=== PATIENT | female | born 1935 | race Caucasian/White ===

== ENCOUNTER → 2018-03-30 10:26 | Outpatient (CLI) | payer MEDICARE, SELFPAY ==
[2018-03-30 11:17] LABS: Add Manual Diff / Slide Review NO; Basophils Percent Auto 0.3 % (0-2); Eosinophils Percent Auto 3.9 % (2-4); Lymphocytes Percent Auto 24.6 % (25-40); Mean Corpuscular HGB Conc 34.2 % (30-36); Mean Corpuscular Hemoglobin 31.3 PG (26-34); Mean Corpuscular Volume 91.5 fL (80-100); Monocytes Percent Auto 7.9 % (3-14); Neutrophils Absolute Auto 5100 /uL (3000-5900); Neutrophils Percent Auto 63.3 % (50-75); Platelet Count 243 X10^3/uL (150-400); Red Cell Distribution Width 15.4 % (11.6-14.8)
[2018-03-30 11:45] LABS: Alanine Aminotransferase 24 IU/L (9-52); Aspartate Aminotransferase 39 IU/L (14-36); Blood Urea Nitrogen 20 mg/dL (7-17); Carbon Dioxide 29 mmol/L (22-32); Chloride 96 mmol/L (98-107); Cholesterol 147 mg/dL (140-199); Estimated Glomerular Filt Rate 53.2 mL/min (>60); Glucose 107 mg/dL (80-110); HDL Cholesterol 53 mg/dL (40-60); HEMOLYSIS < 15 (0-50); LDL Cholesterol Calculated 85 mg/dL (<100); Sodium 133 mmol/L (137-145); Triglycerides 44 mg/dL (35-150)
== END ==
PROVIDERS: Visit Provider Internal Medicine
DX: N18.3 Chronic kidney disease, stage 3 (moderate) (principal); E78.5 Hyperlipidemia, unspecified; K27.9 Peptic ulcer, site unspecified, unspecified as acute or chronic, without hemorrhage or perforation
CPT/HCPCS: 36415; 80048; 80061; 84450; 84460; 85025

== ENCOUNTER → 2018-06-15 17:14 | Outpatient (REF) | payer MEDICARE, SELFPAY ==
[2018-06-15 17:28] LABS: BUN Creatinine Ratio 35.8 (6-22); Blood Urea Nitrogen 43 mg/dL (7-17); Calcium 9.9 mg/dL (8.4-10.2); Carbon Dioxide 28 mmol/L (22-32); Chloride 94 mmol/L (98-107); Estimated Glomerular Filt Rate 43.1 mL/min (>60); Glucose 99 mg/dL (80-110); HEMOLYSIS < 15 (0-50); Potassium 4.7 mmol/L (3.4-5.1); Sodium 134 mmol/L (137-145)
== END ==
LOC: LAB 17:14
PROVIDERS: Visit Provider Internal Medicine
DX: I50.9 Heart failure, unspecified (principal)
CPT/HCPCS: 80048; 83880

== ENCOUNTER → 2018-06-24 14:58 | Outpatient (CLI) | payer MEDICARE, SELFPAY ==
--- NOTE | 2018-06-24 08:00 | DI.ECHO.S_ITS ---
Echocardiogram Report + + :Name: SHANNAN APPLE Study Date: 06/24/2018 Height: 59 in : :[facility] Weight: 222 lb : : Gender: Female BSA: 1.9 m2 : :: 1935 Age: 82 yrs BP: 168/66 mmHg: :Reason For Study: Congestive Heart Failure : : Performed By: Eileen Brown : :Referring: MARTINEZ REHMAN : + + Interpretation Summary Normal left ventricle size with ejection fraction 60-65%. Severely dilated left atrium. TAVR is well seated. Moderate mitral annular calcification. Mild mitral regurgitation. Mild to moderate tricuspid regurgitation. The right ventricular systolic pressure is estimated to be at least 64 mmHg based on an estimated right atrial pressure of 3 mm Hg. Moderate-severe pulmonary hypertension. Procedure: A two-dimensional transthoracic echocardiogram with color flow and Doppler was performed. The study quality was technically good. There is no prior echocardiogram noted for this patient. The patient was in normal sinus rhythm during the exam. Left Ventricle: The left ventricle is normal in size. There is normal left ventricular wall thickness. The ejection fraction is estimated to be 60-65%. There are no focal wall motion abnormalities. Diastolic parameters suggest probable normal left ventricular diastolic function and normal filling pressures. Right Ventricle: The right ventricle grossly appears normal in size with probable normal systolic function. Atria: The left atrium is severely dilated. Right atrial size is normal. The interatrial septum is intact with no evidence for an atrial septal defect. Mitral Valve: The mitral valve leaflets appear mildly thickened, but open well. There is moderate mitral annular calcification. There is mild mitral regurgitation. Aortic Valve: TAVR is well seated. The peak aortic velocity is 1.99 m/sec. There is trace aortic regurgitation. Tricuspid Valve: The tricuspid valve leaflets are thin and pliable. There is mild to moderate tricuspid regurgitation. The right ventricular systolic pressure is estimated to be at least 64 mmHg based on an estimated right atrial pressure of 3 mm Hg. There is moderate-severe pulmonary hypertension. Pulmonic Valve: The pulmonic valve is not well seen, but is grossly normal. There is trace pulmonic regurgitation. Great Vessels: The dimensions of the ascending aorta are normal. The aortic arch is normal in size. The IVC is of normal diameter and collapses greater than 50% with a sniff. This suggests a low right atrial pressure of 3 mm Hg. Pericardium/ Pleura There is no pericardial effusion. There is no pleural effusion. MMode/2D Measurements & Calculations LVIDd: 4.8 cm LVOT diam: 1.7 cm LVIDs: 3.2 cm asc Aorta Diam: 3.4 cm FS: 32.6 % Ao Arch Diam (Prox Trans): 2.5 cm EPSS: 0.88 cm IVSd: 1.0 cm LVPWd: 0.99 cm LV green. diameter/BSA (cm/m^2): 2.5 LV sys. diameter/BSA (cm/m^2): 1.7 LA dimension: 4.9 cm RA long axis: 5.5 cm LA A2 area: 30.9 cm2 RA area: 17.7 cm2 LA A4 area: 34.6 cm2 RA vol: 48.5 ml LA length (vol): 6.5 cm RA : 25.2 ml/m2 LA vol: 139.5 ml IVC diam: 1.7 cm LA vol index: 72.4 ml/m2 RVDd major: 5.7 cm RVD1 (basal): 3.9 cm RVD2 (mid): 3.7 cm Doppler Measurements & Calculations Ao V2 max: 199.3 cm/sec LVOT Max Isai: 91.6 cm/sec Ao V2 mean: 119.2 cm/sec LV V1 max P.4 mmHg Ao max P.9 mmHg LV V1 VTI: 29.1 cm Ao mean P.9 mmHg TERE(I,D): 1.3 cm2 Ao V2 VTI: 50.2 cm TERE(V,D): 0.99 cm2 sev ratio: 0.58 TERE indexed to BSA (cm^2/m^2): 0.65 MV E max isai: 132.2 cm/sec TR max isai: 391.0 cm/sec MV A max isai: 102.5 cm/sec TR max P.1 mmHg MV E/A: 1.3 PA Accel Time: 0.11 sec MV dec time: 0.25 sec MV P1/2t: 75.1 msec MV P1/2t max isai: 132.3 cm/sec SV(LVOT): 62.8 ml MVA(P1/2t): 2.9 cm2 _ Electronically signed by: Eloy Prieto on Reading Physician:06/24/2018 05:34 PM
== END ==
PROVIDERS: PCP Internal Medicine; Visit Provider Internal Medicine
DX: I08.1 Rheumatic disorders of both mitral and tricuspid valves (principal); I50.9 Heart failure, unspecified; I27.20 Pulmonary hypertension, unspecified
CPT/HCPCS: 93306

== ENCOUNTER → 2018-07-19 11:59 | Outpatient (CLI) | payer MEDICARE, SELFPAY ==
[2018-07-19 12:19] LABS: Add Manual Diff / Slide Review NO; Basophils Absolute Auto 0 /uL (0-100); Basophils Percent Auto 0.4 % (0-2); Eosinophils Absolute Auto 400 /uL (0-450); Eosinophils Percent Auto 5.3 % (2-4); Hematocrit 24.5 % (36-46); Hemoglobin 8.4 g/dL (12.0-16.0); Lymphocytes Absolute Auto 1200 /uL (1100-4500); Lymphocytes Percent Auto 18.4 % (25-40); Mean Corpuscular HGB Conc 34.2 % (30-36); Mean Corpuscular Hemoglobin 33.8 PG (26-34); Monocytes Absolute Auto 800 /uL (0-900); Monocytes Percent Auto 11.3 % (3-14); Neutrophils Absolute Auto 4300 /uL (1500-7000); Neutrophils Percent Auto 64.6 % (50-75); Platelet Count 211 X10^3/uL (150-400); Red Blood Cell Count 2.48 X10^6/uL (4.0-5.2); Red Cell Distribution Width 19.2 % (11.6-14.8); White Blood Cell Count 6.7 X10^3/uL (4.5-11.0)
== END ==
PROVIDERS: PCP Internal Medicine; Visit Provider Internal Medicine
DX: R79.9 Abnormal finding of blood chemistry, unspecified (principal)
CPT/HCPCS: 36415; 85025

== ENCOUNTER 2018-09-10 16:35 | Inpatient (IN) | payer MEDICARE, SELFPAY ==
[2018-09-10 16:46] VITALS: BP 131/65; PULSE 50; RESP 18; TEMP 35.9; O2SAT 99
[2018-09-10] MEDS: ALBUTEROL 2.5 MG/3 ML NEB (ADULT) INH ×2 (16:51→16:52)
--- NOTE | 2018-09-10 16:52 | ED.CHESTPAIN ---
HPI - Chest Pain General Chief Complaint: Chest Pain Stated Complaint: Chest Pain Time Seen by Provider: 09/10/18 16:38 Source: patient, family (daughter) and EMS Mode of arrival: EMS Limitations: no limitations History of Present Illness HPI narrative: This is an 83-year-old female who comes in with complaint of shortness of breath. According to the patient and her family it has been worsening over the last several days. Patient has been seeing her programs director who has been adjusting her medications. They increased her furosemide from 60 mg for 3 days and then the plan was reduced to 40 mg daily. He also had her stop her losartan and change her hydralazine to twice daily. Patient states she has not had any fevers, no cold cough or congestion. She has felt short of breath she has received neb treatments which she found very helpful. She does have a history sounds like maybe some COPD and she has a remote history of tobacco abuse and does use inhalers at home. Her heart rate is slow intermittently here and she appears to be in AFib which she states she does not have a history of. She has had chest discomfort with deep breathing. She has not had any abdominal pain she denies any nausea or vomiting. she has not had any syncope. Related Data Home Medications Medication Instructions Recorded Confirmed acyclovir 400 mg PO BID 09/10/18 09/10/18 ascorbic acid (vitamin C) [Vitamin 250 mg PO DAILY 09/10/18 09/10/18 C] atorvastatin 20 mg PO BEDTIME 09/10/18 09/10/18 calcium citrate-vitamin D3 1 tab PO DAILY 09/10/18 09/10/18 [Calcitrate-Vitamin D] carvedilol 12.5 mg PO BID 09/10/18 09/10/18 cetirizine 10 mg PO DAILY 09/10/18 09/10/18 ferrous gluconate 324 mg PO BID 09/10/18 09/10/18 fish,bora,flax oils-om3,6,9no1 1 tab PO DAILY 09/10/18 09/10/18 [[place] 3-6-9] furosemide See Rx Instructions .ROUTE .COMPLEX 09/10/18 09/10/18 hydralazine 50 mg PO BID 09/10/18 09/10/18 levothyroxine 25 mcg PO DAILY 09/10/18 09/10/18 melatonin 3 mg PO BEDTIME PRN 09/10/18 09/10/18 multivitamin 1 tab PO DAILY 09/10/18 09/10/18 omega-3 fatty acids-fish oil [Fish 1 cap PO DAILY 09/10/18 09/10/18 Oil Pearls] omeprazole magnesium [Acid Director Utilization Management 20 mg PO BID 09/10/18 09/10/18 (omeprazole)] ticagrelor [Brilinta] 90 mg PO BID 09/10/18 09/10/18 Allergies Allergy/AdvReac Type Severity Reaction Status Date / Time morphine AdvReac Hallucinati Verified 09/10/18 16:56 ng Review of Systems Review of Systems ROS Unobtainable: All systems reviewed & are unremarkable except as noted in HPI and below Constitutional Denies chills, Denies fever(s), Denies headache(s), Denies lethargy and Denies weakness ENT Ears, Nose, Mouth, and Throat: Denies headache(s) Cardiovascular Denies chest pain, Denies diaphoresis, Denies syncope, Reports edema, Denies irregular heart rhythm, Denies lightheadedness, Denies radiating jaw, neck or arm pain, Denies palpitations, Reports dyspnea, Reports dyspnea on exertion and Denies orthopnea Respiratory Denies chest congestion, Denies cough, Reports dyspnea, Reports dyspnea on exertion and Reports wheezing Gastrointestinal Gastrointestinal: Denies abdominal pain, Denies change in bowel habits, Denies diarrhea, Denies nausea and Denies vomiting Musculoskeletal Denies back pain, Denies muscle weakness, Denies numbness and Denies tingling Integumentary/Breasts Denies rash Neurologic Denies syncope, Denies headache(s), Denies numbness, Denies tingling and Denies weakness Endocrine Denies palpitations Allergic/Immunologic Reports wheezing PFSH Medical History Chronic kidney disease (Chronic) Hypertension (Chronic) Hypothyroid (Chronic) Surgical History Hx of heart artery stent (Acute) S/P TAVR (transcatheter aortic valve replacement) (Chronic) Social History Smoking Status: Former smoker substance use type: does not use Social History Smoking Status: Former smoker substance use type: does not use Exam Narrative Exam Narrative: GENERAL: Alert and oriented x three, Obese female in moderate distress. HEENT: Head normocephalic, atraumatic, EOMI, pupils reactive, face symmetric, moist mucous membranes NECK: Supple, full range of motion CARDIOVASCULAR: Bradycardic and irregularly irregularand rhythm without murmurs, rubs or gallops. patient has bilateral trace edema. Her lower extremities RESPIRATORY: Breath sounds decreased bilateral, no wheezes, no rales or rhonchi. tachypnea. No accessory muscle use. ABDOMEN: Soft, nontender. Normoactive bowel sounds all 4 quadrants. No guarding or rebound, rigidity, no mass : No CVA tenderness EXTREMITIES: Normal range of motion, no clubbing or edema. Neurovascularly intact NEUROLOGICAL: Cranial nerves II through XII grossly intact. Moving all extremities SKIN: Warm, dry, no petechiae, no rashes or lesions. Initial Vital Signs Initial Vital Signs: Vital Signs Temperature 96.6 F L 09/10/18 16:46 Pulse Rate 50 L 09/10/18 16:46 Respiratory Rate 18 09/10/18 16:46 Blood Pressure 131/65 09/10/18 16:46 Pulse Oximetry 99 09/10/18 16:46 Course Orders Ordered: ED Orders 09/10/18 16:50 Consult to Respiratory Therapy Evaluate & Treat 09/10/18 16:51 XR chest 1V Stat 09/10/18 17:00 B Type Natriuretic Peptide Stat Complete Blood Count AUTO DIFF Stat Comprehensive Metabolic Panel Stat Magnesium Stat Partial Thromboplastin Time Stat Procalcitonin Stat Prothrombin Time INR Stat Troponin & CK Cardiac Panel Stat 09/10/18 17:40 Lactate (Lactic Acid) Stat 09/10/18 20:36 Partial Thromboplastin Time Stat 09/10/18 20:45 PTT [Partial Thromboplastin Time] Q6H 09/11/18 02:45 PTT [Partial Thromboplastin Time] Q6H 09/11/18 05:00 Hemoglobin and Hematocrit DAILY 09/11/18 08:45 PTT [Partial Thromboplastin Time] Q6H 09/11/18 14:45 PTT [Partial Thromboplastin Time] Q6H Albuterol (Ventolin) 2.5 mg INH NOW PRN PRN Reason: Shortness Of Breath Or Wheezing Last Admin: 09/10/18 16:52 Dose: 2.5 mg Admin: 09/10/18 16:51 Dose: 2.5 mg Discontinued Medications Aspirin (Aspirin Chew) 324 mg PO NOW ONE Stop: 09/10/18 16:51 Last Admin: 09/10/18 17:00 Dose: 324 mg Furosemide (Lasix) 80 mg IV NOW ONE Stop: 09/10/18 16:51 Last Admin: 09/10/18 17:01 Dose: 80 mg Methylprednisolone (Solu-Medrol 125 Mg Vial) 125 mg IV NOW ONE Stop: 09/10/18 16:51 Last Admin: 09/10/18 16:59 Dose: 125 mg Vital Signs - 8 hr 09/10/18 16:46 09/10/18 16:53 Temperature 96.6 F L Pulse Rate 50 L 42 L Respiratory Rate 18 14 Blood Pressure 131/65 Pulse Oximetry 99 100 MDM - Chest Pain Lab Data Attestation: I reviewed the patient's lab results. Result diagrams: 09/10/18 17:00 09/10/18 17:00 Lab Results 09/10/18 09/10/18 09/10/18 Range/Units 17:00 17:00 17:00 WBC 8.1 (4.5-11.0) X10^3/uL RBC 2.76 L (4.0-5.2) X10^6/uL Hgb 9.5 L (12.0-16.0) g/dL Hct 28.4 L (36-46) % MCV 103.2 H (80-100) fL MCH 34.3 H (26-34) PG MCHC 33.3 (30-36) % RDW 17.5 H (11.6-14.8) % Plt Count 155 (150-400) X10^3/uL Neut % (Auto) 76.3 H (50-75) % Lymph % (Auto) 10.5 L (25-40) % [place] % (Auto) 10.5 (3-14) % Eos % (Auto) 2.4 (2-4) % Baso % (Auto) 0.3 (0-2) % Neut # (Auto) 6200 (9349-0741) /uL Lymph # (Auto) 900 L (6927-0319) /uL [place] # (Auto) 900 (0-900) /uL Eos # (Auto) 200 (0-450) /uL Baso # (Auto) 0 (0-100) /uL PT 12.8 H (10.1-12.7) SECONDS INR 1.1 (0.9-1.3) APTT 37 H (26.4-36.2) SECONDS Sodium (137-145) mmol/L Potassium (3.4-5.1) mmol/L Chloride (98-107) mmol/L Carbon Dioxide (22-32) mmol/L BUN (7-17) mg/dL Creatinine (0.52-1.04) mg/dL Estimated GFR (>60) mL/min BUN/Creatinine Ratio (6-22) Glucose (80-110) mg/dL Lactate (0.7-2.1) mmol/L Calcium (8.4-10.2) mg/dL Magnesium 2.1 (1.6-2.3) mg/dL Total Bilirubin (0.2-1.3) mg/dL AST (14-36) IU/L ALT (9-52) IU/L Alkaline Phosphatase (38-126) U/L Total Creatine Kinase 38 (30-135) U/L CK-MB (CK-2) TNP CK-MB (CK-2) Rel Index TNP Troponin I < 0.012 (0.01-0.034) ng/mL B-Natriuretic Peptide 917 H (<100) Total Protein (6.3-8.2) g/dL Albumin (3.5-5.0) g/dL Globulin (1.7-4.1) g/dL Albumin/Globulin Ratio (1.0-2.8) Procalcitonin (<0.5) ng/mL 09/10/18 09/10/18 09/10/18 Range/Units 17:00 17:00 17:40 WBC (4.5-11.0) X10^3/uL RBC (4.0-5.2) X10^6/uL Hgb (12.0-16.0) g/dL Hct (36-46) % MCV (80-100) fL MCH (26-34) PG MCHC (30-36) % RDW (11.6-14.8) % Plt Count (150-400) X10^3/uL Neut % (Auto) (50-75) % Lymph % (Auto) (25-40) % [place] % (Auto) (3-14) % Eos % (Auto) (2-4) % Baso % (Auto) (0-2) % Neut # (Auto) (3661-6032) /uL Lymph # (Auto) (9985-7866) /uL [place] # (Auto) (0-900) /uL Eos # (Auto) (0-450) /uL Baso # (Auto) (0-100) /uL PT (10.1-12.7) SECONDS INR (0.9-1.3) APTT (26.4-36.2) SECONDS Sodium 133 L (137-145) mmol/L Potassium 5.3 H (3.4-5.1) mmol/L Chloride 98 (98-107) mmol/L Carbon Dioxide 25 (22-32) mmol/L BUN 72 H (7-17) mg/dL Creatinine 1.90 H (0.52-1.04) mg/dL Estimated GFR 25.3 L (>60) mL/min BUN/Creatinine Ratio 37.9 H (6-22) Glucose 108 (80-110) mg/dL Lactate 0.9 (0.7-2.1) mmol/L Calcium 9.4 (8.4-10.2) mg/dL Magnesium (1.6-2.3) mg/dL Total Bilirubin 0.6 (0.2-1.3) mg/dL AST 41 H (14-36) IU/L ALT 33 (9-52) IU/L Alkaline Phosphatase 180 H (38-126) U/L Total Creatine Kinase (30-135) U/L CK-MB (CK-2) CK-MB (CK-2) Rel Index Troponin I (0.01-0.034) ng/mL B-Natriuretic Peptide (<100) Total Protein 7.8 (6.3-8.2) g/dL Albumin 3.8 (3.5-5.0) g/dL Globulin 4.0 (1.7-4.1) g/dL Albumin/Globulin Ratio 1.0 (1.0-2.8) Procalcitonin < 0.05 (<0.5) ng/mL Urine Dip Bedside Urine Glucose Negative Bedside Urine Bilirubin - Negative Bedside Urine Ketone - Negative Urine Specific [place] 1.015 Bedside Urine Occult Blood - Negative Bedside Urine pH 5.5 Bedside Urine Protein - Negative Bedside Urine Urobilinogen - Negative Bedside Urine Nitrite - Negative Bedside Urine Leukocytes - Negative Esterase Imaging Data Chest x-ray: Radiologist's impression: Kristen Dsouza 83 F [address] [address] XRay Report Signed Patient: Kristen Dsouza [facility]#: [id number] : 7Acct:[id number] Age/Sex: 83 / FDate of Service: 09/10/18 Loc: ED Accession Number: [id number] Procedure: XR chest 1V Ordering Provider: Spring Sagastume D.O. PROCEDURE: XR CHEST 1V INDICATIONS: sob, extra fluid TECHNIQUE: One view of the chest was acquired. COMPARISON: None. FINDINGS: Surgical changes and devices: Prosthetic cardiac valve. Lungs and pleura: There is cephalization of the pulmonary vasculature, interstitial prominence and slight perihilar opacification compatible with CHF. No pleural effusions or pneumothorax. Mediastinum: Mediastinal contours appear normal. Atherosclerotic ossifications noted in the aortic arch. Heart size is normal. Bones and chest wall: No suspicious bony lesions. Overlying soft tissues appear unremarkable. IMPRESSION: Acute CHF. Dictated by: Hannah Olea MD, PhD on 09/10/2018 at 17:36 Approved by: Hannah Olea MD, PhD on 09/10/2018 at 17:37 ECG Data Attestation: I personally reviewed and interpreted this ECG as follows: Prior ECG tracings: available for review Interpretation: AFib with a rate of 60 QRS of 144 and QTC of 468. Right bundle branch block. No ST changes appreciated. Patient's prior EKG from 06/22/2018 as well as several others for all show a sinus rhythm. With an incomplete right bundle branch block. EKG 2. Shows AFib with slow ventricular response with a rate of 52, QRS of 125 and a QTC of 424. right bundle branch block. [facility] Narrative Medical decision making narrative: Patient comes in with some difficulty breathing patient states that she is feeling much better after breathing treatment but she also has been treated recently for worsening CHF. Patient has had recent changes to her medications. I do not have recent labs for comparison and the last are from May of 2018. Patient's creatinine appears to worsen from 1.2-1.9, BUN is 43-72, patient's potassium is slightly elevated 5.3 with a sodium of 133. Patient's lactate is 0.9. Her BNP is 917 which is up from 456 in May. Patient's troponin is normal at 0.12. Patient's hemoglobin is 9.5 which is improved from June which was 8.4, platelets are normal at 155. Patient's chest x-ray is consistent with CHF. Discussed with patient her EKGs and telemetry she consistently show atrial fibrillation she is a fairly poor historian but her and her daughter do not recall her having any diagnosis of AFib. She also has a TAVR in place. She states that she takes Brilinta she does not take aspirin that she is aware of. Or any other blood thinners. Spoke with Dr. Longoria from Cardiology he recommends heparin drip secondary to the new atrial fibrillation and to continue Brilinta but does not recommend aspirin in combination with these. If beds available would send to [facility]. Spoke with Arnoldo REGALADO he accepts for admission, discussed Dr. Longoria's recommendations. Discharge Plan Departure Patient Disposition: Admitted As Inpatient Clinical Impression: CHF (congestive heart failure), Acute kidney injury superimposed on CKD, Atrial fibrillation with slow ventricular response Referrals: Amanda Mann MD [Primary Care Provider] - Admit Date/Time: 09/10/18 20:21 Admit Provider: Cesar Garza
[2018-09-10 16:53] VITALS: PULSE 42; RESP 14; O2SAT 100
[2018-09-10] MEDS: methylPREDNISolone 125 MG/2 ML VIAL IV (16:59)
[2018-09-10] MEDS: ASPIRIN 81 MG TAB 324 MG PO (17:00)
[2018-09-10] MEDS: FUROSEMIDE 40 MG/4 ML VIAL 80 MG IV (17:01)
[2018-09-10 17:20] LABS: Add Manual Diff / Slide Review NO; Basophils Absolute Auto 0 /uL (0-100); Basophils Percent Auto 0.3 % (0-2); Eosinophils Absolute Auto 200 /uL (0-450); Eosinophils Percent Auto 2.4 % (2-4); Hematocrit 28.4 % (36-46); Hemoglobin 9.5 g/dL (12.0-16.0); Lymphocytes Absolute Auto 900 /uL (1100-4500); Lymphocytes Percent Auto 10.5 % (25-40); Mean Corpuscular HGB Conc 33.3 % (30-36); Mean Corpuscular Hemoglobin 34.3 PG (26-34); Mean Corpuscular Volume 103.2 fL (80-100); Monocytes Absolute Auto 900 /uL (0-900); Monocytes Percent Auto 10.5 % (3-14); Neutrophils Absolute Auto 6200 /uL (1500-7000); Neutrophils Percent Auto 76.3 % (50-75); Platelet Count 155 X10^3/uL (150-400); Red Blood Cell Count 2.76 X10^6/uL (4.0-5.2); Red Cell Distribution Width 17.5 % (11.6-14.8); White Blood Cell Count 8.1 X10^3/uL (4.5-11.0)
[2018-09-10 17:24] LABS: INR 1.1 (0.9-1.3); Prothrombin Time 12.8 SECONDS (10.1-12.7)
[2018-09-10 17:27] LABS: PTT Partial Thromboplastin Tim 37 SECONDS (26.4-36.2)
[2018-09-10 17:34] LABS: Alanine Aminotransferase 33 IU/L (9-52); Albumin 3.8 g/dL (3.5-5.0); Alkaline Phosphatase 180 U/L (38-126); Aspartate Aminotransferase 41 IU/L (14-36); BUN Creatinine Ratio 37.9 (6-22); Bilirubin Total 0.6 mg/dL (0.2-1.3); Blood Urea Nitrogen 72 mg/dL (7-17); Calcium 9.4 mg/dL (8.4-10.2); Carbon Dioxide 25 mmol/L (22-32); Chloride 98 mmol/L (98-107); Creatine Kinase 38 U/L (30-135); Estimated Glomerular Filt Rate 25.3 mL/min (>60); Glucose 108 mg/dL (80-110); HEMOLYSIS < 15 (0-50); Magnesium 2.1 mg/dL (1.6-2.3); Potassium 5.3 mmol/L (3.4-5.1); Sodium 133 mmol/L (137-145); Total Protein 7.8 g/dL (6.3-8.2)
[2018-09-10 17:43] LABS: Troponin I < 0.012 ng/mL (0.01-0.034)
[2018-09-10 17:50] LABS: Procalcitonin < 0.05 ng/mL (<0.5)
[2018-09-10 17:51] LABS: B Type Natriuretic Peptide 917 (<100)
[2018-09-10 18:00] LABS: Lactate (Lactic Acid) 0.9 mmol/L (0.7-2.1)
--- NOTE | 2018-09-10 19:08 | ED_ITS ---
HPI - Chest Pain General Chief Complaint: Chest Pain Stated Complaint: Chest Pain Time Seen by Provider: 09/10/18 16:38 Source: patient, family (daughter) and EMS Mode of arrival: EMS Limitations: no limitations History of Present Illness HPI narrative: This is an 83-year-old female who comes in with complaint of shortness of breath. According to the patient and her family it has been worsening over the last several days. Patient has been seeing her precision jig grinder who has been adjusting her medications. They increased her furosemide from 60 mg for 3 days and then the plan was reduced to 40 mg daily. He also had her stop her losartan and change her hydralazine to twice daily. Patient states she has not had any fevers, no cold cough or congestion. She has felt short of breath she has received neb treatments which she found very helpful. She does have a history sounds like maybe some COPD and she has a remote history of tobacco abuse and does use inhalers at home. Her heart rate is slow intermit tently here and she appears to be in AFib which she states she does not have a history of. She has had chest discomfort with deep breathing. She has not had any abdominal pain she denies any nausea or vomiting. she has not had any syncope. Related Data Home Medications Medication Instructions Recorded Confirmed acyclovir 400 mg PO BID 09/10/18 09/10/18 ascorbic acid (vitamin C) [Vitamin 250 mg PO DAILY 09/10/18 09/10/18 C] atorvastatin 20 mg PO BEDTIME 09/10/18 09/10/18 calcium citrate-vitamin D3 1 tab PO DAILY 09/10/18 09/10/18 [Calcitrate-Vitamin D] carvedilol 12.5 mg PO BID 09/10/18 09/10/18 cetirizine 10 mg PO DAILY 09/10/18 09/10/18 ferrous gluconate 324 mg PO BID 09/10/18 09/10/18 fish,bora,flax oils-om3,6,9no1 1 tab PO DAILY 09/10/18 09/10/18 [[place] 3-6-9] furosemide See Rx Instructions .ROUTE .COMPLEX 09/10/18 09/10/18 hydralazine 50 mg PO BID 09/10/18 09/10/18 levothyroxine 25 mcg PO DAILY 09/10/18 09/10/18 melatonin 3 mg PO BEDTIME PRN 09/10/18 09/10/18 multivitamin 1 tab PO DAILY 09/10/18 09/10/18 omega-3 fatty acids-fish oil [Fish 1 cap PO DAILY 09/10/18 09/10/18 Oil Pearls] omeprazole magnesium [Acid Sausage Wrapper 20 mg PO BID 09/10/18 09/10/18 (omeprazole)] ticagrelor [Brilinta] 90 mg PO BID 09/10/18 09/10/18 Allergies Allergy/AdvReac Type Severity Reaction Status Date / Time morphine AdvReac Hallucinati Verified 09/10/18 16:56 ng Review of Systems Review of Systems ROS Unobtainable: All systems reviewed & are unremarkable except as noted in HPI and below Constitutional Denies chills, Denies fever(s), Denies headache(s), Denies lethargy and Denies weakness ENT Ears, Nose, Mouth, and Throat: Denies headache(s) Cardiovascular Denies chest pain, Denies diaphoresis, Denies syncope, Reports edema, Denies irregular heart rhythm, Denies lightheadedness, Denies radiating jaw, neck or arm pain, Denies palpitations, Reports dyspnea, Reports dyspnea on exertion and Denies orthopnea Respiratory Denies chest congestion, Denies cough, Reports dyspnea, Reports dyspnea on exertion and Reports wheezing Gastrointestinal Gastrointestinal: Denies abdominal pain, Denies change in bowel habits, Denies diarrhea, Denies nausea and Denies vomiting Musculoskeletal Denies back pain, Denies muscle weakness, Denies numbness and Denies tingling Integumentary/Breasts Denies rash Neurologic Denies syncope, Denies headache(s), Denies numbness, Denies tingling and Denies weakness Endocrine Denies palpitations Allergic/Immunologic Reports wheezing PFSH Medical History Chronic kidney disease (Chronic) Hypertension (Chronic) Hypothyroid (Chronic) Surgical History Hx of heart artery stent (Acute) S/P TAVR (transcatheter aortic valve replacement) (Chronic) Social History Smoking Status: Former smoker substance use type: does not use Social History Smoking Status: Former smoker substance use type: does not use Exam Narrative Exam Narrative: GENERAL: Alert and oriented x three, Obese female in moderate distress. HEENT: Head normocephalic, atraumatic, EOMI, pupils reactive, face symmetric, moist mucous membranes NECK: Supple, full range of motion CARDIOVASCULAR: Bradycardic and irregularly irregularand rhythm without murmurs, rubs or gallops. patient has bilateral trace edema. Her lower extremities RESPIRATORY: Breath sounds decreased bilateral, no wheezes, no rales or rhonchi. tachypnea. No accessory muscle use. ABDOMEN: Soft, nontender. Normoactive bowel sounds all 4 quadrants. No guarding or rebound, rigidity, no mass : No CVA tenderness EXTREMITIES: Normal range of motion, no clubbing or edema. Neurovascularly intact NEUROLOGICAL: Cranial nerves II through XII grossly intact. Moving all extremities SKIN: Warm, dry, no petechiae, no rashes or lesions. Initial Vital Signs Initial Vital Signs: Vital Signs Temperature 96.6 F L 09/10/18 16:46 Pulse Rate 50 L 09/10/18 16:46 Respiratory Rate 18 09/10/18 16:46 Blood Pressure 131/65 09/10/18 16:46 Pulse Oximetry 99 09/10/18 16:46 Course Orders Ordered: ED Orders 09/10/18 16:50 Consult to Respiratory Therapy Evaluate & Treat 09/10/18 16:51 XR chest 1V Stat 09/10/18 17:00 B Type Natriuretic Peptide Stat Complete Blood Count AUTO DIFF Stat Comprehensive Metabolic Panel Stat Magnesium Stat Partial Thromboplastin Time Stat Procalcitonin Stat Prothrombin Time INR Stat Troponin & CK Cardiac Panel Stat 09/10/18 17:40 Lactate (Lactic Acid) Stat 09/10/18 20:36 Partial Thromboplastin Time Stat 09/10/18 20:45 PTT [Partial Thromboplastin Time] Q6H 09/11/18 02:45 PTT [Partial Thromboplastin Time] Q6H 09/11/18 05:00 Hemoglobin and Hematocrit DAILY 09/11/18 08:45 PTT [Partial Thromboplastin Time] Q6H 09/11/18 14:45 PTT [Partial Thromboplastin Time] Q6H Albuterol (Ventolin) 2.5 mg INH NOW PRN PRN Reason: Shortness Of Breath Or Wheezing Last Admin: 09/10/18 16:52 Dose: 2.5 mg Admin: 09/10/18 16:51 Dose: 2.5 mg Discontinued Medications Aspirin (Aspirin Chew) 324 mg PO NOW ONE Stop: 09/10/18 16:51 Last Admin: 09/10/18 17:00 Dose: 324 mg Furosemide (Lasix) 80 mg IV NOW ONE Stop: 09/10/18 16:51 Last Admin: 09/10/18 17:01 Dose: 80 mg Methylprednisolone (Solu-Medrol 125 Mg Vial) 125 mg IV NOW ONE Stop: 09/10/18 16:51 Last Admin: 09/10/18 16:59 Dose: 125 mg Vital Signs - 8 hr 09/10/18 16:46 09/10/18 16:53 Temperature 96.6 F L Pulse Rate 50 L 42 L Respiratory Rate 18 14 Blood Pressure 131/65 Pulse Oximetry 99 100 MDM - Chest Pain Lab Data Attestation: I reviewed the patient's lab results. Result diagrams: 09/10/18 17:00 09/10/18 17:00 Lab Results 09/10/18 09/10/18 09/10/18 Range/Units 17:00 17:00 17:00 WBC 8.1 (4.5-11.0) X10^3/uL RBC 2.76 L (4.0-5.2) X10^6/uL Hgb 9.5 L (12.0-16.0) g/dL Hct 28.4 L (36-46) % MCV 103.2 H (80-100) fL MCH 34.3 H (26-34) PG MCHC 33.3 (30-36) % RDW 17.5 H (11.6-14.8) % Plt Count 155 (150-400) X10^3/uL Neut % (Auto) 76.3 H (50-75) % Lymph % (Auto) 10.5 L (25-40) % [place] % (Auto) 10.5 (3-14) % Eos % (Auto) 2.4 (2-4) % Baso % (Auto) 0.3 (0-2) % Neut # (Auto) 6200 (2038-3925) /uL Lymph # (Auto) 900 L (3406-9860) /uL [place] # (Auto) 900 (0-900) /uL Eos # (Auto) 200 (0-450) /uL Baso # (Auto) 0 (0-100) /uL PT 12.8 H (10.1-12.7) SECONDS INR 1.1 (0.9-1.3) APTT 37 H (26.4-36.2) SECONDS Sodium (137-145) mmol/L Potassium (3.4-5.1) mmol/L Chloride (98-107) mmol/L Carbon Dioxide (22-32) mmol/L BUN (7-17) mg/dL Creatinine (0.52-1.04) mg/dL Estimated GFR (>60) mL/min BUN/Creatinine Ratio (6-22) Glucose (80-110) mg/dL Lactate (0.7-2.1) mmol/L Calcium (8.4-10.2) mg/dL Magnesium 2.1 (1.6-2.3) mg/dL Total Bilirubin (0.2-1.3) mg/dL AST (14-36) IU/L ALT (9-52) IU/L Alkaline Phosphatase (38-126) U/L Total Creatine Kinase 38 (30-135) U/L CK-MB (CK-2) TNP CK-MB (CK-2) Rel Index TNP Troponin I < 0.012 (0.01-0.034) ng/mL B-Natriuretic Peptide 917 H (<100) Total Protein (6.3-8.2) g/dL Albumin (3.5-5.0) g/dL Globulin (1.7-4.1) g/dL Albumin/Globulin Ratio (1.0-2.8) Procalcitonin (<0.5) ng/mL 09/10/18 09/10/18 09/10/18 Range/Units 17:00 17:00 17:40 WBC (4.5-11.0) X10^3/uL RBC (4.0-5.2) X10^6/uL Hgb (12.0-16.0) g/dL Hct (36-46) % MCV (80-100) fL MCH (26-34) PG MCHC (30-36) % RDW (11.6-14.8) % Plt Count (150-400) X10^3/uL Neut % (Auto) (50-75) % Lymph % (Auto) (25-40) % [place] % (Auto) (3-14) % Eos % (Auto) (2-4) % Baso % (Auto) (0-2) % Neut # (Auto) (2964-7994) /uL Lymph # (Auto) (0129-9341) /uL [place] # (Auto) (0-900) /uL Eos # (Auto) (0-450) /uL Baso # (Auto) (0-100) /uL PT (10.1-12.7) SECONDS INR (0.9-1.3) APTT (26.4-36.2) SECONDS Sodium 133 L (137-145) mmol/L Potassium 5.3 H (3.4-5.1) mmol/L Chloride 98 (98-107) mmol/L Carbon Dioxide 25 (22-32) mmol/L BUN 72 H (7-17) mg/dL Creatinine 1.90 H (0.52-1.04) mg/dL Estimated GFR 25.3 L (>60) mL/min BUN/Creatinine Ratio 37.9 H (6-22) Glucose 108 (80-110) mg/dL Lactate 0.9 (0.7-2.1) mmol/L Calcium 9.4 (8.4-10.2) mg/dL Magnesium (1.6-2.3) mg/dL Total Bilirubin 0.6 (0.2-1.3) mg/dL AST 41 H (14-36) IU/L ALT 33 (9-52) IU/L Alkaline Phosphatase 180 H (38-126) U/L Total Creatine Kinase (30-135) U/L CK-MB (CK-2) CK-MB (CK-2) Rel Index Troponin I (0.01-0.034) ng/mL B-Natriuretic Peptide (<100) Total Protein 7.8 (6.3-8.2) g/dL Albumin 3.8 (3.5-5.0) g/dL Globulin 4.0 (1.7-4.1) g/dL Albumin/Globulin Ratio 1.0 (1.0-2.8) Procalcitonin < 0.05 (<0.5) ng/mL Urine Dip Bedside Urine Glucose Negative Bedside Urine Bilirubin - Negative Bedside Urine Ketone - Negative Urine Specific [place] 1.015 Bedside Urine Occult Blood - Negative Bedside Urine pH 5.5 Bedside Urine Protein - Negative Bedside Urine Urobilinogen - Negative Bedside Urine Nitrite - Negative Bedside Urine Leukocytes - Negative Esterase Imaging Data Chest x-ray: Radiologist's impression: Kristen Dsouza 83 F [address] [address] XRay Report Signed Patient: Kristen Dsouza AMR#: [id number] : 7Acct:[id number] Age/Sex: 83 / FDate of Service: 09/10/18 Loc: ED Accession Number: [id number] Procedure: XR chest 1V Ordering Provider: Spring Sagastume D.O. PROCEDURE: XR CHEST 1V INDICATIONS: sob, extra fluid TECHNIQUE: One view of the chest was acquired. COMPARISON: None. FINDINGS: Surgical changes and devices: Prosthetic cardiac valve. Lungs and pleura: There is cephalization of the pulmonary vasculature, interstitial prominence and slight perihilar opacification compatible with CHF. No pleural effusions or pneumothorax. Mediastinum: Mediastinal contours appear normal. Atherosclerotic ossifications noted in the aortic arch. Heart size is normal. Bones and chest wall: No suspicious bony lesions. Overlying soft tissues appear unremarkable. IMPRESSION: Acute CHF. Dictated by: Hannah Olea MD, PhD on 09/10/2018 at 17:36 Approved by: Hannah Olea MD, PhD on 09/10/2018 at 17:37 ECG Data Attestation: I personally reviewed and interpreted this ECG as follows: Prior ECG tracings: available for review Interpretation: AFib with a rate of 60 QRS of 144 and QTC of 468. Right bundle branch block. No ST changes appreciated. Patient's prior EKG from 06/22/2018 as well as several others for all show a sinus rhythm. With an incomplete right bundle branch block. EKG 2. Shows AFib with slow ventricular response with a rate of 52, QRS of 125 and a QTC of 424. right bundle branch block. MDM Narrative Medical decision making narrative: Patient comes in with some difficulty breathing patient states that she is feeling much better after breathing treatment but she also has been treated recently for worsening CHF. Patient has had recent changes to her medications. I do not have recent labs for comparison and the last are from May of 2018. Patient's creatinine appears to worsen from 1.2-1.9, BUN is 43-72, patient's potassium is slightly elevated 5.3 with a sodium of 133. Patient's lactate is 0.9. Her BNP is 917 which is up from 456 in May. Patient's troponin is normal at 0.12. Patient's hemoglobin is 9.5 which is improved from June which was 8.4, platelets are normal at 155. Patient's chest x-ray is consistent with CHF. Discussed with patient her EKGs and telemetry she consistently show atrial fibrillation she is a fairly poor his mando but her and her daughter do not recall her having any diagnosis of AFib. She also has a TAVR in place. She states that she takes Brilinta she does not take aspirin that she is aware of. Or any other blood thinners. Spoke with Dr. Longoria from Cardiology he recommends heparin drip secondary to the new atrial fibrillation and to continue Brilinta but does not recommend aspirin in combinat ion with these. If beds available would send to [facility]. Spoke with Arnoldo REGALADO he accepts for admission, discussed Dr. Longoria's recommendations. Discharge Plan Departure Patient Disposition: Admitted As Inpatient Clinical Impression: CHF (congestive heart failure), Acute kidney injury superimposed on CKD, Atrial fibrillation with slow ventricular response Referrals: Amanda Mann MD [Primary Care Provider] - Admit Date/Time: 09/10/18 20:21 Admit Provider: Cesar Garza
[2018-09-10 20:30] VITALS: BP 159/52; PULSE 60; RESP 16
[2018-09-10] MEDS: HEPARIN 5,000 UNIT/ML VIAL 5000 UNIT IV (20:57)
[2018-09-10] MEDS: HEPARIN DRIP 25,000 UNIT/500 ML IV.SOLN 20 UNIT IV (21:01)
[2018-09-10 21:35] LABS: PTT Partial Thromboplastin Tim 38 SECONDS (26.4-36.2)
[2018-09-10 21:38] VITALS: BMI 53.8
[2018-09-10 21:47] VITALS: BP 140/75; PULSE 76; RESP 20; TEMP 36.3; O2SAT 96
--- NOTE | 2018-09-10 22:43 | PC.NURSE ---
Safe handoff from ED, pt. came to floor at 2124. Pt has SOB, Pt on tele w/ afib at 2124. Pt has severe bilateral 3+ edema lower extremities. Doppler used to find pedal pulses, and marked. Pt has 20 resp per minute, and BP 140/75, Pulse rate 60. Pt has diminished lung sounds bilaterally. Pt had 200 ml of urine output. Exertion when breathing. She has multiple abraded areas on trunk and limbs documented on body image. Pt. has large pannus. Chest xray shows acute CHF. Daughter states that pt. was 222lbs in May but now is 262lbs.
--- NOTE | 2018-09-10 23:23 | P.HP_ITS ---
History of Present Illness Date Patient Seen: 09/10/18 Time Patient Seen: 22:42 Chief complaint: Chest Pain Narrative: Kristen Dsouza is an 83-year-old female with a history of coronary artery disease status post stenting on Brilinta, TAVR, CHF, atrial fibrillation hypertension, chronic kidney disease, and hypothyroidism who presents to the ER today with increased shortness of breath and chest pain bilaterally across the upper precordium. She had associated symptoms of shortness of breath and but no diaphoresis or nausea. She does report having a dry nonproductive cough with fatigue and worsening activity tolerance. The patient was seen by her chief steward/stewardess, Dr. Rubi, yesterday and had an increase in her Lasix from 20-40 mg and stopped her losartan. Patient denies headaches or dizziness has had no recent cold symptoms including nasal congestion or sore throat. She denies pa lpitations. She denies abdominal pain, nausea vomiting, diarrhea constipation. She reports no urinary difficulties. She typically has lower extremity swelling which is worse today than typical. Patient arrived in the ER at 4:46 p.m. at which time she was found to be afebrile at 96.6 with heart rate of 50 and a blood pressure of 131/65 and respiratory rate of 18 saturating 99% on room air. The patient had a chest x- ray taken which shows acute CHF and EKG which shows atrial fibrillation with right bundle branch block, Velma tear septal infarct age indeterminate. On laboratory analysis her CBC reveals a normal white count 8.1 anemia with a hemoglobin 9.5 and hematocrit 28.4 and platelets of 155. Her PTT is 12.8 with INR 1.1. Her baseline PTT is 38. She has lactate is 0.9 a negative procalcitonin less than 0.05, negative troponin at less than 0.012 and a BNP 972. On chemistry she has a sodium 133 with a potassium slightly elevated at 5.3 and a BUN of 72 with creatinine of 1.9 for an EGFR of 25.3 and a BUN creatinine ratio 37.9-1. She also has a mildly elevated AST at 41 and ALT of 33 and alkaline phosphatase elevated at 180. Her total bili was 0.6. She did have an echo completed on 06/24/2018 which noted the presence of a well-seated TAVR with severe left atrial dilation and mitral regurgitation and increased right ventricular systolic pressure estimated to be 64. In the ER the patient received Lasix 80 mg IV with the patient having a net output of over 990 mL. S he had nebulizer treatment and aspirin 325 mg a 5000 heparin bolus with a heparin drip started in the ER. Patient History Medical History Congestive heart failure (Acute) Coronary artery disease (Acute) GI bleed (Acute) Chronic kidney disease (Chronic) Hypertension (Chronic) Hypothyroid (Chronic) Surgical History Hx of heart artery stent (Acute) S/P TAVR (transcatheter aortic valve replacement) (Chronic) Social History household members: family and children Smoking Status: Former smoker alcohol intake: never substance use type: does not use Family & Social History Family History Father Medical history unknown Mother Congestive heart failure Diabetes mellitus Sister Diabetes mellitus Myocardial infarction Daughter Hypertension Social History: household members family,children Prior Living Arrangements House Safety & Behavioral: Feels Safe in Current Yes Environment Been Physically Hurt or No Threatened By a Person Suicidal Ideation Description None Suicide Plan Description No Plan Tobacco & Substance use: Smoking Status Former smoker alcohol intake never alcohol intake frequency holiday/special occasion Comment: The patient lives in a single family home with her daughter since January. She was for 45 years for 18 years. Patient states she never knew her father and mother had history diabetes and CHF. Her brothers in good health and she has 1 sister who has had an NV and diabetes. Her daughter has hypertension and she has a son with degenerative bone disease. 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 Meds Home Medications Medication Instructions Recorded Confirmed Type acyclovir 400 mg PO BID 09/10/18 09/10/18 History ascorbic acid (vitamin C) [Vitamin 250 mg PO DAILY 09/10/18 09/10/18 History C] atorvastatin 20 mg PO BEDTIME 09/10/18 09/10/18 History calcium citrate-vitamin D3 1 tab PO DAILY 09/10/18 09/10/18 History [Calcitrate-Vitamin D] carvedilol 12.5 mg PO BID 09/10/18 09/10/18 History cetirizine 10 mg PO DAILY 09/10/18 09/10/18 History ferrous gluconate 324 mg PO BID 09/10/18 09/10/18 History fish,bora,flax oils-om3,6,9no1 1 tab PO DAILY 09/10/18 09/10/18 History [[place] 3-6-9] furosemide See Rx Instructions .ROUTE .COMPLEX 09/10/18 09/10/18 History hydralazine 50 mg PO BID 09/10/18 09/10/18 History levothyroxine 25 mcg PO DAILY 09/10/18 09/10/18 History melatonin 3 mg PO BEDTIME PRN 09/10/18 09/10/18 History multivitamin 1 tab PO DAILY 09/10/18 09/10/18 History omega-3 fatty acids-fish oil [Fish 1 cap PO DAILY 09/10/18 09/10/18 History Oil Pearls] omeprazole magnesium [Acid [place] Support Worker 20 mg PO BID 09/10/18 09/10/18 History (omeprazole)] ticagrelor [Brilinta] 90 mg PO BID 09/10/18 09/10/18 History Allergies Allergy/AdvReac Type Severity Reaction Status Date / Time morphine AdvReac Hallucinati Verified 09/10/18 16:56 ng Review of Systems Review of Systems All systems reviewed & are unremarkable except as noted in HPI and below Exam Vital Signs (past 8 hours): - 09/10/18 16:46 09/10/18 16:53 09/10/18 20:30 Temperature 96.6 F L Pulse Rate 50 L 42 L 60 Respiratory Rate 18 14 16 Blood Pressure 131/65 Blood Pressure [Right Arm] 159/52 H Pulse Oximetry 99 100 09/10/18 21:47 Temperature 97.3 F L Pulse Rate 76 Respiratory Rate 20 Blood Pressure 140/75 Blood Pressure [Right Arm] Pulse Oximetry 96 Fraction of Inspired Oxygen 100 Oxygen Delivery Method Aerosol Mask Narrative Exam Narrative: GENERAL APPEARANCE: well developed, morbidly obese with a BMI of 53.9, ill-appearing and slightly lethargic HEAD: Normocephalic, atraumatic, no scalp lesions. EYES: Irregular right pupil with lid lag, left pupil is round and reactive to light, sclera non-icteric, extraocular movement intact . EARS: normal external structures, no ear pain NOSE: sinuses non tender to percussion, no rhinorrhea ORAL CAVITY: mucosa moist without lesions or exudate, palate normal, tongue in midline. THROAT: normal, no erythema, no exudate, pharynx normal, uvula midline. NECK/THYROID: neck supple, no jugular venous distention, no carotid bruit, no thyromegaly, trachea midline. LYMPH NODES: no cervical or supraclavicular lymphadenopathy. SKIN: warm and dry, no suspicious lesions, no rashes, good turgor. HEART: Irregularly irregular rhythm with bradycardic rate S1-S2 2/6 systolic murmur, no rubs or gallops, brisk capillary refill, 2+ edema to the level of the tibial tubercle LUNGS: Breath sounds diminished in all granados with crackles bibasilar, no cough CHEST: Symmetrical movement, no accessory muscle use, no pain to AP and lateral compression. ABDOMEN: Soft, round, no epigastric or abdominal tenderness on palpation, no guarding or peritoneal signs, no organomegaly, no flank or suprapubic tenderness BACK: Normal curvature, nontender to palpation EXTREMITIES: moves all extremities, strength is 5/5 and symmetrical, 1+ dorsalis pedis pulses NEUROLOGIC: AAO x4, no focal neurologic deficits, motor strength normal upper and lower extremities, sensory exam intact to light touch, cranial nerves II-XII grossly intact, hearing grossly normal to speech. PSYCH: alert, cognitive function intact, good eye contact, flat affect Objective Labs Result Diagrams: 09/11/18 02:47 09/11/18 02:47 Labs: Laboratory Results - last 24 hr 09/10/18 09/10/18 09/10/18 17:00 17:00 17:00 WBC 8.1 RBC 2.76 L Hgb 9.5 L Hct 28.4 L MCV 103.2 H MCH 34.3 H MCHC 33.3 RDW 17.5 H Plt Count 155 Neut % (Auto) 76.3 H Lymph % (Auto) 10.5 L Marion % (Auto) 10.5 Eos % (Auto) 2.4 Baso % (Auto) 0.3 Neut # (Auto) 6200 Lymph # (Auto) 900 L Marion # (Auto) 900 Eos # (Auto) 200 Baso # (Auto) 0 PT 12.8 H INR 1.1 APTT 37 H Sodium Potassium Chloride Carbon Dioxide BUN Creatinine Estimated GFR BUN/Creatinine Ratio Glucose Lactate Calcium Magnesium 2.1 Total Bilirubin AST ALT Alkaline Phosphatase Total Creatine Kinase 38 CK-MB (CK-2) TNP CK-MB (CK-2) Rel Index TNP Troponin I < 0.012 B-Natriuretic Peptide 917 H Total Protein Albumin Globulin Albumin/Globulin Ratio Procalcitonin 09/10/18 09/10/18 09/10/18 17:00 17:00 17:40 WBC RBC Hgb Hct MCV MCH MCHC RDW Plt Count Neut % (Auto) Lymph % (Auto) Marion % (Auto) Eos % (Auto) Baso % (Auto) Neut # (Auto) Lymph # (Auto) Marion # (Auto) Eos # (Auto) Baso # (Auto) PT INR APTT Sodium 133 L Potassium 5.3 H Chloride 98 Carbon Dioxide 25 BUN 72 H Creatinine 1.90 H Estimated GFR 25.3 L BUN/Creatinine Ratio 37.9 H Glucose 108 Lactate 0.9 Calcium 9.4 Magnesium Total Bilirubin 0.6 AST 41 H ALT 33 Alkaline Phosphatase 180 H Total Creatine Kinase CK-MB (CK-2) CK-MB (CK-2) Rel Index Troponin I B-Natriuretic Peptide Total Protein 7.8 Albumin 3.8 Globulin 4.0 Albumin/Globulin Ratio 1.0 Procalcitonin < 0.05 09/10/18 20:55 WBC RBC Hgb Hct MCV MCH MCHC RDW Plt Count Neut % (Auto) Lymph % (Auto) Marion % (Auto) Eos % (Auto) Baso % (Auto) Neut # (Auto) Lymph # (Auto) Marion # (Auto) Eos # (Auto) Baso # (Auto) PT INR APTT 38 H Sodium Potassium Chloride Carbon Dioxide BUN Creatinine Estimated GFR BUN/Creatinine Ratio Glucose Lactate Calcium Magnesium Total Bilirubin AST ALT Alkaline Phosphatase Total Creatine Kinase CK-MB (CK-2) CK-MB (CK-2) Rel Index Troponin I B-Natriuretic Peptide Total Protein Albumin Globulin Albumin/Globulin Ratio Procalcitonin Assessment & Plan Assessment & Plan narrative: 1. Chest pain, acute -patient describes chest pain bilaterally across the precordium, nonradiating, nonpleuritic -EKG with new finding of atrial fibrillation with slow ventricular response, right bundle branch block and old anterior septal infarct -patient still reports pain at 1/10 at time of encounter, nitroglycerin patch applied 2. Congestive heart failure, present on admission, acute on chronic -diagnosed with CHF in April 2017, chest x-ray today reveals acute congestive failure. -echocardiogram of 06/24/2018: Normal left ventricle size with ejection fraction 60-65%. Severely dilated left atrium. TAVR is well seated. Moderate mitral annular calcification. Mild mitral regurgitation. Mild to moderate tricuspid regurgitation. The right ventricular systolic pressure is estimated to be at least 64 mmHg based on an estimated right atrial pressure of 3 mm Hg. Moderate-severe pulmonary hypertension -patient with increased shortness of breath worsening exertional dyspnea and increased pedal edema over the last several days -patient diuresed approximately 1 L following 80 mg of Lasix given in the emergency department -nephrology increase Lasix from 20-40 mg daily on Wednesday. Will continue Lasix 40 mg and monitor renal function 3. Atrial fibrillation, present on admission, acute -12 lead EKG reveals atrial fibrillation with right bundle branch block, slow ventricular response at a rate of 50, no evidence of ST or T-wave changes, prior anterior septal infarct -patient was started on heparin drip in the ER which will be followed by pharmacy with serial PTTs. -chads Vasc score is 7 placing the patient at high risk for stoke however her HS BLED score is 6 with a history significant for prior GI bleed requiring 4 units transfusion placed in the patient high risk for bleeding episodes -will obtain an echocardiogram -will obtain a TSH and monitor electrolytes 4. Chronic kidney disease stage 4, chronic -patient is followed by Nephrology and has had recent medication adjustments with increase in Lasix and discontinuation of losartan -creatinine on admission is 1.9, last measured creatinine was 1.2 in May of 2018, today the GFR is 25.3 -will continue Lasix 40 mg daily and will follow renal function and consult Nephrology for worsening parameters 5. Hypertension, chronic -patient has been on carvedilol 12.5 mg twice daily and hydralazine 50 mg twice daily for blood pressure maintenance which are continued 6. Morbid obesity, BMI greater than 50, chronic -the patient with decreasing activity tolerance and impaired mobility -PT and OT to consult, evaluate and treat The patient is admitted to the hospital related to the severity of symptoms and the high risk for complications. The patient is admitted as an inpatient with expected length of stay greater than 2 midnights. Time Spent With Patient Time with patient: 25 - 35 minutes Scores CHADS-VASc Congestive heart failure: yes Hypertension: yes Age 75 years or older: yes Diabetes mellitus: no Stroke, TIA, or TE: no Vascular disease: yes Age 65 to 74 years: yes Sex category (female): Female CHADS-VASc Score: 7 Quality VTE Deep Vein Thrombosis/Pulmonary Embolism Present on Admission: No
[2018-09-10 23:30] VITALS: BP 178/60; PULSE 58; RESP 18; TEMP 36.4; O2SAT 58
[2018-09-10 23:56] LABS: Bacteria Urine None Seen; RBC Urine None Seen (0-5/HPF); WBC Urine None Seen (0-5/HPF)
[2018-09-10 23:57] LABS: Appearance Urine UA CLEAR; Bilirubin Urine UA NEGATIVE (NEGATIVE); Color Urine UA YELLOW; Glucose Urine UA NEGATIVE (Negative); Ketones Urine UA NEGATIVE (NEGATIVE); Leukocyte Esterase Urine UA NEGATIVE (NEGATIVE); Nitrite Urine UA NEGATIVE (Negative); Occult Blood Urine UA NEGATIVE (Negative); Protein Urine UA NEGATIVE (Negative); Urobilinogen Urine UA 0.2 E.U./dL (0.2)
[2018-09-10 23:59] VITALS: BP 178/60
[2018-09-10] MEDS: NITROGLYCERIN 0.4 MG PATCH TOP (23:59)
[2018-09-11] VITALS (8 sets, daily range): BP systolic 119–160; BP diastolic 47–84; PULSE 50–64; RESP 15–20; TEMP 36.3–36.6; O2SAT 94–96
--- NOTE | 2018-09-11 | DI.ECHO.S_ITS ---
[facility]---------+ [facility] +---------+ : : [address] [address] : : : : [id number] : : : : Phone: [phone]+ Echocardiogram Report + + :Name: SHANNAN APPLE Study Date: 09/11/2018 Height: 58 in : :[facility] Weight: 255 lb : : Gender: Female BSA: 2.0 m2 : :: 1935 Age: 83 yrs BP: 131/55 mmHg: :Reason For Study: AFIB : : Performed By: Maura Benedict : :Referring: LENIN CLARKE : + + Interpretation Summary The patient was in atrial fibrillation with heart rates between 43-64 bpm during the exam. Atrial fibrillation is a new finding. The patient had a bundle branch block rhythm during the exam. The left ventricle is grossly normal size. The ejection fraction is estimated to be 65-70%. No significant change in LV ejection fraction. The right ventricle is mildly dilated. Right ventricular systolic function is mildly reduced. Right ventricular systolic function has decreased since previous exam. TAVR is well seated.In May 2018 peak aortic valve velocity was 1.99 m/s. It was not evaluated this time. The tricuspid annulus is dilated. There is a moderate tricuspid regurgitation. The right ventricular systolic pressure is estimated to be at least 55 mmHg based on an estimated right atrial pressure of 15 mm Hg.In May 2018 pulmonary artery systolic pressure was about 64 mmHg with right atrial pressure about 3 mmHg. Procedure: A two-dimensional transthoracic echocardiogram with color flow and Doppler was performed in limited views only. The study quality was technically adequate. Comparison is made with the echocardiogram of 06/24/2018. The heart rate ranged between 43-64 bpm during the study. The patient was in atrial fibrillation with heart rates between 43-64 bpm during the exam. The patient had a bundle branch block rhythm during the exam. Left Ventricle: The left ventricle is grossly normal size. There is normal left ventricular wall thickness. There is no thrombus. The ejection fraction is estimated to be 65-70%. There is a mild dyssynchronous contraction pattern, consistent with a conduction abnormality. Right Ventricle: A calcified moderator band is seen in the right ventricle. The right ventricle is mildly dilated. Right ventricular systolic function is mildly reduced. Right ventricular systolic function has decreased since previous exam. Atria: The left atrium is severely dilated. The left atrium has remained unchanged in size since the prior echo exam. The right atrium is severely dilated. The right atrium has significantly increased in size since the prior echo exam. Mitral Valve: There is mild to moderate mitral annular calcification. No significant mitral valve stenosis. There is mild mitral regurgitation. Compared to the prior echo study, there has been no change in the severity of mitral regurgitation. Aortic Valve: TAVR is well seated.In May 2018 peak aortic valve velocity was 1.99 m/s. It was not evaluated this time. Tricuspid Valve: The tricuspid annulus is dilated. The right ventricular systolic pressure is estimated to be at least 55 mmHg based on an estimated right atrial pressure of 15 mm Hg. There is moderate tricuspid regurgitation. Great Vessels: The IVC is dilated (diameter is greater than 2.1 cm) and it collapses less than 50% with a sniff. This suggests a high right atrial pressure of 15 mm Hg. MMode/2D Measurements & Calculations LA A2 area: 25.5 cm2 RA long axis: 5.7 cm LA A4 area: 25.8 cm2 RA area: 27.3 cm2 LA length (vol): 6.7 cm RA vol: 110.8 ml LA vol: 83.9 ml RA : 54.9 ml/m2 LA vol index: 41.5 ml/m2 IVC diam: 3.3 cm Doppler Measurements & Calculations TR max alek: 317.8 cm/sec TR max P.5 mmHg Reading Physician:JOSR
[2018-09-11 00:32] LABS: Culture Indicated Urine Cult Not Indicated; Squamous Epithelial Cell Urine 0-1 /HPF
[2018-09-11 03:06] LABS: BUN Creatinine Ratio 38.9 (6-22); Blood Urea Nitrogen 74 mg/dL (7-17); Calcium 9.4 mg/dL (8.4-10.2); Carbon Dioxide 24 mmol/L (22-32); Chloride 99 mmol/L (98-107); Estimated Glomerular Filt Rate 25.3 mL/min (>60); Glucose 145 mg/dL (80-110); HEMOLYSIS < 15 (0-50); Sodium 132 mmol/L (137-145)
[2018-09-11 03:07] LABS: Add Manual Diff / Slide Review NO; Basophils Absolute Auto 0 /uL (0-100); Eosinophils Absolute Auto 0 /uL (0-450); Hematocrit 26.8 % (36-46); Hemoglobin 8.9 g/dL (12.0-16.0); Lymphocytes Absolute Auto 400 /uL (1100-4500); Lymphocytes Percent Auto 5.8 % (25-40); Mean Corpuscular HGB Conc 33.3 % (30-36); Mean Corpuscular Hemoglobin 34.2 PG (26-34); Mean Corpuscular Volume 102.6 fL (80-100); Monocytes Absolute Auto 100 /uL (0-900); Monocytes Percent Auto 2.1 % (3-14); Neutrophils Absolute Auto 5900 /uL (1500-7000); Neutrophils Percent Auto 92.1 % (50-75); Platelet Count 153 X10^3/uL (150-400); Red Blood Cell Count 2.61 X10^6/uL (4.0-5.2); Red Cell Distribution Width 17.2 % (11.6-14.8); White Blood Cell Count 6.4 X10^3/uL (4.5-11.0)
[2018-09-11 03:17] LABS: Troponin I < 0.012 ng/mL (0.01-0.034)
[2018-09-11 03:46] LABS: PTT Partial Thromboplastin Tim 243 SECONDS (26.4-36.2)
--- NOTE | 2018-09-11 03:47 | PC.NURSE ---
Addendum entered by Audra Dumont R.N. 09/11/18 05:07: Heparin gtt stopped for 60 minutes per protocol, heparin gtt restarted at 0445 at rate of 14mls/hr or 700 units/hr as stated on protocol orders. Original Note: CRITICAL HIGH PTT 243. Heparin drip stopped per protocol at 0345 for 60 minutes. SABINE Onofre notified.
[2018-09-11 03:48] LABS: Cholesterol 88 mg/dL (140-199); HDL Cholesterol 40 mg/dL (40-60); LDL Cholesterol Calculated 43 mg/dL (<100); Triglycerides 27 mg/dL (35-150)
[2018-09-11 04:20] LABS: TSH w/ Reflex to FT4 2.35 uIU/mL (0.47-4.68)
--- NOTE | 2018-09-11 05:06 | PC.NURSE ---
Hematoma noted to patient's L forearm s/p lab draw. Compression dressing applied. SABINE Onofre aware and at bedside to visualize. Will continue to monitor.
[2018-09-11] MEDS: PANTOPRAZOLE 20 MG TABLET PO (06:13)
--- NOTE | 2018-09-11 07:29 | PM.PN.1 ---
Subjective Date Patient Seen: 09/11/18 Interval history: Kristen Dsouza is an 83-year-old female with a past medical history for coronary artery disease status post stenting x 2 on Brilinta, TAVR, CHF, atrial fibrillation, hypertension, chronic kidney disease stage IV, and hypothyroidism who presented for worsening shortness of breath and chest pain across the center of her chest. The patient is resting in bed comfortably. She reports his shortness of breath is markedly improved. She is chest pain-free. Heparin drip has been discontinued as patient does not have EKG changes or elevated troponin. Will proceed with nuclear medicine stress test tomorrow morning. She denies headache, shortness of breath, chest pain, abdominal pain, nausea, vomiting, fever, chills, dysuria, diarrhea or constipation. She is voiding and eliminating without difficulty. She is up ambulating without or with assistance. Exam Vital Signs (past 8 hours): - 09/10/18 23:30 09/10/18 23:59 09/11/18 00:48 Temperature 97.5 F L Pulse Rate 58 L Respiratory Rate 18 Blood Pressure 178/60 H 178/60 H 160/84 H Pulse Oximetry 58 L 09/11/18 00:57 09/11/18 04:05 Temperature 97.4 F L Pulse Rate 64 Respiratory Rate 20 Blood Pressure 160/84 H 123/59 L Pulse Oximetry 94 Fraction of Inspired Oxygen 100 Oxygen Delivery Method Room Air Oxygen Flow Rate 0 Narrative Exam Narrative: General: Elderly obese female lying in bed and in no acute distress, well-developed, well-nourished, appropriately interactive. HEENT: Normocephalic, atraumatic. External ears without defect. Pupils equal, round, and reactive to light. Anicteric sclerae, moist conjunctivae, and no lid lag. Neck: Supple with full range of motion. Jugular venous distension. No lymphadenopathy or thyromegaly. Cardiovascular: Irregularly irregular without murmurs, rubs, or gallops appreciated. Pulmonary: Diminished but clear to auscultation bilaterally with bibasilar crackles. No wheezes, or rhonchi. Normal respiratory effort with no use of accessory muscles. Abdomen: Bowel tones present. Soft, nontender, nondistended. No hepatosplenomegaly or masses appreciated. Extremities: No clubbing or cyanosis. Mild bilateral edema to pretibial area. Skin: Normal temperature, turgor, and texture; no rash, ulcers, or subcutaneous nodules appreciated. Neurological: Cranial nerves grossly intact. Psychiatric: Normal mood and affect. Alert and oriented to person, place, and time. Objective Labs Result Diagrams: 09/11/18 02:47 09/11/18 02:47 Labs: Laboratory Results - last 24 hr 09/10/18 09/10/18 09/10/18 17:00 17:00 17:00 WBC 8.1 RBC 2.76 L Hgb 9.5 L Hct 28.4 L MCV 103.2 H MCH 34.3 H MCHC 33.3 RDW 17.5 H Plt Count 155 Neut % (Auto) 76.3 H Lymph % (Auto) 10.5 L [place] % (Auto) 10.5 Eos % (Auto) 2.4 Baso % (Auto) 0.3 Neut # (Auto) 6200 Lymph # (Auto) 900 L [place] # (Auto) 900 Eos # (Auto) 200 Baso # (Auto) 0 PT 12.8 H INR 1.1 APTT 37 H Sodium Potassium Chloride Carbon Dioxide BUN Creatinine Estimated GFR BUN/Creatinine Ratio Glucose Lactate Calcium Magnesium 2.1 Total Bilirubin AST ALT Alkaline Phosphatase Total Creatine Kinase 38 CK-MB (CK-2) TNP CK-MB (CK-2) Rel Index TNP Troponin I < 0.012 B-Natriuretic Peptide 917 H Total Protein Albumin Globulin Albumin/Globulin Ratio Triglycerides Cholesterol LDL Cholesterol, Calc HDL Cholesterol Procalcitonin TSH Urine Color Urine Appearance Urine pH Ur Specific [place] Urine Protein Urine Glucose (UA) Urine Ketones Urine Occult Blood Urine Nitrate Urine Bilirubin Urine Urobilinogen Ur Leukocyte Esterase Urine RBC Urine WBC Ur Squamous Epith Cells Urine Bacteria Ur Culture Indicated? 09/10/18 09/10/18 09/10/18 17:00 17:00 17:40 WBC RBC Hgb Hct MCV MCH MCHC RDW Plt Count Neut % (Auto) Lymph % (Auto) [place] % (Auto) Eos % (Auto) Baso % (Auto) Neut # (Auto) Lymph # (Auto) [place] # (Auto) Eos # (Auto) Baso # (Auto) PT INR APTT Sodium 133 L Potassium 5.3 H Chloride 98 Carbon Dioxide 25 BUN 72 H Creatinine 1.90 H Estimated GFR 25.3 L BUN/Creatinine Ratio 37.9 H Glucose 108 Lactate 0.9 Calcium 9.4 Magnesium Total Bilirubin 0.6 AST 41 H ALT 33 Alkaline Phosphatase 180 H Total Creatine Kinase CK-MB (CK-2) CK-MB (CK-2) Rel Index Troponin I B-Natriuretic Peptide Total Protein 7.8 Albumin 3.8 Globulin 4.0 Albumin/Globulin Ratio 1.0 Triglycerides Cholesterol LDL Cholesterol, Calc HDL Cholesterol Procalcitonin < 0.05 TSH Urine Color Urine Appearance Urine pH Ur Specific [place] Urine Protein Urine Glucose (UA) Urine Ketones Urine Occult Blood Urine Nitrate Urine Bilirubin Urine Urobilinogen Ur Leukocyte Esterase Urine RBC Urine WBC Ur Squamous Epith Cells Urine Bacteria Ur Culture Indicated? 09/10/18 09/10/18 09/11/18 20:55 23:55 02:47 WBC RBC Hgb Hct MCV MCH MCHC RDW Plt Count Neut % (Auto) Lymph % (Auto) [place] % (Auto) Eos % (Auto) Baso % (Auto) Neut # (Auto) Lymph # (Auto) [place] # (Auto) Eos # (Auto) Baso # (Auto) PT INR APTT 38 H Sodium Potassium Chloride Carbon Dioxide BUN Creatinine Estimated GFR BUN/Creatinine Ratio Glucose Lactate Calcium Magnesium 2.0 Total Bilirubin AST ALT Alkaline Phosphatase Total Creatine Kinase CK-MB (CK-2) CK-MB (CK-2) Rel Index Troponin I B-Natriuretic Peptide Total Protein Albumin Globulin Albumin/Globulin Ratio Triglycerides Cholesterol LDL Cholesterol, Calc HDL Cholesterol Procalcitonin TSH Urine Color Yellow Urine Appearance Clear Urine pH 5.0 Ur Specific [place] 1.010 Urine Protein Negative Urine Glucose (UA) Negative Urine Ketones Negative Urine Occult Blood Negative Urine Nitrate Negative Urine Bilirubin Negative Urine Urobilinogen 0.2 Ur Leukocyte Esterase Negative Urine RBC None seen Urine WBC None seen Ur Squamous Epith Cells 0-1 /hpf Urine Bacteria None seen Ur Culture Indicated? Cult not indicated 09/11/18 09/11/18 09/11/18 02:47 02:47 02:47 WBC 6.4 RBC 2.61 L Hgb 8.9 L Hct 26.8 L MCV 102.6 H MCH 34.2 H MCHC 33.3 RDW 17.2 H Plt Count 153 Neut % (Auto) 92.1 H Lymph % (Auto) 5.8 L [place] % (Auto) 2.1 L Eos % (Auto) 0.0 L Baso % (Auto) 0.0 Neut # (Auto) 5900 Lymph # (Auto) 400 L [place] # (Auto) 100 Eos # (Auto) 0 Baso # (Auto) 0 PT INR APTT 243 H* D Sodium 132 L Potassium 5.0 Chloride 99 Carbon Dioxide 24 BUN 74 H Creatinine 1.90 H Estimated GFR 25.3 L BUN/Creatinine Ratio 38.9 H Glucose 145 H Lactate Calcium 9.4 Magnesium Total Bilirubin AST ALT Alkaline Phosphatase Total Creatine Kinase CK-MB (CK-2) CK-MB (CK-2) Rel Index Troponin I B-Natriuretic Peptide Total Protein Albumin Globulin Albumin/Globulin Ratio Triglycerides Cholesterol LDL Cholesterol, Calc HDL Cholesterol Procalcitonin TSH Urine Color Urine Appearance Urine pH Ur Specific [place] Urine Protein Urine Glucose (UA) Urine Ketones Urine Occult Blood Urine Nitrate Urine Bilirubin Urine Urobilinogen Ur Leukocyte Esterase Urine RBC Urine WBC Ur Squamous Epith Cells Urine Bacteria Ur Culture Indicated? 09/11/18 09/11/18 09/11/18 02:47 02:47 02:47 WBC RBC Hgb Hct MCV MCH MCHC RDW Plt Count Neut % (Auto) Lymph % (Auto) [place] % (Auto) Eos % (Auto) Baso % (Auto) Neut # (Auto) Lymph # (Auto) [place] # (Auto) Eos # (Auto) Baso # (Auto) PT INR APTT Sodium Potassium Chloride Carbon Dioxide BUN Creatinine Estimated GFR BUN/Creatinine Ratio Glucose Lactate Calcium Magnesium Total Bilirubin AST ALT Alkaline Phosphatase Total Creatine Kinase CK-MB (CK-2) CK-MB (CK-2) Rel Index Troponin I < 0.012 B-Natriuretic Peptide Total Protein Albumin Globulin Albumin/Globulin Ratio Triglycerides 27 L Cholesterol 88 L LDL Cholesterol, Calc 43 HDL Cholesterol 40 Procalcitonin TSH 2.35 Urine Color Urine Appearance Urine pH Ur Specific [place] Urine Protein Urine Glucose (UA) Urine Ketones Urine Occult Blood Urine Nitrate Urine Bilirubin Urine Urobilinogen Ur Leukocyte Esterase Urine RBC Urine WBC Ur Squamous Epith Cells Urine Bacteria Ur Culture Indicated? Assessment & Plan Assessment & Plan narrative: Kristen Dsouza is an 83-year-old female with a past medical history significant for coronary artery disease status post stenting x 2 on Brilinta, TAVR, CHF, atrial fibrillation, hypertension, chronic kidney disease stage IV, and hypothyroidism who presented for worsening shortness of breath and chest pain across the center of her chest. 1. Acute chest pain, present on admission. Resolved. -Patient describes chest pain bilaterally across the precordium, nonradiating, nonpleuritic. -EKG with new finding of atrial fibrillation with slow ventricular response, right bundle branch block and old anterior septal infarct. Troponin negative x 3 < 0.012. -Nitroglycerin patch applied and chest pain resolved. -Patient was initially started on heparin gtt which was discontinued as likely demand ischemia. -Ordered pharmacological NM stress test which will be done tomorrow morning. NPO at midnight. 2. Acute RV systolic congestive heart failure, present on admission. Active. -Diagnosed with RV systolic CHF in April 2017, chest x-ray today reveals acute congestive failure. -Echocardiogram of 06/24/2018: Normal left ventricle size with ejection fraction 60-65%. Severely dilated left atrium. TAVR is well seated. Moderate mitral annular calcification. Mild mitral regurgitation. Mild to moderate tricuspid regurgitation. The right ventricular systolic pressure is estimated to be at least 64 mmHg based on an estimated right atrial pressure of 3 mm Hg. Moderate-severe pulmonary hypertension -Patient with increased shortness of breath, worsening exertional dyspnea and increased pedal edema over the last several days. 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 Rubi increased Lasix from 20-40 mg daily on 09/09. -Patient diuresed approximately 1 L following 80 mg IV Lasix given in the ED. Continue Lasix 40 mg and monitor renal function. Reassess diuresis daily. -Discontinued carvedilol for now as patient has been bradycardic to low 30's. -Continue strict I&Os and daily weight. 3. New onset atrial fibrillation, RBBB, and significant bradycardia, present on admission, acute -12 lead EKG reveals atrial fibrillation with right bundle branch block, slow ventricular response at a rate of 50, no evidence of ST or T-wave changes, prior anterior septal infarct -Patient was initially started on heparin gtt which was discontinued as likely demand ischemia. -Chads2 Vasc score is 7 placing the patient at high risk for stoke however her HAS BLED score is 6 with a history significant for prior GI bleed due to PUD requiring 4 units transfusion placing the patient high risk for bleeding episodes. -Echocardiogram unchanged other than pulmonary hypertension improved. -TSH within normal limits at 2.35 and monitor electrolytes. -Continue Brillenta and aspirin. Continue PPI with ASA due to previous history of PUD. -Discontinued carvedilol for now as patient has been bradycardic to low 30's. 4. Chronic kidney disease stage 4, chronic, present on admission. Stable. -Patient is followed by Nephrology and has had recent medication adjustments with increase in Lasix and discontinuation of losartan -Creatinine on admission is 1.9, last measured creatinine was 1.2 in May of 2018, here the GFR is 25.3. -Continue Lasix 40 mg daily and will follow renal function and consult Nephrology for worsening parameters. 5. Hypertension, chronic, present on admission. Stable. -Discontinue carvedilol 12.5 mg twice daily due to significant bradycardia. Continue hydralazine 50 mg twice daily. 6. Morbid obesity, chronic , present on admission. Stable. -BMI 52. -Decreasing activity tolerance and impaired mobility. -Ordered PT and OT evaluation and treatment. 7. Hypothroidism, chronic, present on admission. Stable. TSH was within normal limits ar 2.35. -Continue levothyroxine 25 mcg daily. Disposition: Likely to discharge home when CHF treated and NM stress complete. Quality VTE Deep Vein Thrombosis/Pulmonary Embolism Present on Admission: No
[2018-09-11] MEDS: CARVEDILOL 12.5 MG TABLET PO (08:57)
[2018-09-11] MEDS: LEVOTHYROXINE 25 MCG TABLET PO (08:57)
[2018-09-11] MEDS: ASPIRIN EC 81 MG TABLET PO (08:58)
[2018-09-11] MEDS: FUROSEMIDE 40 MG TABLET PO (09:57)
[2018-09-11] MEDS: HYDRALAZINE 25 MG TABLET 50 MG PO (09:57)
[2018-09-11 12:28] LABS: Troponin I < 0.012 ng/mL (0.01-0.034)
--- NOTE | 2018-09-11 13:36 | PC.NURSE ---
Heparin drip dc'd per MD order. Pt mostly sleeping but rouses easily and oriented x3. Family present much of shift. Noted large hematoma at site of venepuncture done earlier this am. at around 0200. Ice pack applied. Also noted some bleeding under pannus on right side of abdomen where pt had scratched. NOted fragile skin in this area. Allevyn dressing placed on site of abrasion and pillow case placed between folds. Pt denies chest pain but reports that the site of her IV on right arm is painful at times. Site does not look compromised and is saline locked at this time. Pt up to bedside commode to void. Call from ICU in am to report pt's heart rate dipped into the high 30s but mostly in the 40s or 50s. Dr Carmen advised and no action taken at this time. Pt's ntirobid paste was removed earlier but coreg was given PO as ordered. Pt eating and drinking sufficient with fluid restriction maintained. On room air with O2 sats at 95%. Noted that pt is in Afib with SVR with BBBs. Has history of chronic A-fib.
[2018-09-11] MEDS: HEPARIN 5,000 UNIT/ML VIAL 5000 UNIT SUBCUT ×2 (14:18→21:06)
--- NOTE | 2018-09-11 15:20 | CM.DANOTE ---
Patient is an 83 year old female who was admitted on 09/10/18 for Chest pain. Pt has MCR and [employer] for insurance and her PCP is Dr. Amanda Mann. EMR was reviewed. Per MD, pt's Hep Drip for discontinued and now changed to Lovenox and waiting for a test on Wednesday. Not medically stable for d/c yet. SW met bedside with pt and spouse and pt was sleeping so soundly that she did not wake up. SW updated white board. Pt's Dtr Maryanne confirmed that pt recently moved from [place] in Jan 2018 into her home in [place] after having stents placed in a hospital in [place] and had HH at that time but no hx of SNF. Pt is mostly Independent with ADL's but since pt got pneumonia in May 2018 she has slowed declined. Pt has not had any PT since her move to [place] and typically uses a walker for ambulation but relies on her Dtr for transport. Pt does not have DPOA or completed POLST and Dtr requests pwk to review and complete with pt when she wakes as pt has started showing some minimal signs of memory loss and minor confusion at times. [facility] provided the requested POLST and DPOA pwk and Dtr very thankful. Dtr states that if SNF recommended then pt will likely adamantly refuse but they would be agreeable to HH if needed. Preference is home. [facility] did not provide the Medicare Message as pt did not wake up and Dtr not currently her DPOA. Plan: [facility] to follow closely to determine if PT eval needed and if pt will be safe for return home with supportive Dtr at discharge. ANYA Snyder Discharge Planning/Care Management Advanced directive, confirm from FAMILY Start: 09/10/18 21:57 Freq: Q24H Status: Active Protocol: Document 09/11/18 10:30 AMM (Rec: 09/11/18 10:37 AMM [id number]) Advance Directive, confirm on record Time 10:31 Person contacted daughter Copy received No CM Discharge Assessment Start: 09/11/18 15:18 Freq: Status: Active Protocol: Document 09/11/18 15:18 BF (Rec: 09/11/18 15:20 BF [id number]) Discharge Planning Assessment Assigned Plastic Surgery Specialist ANYA Dexter DPOA/Assigned Designee Name none Advance Directives? No Advance Directives on File No History Provided By Patient Family Member Medical Record Has Patient been admitted in last 30 No days? Prior Living Arrangements House Household Members family children Type of transporation used prior to Relies on Others admit Comment Lives at home with adult Dtr and is mostly independent with ADL's but does not drive Independent with ADL's Yes Is patient alert and oriented? Yes Needs Assistance With Managing Medications Home Chores / Shopping Caregiver for Another No DME Already Rented / Owned FWW / Walker Comment Waiting for possible PT eval and recommendations Discharge Plan Home Transportation Arrangement Dtr bedside and can provide transport if safe for d/c home Additional Comment Waiting for PT eval Whiteboard Updated in Patient Room with Yes name and ext. # of Plastic Surgery Specialist Review Status In Process Please Provide Date Initial DC 09/11/18 Assessment Was Performed Next Review Type Continued Stay Review
[2018-09-11] MEDS: TICAGRELOR 90 MG 90 EACH PO (21:06)
[2018-09-11] MEDS: ATORVASTATIN 20 MG TABLET PO (21:07)
[2018-09-12] VITALS (9 sets, daily range): BP systolic 120–166; BP diastolic 51–73; PULSE 50–80; RESP 14–20; TEMP 36.2–36.4; O2SAT 95–96
[2018-09-12] MEDS: PANTOPRAZOLE 20 MG TABLET PO (05:48)
[2018-09-12] MEDS: LEVOTHYROXINE 25 MCG TABLET PO (05:48)
[2018-09-12] MEDS: HEPARIN 5,000 UNIT/ML VIAL 5000 UNIT SUBCUT ×3 (05:48→21:02)
[2018-09-12 06:21] LABS: Alanine Aminotransferase 29 IU/L (9-52); Albumin 3.5 g/dL (3.5-5.0); Albumin Globulin Ratio 0.9 (1.0-2.8); Alkaline Phosphatase 123 U/L (38-126); Aspartate Aminotransferase 33 IU/L (14-36); BUN Creatinine Ratio 44.1 (6-22); Bilirubin Total 0.5 mg/dL (0.2-1.3); Blood Urea Nitrogen 75 mg/dL (7-17); Calcium 9.4 mg/dL (8.4-10.2); Carbon Dioxide 26 mmol/L (22-32); Chloride 98 mmol/L (98-107); Estimated Glomerular Filt Rate 28.8 mL/min (>60); Globulin 3.8 g/dL (1.7-4.1); Glucose 88 mg/dL (80-110); HEMOLYSIS < 15 (0-50); Potassium 4.8 mmol/L (3.4-5.1); Sodium 134 mmol/L (137-145); Total Protein 7.3 g/dL (6.3-8.2)
[2018-09-12] MEDS: TICAGRELOR 90 MG 90 EACH PO ×2 (08:48→21:02)
[2018-09-12] MEDS: SODIUM CHLORIDE 0.9% FLUSH 10 ML IV ×2 (08:48→21:02)
[2018-09-12] MEDS: ASPIRIN EC 81 MG TABLET PO (08:48)
[2018-09-12] MEDS: HYDRALAZINE 25 MG TABLET 50 MG PO ×2 (08:48→20:59)
[2018-09-12] MEDS: FUROSEMIDE 40 MG TABLET PO (08:48)
--- NOTE | 2018-09-12 12:13 | PM.TREADMILL ---
Cardiac Stress Test Report Referral & Results Date Patient Seen: 09/12/18 Time Patient Seen: 12:14 Requesting provider: Larissa Carmen Indication: New AFib and right bundle-branch block, congestive heart failure Rest ECG: Atrial fibrillation with right bundle branch block with bradycardia, heart rate in the 50s Procedure Note: After both written and verbal informed consent the patient had an IV started by the diagnostic imaging RN, and then was hooked up to the treadmill monitoring system. The Lexiscan material, and then the Cardiolite tracer, were administered sequentially. An additional 3 min was spent monitoring the patient while supine on the gurney. The patient had a normal response to all infused materials. Patient prominent GI symptoms of burping and discomfort. Patient also became quite dyspneic with the administration of Lexiscan which began to resolve within the 1st 10 min of monitoring. Oxygen saturation remained normal throughout Impression: Normal response to above and cereals Prominent GI symptoms as above Chronic atrial fibrillation with bradycardic ventricular response as above Perfusion imaging will be reported separately Please note: Actual ECG tracings can be found in the PACS system.
--- NOTE | 2018-09-12 13:28 | PC.NURSE ---
Pt returned from chemical stress test and reported feeling very tired, noted SOB. Waited until she felt strong enough to transfer to the bedside commode - declined bed mcnulty. Continued to be SOB on transfer. Two person assist back to bed. Stated she found the procedure very uncomfortable and felt claustrophobic at times. Dtr present in room assisting in cares.
--- NOTE | 2018-09-12 17:18 | PM.PN.1 ---
Subjective Date Patient Seen: 09/12/18 Interval history: Chart reviewed patient seen and examined. Patient is an 83-year-old female status post TAVR, chronic atrial fibrillation, acute systolic heart failure here with chest pain. Patient underwent 1st stage of her stress test today. preliminary results are equivocal in she will need a resting scan tomorrow. Patient does report intermittent chest pain. Breathing otherwise has improved. Exam Vital Signs (past 8 hours): - 09/12/18 13:27 09/12/18 16:51 Temperature 97.1 F L Pulse Rate 60 Respiratory Rate 15 Blood Pressure 146/58 H Pulse Oximetry 95 96 Fraction of Inspired Oxygen 100 Oxygen Delivery Method Room Air Oxygen Flow Rate 0 Narrative Exam Narrative: Obese female in no obvious distress lungs: Decreased breath S bilaterally cardiac exam: Irregularly irregular normal S1-S2 abdomen: Soft nontender nondistended extremities: No edema Objective Labs Result Diagrams: 09/11/18 02:47 09/12/18 05:46 Labs: Laboratory Results - last 24 hr 09/12/18 05:46 Sodium 134 L Potassium 4.8 Chloride 98 Carbon Dioxide 26 BUN 75 H Creatinine 1.70 H Estimated GFR 28.8 L BUN/Creatinine Ratio 44.1 H Glucose 88 Calcium 9.4 Magnesium 2.0 Total Bilirubin 0.5 AST 33 ALT 29 Alkaline Phosphatase 123 D Total Protein 7.3 Albumin 3.5 Globulin 3.8 Albumin/Globulin Ratio 0.9 L Assessment & Plan Assessment & Plan narrative: Acute chest pain, present on admission. Resolved. -Patient describes chest pain bilaterally across the precordium, nonradiating, nonpleuritic. -EKG with new finding of atrial fibrillation with slow ventricular response, right bundle branch block and old anterior septal infarct. Troponin negative x 3 < 0.012. -Nitroglycerin patch applied and chest pain resolved. -Patient was initially started on heparin gtt which was discontinued as likely demand ischemia. -Ordered pharmacological NM stress test which will be done tomorrow morning. NPO at midnight. 2. Acute RV systolic congestive heart failure, present on admission. Active. -Diagnosed with RV systolic CHF in April 2017, chest x-ray today reveals acute congestive failure. -Echocardiogram of 06/24/2018: Normal left ventricle size with ejection fraction 60-65%. Severely dilated left atrium. TAVR is well seated. Moderate mitral annular calcification. Mild mitral regurgitation. Mild to moderate tricuspid regurgitation. The right ventricular systolic pressure is estimated to be at least 64 mmHg based on an estimated right atrial pressure of 3 mm Hg. Moderate-severe pulmonary hypertension -Patient with increased shortness of breath, worsening exertional dyspnea and increased pedal edema over the last several days. Hourly Team Members, Dr. Rubi increased Lasix from 20-40 mg daily on 09/09. -Patient diuresed approximately 1 L following 80 mg IV Lasix given in the ED. Continue Lasix 40 mg and monitor renal function. Reassess diuresis daily. -Discontinued carvedilol for now as patient has been bradycardic to low 30's. -Continue strict I&Os and daily weight. 3. New onset atrial fibrillation, RBBB, and significant bradycardia, present on admission, acute -12 lead EKG reveals atrial fibrillation with right bundle branch block, slow ventricular response at a rate of 50, no evidence of ST or T-wave changes, prior anterior septal infarct -Patient was initially started on heparin gtt which was discontinued as likely demand ischemia. -Chads2 Vasc score is 7 placing the patient at high risk for stoke however her HAS BLED score is 6 with a history significant for prior GI bleed due to PUD requiring 4 units transfusion placing the patient high risk for bleeding episodes. -Echocardiogram unchanged other than pulmonary hypertension improved. -TSH within normal limits at 2.35 and monitor electrolytes. -Continue Brillenta and aspirin. Continue PPI with ASA due to previous history of PUD. -Discontinued carvedilol for now as patient has been bradycardic to low 30's. 4. Chronic kidney disease stage 4, chronic, present on admission. Stable. -Patient is followed by Nephrology and has had recent medication adjustments with increase in Lasix and discontinuation of losartan -Creatinine on admission is 1.9, last measured creatinine was 1.2 in May of 2018, here the GFR is 25.3. -Continue Lasix 40 mg daily and will follow renal function and consult Nephrology for worsening parameters. 5. Hypertension, chronic, present on admission. Stable. -Discontinue carvedilol 12.5 mg twice daily due to significant bradycardia. Continue hydralazine 50 mg twice daily. 6. Morbid obesity, chronic , present on admission. Stable. -BMI 52. -Decreasing activity tolerance and impaired mobility. -Ordered PT and OT evaluation and treatment. 7. Hypothroidism, chronic, present on admission. Stable. TSH was within normal limits ar 2.35. -Continue levothyroxine 25 mcg daily. Disposition: awaiting 2nd phase of stress test. Some and then his results are negative patient will anticipate discharge home tomorrow. Quality VTE Deep Vein Thrombosis/Pulmonary Embolism Present on Admission: No
--- NOTE | 2018-09-12 17:21 | P.PN_ITS ---
Subjective Date Patient Seen: 09/12/18 Interval history: Chart reviewed patient seen and examined. Patient is an 83-year-old female status post TAVR, chronic atrial fibrillation, acute systolic heart failure here with chest pain. Patient underwent 1st stage of her stress test today. preliminary results are equivocal in she will need a resting scan tomorrow. Patient does report intermittent chest pain. Breathing otherwise has improved. Exam Vital Signs (past 8 hours): - 09/12/18 13:27 09/12/18 16:51 Temperature 97.1 F L Pulse Rate 60 Respiratory Rate 15 Blood Pressure 146/58 H Pulse Oximetry 95 96 Fraction of Inspired Oxygen 100 Oxygen Delivery Method Room Air Oxygen Flow Rate 0 Narrative Exam Narrative: Obese female in no obvious distress lungs: Decreased breath S bilaterally cardiac exam: Irregularly irregular normal S1-S2 abdomen: Soft nontender nondistended extremities: No edema Objective Labs Result Diagrams: 09/11/18 02:47 09/12/18 05:46 Labs: Laboratory Results - last 24 hr 09/12/18 05:46 Sodium 134 L Potassium 4.8 Chloride 98 Carbon Dioxide 26 BUN 75 H Creatinine 1.70 H Estimated GFR 28.8 L BUN/Creatinine Ratio 44.1 H Glucose 88 Calcium 9.4 Magnesium 2.0 Total Bilirubin 0.5 AST 33 ALT 29 Alkaline Phosphatase 123 D Total Protein 7.3 Albumin 3.5 Globulin 3.8 Albumin/Globulin Ratio 0.9 L Assessment & Plan Assessment & Plan narrative: Acute chest pain, present on admission. Resolved. -Patient describes chest pain bilaterally across the precordium, nonradiating, nonpleuritic. -EKG with new finding of atrial fibrillation with slow ventricular response, right bundle branch block and old anterior septal infarct. Troponin negative x 3 < 0.012. -Nitroglycerin patch applied and chest pain resolved. -Patient was initially started on heparin gtt which was discontinued as likely d emand ischemia. -Ordered pharmacological NM stress test which will be done tomorrow morning. NPO at midnight. 2. Acute RV systolic congestive heart failure, present on admission. Active. -Diagnosed with RV systolic CHF in April 2017, chest x-ray today reveals acute congestive failure. -Echocardiogram of 06/24/2018: Normal left ventricle size with ejection fraction 60-65%. Severely dilated left atrium. TAVR is well seated. Moderate mitral annular calcification. Mild mitral regurgitation. Mild to moderate tricuspid regurgitation. The right ventricular systolic pressure is estimated to be at least 64 mmHg based on an estimated right atrial pressure of 3 mm Hg. Moderate-severe pulmonary hypertension -Patient with increased shortness of breath, worsening exertional dyspnea and in creased pedal edema over the last several days. Aeronautical Design Engineer, Dr. Rubi increased Lasix from 20-40 mg daily on 09/09. -Patient diuresed approximately 1 L following 80 mg IV Lasix given in the ED. Continue Lasix 40 mg and monitor renal function. Reassess diuresis daily. -Discontinued carvedilol for now as patient has been bradycardic to low 30's. -Continue strict I&Os and daily weight. 3. New onset atrial fibrillation, RBBB, and significant bradycardia, present on admission, acute -12 lead EKG reveals atrial fibrillation with right bundle branch block, slow ventricular response at a rate of 50, no evidence of ST or T-wave changes, prior anterior septal infarct -Patient was initially started on heparin gtt which was discontinued as likely demand ischemia. -Chads2 Vasc score is 7 placing the patient at high risk for stoke however her HAS BLED score is 6 with a history significant for prior GI bleed due to PUD requiring 4 units transfusion placing the patient high risk for bleeding ep isodes. -Echocardiogram unchanged other than pulmonary hypertension improved. -TSH within normal limits at 2.35 and monitor electrolytes. -Continue Brillenta and aspirin. Continue PPI with ASA due to previous history of PUD. -Discontinued carvedilol for now as patient has been bradycardic to low 30's. 4. Chronic kidney disease stage 4, chronic, present on admission. Stable. -Patient is followed by Nephrology and has had recent medication adjustments with increase in Lasix and discontinuation of losartan -Creatinine on admission is 1.9, last measured creatinine was 1.2 in May of 2018, here the GFR is 25.3. -Continue Lasix 40 mg daily and will follow renal function and consult Nephrol fanny for worsening parameters. 5. Hypertension, chronic, present on admission. Stable. -Discontinue carvedilol 12.5 mg twice daily due to significant bradycardia. Continue hydralazine 50 mg twice daily. 6. Morbid obesity, chronic , present on admission. Stable. -BMI 52. -Decreasing activity tolerance and impaired mobility. -Ordered PT and OT evaluation and treatment. 7. Hypothroidism, chronic, present on admission. Stable. TSH was within normal limits ar 2.35. -Continue levothyroxine 25 mcg daily. Disposition: awaiting 2nd phase of stress test. Some and then his results are negative patient will anticipate discharge home tomorrow. Quality VTE Deep Vein Thrombosis/Pulmonary Embolism Present on Admission: No
[2018-09-12] MEDS: ATORVASTATIN 20 MG TABLET PO (20:59)
[2018-09-12] MEDS: NITROGLYCERIN 0.4 MG PATCH TOP (21:00)
[2018-09-12] MEDS: ACETAMINOPHEN 325 MG TABLET 650 MG PO (22:45)
[2018-09-13] VITALS (14 sets, daily range): BP systolic 123–142; BP diastolic 51–77; PULSE 56–78; RESP 16–24; TEMP 36.3–36.6; O2SAT 94–97
[2018-09-13] MEDS: ALBUTEROL 2.5 MG/3 ML NEB (ADULT) INH (00:51)
[2018-09-13 05:50] LABS: Add Manual Diff / Slide Review NO; Basophils Absolute Auto 0 /uL (0-100); Basophils Percent Auto 0.2 % (0-2); Eosinophils Absolute Auto 100 /uL (0-450); Eosinophils Percent Auto 1.7 % (2-4); Hematocrit 26.7 % (36-46); Hemoglobin 8.9 g/dL (12.0-16.0); Lymphocytes Absolute Auto 1600 /uL (1100-4500); Mean Corpuscular HGB Conc 33.4 % (30-36); Mean Corpuscular Hemoglobin 34.4 PG (26-34); Mean Corpuscular Volume 103.1 fL (80-100); Monocytes Absolute Auto 1200 /uL (0-900); Monocytes Percent Auto 16.4 % (3-14); Neutrophils Absolute Auto 4300 /uL (1500-7000); Neutrophils Percent Auto 59.7 % (50-75); Platelet Count 171 X10^3/uL (150-400); Red Blood Cell Count 2.59 X10^6/uL (4.0-5.2); Red Cell Distribution Width 17.4 % (11.6-14.8); White Blood Cell Count 7.2 X10^3/uL (4.5-11.0)
[2018-09-13 05:57] LABS: Alanine Aminotransferase 30 IU/L (9-52); Albumin 3.4 g/dL (3.5-5.0); Albumin Globulin Ratio 0.9 (1.0-2.8); Alkaline Phosphatase 118 U/L (38-126); Aspartate Aminotransferase 32 IU/L (14-36); BUN Creatinine Ratio 45.6 (6-22); Bilirubin Total 0.6 mg/dL (0.2-1.3); Blood Urea Nitrogen 73 mg/dL (7-17); Calcium 9.5 mg/dL (8.4-10.2); Carbon Dioxide 27 mmol/L (22-32); Chloride 99 mmol/L (98-107); Estimated Glomerular Filt Rate 30.9 mL/min (>60); Globulin 3.7 g/dL (1.7-4.1); Glucose 89 mg/dL (80-110); HEMOLYSIS < 15 (0-50); Potassium 4.4 mmol/L (3.4-5.1); Sodium 136 mmol/L (137-145); Total Protein 7.1 g/dL (6.3-8.2)
[2018-09-13] MEDS: ALBUTEROL/IPRATROPIUM 3 ML AMPUL INH ×2 (06:02→14:52)
[2018-09-13] MEDS: HEPARIN 5,000 UNIT/ML VIAL 5000 UNIT SUBCUT ×3 (06:15→20:01)
[2018-09-13] MEDS: PANTOPRAZOLE 20 MG TABLET PO (06:16)
[2018-09-13] MEDS: LEVOTHYROXINE 25 MCG TABLET PO (06:16)
[2018-09-13] MEDS: ASPIRIN EC 81 MG TABLET PO (09:03)
[2018-09-13] MEDS: TICAGRELOR 90 MG 90 EACH PO ×2 (09:03→19:58)
[2018-09-13] MEDS: SODIUM CHLORIDE 0.9% FLUSH 10 ML IV ×2 (09:04→19:57)
[2018-09-13] MEDS: HYDRALAZINE 25 MG TABLET 50 MG PO ×2 (09:04→19:58)
[2018-09-13] MEDS: FUROSEMIDE 40 MG TABLET PO (09:04)
--- NOTE | 2018-09-13 13:30 | PC.NURSE ---
Day shift: Pt off unit for procedure. Went in AC bed. Left at approx 1315
--- NOTE | 2018-09-13 16:37 | PC.NURSE ---
Addendum entered by Mikaela Watters R.N. 09/13/18 21:00: Pt had relatively uneventful evening. Denies any discomfort at this time. Will be NPO after MN for endoscopy in am. HL remains intact/patent. Tele shows a-fib/BBB per ICU staff. Call light w/in reach, bed alarm on for pt safety. Continue w/plan of care. Original Note: Pt resting quietly at this time. Denies discomfort. Lungs clear/diminished, SpO2 95% RA HL RFA intact/patent Tele showing a-fib/BBB per ICU staff. Call light w/in reach/ bed alrm on for pt safety.
--- NOTE | 2018-09-13 17:41 | DI.NM.S_ITS ---
DATE OF SERVICE: 09/13/2018 PROCEDURE: Pharmacological perfusion study. INDICATIONS: Atrial fibrillation, chest pain, history of TAVR, left main stenting. RADIOPHARMACEUTICAL: 23.2 mCi technetium-99m Myoview IV was injected at stress and 25.4 mCi technetium-99m Myoview IV was injected at rest. CARDIAC STRESS: Patient underwent IV Lexiscan perfusion study under the supervision of an attending staff using standard protocol. Baseline rhythm was atrial fibrillation with right wxogoh-mopcam-ppffn and right axis possible left posterior fascicular block. During Lexiscan, no new obvious inducible ischemic changes. Patient remained in atrial fibrillation. There was no profound bradycardia. Patient didn't have any symptoms. RAW DATA: There is significant breast shadow seen. Increased subdiaphragmatic activity seen as well. Patient's weight is 260 pounds GATED STUDY: Resting stress LV ejection fraction 78%. Stress LV ejection fraction 79%. I don't see any obvious wall motion abnormalities. No transient ischemic dilatation. TID ratio is 1.0, which is within normal limits. Resting LV end-diastolic volume is 104 mL. Lung/heart ratio is 0.46, which is mildly abnormal. MYOCARDIAL PERFUSION SCAN: Please note this patient doesn't have any prone images. Stress supine images were compared with rest supine images. Patient was unable to raise right arm during imaging as well. Stress supine and resting supine images revealed vkcgwxov-pj-xrrcg-sized vgnoanqi-zy-wzdhkvvc decreased perfusion of inferior wall, inferoapex extending into the basal inferolateral wall, and mildly decreased perfusion of anteroapex as well. No significant reversible perfusion defect. As I mentioned, I don't have prone images. CONCLUSION: Predominantly fixed bubgkpdg-tj-vfbwh-sized igtgsxhh-dg-rncuhidy decreased perfusion of inferior wall, inferoapex extending into the basal inferolateral wall, as well as mildly decreased perfusion of anteroapex. Patient's weight is 260 pounds. During raw data, there was breast shadow seen as well as increase of diaphragmatic activity. Stress left ventricular (LV) ejection fraction reported to be 79%. I don't see any obvious wall motion abnormality in the decreased perfused segments. Hence, it raises the possibility of likely tissue attenuation artifact causing those fixed perfusion defects. There's no significant reversible ischemia. However, one cannot rule out possibility of nontransmural myocardial infarction in the absence of prone images. Discussed the findings with Dr. Mitchell. Patient has history of left main stenting, and I don't see any significant perfusion defect in that distribution. Kristen Dsouza - ISAI/taisha/ doc#: [id number]/job#: [id number] dd: 09/13/2018 17:00:00 dt: 09/13/2018 17:26:00 DICTATING MD/COPIES TO: Michelle Longoria MD COPIES MNE: NATHALIA
--- NOTE | 2018-09-13 17:53 | P.PN_ITS ---
Subjective Date Patient Seen: 09/13/18 Interval history: Patient reports chest pressure under the left breast last evening. This was different from the pain that brought her into the hospital. It felt like a rock and has since resolved the patient completed the 2nd phase of her stress test today. There was no evidence of reversible ischemia on this study. There was some diaphragmatic attenuation. But no wall motion abnormality corresponding to an acute ischemic event. Exam Vital Signs (past 8 hours): - 09/13/18 10:50 09/13/18 14:52 09/13/18 16:03 Temperature 97.6 F 97.6 F Pulse Rate 59 L 78 56 L Respiratory Rate 20 20 19 Blood Pressure 128/55 L 137/53 L Pulse Oximetry 95 97 94 Fraction of Inspired Oxygen 100 Oxygen Delivery Method Room Air Oxygen Flow Rate 0 Narrative Exam Narrative: Pleasant obese female resting comfortably in no distress lungs: Decreased breath sounds bilateral with occasional scattered crackle cardiac exam: Irregularly irregular normal S1-S2 with a 2/6 systolic ejection murmur abdomen: Soft nontender nondistended no appreciable hepatosplenomegaly extremities: 1+ edema bilaterally Objective Labs Result Diagrams: 09/13/18 05:18 09/13/18 05:18 Labs: Laboratory Results - last 24 hr 09/13/18 09/13/18 05:18 05:18 WBC 7.2 RBC 2.59 L Hgb 8.9 L Hct 26.7 L MCV 103.1 H MCH 34.4 H MCHC 33.4 RDW 17.4 H Plt Count 171 Neut % (Auto) 59.7 Lymph % (Auto) 22.0 L [place] % (Auto) 16.4 H Eos % (Auto) 1.7 L Baso % (Auto) 0.2 Neut # (Auto) 4300 Lymph # (Auto) 1600 [place] # (Auto) 1200 H Eos # (Auto) 100 Baso # (Auto) 0 Sodium 136 L Potassium 4.4 Chloride 99 Carbon Dioxide 27 BUN 73 H Creatinine 1.60 H Estimated GFR 30.9 L BUN/Creatinine Ratio 45.6 H Glucose 89 Calcium 9.5 Magnesium 2.0 Total Bilirubin 0.6 AST 32 ALT 30 Alkaline Phosphatase 118 Total Protein 7.1 Albumin 3.4 L Globulin 3.7 Albumin/Globulin Ratio 0.9 L Assessment & Plan (1) CHF (congestive heart failure): Problem details: will continue Lasix. Consider Isordil and nitrate given renal Insufficiency. Qualifiers: Heart failure chronicity: Heart failure type: Current visit: Yes Status: Acute (2) Acute kidney injury superimposed on CKD: Problem details: ficiency. Current visit: Yes Status: Acute (3) Atrial fibrillation with slow ventricular response: Current visit: Yes Status: Acute (4) Chronic kidney disease, stage 3: Current visit: Yes Status: Acute (5) Type 2 myocardial infarction: Current visit: Yes Status: Acute (6) Morbid obesity: Current visit: Yes Status: Acute (7) Chronic atrial fibrillation: Current visit: Yes Status: Acute Assessment & Plan narrative: Assessment & Plan narrative: Acute chest pain, present on admission. Resolved. -Patient describes chest pain bilaterally across the precordium, nonradiating, nonpleuritic. -EKG with new finding of atrial fibrillation with slow ventricular response, right bundle branch block and old anterior septal infarct. Troponin negative x 3 < 0.012. -Nitroglycerin patch applied and chest pain resolved. -Patient was initially started on heparin gtt which was discontinued as likely demand ischemia. -Ordered pharmacological NM stress test which will be done tomorrow morning. NPO at midnight. Stresst test completed. No evidence of Active ischemia. continue brillinta, and aspirin for now. 2. Acute RV systolic congestive heart failure, present on admission. Active. -Diagnosed with RV systolic CHF in April 2017, chest x-ray today reveals acute congestive failure. -Echocardiogram of 06/24/2018: Normal left ventricle size with ejection fraction 60-65%. Severely dilated left atrium. TAVR is well seated. Moderate mitral annular calcification. Mild mitral regurgitation. Mild to moderate tricuspid regurgitation. The right ventricular systolic pressure is estimated to be at least 64 mmHg based on an estimated right atrial pressure of 3 mm Hg. Moderate-severe pulmonary hypertension -Patient with increased shortness of breath, worsening exertional dyspnea and increased pedal edema over the last several days. Management Accounts Manager, Dr. Rubi increased Lasix from 20-40 mg daily on 09/09. -Patient diuresed approximately 1 L following 80 mg IV Lasix given in the ED. Continue Lasix 40 mg and monitor renal function. Reassess diuresis daily. -Discontinued carvedilol for now as patient has been bradycardic to low 30's. -Continue strict I&Os and daily weight. 3. New onset atrial fibrillation, RBBB, and significant bradycardia, present on admission, acute -12 lead EKG reveals atrial fibrillation with right bundle branch block, slow ventricular response at a rate of 50, no evidence of ST or T-wave changes, prior anterior septal infarct -Patient was initially started on heparin gtt which was discontinued as likely demand ischemia. -Chads2 Vasc score is 7 placing the patient at high risk for stoke however her HAS BLED score is 6 with a history significant for prior GI bleed due to PUD requiring 4 units transfusion placing the patient high risk for bleeding episodes. -Echocardiogram unchanged other than pulmonary hypertension improved. -TSH within normal limits at 2.35 and monitor electrolytes. -Continue Brillenta and aspirin. Continue PPI with ASA due to previous history of PUD. -Discontinued carvedilol for now as patient has been bradycardic to low 30's. Patient needs anticoagulation, given anemia, will get EGD to r/o UGI bleed, Cscope if needed. IF both are negative will anticoagulate with coumadin and discontinue asa. 4. Chronic kidney disease stage 4, chronic, present on admission. Stable. -Patient is followed by Nephrology and has had recent medication adjustments with increase in Lasix and discontinuation of losartan -Creatinine on admission is 1.9, last measured creatinine was 1.2 in May 2018, here the GFR is 25.3. -Continue Lasix 40 mg daily and will follow renal function and consult Ne phrology for worsening parameters. 5. Hypertension, chronic, present on admission. Stable. -Discontinue carvedilol 12.5 mg twice daily due to significant bradycardia. Continue hydralazine 50 mg twice daily. 6. Morbid obesity, chronic , present on admission. Stable. -BMI 52. -Decreasing activity tolerance and impaired mobility. -Ordered PT and OT evaluation and treatment. Quality VTE Deep Vein Thrombosis/Pulmonary Embolism Present on Admission: No
[2018-09-13 18:34] LABS: HEMOLYSIS < 15 (0-50); Iron 38 ug/dL (37-170)
[2018-09-13 18:45] LABS: Percent Iron Saturation 11 % (15-50); Total Iron Binding Capacity 333 ug/dL (265-497); Transferrin 248 mg/dL (206-381)
[2018-09-13] MEDS: ATORVASTATIN 20 MG TABLET PO (19:58)
[2018-09-13] MEDS: NITROGLYCERIN 0.4 MG PATCH TOP (20:00)
[2018-09-14] VITALS (16 sets, daily range): BP systolic 122–182; BP diastolic 44–77; PULSE 57–72; RESP 10–63; TEMP 36.4–37.1; O2SAT 93–99; BMI 51.1
--- NOTE | 2018-09-14 | PATH_ITS ---
[facility] Accession Number: [id number] . 01 Material submitted: . SECOND PART OF DUODENUM . 02 Diagnosis: Duodenum, Second Part, Biopsy: Mild active duodenitis with foveolar metaplasia, consistent with peptic duodenitis. Patchy increased intraepithelial lymphocytes; please see comment. Negative for dysplasia or malignancy. MRV/09/16/2018 . 02 Comment: Sections are of duodenal mucosa with areas of foveolar metaplasia and focal active inflammation, consistent with peptic duodenitis. The background duodenal mucosa without foveolar metaplasia demonstrates a preserved delicate villous architecture; however, increased intraepithelial lymphocytes are also seen. This finding could be related to the peptic duodenitis; however, the differential diagnosis also includes infection, drug-induced injury, stasis, other protein allergies or other autoimmune disorders. No parasites are identified. . 02 Electronically signed: . Juan Ramon Harvey MD, PhD, Pathologist NPI- [id number] . 01 Gross description: . SECOND PART OF DUODENUM: Received in formalin are 2 fragment(s) of palomino, soft tissue measuring 0.3 x 0.2 x 0.2 cm to 0.3 x 0.2 x 0.1 cm submitted entirely in 1 cassette(s) /CKI /CKI . 02 Pathologist provided ICD-10: K29.80 . 02 CPT . 154170 Performed at: 01 [facility] [address] [place] [address], [place], [place] [id number] MD Heriberto Duque MD Phone: [phone] Performed at: [address] [facility] [address] [place], [place] [id number] MD Kizzy Gallegos MD Phone: [phone]
--- NOTE | 2018-09-14 02:46 | PC.NURSE ---
0245- Verified with SABINE Maciel if she wanted me to admin. Heparin SQ due to be given @ 0600, she ordered to hold Heparin @ 0600. Pt. will have an endoscopy procedure this morning per 3-11 RN. report. Will cont. POC & monitor.
[2018-09-14 05:47] LABS: Add Manual Diff / Slide Review NO; Basophils Absolute Auto 0 /uL (0-100); Basophils Percent Auto 0.6 % (0-2); Eosinophils Absolute Auto 200 /uL (0-450); Eosinophils Percent Auto 3.9 % (2-4); Hematocrit 27.1 % (36-46); Hemoglobin 8.9 g/dL (12.0-16.0); Lymphocytes Absolute Auto 1300 /uL (1100-4500); Lymphocytes Percent Auto 21.9 % (25-40); Mean Corpuscular HGB Conc 32.9 % (30-36); Mean Corpuscular Volume 103.3 fL (80-100); Monocytes Absolute Auto 1000 /uL (0-900); Monocytes Percent Auto 16.3 % (3-14); Neutrophils Absolute Auto 3500 /uL (1500-7000); Neutrophils Percent Auto 57.3 % (50-75); Platelet Count 178 X10^3/uL (150-400); Red Blood Cell Count 2.63 X10^6/uL (4.0-5.2); White Blood Cell Count 6.1 X10^3/uL (4.5-11.0)
[2018-09-14 05:55] LABS: Blood Urea Nitrogen 63 mg/dL (7-17); Calcium 9.5 mg/dL (8.4-10.2); Carbon Dioxide 30 mmol/L (22-32); Chloride 99 mmol/L (98-107); Glucose 90 mg/dL (80-110); HEMOLYSIS < 15 (0-50); Potassium 3.9 mmol/L (3.4-5.1); Sodium 136 mmol/L (137-145)
--- NOTE | 2018-09-14 06:44 | PC.NURSE ---
Talked to hospitalist SABINE Maciel ordered to hold morning meds. due @ 0600 & administer it after the procedure. Will report to day RN.
[2018-09-14] MEDS: ALBUTEROL/IPRATROPIUM 3 ML AMPUL INH (07:31)
[2018-09-14] MEDS: SODIUM CHLORIDE 0.9% FLUSH 10 ML IV ×2 (09:11→21:04)
[2018-09-14] MEDS: LEVOTHYROXINE 25 MCG TABLET PO (11:07)
[2018-09-14] MEDS: PANTOPRAZOLE 20 MG TABLET PO (11:08)
[2018-09-14] MEDS: FUROSEMIDE 40 MG TABLET PO (11:08)
[2018-09-14] MEDS: ASPIRIN EC 81 MG TABLET PO (11:08)
[2018-09-14] MEDS: HEPARIN 5,000 UNIT/ML VIAL 5000 UNIT SUBCUT ×2 (11:09→21:04)
[2018-09-14] MEDS: TICAGRELOR 90 MG 90 EACH PO ×2 (11:09→21:03)
[2018-09-14] MEDS: HYDRALAZINE 25 MG TABLET 50 MG PO ×2 (11:10→21:04)
--- NOTE | 2018-09-14 13:01 | P.CONS_ITS ---
History of Present Illness Date Patient Seen: 09/14/18 Time Patient Seen: 10:39 Chief complaint: Chest Pain Reason for consult: Anemia Requesting provider: Leticia Mitchell Narrative: The patient is a woman admitted and found to be anemic. I was asked to see her regarding GI causes of anemia. The patient is a recent transplant from [place]. She was actually in the hospital last summer had which she describes is an exploded hernia. She had a colonoscopy at that time and was told it was normal. She has seen no blood in her stool has had no black bowel movements. Denies abdominal pain. She has had a percutaneous valve replacement and cardiac stents placed. Apparently was having some chest pain but has been ruled out from an [place]. [facility] Medical History Congestive heart failure (Acute) Coronary artery disease (Acute) GI bleed (Acute) Chronic kidney disease (Chronic) Hypertension (Chronic) Hypothyroid (Chronic) Surgical History Hx of heart artery stent (Acute) S/P TAVR (transcatheter aortic valve replacement) (Chronic) Family History Father Medical history unknown Mother Congestive heart failure Diabetes mellitus Sister Diabetes mellitus Myocardial infarction Daughter Hypertension Social History household members: family and children Smoking Status: Former smoker alcohol intake: never substance use type: does not use Family History Father Medical history unknown Mother Congestive heart failure Diabetes mellitus Sister Diabetes mellitus Myocardial infarction Daughter Hypertension Social History household members: family and children Smoking Status: Former smoker alcohol intake: never substance use type: does not use Meds Home Medications Medication Instructions Recorded Confirmed Type acyclovir 400 mg PO BID 09/10/18 09/10/18 History ascorbic acid (vitamin C) [Vitamin 250 mg PO DAILY 09/10/18 09/10/18 History C] atorvastatin 20 mg PO BEDTIME 09/10/18 09/10/18 History calcium citrate-vitamin D3 1 tab PO DAILY 09/10/18 09/10/18 History [Calcitrate-Vitamin D] carvedilol 12.5 mg PO BID 09/10/18 09/10/18 History cetirizine 10 mg PO DAILY 09/10/18 09/10/18 History ferrous gluconate 324 mg PO BID 09/10/18 09/10/18 History fish,bora,flax oils-om3,6,9no1 1 tab PO DAILY 09/10/18 09/10/18 History [[place] 3-6-9] furosemide See Rx Instructions .ROUTE .COMPLEX 09/10/18 09/10/18 History hydralazine 50 mg PO BID 09/10/18 09/10/18 History levothyroxine 25 mcg PO DAILY 09/10/18 09/10/18 History melatonin 3 mg PO BEDTIME PRN 09/10/18 09/10/18 History multivitamin 1 tab PO DAILY 09/10/18 09/10/18 History omega-3 fatty acids-fish oil [Fish 1 cap PO DAILY 09/10/18 09/10/18 History Oil Pearls] omeprazole magnesium [Acid [employer] Aides [employer] Assistants Teacher 20 mg PO BID 09/10/18 09/10/18 History (omeprazole)] ticagrelor [Brilinta] 90 mg PO BID 09/10/18 09/10/18 History Allergies Allergy/AdvReac Type Severity Reaction Status Date / Time morphine AdvReac Hallucinati Verified 09/10/18 16:56 ng Review of Systems Review of Systems Denies any chest pain at this time. No cough. No black or bloody bowel movements. No seizures or blackouts. Exam Vital Signs (past 8 hours): - 09/14/18 07:28 09/14/18 07:33 09/14/18 10:44 Temperature 98.3 F Pulse Rate 64 72 Respiratory Rate 16 20 Blood Pressure 143/63 H Pulse Oximetry 95 95 93 Fraction of Inspired Oxygen 100 Oxygen Delivery Method Room Air Oxygen Flow Rate 0 Narrative Exam Narrative: Very pleasant woman. Remarkably overweight. BMI is greater than 50. Her eyes are nonicteric. Lungs are clear to auscultation no rales or rhonchi. Heart irregularly irregular with a murmur heard best at the base without radiation. Abdomen is protuberant. Her abdominal zaragoza completely lax. No palpable masses. Alert and oriented x3. Very pleasant woman. Objective Labs Result Diagrams: 09/14/18 05:28 09/14/18 05:28 Labs: Laboratory Results - last 24 hr 09/13/18 09/14/1809/14/19 05:18 05:28 05:28 WBC 6.1 RBC 2.63 L Hgb 8.9 L Hct 27.1 L MCV 103.3 H MCH 34.0 MCHC 32.9 RDW 17.0 H Plt Count 178 Neut % (Auto) 57.3 Lymph % (Auto) 21.9 L [place] % (Auto) 16.3 H Eos % (Auto) 3.9 Baso % (Auto) 0.6 Neut # (Auto) 3500 Lymph # (Auto) 1300 [place] # (Auto) 1000 H Eos # (Auto) 200 Baso # (Auto) 0 Sodium 136 L Potassium 3.9 Chloride 99 Carbon Dioxide 30 BUN 63 H Creatinine 1.40 H Estimated GFR 36.0 L BUN/Creatinine Ratio 45.0 H Glucose 90 Calcium 9.5 Iron 38 TIBC 333 % Saturation 11 L Transferrin 248 Assessment & Plan Assessment & Plan narrative: Patient with anemia of uncertain cause. We will perform an EGD today. She has been NPO. I discussed the procedure and rationale for it. Risks of bleeding perforation were discussed. I am not certain she is going to need a colonoscopy. I have asked the personnel of the hospital to obtain her colonoscopy records from last summer. She said it was either done in [place] or [place].
--- NOTE | 2018-09-14 13:11 | PM.PREOP ---
Pre-operative Note Interval Note History & Physical reviewed/Exam performed by Physician: Yes Changes to H&P: No ASA Class (for procedural sedation): III
--- NOTE | 2018-09-14 14:03 | PC.NURSE ---
1400 Pt gone for EGD via bed.
[2018-09-14] MEDS: LACTATED RINGERS 1,000 ML 42 ML IV (14:45)
[2018-09-14] MEDS: TETRACAINE/BENZOCAINE/BUTAMBEN (CETACAINE) BOTTLE 1 SPRAY TOP (15:12)
--- NOTE | 2018-09-14 15:22 | PM.OP.ENDO ---
Operative Date/Time/Diagnoses Date of procedure: 09/14/18 Time of procedure: 15:22 Pre-op diagnosis: Anemia Post-op diagnosis: same (Polyp at the junction of the 1st and 2nd parts the duodenum. Also a small papilloma like lesion) Procedure & Clinicians Study performed: EGD with cold biopsy Same procedure as scheduled: Yes Indications: Determine cause of anemia Surgeon: Trent Valdovinos Procedure Notes SCOAP/Timeout: Performed Procedure in detail: The patient was placed supine on her bed in the endoscopy suite. She had topical anesthetic applied to oropharynx. Because of her very complicated medical history and medical problems anesthesia was involved to safely monitor and sedate her. Topical anesthetic was applied to the oropharynx. A bite block was inserted and the scope was advanced through it into the esophagus. The esophagus was normal. GE junction at 41 cm from the incisors. There was sharp demarcation between the esophageal mucosa and gastric mucosa. The stomach insufflated well. I could see no lesions in the incisura body and antrum. The pyloric channel was widely patent. The duodenal bulb was unremarkable. As I turned into the 2nd part of the duodenum there was a polypoid lesion and immediately adjacent to it a verrucous like lesion. I removed the polyp in biopsied the other lesion. They both appeared to be removed. The remainder of the duodenum the 4th part was unremarkable. The scope was brought back into the stomach and retroflexed. There was a very small hiatal hernia. There was no ulcerations proximally. There is no inflammation of the stomach. The scope was slowly removed and the patient had the area of accurate from the stomach. She tolerated the procedure well. There are no apparent complications. Scope withdrawal time: Not applicable Sedation minutes: 0 (General anesthesia due to her very complex medical issues) Findings: hiatal hernia (Very small) and polyp (Duodenal) Recommendations: Other recommendation (Colonoscopy after bowel prep) Disposition: PACU
--- NOTE | 2018-09-14 15:39 | SUR.PHASEI ---
Stable pacu stay, report attempted, rn not available, will call back.
--- NOTE | 2018-09-14 17:59 | P.PN_ITS ---
Subjective Date Patient Seen: 09/14/18 Interval history: Events reviewed patient seen and examined. Patient underwent upper endoscopy today which showed hiatal hernia and a small duodenal polyp. There was no obvious source of bleeding. Patient will commence anticoagulation for atrial fibrillation. She has had no further chest pain. Exam Vital Signs (past 8 hours): - 09/14/18 10:44 09/14/18 11:40 09/14/18 14:18 Temperature 98.7 F 98.2 F Pulse Rate 70 72 Respiratory Rate 18 16 Blood Pressure 143/63 H 158/69 H Pulse Oximetry 93 95 96 09/14/18 15:27 09/14/18 15:33 09/14/18 15:37 Temperature 97.9 F 97.6 F Pulse Rate 65 57 L 63 Respiratory Rate 16 13 14 Blood Pressure 122/44 L 133/53 L 144/57 H Pulse Oximetry 99 98 98 09/14/18 15:46 09/14/18 16:00 09/14/18 16:30 Temperature 98.1 F 97.7 F Pulse Rate 62 65 67 Respiratory Rate 10 L 18 18 Blood Pressure 156/59 H 182/77 H 149/52 H Pulse Oximetry 96 95 96 09/14/18 17:00 Temperature Pulse Rate Respiratory Rate 18 Blood Pressure 144/56 H Pulse Oximetry 93 Fraction of Inspired Oxygen 100 Oxygen Delivery Method Room Air,Humidification Oxygen Flow Rate 0 Narrative Exam Narrative: Pleasant female resting comfortably Lungs: Decreased but clear to auscultation Cardiac exam: Irregularly irregular normal S1-S2 with a 2/6 systolic ejection murmur Abdomen: Soft nontender nondistended Extremities: Trace edema Objective Labs Result Diagrams: 09/14/18 05:28 09/14/18 05:28 Labs: Laboratory Results - last 24 hr 09/13/18 09/14/18 09/14/18 05:18 05:28 05:28 WBC 6.1 RBC 2.63 L Hgb 8.9 L Hct 27.1 L MCV 103.3 H MCH 34.0 MCHC 32.9 RDW 17.0 H Plt Count 178 Neut % (Auto) 57.3 Lymph % (Auto) 21.9 L [place] % (Auto) 16.3 H Eos % (Auto) 3.9 Baso % (Auto) 0.6 Neut # (Auto) 3500 Lymph # (Auto) 1300 [place] # (Auto) 1000 H Eos # (Auto) 200 Baso # (Auto) 0 Sodium 136 L Potassium 3.9 Chloride 99 Carbon Dioxide 30 BUN 63 H Creatinine 1.40 H Estimated GFR 36.0 L BUN/Creatinine Ratio 45.0 H Glucose 90 Calcium 9.5 Iron 38 TIBC 333 % Saturation 11 L Transferrin 248 Assessment & Plan (1) Chronic atrial fibrillation: Problem details: Patient is rate controlled. Note that there is no evidence of upper GI bleed will start her on anticoagulation. Current visit: Yes Status: Acute (2) Morbid obesity: Current visit: Yes Status: Acute (3) Type 2 myocardial infarction: Problem details: Stress test was negative. No further therapy indicated at this time. Current visit: Yes Status: Acute (4) Chronic kidney disease, stage 3: Problem details: Patient's chronic kidney disease is present on admission. Will continue current treatment plan. Current visit: Yes Status: Acute (5) Chronic anemia: Problem details: Chronic anemia. Suspect iron deficiency. Will continue iron. Current visit: Yes Status: Acute Assessment & Plan narrative: Anticipate discharge home tomorrow. Quality VTE Deep Vein Thrombosis/Pulmonary Embolism Present on Admission: No
[2018-09-14] MEDS: WARFARIN 5 MG TABLET PO (18:18)
[2018-09-14] MEDS: BISACODYL 5 MG TABLET 10 MG PO (18:19)
[2018-09-14] MEDS: NITROGLYCERIN 0.4 MG PATCH TOP (21:04)
[2018-09-14] MEDS: ATORVASTATIN 20 MG TABLET PO (21:04)
[2018-09-14] MEDS: ACETAMINOPHEN 325 MG TABLET 650 MG PO (23:31)
[2018-09-15 02:35] VITALS: BP 127/67
--- NOTE | 2018-09-15 02:44 | PC.NURSE ---
0240 SCIENTIFIC PROCESS OPERATOR called to report patient's had a pause of almost 3 seconds in her telemetry. Rechecked pt. she was sound asleep, but roused easily. Denies any CP, LO, dizziness & other discomfort rechecked her B/P 127/67 & HR 68. Hospitalist SABINE Maciel notified, no new order received. Will cont. POC & monitor.
[2018-09-15 05:55] LABS: INR 1.2 (0.9-1.3); Prothrombin Time 13.6 SECONDS (10.1-12.7)
[2018-09-15 06:03] LABS: PTT Partial Thromboplastin Tim 40 SECONDS (26.4-36.2)
[2018-09-15] MEDS: PANTOPRAZOLE 20 MG TABLET PO (06:13)
[2018-09-15] MEDS: LEVOTHYROXINE 25 MCG TABLET PO (06:13)
[2018-09-15] MEDS: HEPARIN 5,000 UNIT/ML VIAL 5000 UNIT SUBCUT ×3 (06:13→20:38)
[2018-09-15] MEDS: PEG3350/SOD SULF,BICARB,CL/KCL 4,000 ML SOLUTION 2000 ML PO ×2 (06:34→20:36)
[2018-09-15 08:20] VITALS: BP 143/71; PULSE 63; RESP 20; TEMP 36.3; O2SAT 95
[2018-09-15] MEDS: HYDRALAZINE 25 MG TABLET 50 MG PO ×2 (08:56→20:30)
[2018-09-15] MEDS: FUROSEMIDE 40 MG TABLET PO (08:57)
[2018-09-15] MEDS: NYSTATIN CREAM 30 GM 1 APPLIC TOP ×2 (09:03→20:31)
[2018-09-15] MEDS: SODIUM CHLORIDE 0.9% FLUSH 10 ML IV ×2 (09:03→20:31)
[2018-09-15] MEDS: TICAGRELOR 90 MG 90 EACH PO ×2 (09:04→20:37)
[2018-09-15 09:58] VITALS: O2SAT 96
[2018-09-15 11:56] VITALS: BP 125/48; PULSE 58; RESP 18; TEMP 36.6; O2SAT 93
--- NOTE | 2018-09-15 13:36 | PC.NURSE ---
Pt completed 2L of Bowel prep (Yessy), Next 2L due at 1999 this evening. Had large BM formed which turned into liquid stool mixed with urine, brown colored. Plan for colonoscopy tomorrow.
--- NOTE | 2018-09-15 14:54 | P.PN_ITS ---
Subjective Date Patient Seen: 09/15/18 Interval history: The patient is an 83-year-old female admitted to the hospital for chest pain. She underwent a stress test which was negative for reversible ischemia. The patient is anemic. She has chronic atrial fibrillation. She underwent upper endoscopy yesterday which was negative for any source of GI bleeding. She is currently being prepped for colonoscopy. Patient reports no shortness of breath and no chest pain. Exam Vital Signs (past 8 hours): - 09/15/18 08:20 09/15/18 09:58 09/15/18 11:56 Temperature 97.3 F L 97.8 F Pulse Rate 63 58 L Respiratory Rate 20 18 Blood Pressure 143/71 H 125/48 L Pulse Oximetry 95 96 93 Fraction of Inspired Oxygen 100 Oxygen Delivery Method Room Air Oxygen Flow Rate 0 Narrative Exam Narrative: Pleasant female resting comfortably in no distress Lungs: Decreased breath sounds with occasional basilar crackles Cardiac exam: Regular rate and rhythm normal S1-S2 Abdomen obese soft and nontender Extremity no edema Objective Labs Result Diagrams: 09/14/18 05:28 09/14/18 05:28 Labs: Laboratory Results - last 24 hr 09/15/18 09/15/18 05:18 05:18 PT 13.6 H INR 1.2 APTT 40 H D Assessment & Plan (1) Chronic atrial fibrillation: Problem details: Patient is rate controlled. Note that there is no evidence of upper GI bleed will start her on anticoagulation. Patient undergoing colonoscopy tomorrow. Current visit: Yes Status: Acute (2) Morbid obesity: Current visit: Yes Status: Acute (3) Chronic kidney disease, stage 3: Problem details: Patient's chronic kidney disease is present on admission. Will continue current treatment plan. Current visit: Yes Status: Acute (4) CHF (congestive heart failure): Problem details: will continue Lasix. Consider Isordil and nitrate given renal Insuffic iency. Qualifiers: Heart failure chronicity: Heart failure type: Current visit: Yes Status: Acute (5) Chest pain, non-cardiac: Problem details: The patient underwent a stress test which was negative for coronary ischemia. Her cardiac enzymes are negative. There is no evidence of myocardial infarction. Current visit: Yes Status: Acute Quality VTE Deep Vein Thrombosis/Pulmonary Embolism Present on Admission: No
[2018-09-15 15:15] VITALS: BP 143/59; PULSE 65; RESP 18; TEMP 35.8; O2SAT 96
[2018-09-15] MEDS: WARFARIN 5 MG TABLET PO (17:07)
[2018-09-15 20:00] VITALS: BP 155/68; PULSE 62; RESP 20; TEMP 36.1; O2SAT 96
[2018-09-15] MEDS: NITROGLYCERIN 0.4 MG PATCH TOP (20:30)
[2018-09-15] MEDS: ATORVASTATIN 20 MG TABLET PO (20:30)
[2018-09-16] VITALS (21 sets, daily range): BP systolic 126–184; BP diastolic 46–85; PULSE 56–77; RESP 15–24; TEMP 35.9–37; O2SAT 92–98; BMI 47.5
--- NOTE | 2018-09-16 | PATH_ITS ---
[facility] Accession Number: [id number] . 01 Material submitted: . PART A: COLON POLYP BIOPSY AT 80CM PART B: COLON POLYP BIOPSY AT 100CM X2 PART C: LARGE POLYP BIOPSY AT 100CM PART D: RECTAL POLYP BIOPSY . 02 Diagnosis: A. Biopsy, Colon Polyp at 80 cm: Tubular adenoma. . B. Biopsy, Colon Polyps at 100 cm: Tubular adenoma involving two biopsy fragments. . C. Biopsy, Colon Polyp at 100 cm: Tubular adenoma. . D. Biopsy, Rectal Polyp: Tubular adenoma. MRV/09/19/2018 . 02 Electronically signed: . Eriberto Baker MD, Pathologist NPI- [id number] . 01 Gross description: . Part A: COLON POLYP BIOPSY AT 80CM: Received in formalin is 1 fragment(s) of palomino, soft tissue measuring 0.4 x 0.3 x 0.2 cm which is entirely submitted and submitted entirely in 1 cassette(s) Part B: COLON POLYP BIOPSY AT 100CM X2: Received in formalin are 4 fragment(s) of palomino, soft tissue measuring 0.2 x 0.2 x 0.2 cm to 0.5 x 0.3 x 0.3 cm which is entirely submitted and submitted entirely in 1 cassette(s) Part C: LARGE POLYP BIOPSY AT 100CM: Received in formalin are 4 fragment(s) of palomino, soft tissue measuring 0.1 x 0.1 x 0.1 cm to 0.7 x 0.7 x 0.6 cm which is entirely submitted and submitted entirely in 1 cassette(s) Part D: RECTAL POLYP BIOPSY: Received in formalin is 1 fragment(s) of palomino, soft tissue measuring 0.5 x 0.5 x 0.5 cm which is entirely submitted and submitted entirely in 1 cassette(s) /D[facility] /[facility] . 02 Pathologist provided ICD-10: D12.8 . 02 CPT . 707276, [id number], [id number], [id number] Performed at: 01 [facility] [address] [address], [place], [place] [id number] MD Heriberto Duque MD Phone: [phone] Performed at: [facility] [address] [place], [place] [id number] MD Kizzy Gallegos MD Phone: [phone]
[2018-09-16] MEDS: HEPARIN 5,000 UNIT/ML VIAL 5000 UNIT SUBCUT ×3 (05:57→21:13)
[2018-09-16] MEDS: PANTOPRAZOLE 20 MG TABLET PO (05:58)
[2018-09-16] MEDS: LEVOTHYROXINE 25 MCG TABLET PO (05:58)
[2018-09-16] MEDS: HYDRALAZINE 25 MG TABLET 50 MG PO ×2 (09:29→21:14)
[2018-09-16] MEDS: FUROSEMIDE 40 MG TABLET PO (09:29)
[2018-09-16] MEDS: TICAGRELOR 90 MG 90 EACH PO ×2 (09:29→21:13)
[2018-09-16] MEDS: REMOVE NITRO PATCH TOP (09:30)
[2018-09-16] MEDS: SODIUM CHLORIDE 0.9% FLUSH 10 ML IV ×2 (09:31→21:13)
[2018-09-16] MEDS: FLEETS ENEMA 1 EACH PR (12:36)
--- NOTE | 2018-09-16 12:41 | CM.DPNOTE ---
Reviewed chart. Pt on hospital day 6; medical management continues for afib, CHF/chest pain, anemia. No evidence of GI Bleed per EGD, pt has been started on anti-coagulants. Stress test was negative for coronary ischemia, no NM. Pt undergoing a colonoscopy today. PT/OT eval might be helpful when medically appropriate to help determine DC goals/needs. Dtr Maryanne actively involved. FRONT OFFICE SPECIALIST team following closely as medical POC unfolds. ANYA Cosme
--- NOTE | 2018-09-16 13:35 | PM.PREOP ---
Pre-operative Note Interval Note History & Physical reviewed/Exam performed by Physician: Yes Changes to H&P: Yes H&P completed within 30 days and has changed as indicated here:: EGD showed a polyp in the duodenum. Bowel prep went well. Risks and benefits discussed. Anesthesia will be involved due to her serious medical issues.
--- NOTE | 2018-09-16 13:42 | SUR.OPER ---
numeous bruises on thighs and skin changes on ankles
--- NOTE | 2018-09-16 14:16 | PM.OP.ENDO ---
Operative Date/Time/Diagnoses Date of procedure: 09/16/18 Time of procedure: 14:16 Pre-op diagnosis: Anemia Post-op diagnosis: same (Same. Multiple polyps. One large. Extensive left-sided diverticulosis.) Procedure & Clinicians Study performed: Colonoscopy incomplete. Could only get to the transverse colon when I ran out of scope. Same procedure as scheduled: Yes Indications: Determine cause of anemia Surgeon: Trent Valdovinos Procedure Notes SCOAP/Timeout: Performed Procedure in detail: The patient was placed in the left lateral decubitus position and underwent IV sedation directed by the surgeon consisting of fentanyl and Versed. Digital exam was unremarkable. The scope was inserted and advanced through the rectum into the sigmoid, descending, and transverse colon. The sigmoid and descending colon were heavily involved with diverticulosis. At about 80 cm from the anal verge going in I removed a polyp with biopsy forceps.. I inserted the scope to its hub on multiple attempts to complete the colonoscopy. Pressure was applied, stiffener was inserted, and I still could not get beyond a certain point in the colon. After spending about 10 min trying to do so I abandoned the procedure. Scope was slowly brought out. At 100 cm from the anal verge I biopsied 2 polyps. One was with cold biopsy forceps and the other was a snare. There was a large polyp at this area encompassing about a quarter of the lumen. It was a flat polyp. I snared this in pieces. It was very difficult to tell if I would remove the entire polyp because for whatever reason I could not distend this area of the colon well. When it appeared that I had removed the whole thing I tattooed the colon distal to the lesion in 2 places. This was with submucosal injections of black ink. The scope was gradually brought out. Another Polyp was found at the rectum and it was snared and completely removed.. The scope ultimately was retroflexed in the rectum. The appearance was normal. The scope was removed and the patient tolerated the procedure well. I did note that the patient appeared to have a clot on a hemorrhoid right at the anal verge. There was no active bleeding however. The prep was good. Scope withdrawal time: Not applicable Sedation minutes: 0 (General anesthesia was used due to the patient has multiple medical problems and the concern for her safety given those and also her size 47.5 kilogram/meters squared BMI.) Findings: diverticulosis and polyp (Multiple) Specimen(s): other (Polyps) Complications: none Recommendations: Colonscopy in 1 year (Ensure that the polyp at 100 cm was removed completely the scope should be done within the next year) Follow up: as needed Disposition: PACU
--- NOTE | 2018-09-16 14:17 | PC.NURSE ---
Pt down to colonoscopy around 1245. She has been doing well this shift. One person transfer to bsc. Remained NPO and fleets enema given right before patients procedure. Heparin is do at 1400 but not given as pt is in surgery.
--- NOTE | 2018-09-16 14:24 | P.OP.ENDO_ITS ---
Operative Date/Time/Diagnoses Date of procedure: 09/16/18 Time of procedure: 14:16 Pre-op diagnosis: Anemia Post-op diagnosis: same (Same. Multiple polyps. One large. Extensive left- sided diverticulosis.) Procedure & Clinicians Study performed: Colonoscopy incomplete. Could only get to the transverse colon when I ran out of scope. Same procedure as scheduled: Yes Indications: Determine cause of anemia Surgeon: Trent Valdovinos Procedure Notes SCOAP/Timeout: Performed Procedure in detail: The patient was placed in the left lateral decubitus position and underwent IV sedation directed by the surgeon consisting of idalia entpetra and Versed. Digital exam was unremarkable. The scope was inserted and advanced through the rectum into the sigmoid, descending, and transverse colon. The sigmoid and descending colon were heavily involved with diverticulosis. At about 80 cm from the anal verge going in I removed a polyp with biopsy forceps.. I inserted the scope to its hub on multiple attempts to complete the colonosc opy. Pressure was applied, stiffener was inserted, and I still could not get beyond a certain point in the colon. After spending about 10 min trying to do so I abandoned the procedure. Scope was slowly brought out. At 100 cm from the anal verge I biopsied 2 polyps. One was with cold biopsy forceps and the other was a snare. There was a large polyp at this area encompassing about a quarter of the lumen. It was a flat polyp. I snared this in pieces. It was very difficult to tell if I would remove the entire polyp because for whatever reason I could not distend this area of the colon well. When it appeared that I had removed the whole thing I tattooed the colon distal to the lesion in 2 places. This was with submucosal injections of black ink. The scope was gradually brought out. Another Polyp was found at the rectum and it was snared and completely removed.. The scope ultimately was retroflexed in the rectum. The appearance was normal. The scope was removed and the patient tolerated the procedure well. I did note that the patient appeared to have a clot on a hemorrhoid right at the anal verge. There was no active bleeding however. The prep was good. Scope withdrawal time: Not applicable Sedation minutes: 0 (General anesthesia was used due to the patient has multiple medical problems and the concern for her safety given those and also her size 47.5 kilogram/meters squared BMI.) Findings: diverticulosis and polyp (Multiple) Specimen(s): other (Polyps) Complications: none Recommendations: Colonscopy in 1 year (Ensure that the polyp at 100 cm was removed completely the scope should be done within the next year) Follow up: as needed Disposition: PACU
--- NOTE | 2018-09-16 14:45 | SUR.PHASEI ---
States that she is doing well, 'the gas is moving out.' Taking ice chips and tolerating them well. Drowsy, appropriate.
--- NOTE | 2018-09-16 15:09 | RT ---
Patient just back from an endoscopy procedure. Will check back with her to do her assessment for the day.
--- NOTE | 2018-09-16 15:14 | SUR.PHASEI ---
1503 to room 212, bed down and locked, call light within reach. lying on left side; comfortable and pleasant. Stable, tolerated PO well. Report given at bedside. Skin warm and dry, Resp even and regular.
[2018-09-16] MEDS: ALBUTEROL 2.5 MG/3 ML NEB (ADULT) INH (16:45)
--- NOTE | 2018-09-16 17:04 | P.PN_ITS ---
Subjective Date Patient Seen: 09/16/18 Interval history: Kristen Dsouza is an 83-year-old female with a history of c hronic atrial fibrillation, coronary artery disease who underwent stress test which was negative. The patient was significantly anemic and given her need for anticoagulation underwent upper endoscopy as well as colonoscopy. The upper endoscopy showed no evidence of bleeding. Colonoscopy revealed a polyp which was removed today. Patient also was found to have a hemorrhoid that looked like it had recently bled. There was no active bleeding at this time. Patient is recovering well. Has no complaints of shortness of breath or chest pain. Exam Vital Signs (past 8 hours): - 09/16/18 11:25 09/16/18 13:02 09/16/18 14:19 Temperature 98.6 F 97.2 F L 98.3 F Pulse Rate 73 77 70 Respiratory Rate 20 15 18 Blood Pressure 145/66 H 162/66 H 126/46 L Pulse Oximetry 95 94 97 09/16/18 14:24 09/16/18 14:29 09/16/18 14:34 Temperature Pulse Rate 60 62 73 Respiratory Rate 15 18 17 Blood Pressure 135/47 L 136/52 L 136/62 Pulse Oximetry 97 97 97 09/16/18 14:44 09/16/18 15:05 09/16/18 15:35 Temperature 97.0 F L 96.8 F L Pulse Rate 66 74 74 Respiratory Rate 17 20 19 Blood Pressure 145/69 H 150/72 H 146/67 H Pulse Oximetry 98 94 92 09/16/18 16:05 09/16/18 16:46 09/16/18 16:47 Temperature 96.7 F L Pulse Rate 71 70 72 Respiratory Rate 18 24 Blood Pressure 184/67 H 160/85 H Pulse Oximetry 93 95 Fraction of Inspired Oxygen 100 Oxygen Delivery Method Room Air Oxygen Flow Rate 0 Narrative Exam Narrative: Pleasant female resting comfortably in no obvious distress Lungs: Decreased breath sounds with occasional basilar crackles Cardiac exam: Irregularly irregular normal S1-S2 with a 2/6 systolic ejection murmur Abdomen: Soft nontender nondistended without hepatosplenomegaly Extremities: 1+ edema bilateral Objective Labs Result Diagrams: 09/14/18 05:28 09/14/18 05:28 Assessment & Plan (1) Chest pain, non-cardiac: Problem details: The patient underwent a stress test which was negative for coronary ischemia. Her cardiac enzymes are negative. There is no evidence of myocardial infarction. Current visit: Yes Status: Acute (2) Chronic anemia: Problem details: Chronic anemia. Suspect iron deficiency. Will continue iron.ding Patient underwent upper endoscopy which was negative. Colonoscopy today revealed a polyp which was removed. There was evidence to suggest recent bleeding of a hemorrhoid. Patient will need to be anticoagulated for her atrial fibrillation. Will discuss with timing of her anticoagulation with Dr. Valdovinos. Current visit: Yes Status: Acute (3) Chronic atrial fibrillation: Problem details: Patient is rate controlled. Note that there is no evidence of upper GI bleed will start her on anticoagulation. Patient undergoing colonoscopy tomorrow. Colonoscopy completed. Polyp identified and removed. Current visit: Yes Status: Acute (4) Morbid obesity: Current visit: Yes Status: Acute (5) Chronic kidney disease, stage 3: Problem details: Patient's chronic kidney disease is present on admission. Will continue current treatment plan. Current visit: Yes Status: Acute (6) CHF (congestive heart failure): Problem details: will continue Lasix. Consider Isordil and nitrate given renal Insufficiency. Patient has chronic, systolic heart failure. Qualifiers: Heart failure chronicity: Heart failure type: Current visit: Yes Status: Acute Quality VTE Deep Vein Thrombosis/Pulmonary Embolism Present on Admission: No
[2018-09-16] MEDS: WARFARIN 5 MG TABLET PO (17:54)
[2018-09-16] MEDS: NITROGLYCERIN 0.4 MG PATCH TOP (21:13)
[2018-09-16] MEDS: ATORVASTATIN 20 MG TABLET PO (21:14)
[2018-09-16] MEDS: MELATONIN 3 MG TABLET PO (21:14)
--- NOTE | 2018-09-16 21:59 | PC.NURSE ---
mari shift- assumed care of pt. pt brought up from pacu. still very sleepy, saturation about 92% on room air. placed on 1l for a bit to let the medications wear off. Pt uses call acosta. pt incontinent of bowel and bladder. cleaned up. given ice chips and water. tolerating. passed meds and pt tolerating. Pt uses call acosta. cleaned up abd folds and interdry placed with assistance of dtr. discussed medication warfarin and importance of diet. pt states she had been on it before but that it has been a while. pt has dtr at bedside for majority of shift. pt cooperative and compliant 1pa with walker to bsc. will continue to monitor.
[2018-09-17] VITALS (10 sets, daily range): BP systolic 132–177; BP diastolic 50–77; PULSE 60–78; RESP 16–18; TEMP 36.6–37.1; O2SAT 92–97
[2018-09-17] MEDS: HEPARIN 5,000 UNIT/ML VIAL 5000 UNIT SUBCUT ×2 (05:47→15:13)
[2018-09-17] MEDS: LEVOTHYROXINE 25 MCG TABLET PO (05:47)
[2018-09-17] MEDS: PANTOPRAZOLE 20 MG TABLET PO (05:47)
[2018-09-17 06:32] LABS: INR 1.9 (0.9-1.3); Prothrombin Time 21.7 SECONDS (10.1-12.7)
[2018-09-17 06:40] LABS: BUN Creatinine Ratio 28.3 (6-22); Blood Urea Nitrogen 34 mg/dL (7-17); Calcium 9.5 mg/dL (8.4-10.2); Carbon Dioxide 34 mmol/L (22-32); Chloride 99 mmol/L (98-107); Glucose 91 mg/dL (80-110); HEMOLYSIS < 15 (0-50); Potassium 3.3 mmol/L (3.4-5.1); Sodium 140 mmol/L (137-145)
[2018-09-17] MEDS: POTASSIUM CHLORIDE 40 MEQ in SODIUM CHLORIDE 0.9% 500 ML 130 ML IV (07:59)
[2018-09-17] MEDS: FUROSEMIDE 40 MG TABLET PO (08:13)
[2018-09-17] MEDS: HYDRALAZINE 25 MG TABLET 50 MG PO ×2 (08:13→20:16)
[2018-09-17] MEDS: TICAGRELOR 90 MG 90 EACH PO ×2 (08:14→20:16)
[2018-09-17] MEDS: FERROUS SULFATE 325 MG TABLET PO (08:41)
[2018-09-17] MEDS: REMOVE NITRO PATCH TOP (09:00)
--- NOTE | 2018-09-17 11:10 | PT.IIE ---
Current Diagnoses Anemia, unspecified (09/10/18) Morbid (severe) obesity due to excess calories (09/10/18) Myocardial infarction type 2 (09/10/18) Chronic atrial fibrillation (09/10/18) Unspecified atrial fibrillation (09/10/18) Heart failure, unspecified (09/10/18) Acute kidney failure, unspecified (09/10/18) Chronic kidney disease, stage 3 (moderate) (09/10/18) Chronic kidney disease, unspecified (09/10/18) Other chest pain (09/10/18) Surgery Performed Operation Date: 09/14/18 16:30 Actual Procedures p Esophagogastroduodenoscopy WITH BIOPSY(Not Applicable) - Trent Valdovinos MD Operation Date: 09/16/18 13:45 Actual Procedures p Colonoscopy with Injection; with biopsy - Trent Valdovinos MD Surgical History (Last Reviewed 09/14/18 @ 12:59 by Trent Valdovinos MD) Hx of heart artery stent (Acute) S/P TAVR (transcatheter aortic valve replacement) (Chronic) Medical History (Last Reviewed 09/14/18 @ 12:59 by Trent Valdovinos MD) Congestive heart failure (Acute) Coronary artery disease (Acute) GI bleed (Acute) Chronic kidney disease (Chronic) Hypertension (Chronic) Hypothyroid (Chronic) Physical Therapy Inpatient Evaluation/Re-Eval M1 PT/OT-IP Prior Functional Status Start: 09/17/18 12:00 Freq: NEEDED Status: Active Protocol: Document 09/17/18 11:10 [facility] (Rec: 09/17/18 12:11 [facility] [id number]) Medical Review Prior Functional Status Medical History Reviewed Yes Mobility and Gait mod. indep. household gait with FWW, and able to walk in/ out of car for MD appts Activities of Daily Living and IADL's assist with pericare and showering; indep. eating Social History Household Members family children Living Arrangements House Number of Floors (Floors) One Floor Number of Stairs To Enter/Railing? ramped entry Home Environment Walk in Shower Ramp Home Equipment Front Wheel Walker Shower Seat without Backrest Additional Social History Comment Pt lives with daughter, who is her sample color maker. Daughter has her own child which she provides care for as well. Pt with c/o SOB, found to be in A-fib, CHF and anemic. No evidence of GI bleed per EGD, colonoscopy found a polyp which was removed. Hgb 8.9, Hct 27.1 M2 PT-IP Current Condition Start: 09/17/18 12:00 Freq: NEEDED Status: Active Protocol: Document 09/17/18 11:10 [facility] (Rec: 09/17/18 12:11 [facility] [id number]) Physical Therapy Current Condition Current Condition Evaluation Date 09/17/18 Treatment Diagnosis chest pain/CHF, impaired activity tolerance M3 PT-IP Subjective Start: 09/17/18 12:00 Freq: NEEDED Status: Active Protocol: Document 09/17/18 11:10 [facility] (Rec: 09/17/18 12:11 [facility] [id number]) Subjective Physical Therapy Visit Type Type Initial Evaluation Visit Start Time 11:10 Visit Stop Time 11:33 Total Visit Minutes 23 Number of TECHNICAL SME Visits 0 Physical Therapy Visit Comments Patient Comments pt states that she fatigued rapidly when getting up earlier in the day. Patient Goals to be able to go home M4 PT-IP Mobility and Gait Start: 09/17/18 12:00 Freq: NEEDED Status: Active Protocol: Document 09/17/18 11:10 [facility] (Rec: 09/17/18 12:11 [facility] [id number]) PT-Bed Mobility Assessment Sit to Supine Sit to Supine Moderate Assistance 1 Person Assistance PT-Transfer Assessment Sit to and From Stand Sit to and from Stand Contact Guard Assistance Equipment Transfer Assistive Device Gait Belt Front Wheeled Walker Transfers Transfer Destination Bed Transfer Technique Stand Step Pivot Transfer Ability Level of Assist Contact Guard Assistance Gait Assessment Gait Gait Assistance Required: Contact Guard Assist Distance (Feet) 20 Assistive Devices Assistive Device Gait Belt Front Wheeled Walker Gait Deviations General Gait Pattern Decreased Stride Length Decreased Feet Clearance Flexed Trunk Step-to Gait Factors Limiting Gait Function Factors Limiting Gait Function Decreased Activity Tolerance Decreased Strength Poor Balance PT-Balance Assessment Sitting Balance and Reactions Static Sitting Balance Ability Good Dynamic Sitting Balance Ability Good Standing Balance and Reactions Static Standing Balance Ability Fair Dynamic Standing Balance Ability Fair Device Used FWW M5 PT-IP Objective Assessments Start: 09/17/18 12:00 Freq: NEEDED Status: Active Protocol: Document 09/17/18 11:10 [facility] (Rec: 09/17/18 12:11 [facility] [id number]) Orientation Orientation/Cognition Level of Alertness Alert Gross Range of Motion Lower Extremity ROM Assessment Within Functional Limits Strength Lower Extremity Strength Hip flexion 3+/5 B Knee flexion and extension 4/5 B Ankle DF 4/5 B M7 PT-IP Assessment and Plan Start: 09/17/18 12:00 Freq: NEEDED Status: Active Protocol: Document 09/17/18 11:10 [facility] (Rec: 09/17/18 12:11 [facility] [id number]) PT Summary Assessment and Plan Potential Rehabilitation Potential Good Status of Condition at Evaluation Evolving Summary Impairments Strength Balance Bed Mobility Transfers Gait Activity Tolerance Assessment Summary Pt limited with activity tolerance, but O2 saturation 93% or greater and MN 66-82 bpm. Pt normally able to ambulate indoors indep. and use BR without assistance, using a FWW. She is below her functional baseline, but does have good support at home. She would greatly benefit from home health physical therapy to progress her activity tolerance, strength, and overall independence with mobility. Expect pt to be able to d/c home when medically stable. Goals Bed Mobility Goal Standby Assistance Transfer Goal Standby Assistance Gait Goal Standby Assistance Front Wheel Walker Gait Distance 50 Days to Meet Goals 3 Frequency of Treatment Frequency Of Treatment Once a Day Treatment Plan Physical Therapy Treatment Plan Bed Mobility Training Transfer Training Gait Training Therapeutic Exercise Balance Retraining Discharge Planning Neuromuscular Re-ed Manual Therapy Other Recommendations and Next Treatment prog. gait, bed mobility as Focus tolerated. Recommendations To Nursing Amount of Assist Needed 1 Person Assist Discharge Recommendations PT Discharge Recommendations Home with Assistance Home Health
--- NOTE | 2018-09-17 15:39 | PC.NURSE ---
Pts potassium rider just finished and she tolerated this well. When pt up to the commode, embroidery specialist reported that patient had some bleeding in the commode bucket. Check on pt and she had some crimson colored blood in bsc, explained this to and she states that patient had a hemorrhoid and that is what the bleeding was from. She is comfortable and resting comfortably. Denies any pain.
--- NOTE | 2018-09-17 15:50 | OT.IP.EVAL ---
Current Diagnoses Anemia, unspecified (09/10/18) Morbid (severe) obesity due to excess calories (09/10/18) Myocardial infarction type 2 (09/10/18) Chronic atrial fibrillation (09/10/18) Unspecified atrial fibrillation (09/10/18) Heart failure, unspecified (09/10/18) Acute kidney failure, unspecified (09/10/18) Chronic kidney disease, stage 3 (moderate) (09/10/18) Chronic kidney disease, unspecified (09/10/18) Other chest pain (09/10/18) Surgery Performed Operation Date: 09/14/18 16:30 Actual Procedures p Esophagogastroduodenoscopy WITH BIOPSY(Not Applicable) - Trent Valdovinos MD Operation Date: 09/16/18 13:45 Actual Procedures p Colonoscopy with Injection; with biopsy - Trent Valdovinos MD Past Medical History (Last Reviewed 09/14/18 @ 12:59 by Trent Valdovinos MD) Congestive heart failure (Acute) Coronary artery disease (Acute) GI bleed (Acute) Chronic kidney disease (Chronic) Hypertension (Chronic) Hypothyroid (Chronic) Surgical History (Last Reviewed 09/14/18 @ 12:59 by Trent Valdovinos MD) Hx of heart artery stent (Acute) S/P TAVR (transcatheter aortic valve replacement) (Chronic) Occupational Therapy Inpatient Evaluation/Re-Eval M1 PT/OT-IP Prior Functional Status Start: 09/17/18 12:00 Freq: NEEDED Status: Active Protocol: Document 09/17/18 15:55 [facility] (Rec: 09/17/18 17:47 [facility] [id number]) Medical Review Prior Functional Status Medical History Reviewed Yes Diet/Fluid Consistency Regular Communication WNL Mobility and Gait mod. indep. household gait with FWW, and able to walk in/ out of car for MD appts Activities of Daily Living and IADL's assist with pericare and showering and socks and shoes from daughter; pt states she does some cooking, daughter does all manufacturing operations manager and driving Prior Functional Level (Other details) pt's daughter cares for an adult adopted daughter who is blind and has CP (tube fed) Social History Household Members family children Living Arrangements House Number of Floors (Floors) Two Floors Number of Stairs To Enter/Railing? ramped entry; pt stays on main level; upper level of home rented out Home Environment High Toilet Walk in Shower Ramp Home Equipment Front Wheel Walker Shower Seat without Backrest Hand Held Shower Employment Status Retired Additional Social History Comment Pt lives with daughter, who is her manager material. Pt sleeps in power recliner with sit to stand feature which pt states seh does not use. Pt with c/o SOB, found to be in A-fib, CHF and anemic. No evidence of GI bleed per EGD, colonoscopy found a polyp which was removed. Hgb 8.9, Hct 27.1 M2 OT-IP Current Condition Start: 09/17/18 17:32 Freq: Status: Active Protocol: Document 09/17/18 15:55 [facility] (Rec: 09/17/18 17:47 [facility] [id number]) Occupational Therapy Current Condition Current Condition Evaluation Date 09/17/18 Treatment Diagnosis decreased activity tolerance, self care, mobility due to CHF exacerb, Afib Diagnosis Onset Date 09/10/18 Post Operative Precautions Other Precautions fall risk M3 OT- IP Subjective and Pain Start: 09/17/18 17:32 Freq: Status: Active Protocol: Document 09/17/18 15:55 [facility] (Rec: 09/17/18 17:47 [facility] [id number]) OT- Subjective Occupational Therapy Visit Type Type Initial Evaluation Visit Start Time 15:15 Visit Stop Time 15:55 Total Visit Minutes 40 Notes Pt requesting to use BSC Occupational Therapy Visit Comments Patient/Caregiver Goals to go home tomorrow OT Pain Assessment Pain When Pain Assessed After Treatment Pain Present Pain Present Denied Pain M4 OT- IP ADL's Start: 09/17/18 17:32 Freq: Status: Active Protocol: Document 09/17/18 15:55 [facility] (Rec: 09/17/18 17:47 [facility] [id number]) OT EPO-Eiac-Okjxuer General Evaluation Self-Feeding Ability Independent OT ADL-Grooming General Evaluation Grooming Ability Standby Assistance Areas Needing Assistance Face Washing Comments OT Grooming Comments after set up in chair OT ADL-Oral Care General Eval Oral Care Ability Standby Assistance Comments Oral Care Comments after set up in chair OT ADL-Dressing General Eval Upper Body Dressing Ability Standby Assistance Lower Body Dressing Ability Maximum Assistance Areas Needing Assistance Socks Shoes Comments OT Dressing Comments Provided education re: use of technical support analyst and sock aid for lower body dressing. Pt will need wide sock aid and further practice with equipment OT ADL-Toileting General Evaluation Areas Needing Assistance Perform Perineal Hygiene Comments OT Toileting Comments pt declined this session OT ADL-Bathing Comments OT Bathing Comments did not occur this session M5 OT- IP IADL's Start: 09/17/18 17:32 Freq: Status: Active Protocol: Document 09/17/18 15:55 [facility] (Rec: 09/17/18 17:47 [facility]J [id number]) OT-Instrumental Activities of Daily Living Deficits IADL Deficits Identified Deficits Home Safety Awareness Awareness of Need for Assistance at Home Good Awareness Medication Management Medication Management Caregiver Provides Supervision Money Management Money Management Caregiver Provides Supervision Meal Preparation Meal Preparation Caregiver Provides Assist Communications Billing Analyst Communications Billing Analyst Caregiver Provides Assist Driving Driving Caregiver Provides Assist M6 OT- IP Functional Cognition Start: 09/17/18 17:32 Freq: Status: Active Protocol: Document 09/17/18 15:55 [facility] (Rec: 09/17/18 17:47 PJ [id number]) Cognitive Factors Limiting Selfcare Function Cognitive Ability Level of Alertness Alert Patient Orientation Name Month Date Year Place Situation Attention Span Ability Capable of Focused Attention Capable of Sustained Attention Ability to Follow Commands Able to Follow One Step Commands Safety Awareness Underestimates Need for Assistance Problem Solving Ability Needs Assist to Identify Solutions OT- Vision and Hearing OT- Hearing Assessment OT- Hearing Assessment WFL OT- Vision Assessment Visual Acuity WFL Glasses All The Time Vision Assessment Comments Pt denies any recent changes M7 OT- IP Mobility and Balance Start: 09/17/18 17:32 Freq: Status: Active Protocol: Document 09/17/18 15:55 [facility] (Rec: 09/17/18 17:47 [facility] [id number]) OT- Bed Mobility Assessment Rolling Type of Rolling Roll to Left Level of Assistance Minimal Assistance Supine to Sit Supine to Sit Assist Minimal Assistance 1 Person Assistance Head of Bed Elevated Bedrails Scooting Scooting to Edge of Bed Minimal Assistance 1 Person Assistance OT-Transfer Assessment Sit to and From Stand Sit to and from Stand Contact Guard Assistance 1 Person Assistance Transfers Transfer Ability Contact Guard Assistance 1 Person Assistance Devices Transfer Assistive Devices Gait Belt Front Wheeled Walker Comments Mobility Comments pt sleeps in power recliner at home OT- Gait Assessment Gait Gait Assistance Required: Contact Guard Assist Distance (Feet) 3 Assistive Devices Assistive Device Gait Belt Front Wheeled Walker Comments Gait Ability Comments no LOB noted OT- Balance Assessment Sitting Balance and Reactions Static Sitting Balance Ability Good Dynamic Sitting Balance Ability Fair Standing Balance and Reactions Static Standing Balance Ability Good Comments Other Balance Tests/Deviations/Treatment with FWW : M8 OT- IP Objective Assessments Start: 09/17/18 17:32 Freq: Status: Active Protocol: Document 09/17/18 15:55 [facility] (Rec: 09/17/18 17:47 [facility] [id number]) OT Gross Range of Motion Upper Extremity Range of Motion Assessment Within Functional Limits ROM Impairments B shoulder scaption to ~90 by stiffness and body size OT Strength Upper Extremity Strength Assessment Within Functional Limits Hand Blow Down Operator Strength Hand Dominance Right OT- Coordination Assessment Comments Coordination Comments BUE WFL OT-Muscle Tone Assessment Muscle Tone WNL Yes OT Sensation Assessment Comments Summary Comments Pt denies deficits in BUEs M9 OT- IP Assessment and Plan Start: 09/17/18 17:32 Freq: Status: Active Protocol: Document 09/17/18 15:55 [facility] (Rec: 09/17/18 17:47 [facility] [id number]) OT Summary Assessment and Plan Potential Rehabilitation Potential Good Summary OT Impairments Functional Mobility Grooming Dressing Toileting Bathing Toilet Transfers Shower Transfers Assessment Summary Low complexity OT assessment completed on this 83 yrold pt with resolving CHF exacerbation. Pt's primary deficits are decreased activity tolerance and decreased independence in lower body dressing due to body size. No family here to confirm prior level of function. Pt states she will have 24 hr assist from supportive daughter at d/c. Recommend pt return home with daughter and HH OT services to increase indep/safety in basic self care and continue practice with lower body dressing equipt and toilet paper aid. Goals Grooming Goal Standby Assistance Dressing Goal Standby Assistance Long Handled [place]oe [place] Social Science Teacher Sock Aid Toileting Goal Standby Assistance Toilet Paper Aid Bathing Goal Standby Assistance Long Handled Sponge or [place] Toilet Transfer Goal Standby Assistance Shower Transfer Goal Standby Assistance Patient/Caregiver Education Goal Demonstrate Energy Conservation and Pacing Days to Meet Goals 3 Frequency of Treatment Frequency Of Treatment Once a Day Treatment Plan OT Treatment Plan ADL Training Functional Mobility Patient/Family Education Discharge Planning Discharge Recommendations OT Discharge Recommendations Home with 24/7 Assist Home Health Home Equipment Needs technical support analyst, long shoe horn, wide sock aid, toilet almaz aid
[2018-09-17] MEDS: WARFARIN 5 MG TABLET PO (16:23)
--- NOTE | 2018-09-17 16:30 | CM.DPC ---
DCP/continued: Received verbal referral from Dr. Carmen that patient most likely will be ready to d/c from [facility] tomorrow 09-18-18 with home health. Order obtained for home PT/OT/RN/[employer]. TALENT ACQUISITION RELATIONSHIP MANAGER met with patient to discuss home health options. Patient alert and oriented at time of visit. Patient aware and agreeable to and does not have agency preference. Therefore, placed call to [facility] ph# [phone] spoke with Afsaneh. She reports that they will need to review clinical before acceptance. Faxed order, clinical and demographic sheet to [facility] for review. TALENT ACQUISITION RELATIONSHIP MANAGER asked [facility] to call after clinical reviewed. Afsaneh reports that she does not anticipate issue with acceptance and will call once accepted. P: Hopeful that patient can go home tomorrow 09-18-18 with [facility]. TALENT ACQUISITION RELATIONSHIP MANAGER to call [facility] in AM if have not heard from them to confirm acceptance. Also patient will need to be provided with brochure of agency providing services. ANYA Rodriguez
--- NOTE | 2018-09-17 17:46 | P.PN_ITS ---
Subjective Date Patient Seen: 09/17/18 Interval history: Kristen Dsouza is an 83-year-old female with a past medical history for coronary artery disease status post stenting x 2 on Brilinta, TAVR, CHF, atrial fibri llation, hypertension, chronic kidney disease stage IV, and hypothyroidism who presented for worsening shortness of breath and chest pain across the center of her chest. The patient is resting in bed comfortably. She endorses fatigue but just finished working with physical therapy. She denies headache, shortness of breath, chest pain, abdominal pain, nausea, vomiting, fever, chills, dysuria, diarrhea or constipation. She is voiding and eliminating without difficulty. She is up ambulating with assistance. Exam Vital Signs (past 8 hours): - 09/17/18 11:07 09/17/18 11:17 09/17/18 15:10 Temperature 97.8 F 98.8 F Pulse Rate 70 66 78 Respiratory Rate 16 18 17 Blood Pressure 148/58 H 144/75 H Pulse Oximetry 94 96 96 Fraction of Inspired Oxygen 21 Oxygen Delivery Method Room Air Oxygen Flow Rate 0 Narrative Exam Narrative: General: Elderly obese female lying in bed and in no acute distress, well- developed, well-nourished, appropriately interactive. HEENT: Normocephalic, atraumatic. External ears without defect. Pupils equal, round, and reactive to light. Anicteric sclerae, moist conjunctivae, and lid lag of right eye which she almost completly blind in. Neck: Supple with full range of motion. No jugular venous distension. No lymphadenopathy or thyromegaly. Cardiovascular: Irregularly irregular without murmurs, rubs, or gallops appreciated. Pulmonary: Diminished but clear to auscultation bilaterally with very mild end expiratory wheeze. No crackles. Normal respiratory effort with no use of accessory muscles. Abdomen: Soft, bowel sounds present, nontender, nondistended. No hepatosplenomegaly or masses appreciated. Extremities: No clubbing or cyanosis. Mild bipedal edema and stasis dermatitis bilaterally. Skin: Normal temperature, turgor, and texture; no ulcers, or subcutaneous nodules appreciated. Neurological: Cranial nerves grossly intact. Psychiatric: Mildly depressed mood and affect. Alert and oriented to person, place, and time. Objective Labs Result Diagrams: 09/14/18 05:28 09/17/18 05:57 Labs: Laboratory Results - last 24 hr 09/17/18 09/17/18 05:57 05:57 PT 21.7 H D INR 1.9 H Sodium 140 Potassium 3.3 L Chloride 99 Carbon Dioxide 34 H BUN 34 H Creatinine 1.20 H Estimated GFR 43.0 L BUN/Creatinine Ratio 28.3 H Glucose 91 Calcium 9.5 Assessment & Plan Assessment & Plan narrative: Kristen Dsouza is an 83-year-old female with a past medical history for coronary artery disease status post stenting x 2 on Brilinta, TAVR, CHF, atrial fibrillation, hypertension, chronic kidney disease stage IV, and hypothyroidism who presented for worsening shortness of breath and chest pain across the center of her chest. 1. Chronic anemia of disease, present on admission. Stable. -Suspect iron deficiency and acute blood loss from hemorrhoid with stigmata of bleeding as below. -Iron panel demonstrated iron deficiency. Started ferrous sulfate 325 mg daily and patient previously on ferrous gluconate 3 times daily. -Patient underwent upper endoscopy which was negative and colonoscopy with polypectomy and hemorrhoids with stigmata of recent bleed. -Continue warfarin for her atrial fibrillation as below. Monitor for bleeding. 2. Acute chest pain, secondary to demand ischemia, present on admission. Resolved. -Patient presented with chest pain bilaterally across the precordium, nonradiating, nonpleuritic. -Likely secondary to demand ischemia from hypervolemia and significant bradycardia. -EKG with new finding of atrial fibrillation with slow ventricular response, right bundle branch block and old anterior septal infarct. Troponin negative x 3 < 0.012. -Nitroglycerin patch applied and chest pain resolved. Patient was initially started on heparin gtt which was discontinued as chest pain likely demand ischemia. -Pharmacological NM stress test negative. 3. Acute RV systolic congestive heart failure, present on admission. Active. -Diagnosed with RV systolic CHF in April 2017, chest x-ray today reveals acute congestive failure. -Echo demonstrated preserved LV function with EF 60-65%, severely dilated left atrium, TAVR is well seated, moderate mitral annular calcification with mild mitral regurgitation, mild to moderate tricuspid regurgitation and moderate- severe pulmonary hypertension with RVSP 64 mmHg. -Patient with increased shortness of breath, worsening exertional dyspnea and increased pedal edema over the last several days. Brush Or Broom Cutter, Dr. Rubi increased Lasix from 20-40 mg daily on 09/09. -Patient diuresed approximately 1 L following 80 mg IV Lasix given in the ED. Continue Lasix 40 mg and monitor renal function. Reassess diuresis daily. -Discontinued carvedilol due to significant bradycardia to low 30's. -Continue strict I&Os and daily weight. Replete electrolytes as needed and received potassium chloride 40 mEq IV x1 today. 4. New onset atrial fibrillation, RBBB, and significant bradycardia, acute, present on admission. Stable. -12 lead EKG reveals atrial fibrillation with right bundle branch block, slow ventricular response at a rate of 50, no evidence of ST or T-wave changes, prior anterior septal infarct. -Patient was initially started on heparin gtt which was discontinued as likely demand ischemia. -Chads2 Vasc score is 7 placing the patient at high risk for stoke however her HAS BLED score is 6 with a history significant for prior GI bleed due to PUD requiring 4 units transfusion placing the patient high risk for bleeding episodes. -Echocardiogram unchanged other than pulmonary hypertension which improved. -TSH within normal limits at 2.35 and monitor electrolytes. -Continue Brillenta and warfarin. Check INR daily. -Discontinued carvedilol due to significant bradycardia to low 30's. 5. Chronic kidney disease stage 4, chronic, present on admission. Stable. -Patient is followed by Nephrology and has had recent medication adjustments with increase in Lasix and discontinuation of losartan. -Creatinine on admission is 1.9, last measured creatinine was 1.2 in May of 2018, here the GFR is 25.3. -Continue Lasix 40 mg daily and will follow renal function. 6. Hypertension, chronic, present on admission. Stable. -Discontinued carvedilol 12.5 mg twice daily due to significant bradycardia. Continue hydralazine 50 mg twice daily. 7. Hypothroidism, chronic, present on admission. Stable. -TSH was within normal limits ar 2.35. -Continue levothyroxine 25 mcg daily. 8. Morbid obesity, chronic , present on admission. Stable. -BMI 52. -Decreasing activity tolerance and impaired mobility. -Continue PT and OT evaluation and treatment. Disposition: Patient likely to discharge tomorrow home with home health. Quality VTE Deep Vein Thrombosis/Pulmonary Embolism Present on Admission: No
[2018-09-17 18:51] LABS: Add Manual Diff / Slide Review NO; Basophils Absolute Auto 100 /uL (0-100); Basophils Percent Auto 0.7 % (0-2); Eosinophils Absolute Auto 300 /uL (0-450); Eosinophils Percent Auto 4.1 % (2-4); Hemoglobin 9.7 g/dL (12.0-16.0); Lymphocytes Absolute Auto 1200 /uL (1100-4500); Lymphocytes Percent Auto 14.8 % (25-40); Mean Corpuscular HGB Conc 32.4 % (30-36); Mean Corpuscular Hemoglobin 33.5 PG (26-34); Mean Corpuscular Volume 103.4 fL (80-100); Monocytes Absolute Auto 1000 /uL (0-900); Monocytes Percent Auto 11.3 % (3-14); Neutrophils Absolute Auto 5800 /uL (1500-7000); Neutrophils Percent Auto 69.1 % (50-75); Platelet Count 225 X10^3/uL (150-400); Red Cell Distribution Width 16.6 % (11.6-14.8); White Blood Cell Count 8.4 X10^3/uL (4.5-11.0)
[2018-09-17 19:07] LABS: Hematocrit 31.4 % (36-46); Hemoglobin 10.2 g/dL (12.0-16.0)
[2018-09-17] MEDS: NYSTATIN CREAM 30 GM 1 APPLIC TOP (20:16)
[2018-09-17] MEDS: SODIUM CHLORIDE 0.9% FLUSH 10 ML IV (20:16)
[2018-09-17] MEDS: ATORVASTATIN 20 MG TABLET PO (20:16)
[2018-09-17] MEDS: MELATONIN 3 MG TABLET PO (23:35)
[2018-09-18 04:28] VITALS: BP 152/59; PULSE 84; RESP 20; TEMP 36.8; O2SAT 93
[2018-09-18] MEDS: LEVOTHYROXINE 25 MCG TABLET PO (06:17)
[2018-09-18] MEDS: PANTOPRAZOLE 20 MG TABLET PO (06:17)
--- NOTE | 2018-09-18 06:53 | P.DS_ITS ---
History of Present Illness Date Patient Seen: 09/11/18 Chief complaint: Chest Pain Narrative: Written by Cesar REGALADO: Kristen Dsouza is an 83-year-old female with a history of coronary artery disease status post stenting on Brilinta, TAVR, CHF, atrial fibrillation hypertension, chronic kidney disease, and hypothyroidism who presents to the ER today with increased shortness of breath and chest pain bilaterally across the upper precordium. She had associated symptoms of shortness of breath and but no diaphoresis or nausea. She does report having a dry nonproductive cough with fatigue and worsening activity tolerance. The patient was seen by her rubber goods inspector tester, Dr. Rubi, yesterday and had an increase in her Lasix from 20-40 mg and stopped her losartan. Patient denies headaches or dizziness has had no recent cold symptoms including nasal congestion or sore throat. She denies p alpitations. She denies abdominal pain, nausea vomiting, diarrhea constipation. She reports no urinary difficulties. She typically has lower extremity swelling which is worse today than typical. Patient arrived in the ER at 4:46 p.m. at which time she was found to be afebrile at 96.6 with heart rate of 50 and a blood pressure of 131/65 and respiratory rate of 18 saturating 99% on room air. The patient had a chest x- ray taken which shows acute CHF and EKG which shows atrial fibrillation with right bundle branch block, Velma tear septal infarct age indeterminate. On laboratory analysis her CBC reveals a normal white count 8.1 anemia with a hemoglobin 9.5 and hematocrit 28.4 and platelets of 155. Her PTT is 12.8 with INR 1.1. Her baseline PTT is 38. She has lactate is 0.9 a negative procalcitonin less than 0.05, negative troponin at less than 0.012 and a BNP 972. On chemistry she has a sodium 133 with a potassium slightly elevated at 5.3 and a BUN of 72 with creatinine of 1.9 for an EGFR of 25.3 and a BUN creatinine ratio 37.9-1. She also has a mildly elevated AST at 41 and ALT of 33 and alkaline phosphatase elevated at 180. Her total bili was 0.6. She did have an echo completed on 06/24/2018 which noted the presence of a well-seated TAVR with severe left atrial dilation and mitral regurgitation and increased right ventricular systolic pressure estimated to be 64. In the ER the patient received Lasix 80 mg IV with the patient having a net output of over 990 mL. She had nebulizer treatment and aspirin 325 mg a 5000 heparin bolus with a heparin drip started in the ER. Discharge Providers Date of admission: 09/10/18 20:21 Discharge Date: 09/18/18 Primary care physician: Amanda Mann MD Consults: 09/10/18 16:50 Consult to Respiratory Therapy Evaluate & Treat Comment: Physician Instructions: Evaluate and treat 09/10/18 21:48 Consult to Discharge Planning Routine Comment: 09/17/18 09:44 Consult to Occupational Therapy Evaluate & Treat Comment: Physician Instructions: Evaluate and treat Consult to Physical Therapy Evaluate & Treat Comment: Physician Instructions: Evaluate and Treat 09/17/18 16:23 Consult to Home Health Routine Comment: Discharge anticipated for 09-18-18 Reason For Exam: Home health for PT/OT/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 Chronic anemia of disease, present on admission. Stable. 2. Acute chest pain, secondary to demand ischemia, present on admission. Resolved. 3. Acute RV systolic congestive heart failure, present on admission. Active. 4. New onset atrial fibrillation, RBBB, and significant bradycardia, acute, present on admission. Stable. 5. Chronic kidney disease stage 4, chronic, present on admission. Stable. 6. Hypertension, chronic, present on admission. Stable. 7. Hypothroidism, chronic, present on admission. Stable. 8. Morbid obesity, chronic , present on admission. Stable. Hospital Course: Kristen Dsouza is an 83-year-old female with a past medical history for coronary artery disease status post stenting x 2 on Brilinta, TAVR, CHF, atrial fibrillation, hypertension, chronic kidney disease stage IV, and hypothyroidism who presented for worsening shortness of breath and chest pain across the center of her chest. 1. Chronic anemia of disease, present on admission. Stable. -Suspect iron deficiency and acute blood loss from hemorrhoid with stigmata of bleeding as below. -Iron panel demonstrated iron deficiency. Started ferrous sulfate 325 mg daily and patient on ferrous gluconate 3 times daily at home and instructed to continue at time of discharge. -Patient underwent upper endoscopy which was negative and colonoscopy with polypectomy and hemorrhoids with stigmata of recent bleed. Repeat colonoscopy in 1 year. -Continued warfarin for her atrial fibrillation as below. Monitored for bleeding. 2. Acute chest pain, secondary to demand ischemia, present on admission. Resolved. -Patient presented with chest pain bilaterally across the precordium, nonradiating, nonpleuritic. -Likely secondary to demand ischemia from hypervolemia and significant bradycardia. -EKG with new finding of atrial fibrillation with slow ventricular response, right bundle branch block and old anterior septal infarct. Troponin negative x 3 < 0.012. -Nitroglycerin patch applied and chest pain resolved. Patient was initially started on heparin gtt which was discontinued as chest pain likely demand ischemia. -Pharmacological NM stress test negative. 3. Acute RV systolic congestive heart failure, present on admission. Active. -Diagnosed with RV systolic CHF in April 2017, chest x-ray today reveals acute congestive failure. -Echo demonstrated preserved LV function with EF 60-65%, severely dilated left atrium, TAVR is well seated, moderate mitral annular calcification with mild mitral regurgitation, mild to moderate tricuspid regurgitation and moderate- severe pulmonary hypertension with RVSP 64 mmHg. -Patient with increased shortness of breath, worsening exertional dyspnea and increased pedal edema over the last several days. Tumbler Plater, Dr. Rubi increased Lasix from 20-40 mg daily on 09/09. -Patient diuresed approximately 1 L following 80 mg IV Lasix given in the ED. Continued Lasix 40 mg PO daily and monitored renal function. Reassessed diuresis daily. -Discontinued carvedilol due to significant bradycardia to low 30's and bradycardia resolved. -Continued strict I&Os and daily weight. Repleted electrolytes as needed and received potassium chloride 40 mEq IV x1 . 4. New onset atrial fibrillation, acute present on admission. Stable. -12 lead EKG reveals atrial fibrillation with right bundle branch block, slow ventricular response at a rate of 50, no evidence of ST or T-wave changes, prior anterior septal infarct. -Patient was initially started on heparin gtt which was discontinued as likely demand ischemia. -Chads2 Vasc score is 7 placing the patient at high risk for stoke however her HAS BLED score is 6 with a history significant for prior GI bleed due to PUD requiring 4 units transfusion placing the patient high risk for bleeding episodes. -Echocardiogram unchanged other than pulmonary hypertension which improved. -TSH within normal limits at 2.35 and monitor electrolytes. -Continued Brillenta and warfarin. Checked INR daily. INR at time of admission was 2.9. Decreased warfarin from 5 mg daily to 3 mg daily. Instructed patient to have INR checked with Home Health and to continue monitoring with her PCP. -Discontinued carvedilol due to significant bradycardia to low 30's and bradycardia resolved. 5. Chronic kidney disease stage 4, chronic, present on admission. Stable. -Patient is followed by Nephrology and has had recent medication adjustments with increase in Lasix and discontinuation of losartan. -Creatinine on admission is 1.9. Now 1.1. -Continued Lasix 40 mg daily and will follow renal function. 6. Hypertension, chronic, present on admission. Stable. -Discontinued carvedilol 12.5 mg twice daily due to significant bradycardia which resolved. Continued hydralazine 50 mg twice daily. 7. Hypothroidism, chronic, present on admission. Stable. -TSH was within normal limits at 2.35. -Continued levothyroxine 25 mcg daily. 8. Morbid obesity, chronic , present on admission. Stable. -BMI 52. -Decreasing activity tolerance and impaired mobility. -Continued PT and OT evaluation and treatment. Status at Discharge Functional status at discharge: uses cane/walker Overall status at discharge: patient is back to baseline Exam Vital Signs (past 8 hours): - 09/17/18 23:40 09/18/18 04:28 Temperature 98.4 F 98.3 F Pulse Rate 68 84 Respiratory Rate 16 20 Blood Pressure 166/50 H 152/59 H Pulse Oximetry 94 93 Fraction of Inspired Oxygen 21 Oxygen Delivery Method Room Air Oxygen Flow Rate 0 Narrative Exam Narrative: General: Elderly obese female lying in bed and in no acute distress, well- developed, well-nourished, appropriately interactive. HEENT: Normocephalic, atraumatic. External ears without defect. Pupils equal, round, and reactive to light. Anicteric sclerae, moist conjunctivae, and lid lag of right eye which she almost completly blind in. Neck: Supple with full range of motion. No jugular venous distension. No lymphadenopathy or thyromegaly. Cardiovascular: Irregularly irregular without murmurs, rubs, or gallops appreciated. Pulmonary: Diminished but clear to auscultation bilaterally with very mild end expiratory wheeze. No crackles. Normal respiratory effort with no use of accessory muscles. Abdomen: Soft, bowel sounds present, nontender, nondistended. No hepatosplenomegaly or masses appreciated. Extremities: No clubbing or cyanosis. Mild bipedal edema and stasis dermatitis bilaterally. Skin: Normal temperature, turgor, and texture; no ulcers, or subcutaneous nodules appreciated. Neurological: Cranial nerves grossly intact. Psychiatric: Mildly depressed mood and affect. Alert and oriented to person, place, and time. Objective Labs Result Diagrams: 09/17/18 18:55 09/18/18 06:26 Labs: Laboratory Results - last 24 hr 09/17/18 09/17/18 05:57 18:55 WBC 8.4 RBC 2.90 L Hgb 9.7 L 10.2 L Hct 30.0 L 31.4 L MCV 103.4 H MCH 33.5 MCHC 32.4 RDW 16.6 H Plt Count 225 Neut % (Auto) 69.1 Lymph % (Auto) 14.8 L [place] % (Auto) 11.3 Eos % (Auto) 4.1 H Baso % (Auto) 0.7 Neut # (Auto) 5800 Lymph # (Auto) 1200 [place] # (Auto) 1000 H Eos # (Auto) 300 Baso # (Auto) 100 Discharge Plan Discharge Plan Patient Disposition: Home Health Service Transfer to: Home Health, Other Discharge comment: You are being discharged home with home health for PT/OT/nursing/INR checks. Please follow-up with your PCP, Dr. Mann, in the next 1 week regarding your hospitalization and further management of atrial fibrillation and anticoagulation with warfarin. Lab work has been ordered including a BMP (check potassium and kidney function) and INR prior to your appointment with Dr. Mann. Your INR goal is between 2.0-3.0 and your current INR is 2.9. Please follow-up with your rubber goods inspector tester at next available appo intment. Please reschedule your establish care appointment with Cardiology. Discharge Med Rec/Prescriptions Prescriptions: New warfarin [Coumadin] 5 mg Tablet 3 mg PO 1700 30 Days Qty: 18 RF: 0 potassium chloride [Klor-Con M20] 20 mEq Tablet,Er Particles/Crystals 10 meq PO DAILYCC Qty: 30 RF: 0 Continued atorvastatin 20 mg tablet 20 mg PO BEDTIME RF: 0 hydralazine 25 mg tablet 50 mg PO BID RF: 0 acyclovir 400 mg tablet 400 mg PO BID RF: 0 levothyroxine 25 mcg tablet 25 mcg PO DAILY RF: 0 omeprazole magnesium [Acid Curriculum Consultant (omeprazole)] 20 mg Capsule,Delayed Release(Dr/Ec) 20 mg PO BID RF: 0 ticagrelor 90 mg tablet 90 mg PO BID RF: 0 ferrous gluconate 324 mg (37.5 mg iron) Tablet 324 mg PO BID RF: 0 calcium citrate-vitamin D3 [Calcitrate-Vitamin D] 315-250 mg-unit Tablet 1 tab PO DAILY RF: 0 multivitamin Tablet 1 tab PO DAILY RF: 0 melatonin 3 mg Tablet 3 mg PO BEDTIME PRN (Reason: Insomnia) RF: 0 ascorbic acid (vitamin C) [Vitamin C] 250 mg Tablet 250 mg PO DAILY RF: 0 cetirizine 10 mg Capsule 10 mg PO DAILY RF: 0 Fish Oil Pearls 150-400 mg Capsule 1 cap PO DAILY RF: 0 [place] 3-6-9 1,200 mg Capsule 1 tab PO DAILY RF: 0 Changed furosemide 40 mg tablet 40 mg PO DAILY Qty: 0 RF: 0 Discontinued carvedilol 12.5 mg tablet 12.5 mg PO BID RF: 0 Other Ambulatory Orders: Basic Metabolic Panel (Routine) Timeframe: 2 Days Location: Laboratory Ordered By: Larissa Carmen Prothrombin Time INR (Routine) Timeframe: 2 Days Location: Laboratory Ordered By: Larissa Carmen Follow up/Referrals: Amanda Mann MD [Primary Care Provider] - 3-5 Days Provider Discharge Instructions Diet: Low-fat, Low-sodium, Low-cholesterol and Low-protein/Renal Visit Report/Discharge Packet Instructions: The DASH Diet, DI for Heart Failure, DI for Atrial Fibrillation, How to Keep Track of Your Weight When You Have Heart Failure, DI for Warfarin Therapy Discharge Data Primary Care Provider: Amanda Mann Attending Provider: Cesar Garza Admit Date/Time: 09/10/18 20:21 Discharges patient from system. Discharge Date/Time: 09/18/18 14:00 Quality VTE Deep Vein Thrombosis/Pulmonary Embolism Present on Admission: No
[2018-09-18 07:08] LABS: INR 2.9 (0.9-1.3); Prothrombin Time 34.8 SECONDS (10.1-12.7)
[2018-09-18 07:13] LABS: BUN Creatinine Ratio 22.7 (6-22); Blood Urea Nitrogen 25 mg/dL (7-17); Calcium 9.2 mg/dL (8.4-10.2); Carbon Dioxide 34 mmol/L (22-32); Chloride 98 mmol/L (98-107); Estimated Glomerular Filt Rate 47.6 mL/min (>60); Glucose 98 mg/dL (80-110); HEMOLYSIS < 15 (0-50); Potassium 3.3 mmol/L (3.4-5.1); Sodium 140 mmol/L (137-145)
[2018-09-18 08:30] VITALS: BP 157/83; PULSE 79; RESP 20; TEMP 36.6; O2SAT 94
[2018-09-18] MEDS: HYDRALAZINE 25 MG TABLET 50 MG PO (09:14)
[2018-09-18] MEDS: FERROUS SULFATE 325 MG TABLET PO (09:14)
[2018-09-18] MEDS: FUROSEMIDE 40 MG TABLET PO (09:14)
[2018-09-18] MEDS: NYSTATIN CREAM 30 GM 1 APPLIC TOP (09:14)
[2018-09-18] MEDS: SODIUM CHLORIDE 0.9% FLUSH 10 ML IV (09:15)
[2018-09-18] MEDS: TICAGRELOR 90 MG 90 EACH PO (09:16)
--- NOTE | 2018-09-18 09:20 | CM.DPC ---
DCP Discharge Home with HH Per MD, pt is medically stable to d/c home with [facility] today and HH. SW called [facility] and confirmed that they had received previously faxed referral, F2F and MD orders. [facility] confirmed that they can accept the pt and likely open her tomorrow to service and SW faxed d/c summary to review. SW met bedside with pt and explained role again and provided her with her Medicare Rights and pt acknowledged understanding and is comfortable with d/c home today and signed her Medicare Message. Pt confirmed that [facility] will provide transport home today and SW gave pt the [facility] brochure and reminded her how they will contact them to set up first home visit. Plan: Patient to d/c home via [facility] POV today and [facility] to open pt to service. ANYA Snyder
[2018-09-18 13:51] VITALS: PULSE 76; RESP 16; O2SAT 94
== END 2018-09-18 14:00 | disposition home health service (06) | DRG 291 ==
LOC: ED 20:16 → AC 09-11 10:59
PROVIDERS: Internal Medicine; Nurse Practitioner Gerontology; Specialist; Admitting Provider Nurse Practitioner Adult Health; Emergency Provider Emergency Medicine; PCP Internal Medicine; Visit Provider Nurse Practitioner Adult Health
PROC: 0DJ08ZZ Inspection of Upper Intestinal Tract, Via Natural or Artificial Opening Endoscopic (ICD-10-PCS; CPT 43235; principal; 2018-09-14 16:30)
PROC: 0DJD8ZZ Inspection of Lower Intestinal Tract, Via Natural or Artificial Opening Endoscopic (ICD-10-PCS; CPT 45378; principal; 2018-09-16 13:45)
DX: I13.0 Hypertensive heart and chronic kidney disease with heart failure and stage 1 through stage 4 chronic kidney disease, or unspecified chronic kidney disease (principal); I50.21 Acute systolic (congestive) heart failure; N18.4 Chronic kidney disease, stage 4 (severe); Z68.43 Body mass index [BMI] 50.0-59.9, adult; I24.8 Other forms of acute ischemic heart disease; I48.91 Unspecified atrial fibrillation; E66.01 Morbid (severe) obesity due to excess calories; I45.10 Unspecified right bundle-branch block; D63.8 Anemia in other chronic diseases classified elsewhere; R07.89 Other chest pain; K31.7 Polyp of stomach and duodenum; I25.10 Atherosclerotic heart disease of native coronary artery without angina pectoris; E03.9 Hypothyroidism, unspecified; Z87.891 Personal history of nicotine dependence; K63.5 Polyp of colon
CPT/HCPCS: 36415; 43239; 45380; 71045; 78452; 80048; 80053; 80061; 81001; 81003; 82550; 83540; 83550; 83605; 83735; 83880; 84145; 84443; 84484; 85014; 85018; 85025; 85610; 85730; 88305; 93005; 93016; 93017; 93018; 93307; 94640; 94760; 94762; 96374; 96375; 97162; 97165; 97535; 99232; 99283; 99285; A9502; J1644; J1940; J2250; J2704; J2785; J2930; J3010; J3480; J7613

== ENCOUNTER → 2018-09-21 13:57 | Outpatient (CLI) | payer MEDICARE, SELFPAY ==
[2018-09-10 21:38] VITALS: BMI 53.8
[2018-09-21 16:11] LABS: Blood Urea Nitrogen 26 mg/dL (7-17); Calcium 9.5 mg/dL (8.4-10.2); Carbon Dioxide 35 mmol/L (22-32); Chloride 92 mmol/L (98-107); Estimated Glomerular Filt Rate 39.2 mL/min (>60); Glucose 66 mg/dL (80-110); HEMOLYSIS < 15 (0-50); Potassium 3.6 mmol/L (3.4-5.1); Sodium 138 mmol/L (137-145)
== END ==
PROVIDERS: PCP Internal Medicine; Visit Provider Internal Medicine
DX: I50.9 Heart failure, unspecified (principal); I48.91 Unspecified atrial fibrillation; N18.3 Chronic kidney disease, stage 3 (moderate)
CPT/HCPCS: 80048

== ENCOUNTER → 2018-09-30 13:17 | Outpatient (CLI) | payer MEDICARE, SELFPAY ==
[2018-09-10 21:38] VITALS: BMI 53.8
--- NOTE | 2018-09-30 | DI.US.S_ITS ---
PROCEDURE: US RENAL COMPLETE INDICATIONS: ACCUTE RENAL FAILURE TECHNIQUE: Real-time scanning was performed of the kidneys and bladder, with image documentation. COMPARISON: None. FINDINGS: Kidneys: Kidneys are normal in size. Right kidney measures 9.3 cm long; left kidney measures 7.9 cm long. Right renal cortical thickness is 1.5 cm; left renal cortical thickness is 1 cm. Renal cortical echotexture is normal. No hydronephrosis or nephrolithiasis. No suspicious solid mass lesions. Bladder: Urinary bladder is decompressed. No obvious bladder wall abnormality seen. Pre-void images demonstrate no intraluminal masses or stones. On pre-void images, bilateral ureteral jets are not noted with color Doppler interrogation. (Of note, ureteral jets may not be detectable in up to 25% of cases due to insufficient differences in specific gravity between ureteral and bladder urine). Miscellaneous: No free pelvic fluid. IMPRESSION: Slightly smaller left kidney compared to the right side. No renal stone hydronephrosis. No gross solid appearing renal lesion. Decompressed urinary bladder. Dictated by: Josh Boyle M.D. on 09/30/2018 at 15:05 Approved by: Josh Boyle M.D. on 09/30/2018 at 15:16
[2018-09-30 14:31] LABS: Hematocrit 34.8 % (36-46); Hemoglobin 11.3 g/dL (12.0-16.0); Mean Corpuscular HGB Conc 32.4 % (30-36); Mean Corpuscular Volume 102.1 fL (80-100); Platelet Count 283 X10^3/uL (150-400); Red Blood Cell Count 3.41 X10^6/uL (4.0-5.2); Red Cell Distribution Width 15.6 % (11.6-14.8); White Blood Cell Count 6.9 X10^3/uL (4.5-11.0)
[2018-09-30 14:52] LABS: B Type Natriuretic Peptide 394 (<100)
[2018-09-30 14:54] LABS: Blood Urea Nitrogen 39 mg/dL (7-17); Calcium 9.5 mg/dL (8.4-10.2); Carbon Dioxide 31 mmol/L (22-32); Chloride 97 mmol/L (98-107); Estimated Glomerular Filt Rate 33.2 mL/min (>60); Glucose 120 mg/dL (80-110); HEMOLYSIS < 15 (0-50); Phosphorous 2.8 mg/dL (2.8-4.1); Potassium 3.5 mmol/L (3.4-5.1); Sodium 138 mmol/L (137-145)
[2018-09-30 15:18] LABS: Appearance Urine UA CLEAR; Bilirubin Urine UA NEGATIVE (NEGATIVE); Color Urine UA YELLOW; Glucose Urine UA NEGATIVE (Negative); Ketones Urine UA NEGATIVE (NEGATIVE); Leukocyte Esterase Urine UA TRACE (NEGATIVE); Nitrite Urine UA NEGATIVE (Negative); Occult Blood Urine UA NEGATIVE (Negative); Protein Urine UA NEGATIVE (Negative)
[2018-09-30 15:35] LABS: HEMOLYSIS < 15 (0-50); Iron 61 ug/dL (37-170)
[2018-09-30 15:36] LABS: Bacteria Urine Few (2-10); Culture Indicated Urine Specimen Cultured; RBC Urine 0-1/HPF (0-5/HPF); Squamous Epithelial Cell Urine 1-5 /HPF; WBC Urine 1-5/HPF (0-5/HPF)
[2018-09-30 15:46] LABS: Percent Iron Saturation 18 % (15-50); Total Iron Binding Capacity 346 ug/dL (265-497); Transferrin 259 mg/dL (206-381)
[2018-09-30 16:08] LABS: Creatinine Urine Random 86.6 mg/dL; Protein (Total) Urine Random 6 mg/dL (0-12); Protein Creatinine Ratio Urine 0.06 GRAM/24H
[2018-10-04 15:00] LABS: Parathyroid Hormone Int 74 pg/mL (14-64)
== END ==
PROVIDERS: PCP Internal Medicine; Visit Provider Student in an Organized Health Care Education/Training Program
DX: N17.9 Acute kidney failure, unspecified (principal); N05.9 Unspecified nephritic syndrome with unspecified morphologic changes; I50.32 Chronic diastolic (congestive) heart failure; D63.1 Anemia in chronic kidney disease; D70.9 Neutropenia, unspecified; N30.00 Acute cystitis without hematuria; R80.9 Proteinuria, unspecified; E83.30 Disorder of phosphorus metabolism, unspecified; N25.81 Secondary hyperparathyroidism of renal origin; D50.0 Iron deficiency anemia secondary to blood loss (chronic)
CPT/HCPCS: 36415; 76770; 80048; 81001; 82570; 82728; 83540; 83550; 83880; 83970; 84100; 84156; 85027; 87086

== ENCOUNTER → 2018-12-16 10:18 | Outpatient (CLI) | payer MEDICARE, SELFPAY ==
[2018-12-16 11:11] LABS: Bacteria Urine None Seen; RBC Urine None Seen (0-5/HPF)
[2018-12-16 11:47] LABS: Appearance Urine UA CLEAR; Bilirubin Urine UA NEGATIVE (NEGATIVE); Color Urine UA YELLOW; Glucose Urine UA NEGATIVE (Negative); Ketones Urine UA NEGATIVE (NEGATIVE); Leukocyte Esterase Urine UA 1+ (NEGATIVE); Nitrite Urine UA NEGATIVE (Negative); Occult Blood Urine UA NEGATIVE (Negative); Protein Urine UA NEGATIVE (Negative); Specific Gravity Urine UA 1.015 (1.000-1.035)
[2018-12-16 11:54] LABS: Add Manual Diff / Slide Review NO; Basophils Absolute Auto 0 /uL (0-100); Basophils Percent Auto 0.4 % (0-2); Eosinophils Absolute Auto 600 /uL (0-450); Hematocrit 39.2 % (36-46); Hemoglobin 12.8 g/dL (12.0-16.0); Lymphocytes Absolute Auto 2400 /uL (1100-4500); Lymphocytes Percent Auto 33.7 % (25-40); Mean Corpuscular HGB Conc 32.7 % (30-36); Monocytes Absolute Auto 700 /uL (0-900); Monocytes Percent Auto 9.5 % (3-14); Neutrophils Absolute Auto 3400 /uL (1500-7000); Neutrophils Percent Auto 48.4 % (50-75); Platelet Count 229 X10^3/uL (150-400); Red Cell Distribution Width 16.3 % (11.6-14.8); White Blood Cell Count 7.1 X10^3/uL (4.5-11.0)
[2018-12-16 11:56] LABS: Culture Indicated Urine Cult Not Indicated; Squamous Epithelial Cell Urine 5-10 /HPF (0-5/HPF); WBC Urine 5-10/HPF (0-5/HPF)
[2018-12-16 12:20] LABS: B Type Natriuretic Peptide 497 (<100); Creatinine Urine Random 85.5 mg/dL; Protein (Total) Urine Random 11 mg/dL (0-12); Protein Creatinine Ratio Urine 0.12 GRAM/24H
[2018-12-16 12:24] LABS: BUN Creatinine Ratio 32.3 (6-22); Blood Urea Nitrogen 42 mg/dL (7-17); Calcium 10.1 mg/dL (8.4-10.2); Carbon Dioxide 33 mmol/L (22-32); Chloride 101 mmol/L (98-107); Cholesterol 143 mg/dL (140-199); Estimated Glomerular Filt Rate 39.2 mL/min (>60); Glucose 134 mg/dL (80-110); HDL Cholesterol 48 mg/dL (40-60); HEMOLYSIS < 15 (0-50); Iron 108 ug/dL (37-170); LDL Cholesterol Calculated 79 mg/dL (<100); Phosphorous 3.5 mg/dL (2.8-4.1); Sodium 142 mmol/L (137-145); Triglycerides 79 mg/dL (35-150)
[2018-12-16 12:27] LABS: Potassium 5.5 mmol/L (3.4-5.1)
[2018-12-16 12:35] LABS: Percent Iron Saturation 35 % (15-50); Total Iron Binding Capacity 311 ug/dL (265-497); Transferrin 231 mg/dL (206-381)
[2018-12-16 12:58] LABS: Ferritin 56.8 ng/mL (11.1-264)
[2018-12-20 15:40] LABS: Parathyroid Hormone Int 76 pg/mL (14-64)
== END ==
PROVIDERS: PCP Internal Medicine; Visit Provider Student in an Organized Health Care Education/Training Program
DX: N18.3 Chronic kidney disease, stage 3 (moderate) (principal); I50.32 Chronic diastolic (congestive) heart failure; D70.9 Neutropenia, unspecified; D63.1 Anemia in chronic kidney disease; N30.00 Acute cystitis without hematuria; D50.0 Iron deficiency anemia secondary to blood loss (chronic); E83.30 Disorder of phosphorus metabolism, unspecified; N25.81 Secondary hyperparathyroidism of renal origin; I25.10 Atherosclerotic heart disease of native coronary artery without angina pectoris; E78.5 Hyperlipidemia, unspecified
CPT/HCPCS: 36415; 80048; 80061; 81001; 82570; 82728; 83540; 83550; 83880; 83970; 84100; 84156; 85025

== ENCOUNTER → 2018-12-26 13:02 | Outpatient (CLI) | payer MEDICARE, SELFPAY ==
[2018-12-26 15:08] LABS: HEMOLYSIS < 15 (0-50); Potassium 4.3 mmol/L (3.4-5.1)
== END ==
PROVIDERS: Family Provider Internal Medicine; PCP Internal Medicine; Visit Provider Student in an Organized Health Care Education/Training Program
DX: E87.5 Hyperkalemia (principal)
CPT/HCPCS: 36415; 84132

== ENCOUNTER → 2019-02-03 10:13 | Outpatient (CLI) | payer MEDICARE, SELFPAY ==
[2019-02-03 10:56] LABS: Alanine Aminotransferase 16 IU/L (9-52); Aspartate Aminotransferase 63 IU/L (14-36); Cholesterol 131 mg/dL (140-199); HDL Cholesterol 44 mg/dL (40-60); LDL Cholesterol Calculated 67 mg/dL (<100); Triglycerides 98 mg/dL (35-150)
[2019-02-03 10:57] LABS: Hemoglobin A1C% w Est Avg Glu 5.4 % (4.0-6.0)
[2019-02-03 11:49] LABS: TSH w/ Reflex to FT4 3.66 uIU/mL (0.47-4.68)
== END ==
PROVIDERS: PCP Internal Medicine; Visit Provider Internal Medicine
DX: E11.9 Type 2 diabetes mellitus without complications (principal); E78.5 Hyperlipidemia, unspecified; E03.9 Hypothyroidism, unspecified
CPT/HCPCS: 36415; 80061; 83036; 84443; 84450; 84460

== ENCOUNTER 2019-03-05 16:35 | Observation (INO) | payer MEDICARE, SELFPAY ==
[2019-03-05] VITALS (8 sets, daily range): BP systolic 130–149; BP diastolic 58–71; PULSE 54–88; RESP 14–21; TEMP 36.9; O2SAT 93–99; BMI 34.4
--- NOTE | 2019-03-05 16:44 | DI.RAD.S_ITS ---
PROCEDURE: XR CHEST 1V INDICATIONS: chest pain TECHNIQUE: One view of the chest was acquired. COMPARISON: [facility], CR, XR CHEST 1V, 09/10/2018, 17:28. FINDINGS: Surgical changes and devices: An apparent septal closure device is faintly seen. Lungs and pleura: Low lung volumes are noted. This causes a crowded appearance to the lung markings and limits evaluation. Mild interstitial prominence is seen. No pleural effusions or pneumothorax. Mediastinum: Mediastinal contours appear normal. Heart size is mildly enlarged. Atherosclerotic calcification of the aortic arch is noted. Bones and chest wall: No suspicious bony lesions. Overlying soft tissues appear unremarkable. IMPRESSION: Mild cardiomegaly and mild pulmonary interstitial prominence. Please correlate with patient presentation, physical examination findings, and laboratory values for congestive heart failure. Dictated by: Johan Cheng M.D. on 03/05/2019 at 16:39 Approved by: Johan Cheng M.D. on 03/05/2019 at 16:41
--- NOTE | 2019-03-05 16:50 | ED.CHESTPAIN ---
HPI - Chest Pain <Nava Trent, DO - Last Filed: 03/06/19 07:57> General Chief Complaint: Chest Pain Stated Complaint: Chest Pain Time Seen by Provider: 03/05/19 16:42 Source: patient and EMS Mode of arrival: EMS History of Present Illness HPI narrative: Patient is an 83-year-old female who presents with left scapular pain which woke her from her sleep at 4:30 a.m. this morning. It has been constant in nature it hurts every time she takes a breath. It does radiate to her chest. It does not hurt when she moves her arm she is taking shallower breaths because it hurts to breathe but denies any shortness of breath. She has not noticed anything that makes it better or worse MD complaint: chest pain Duration: constant Related Data Home Medications Medication Instructions Recorded Confirmed Fish Oil [place] 1 cap PO DAILY 09/10/18 09/10/18 [place] 3-6-9 1 tab PO DAILY 09/10/18 09/10/18 acyclovir 400 mg PO BID 09/10/18 09/10/18 ascorbic acid (vitamin C) [Vitamin 250 mg PO DAILY 09/10/18 09/10/18 C] atorvastatin 20 mg PO BEDTIME 09/10/18 09/10/18 calcium citrate-vitamin D3 1 tab PO DAILY 09/10/18 09/10/18 [Calcitrate-Vitamin D] cetirizine 10 mg PO DAILY 09/10/18 09/10/18 ferrous gluconate 324 mg PO BID 09/10/18 09/10/18 hydralazine 50 mg PO BID 09/10/18 09/10/18 levothyroxine 25 mcg PO DAILY 09/10/18 09/10/18 melatonin 3 mg PO BEDTIME PRN 09/10/18 09/10/18 multivitamin 1 tab PO DAILY 09/10/18 09/10/18 omeprazole magnesium [Acid Floor Director 20 mg PO BID 09/10/18 09/10/18 (omeprazole)] ticagrelor 90 mg PO BID 09/10/18 09/10/18 Previous Rx's Medication Instructions Recorded furosemide 40 mg PO DAILY #0 tab 09/18/18 potassium chloride [Klor-Con M20] 10 meq PO DAILYCC #30 tab 09/18/18 Allergies Allergy/AdvReac Type Severity Reaction Status Date / Time morphine AdvReac Hallucinati Verified 09/16/18 13:23 ng Review of Systems <Nava Newman DO - Last Filed: 03/06/19 07:57> Review of Systems ROS Unobtainable: All systems reviewed & are unremarkable except as noted in HPI and below Constitutional Constitutional: Denies chills, Denies fever(s), Denies lethargy and Denies weakness Eyes Eyes: Denies change in vision, Denies eye discharge, Denies irritation and Denies loss of vision ENT Ears, Nose, Mouth, and Throat: Denies change in voice, Denies neck pain and Denies sore throat Cardiovascular Cardiovascular: Reports chest pain, Denies rapid heart rate, Reports irregular heart rhythm (History of atrial fibrillation), Denies lightheadedness, Denies palpitations, Denies dyspnea, Denies dyspnea on exertion and Denies orthopnea Respiratory Respiratory: Denies cough, Denies dyspnea, Denies dyspnea on exertion and Denies wheezing Gastrointestinal Gastrointestinal: Denies abdominal pain, Denies change in bowel habits, Denies diarrhea, Denies nausea and Denies vomiting Musculoskeletal Musculoskeletal: Denies neck pain Integumentary/Breasts Skin/Breast: Denies pruritus, Denies erythema, Denies rash and Denies wounds Neurologic Neurologic: Denies loss of vision and Denies weakness Endocrine Endocrine: Denies palpitations Allergic/Immunologic Allergic/Immunologic: Denies wheezing PFSH <Nava Newman DO - Last Filed: 03/06/19 07:57> Medical History (Updated 03/06/19 @ 03:38 by SABINE Ramires) Chronic kidney disease (Chronic) Congestive heart failure (Acute) Coronary artery disease (Acute) Fatty liver (Acute) GI bleed (Acute) Hypertension (Chronic) Hypothyroid (Chronic) Surgical History Hx of heart artery stent (Acute) S/P TAVR (transcatheter aortic valve replacement) (Chronic) Family History Father Medical history unknown Mother Congestive heart failure Diabetes mellitus Sister Diabetes mellitus Myocardial infarction Daughter Hypertension Social History household members: family and children Smoking Status: Former smoker alcohol intake: never substance use type: does not use Family History Father Medical history unknown Mother Congestive heart failure Diabetes mellitus Sister Diabetes mellitus Myocardial infarction Daughter Hypertension Social History household members: family and children Smoking Status: Former smoker alcohol intake: never substance use type: does not use Exam <Nava Newman DO - Last Filed: 03/06/19 07:57> Initial Vital Signs Initial Vital Signs: Vital Signs Temperature 98.4 F 03/05/19 16:34 Pulse Rate 54 L 03/05/19 16:34 Respiratory Rate 16 03/05/19 16:34 Blood Pressure 136/70 03/05/19 16:34 Pulse Oximetry 98 03/05/19 16:34 GENERAL: Alert overweight female in mild distress. HEENT: Head atraumatic,EOMI, pupils reactive, face symmetric, moist mucous membranes CARDIOVASCULAR: Regular rate and rhythm without murmurs, rubs or gallops. RESPIRATORY: Breath sounds equal bilaterally, no wheezes rales or rhonchi. ABDOMEN: Soft, nontender. Normoactive bowel sounds all 4 quadrants. No guarding or rebound. BACK: Tender to palpation full left scapula area not worse with arm movement no vertebral tenderness EXTREMITIES: Normal range of motion, no clubbing or edema. Neurovascularly intact NEUROLOGICAL: Alert and oriented x4.Normal gait and speech. Cranial nerves II through XII grossly intact. SKIN: Warm, dry, no laceration, no petechiae, no rashes or lesions. <Christa Serrato MD - Last Filed: 03/06/19 07:38> Initial Vital Signs Initial Vital Signs: Vital Signs Temperature 98.4 F 03/05/19 16:34 Pulse Rate 54 L 03/05/19 16:34 Respiratory Rate 16 03/05/19 16:34 Blood Pressure 136/70 03/05/19 16:34 Pulse Oximetry 98 03/05/19 16:34 Course <Nava Newman DO - Last Filed: 03/06/19 07:57> Orders Ordered: ED Orders 03/06/19 00:02 CT kidney ureter bladder (KUB) Stat Acetaminophen (Tylenol) 650 mg PO Q6HR PRN PRN Reason: As Needed for Fever/Mild Pain Al Hydrox/Mg Hydrox/Simethicone (Maalox Plus) 30 ml PO Q6HR PRN PRN Reason: Dyspepsia Atorvastatin Calcium (Lipitor) 20 mg PO BEDTIME CYNTHIA Bisacodyl (Dulcolax) 10 mg CO DAILY PRN PRN Reason: Constipation Calcium Carbonate (Tums) 1,000 mg PO Q4HR PRN PRN Reason: Dyspepsia Docusate Sodium (Colace) 100 mg PO BID CYNTHIA Furosemide (Lasix) 40 mg PO DAILY CYNTHIA Hydralazine HCl (Apresoline) 50 mg PO BID CYNTHIA Hydromorphone HCl (Dilaudid) 0.5 mg IV Q6H PRN PRN Reason: Pain, Moderate (4-6) Hydromorphone HCl (Dilaudid) 1 mg IV Q6HR PRN PRN Reason: Pain, Severe (7-10) Sodium Chloride (Normal Saline 0.9%) 1,000 mls @ 150 mls/hr IV CONT CYNTHIA Last Admin: 03/06/19 04:10 Dose: 150 mls/hr Documented by: Infusion: 03/06/19 03:09 Dose: 0 mls/hr Documented by: Admin: 03/05/19 17:22 Dose: 150 mls/hr Documented by: MAYRA Sodium Chloride (Normal Saline 0.9%) 1,000 mls @ 50 mls/hr IV CONT CYNTHIA Last Admin: 03/06/19 07:49 Dose: 50 mls/hr Documented by: ALEXANDRE Potassium Chloride 60 meq/ (Sodium Chloride) 530 mls @ 88.333 mls/hr IV NOW ONE Stop: 03/06/19 09:21 Last Admin: 03/06/19 04:10 Dose: 88.333 mls/hr Documented by: ALEXANDRE Cosigned by: CAL Piperacillin/Tazobactam/Dextrose (Zosyn) 3.375 gm in 50 mls @ 100 mls/hr IV Q8H [facility] Levothyroxine Sodium (Synthroid) 25 mcg PO 0600 CYNTHIA Ticagrelor 90 Mg 90 mg PO BID CYNTHIA Ondansetron HCl (Zofran) 4 mg IV Q8HR PRN PRN Reason: Nausea And Vomiting Pantoprazole Sodium (Protonix) 20 mg PO BIDAC [facility] Discontinued Medications Hydromorphone HCl (Dilaudid) 0.5 mg IV NOW ONE Stop: 03/05/19 17:01 Last Admin: 03/05/19 17:22 Dose: 0.5 mg Documented by: MAYRA Hydromorphone HCl (Dilaudid) 0.5 mg IV NOW ONE Stop: 03/05/19 19:30 Last Admin: 03/05/19 19:41 Dose: 0.5 mg Documented by: KYLEE Hydromorphone HCl (Dilaudid) 1 mg IV NOW ONE Stop: 03/06/19 01:23 Last Admin: 03/06/19 01:44 Dose: 1 mg Documented by: CASEY Sodium Chloride (Normal Saline 0.9%) 1,000 mls @ 500 mls/hr IV BOLUS ONE Stop: 03/06/19 02:18 Last Admin: 03/06/19 03:19 Dose: Not Given Documented by: CASEY Ceftriaxone Sodium 1,000 mg/ (Dextrose) 50 mls @ 100 mls/hr IV NOW ONE Stop: 03/06/19 00:21 Last Admin: 03/06/19 03:20 Dose: Not Given Documented by: CASEY Morphine Sulfate (Morphine) 2 mg IV NOW ONE Stop: 03/05/19 16:45 Last Admin: 03/05/19 18:57 Dose: Not Given Documented by: MAYRA Nitroglycerin (Nitrostat) 0.4 mg SL NOW ONE Stop: 03/05/19 19:30 Last Admin: 03/05/19 19:50 Dose: 0.4 mg Documented by: KYLEE Ondansetron HCl (Zofran) 4 mg IV NOW ONE Stop: 03/05/19 19:38 Last Admin: 03/05/19 19:44 Dose: 4 mg Documented by: KYLEE Pantoprazole Sodium (Protonix) 40 mg IV NOW ONE Stop: 03/05/19 19:30 Last Admin: 03/05/19 19:44 Dose: 40 mg Documented by: KYLEE Vital Signs Vital signs: Vital Signs - 8 hr 03/06/19 01:25 Pulse Rate 83 Respiratory Rate 18 Blood Pressure [Right Arm] 146/64 H Pulse Oximetry 95 <Christa Serrato MD - Last Filed: 03/06/19 07:38> Course Course Narrative: Rojelio note: The patient was signed out to me by Dr. Newman, pending repeat troponin. She had presented to the emergency department with chief complaint of intrascapular pain since 10/25 that morning, and her initial labs showed a decrease in her GFR to 23.9 from her baseline in the 30s, with elevation of BUN and creatinine from normal to a creatinine of 1.2. Her alkaline phosphatase was also moderately elevated, and she had a slightly elevated indeterminate troponin. Her repeat troponin was slightly less than the 1st one. I went back to talk to the patient, who was in quite a bit of discomfort. We discussed her symptoms for some time, and she stated that the symptoms were very similar to the gallbladder attack she had had many years ago. The patient at that time was found to have gallstones, but states that her gallbladder was never surgically removed. However, when she had her abdominal hernia repair in 2003, she was told by her surgeon that her gallbladder had ?disappeared? from her scans, and she did not appear to have a gallbladder any longer. However, the only surgery that the patient had on her abdomen otherwise was removal of an ovary as a child. The patient's alkaline phosphatase had been somewhat elevated, but LFTs otherwise were unremarkable. However, given the degree of discomfort the patient was in, as well as continued, very large belching, I did go ahead and order an ultrasound of the patient's right upper quadrant. This showed an enlarged common bile duct at 14 mm, but no gallbladder. The patient was also found to have fatty liver. I ordered a CT of the abdomen pelvis without contrast, as the patient's GFR was down to 23.9 from her usual GFR in the 30s. This showed what was describes as a ?mildly distended? common bile duct, but radiologist noted a ?cholecystectomy?. Patient was found to have a fair amount of gas and stool in colon, but otherwise, CT was unremarkable. I did go back and confirmed once again with the patient that she was absolutely sure that she had not had a cholecystectomy, and both the patient and her daughter stated the patient had not. He I did discuss with the patient that her pain may be musculoskeletal in origin or could also be from the gas in her colon. However, I was concerned about the amount of time the patient had been in significant discomfort, which was now approaching 24 hours. This seemed unusual for gas pains. The patient was still in significant discomfort, score Cristo and grunting and appearing genuinely uncomfortable to a significant degree in the exam room. The discomfort would christophe a bit with Dilaudid but as soon as the Dilaudid wore off, generally within an hour, the patient would be back to significant discomfort. Patient's abdominal exam was benign upon my re-evaluation. She stated she had had a bowel movement the day before, and there were no signs of obstruction on her CT. I spoke with Dr. Valdovinos, who is on-call for surgery, and had seen the patient in August for unremarkable colonoscopy and EGD. We discussed the case thoroughly, and ultimately, he felt that the patient likely need to have an MRCP and/or HIDA scan in the morning. I added a lactate, which was normal. The patient's aorta was visualized to be quite calcified on the noncontrast CT, and there is no aneurysm or obvious dissection noted. The patient was not in AFib currently, though she had been early in her visit. Her rhythm had been in normal sinus on the monitor throughout the multiple hours I had her under my care. And though she has a history of CHF with a fairly low EF of 10-15%, her blood pressure remained normal throughout her stay in the emergency department. Additionally, no stranding was noted on the CT, nor was pneumatosis coli noted to indicate ischemia or developing necrosis of the bowel. These absent findings were in addition to the normal lactate and procalcitonin. I spoke with Arnoldo Garza, who was the hospitalist on-call, and he did agree to admit the patient to his service. Orders Ordered: ED Orders 03/06/19 00:02 CT kidney ureter bladder (KUB) Stat Acetaminophen (Tylenol) 650 mg PO Q6HR PRN PRN Reason: As Needed for Fever/Mild Pain Al Hydrox/Mg Hydrox/Simethicone (Maalox Plus) 30 ml PO Q6HR PRN PRN Reason: Dyspepsia Atorvastatin Calcium (Lipitor) 20 mg PO BEDTIME CYNTHIA Bisacodyl (Dulcolax) 10 mg CO DAILY PRN PRN Reason: Constipation Calcium Carbonate (Tums) 1,000 mg PO Q4HR PRN PRN Reason: Dyspepsia Docusate Sodium (Colace) 100 mg PO BID CYNTHIA Furosemide (Lasix) 40 mg PO DAILY CYNTHIA Hydralazine HCl (Apresoline) 50 mg PO BID CYNTHIA Hydromorphone HCl (Dilaudid) 0.5 mg IV Q6H PRN PRN Reason: Pain, Moderate (4-6) Hydromorphone HCl (Dilaudid) 1 mg IV Q6HR PRN PRN Reason: Pain, Severe (7-10) Sodium Chloride (Normal Saline 0.9%) 1,000 mls @ 150 mls/hr IV CONT CYNTHIA Last Admin: 03/06/19 04:10 Dose: 150 mls/hr Documented by: Infusion: 03/06/19 03:09 Dose: 0 mls/hr Documented by: Admin: 03/05/19 17:22 Dose: 150 mls/hr Documented by: MAYRA Sodium Chloride (Normal Saline 0.9%) 1,000 mls @ 50 mls/hr IV CONT [facility] Last Admin: 03/06/19 07:49 Dose: 50 mls/hr Documented by: ALEXANDRE Potassium Chloride 60 meq/ (Sodium Chloride) 530 mls @ 88.333 mls/hr IV NOW ONE Stop: 03/06/19 09:21 Last Admin: 03/06/19 04:10 Dose: 88.333 mls/hr Documented by: ALEXANDRE Cosigned by: CAL Piperacillin/Tazobactam/Dextrose (Zosyn) 3.375 gm in 50 mls @ 100 mls/hr IV Q8H [facility] Levothyroxine Sodium (Synthroid) 25 mcg PO 0600 CYNTHIA Ticagrelor 90 Mg 90 mg PO BID CYNTHIA Ondansetron HCl (Zofran) 4 mg IV Q8HR PRN PRN Reason: Nausea And Vomiting Pantoprazole Sodium (Protonix) 20 mg PO BIDAC CYNTHIA Discontinued Medications Hydromorphone HCl (Dilaudid) 0.5 mg IV NOW ONE Stop: 03/05/19 17:01 Last Admin: 03/05/19 17:22 Dose: 0.5 mg Documented by: MAYRA Hydromorphone HCl (Dilaudid) 0.5 mg IV NOW ONE Stop: 03/05/19 19:30 Last Admin: 03/05/19 19:41 Dose: 0.5 mg Documented by: KYLEE Hydromorphone HCl (Dilaudid) 1 mg IV NOW ONE Stop: 03/06/19 01:23 Last Admin: 03/06/19 01:44 Dose: 1 mg Documented by: CASEY Sodium Chloride (Normal Saline 0.9%) 1,000 mls @ 500 mls/hr IV BOLUS ONE Stop: 03/06/19 02:18 Last Admin: 03/06/19 03:19 Dose: Not Given Documented by: CASEY Ceftriaxone Sodium 1,000 mg/ (Dextrose) 50 mls @ 100 mls/hr IV NOW ONE Stop: 03/06/19 00:21 Last Admin: 03/06/19 03:20 Dose: Not Given Documented by: CASEY Morphine Sulfate (Morphine) 2 mg IV NOW ONE Stop: 03/05/19 16:45 Last Admin: 03/05/19 18:57 Dose: Not Given Documented by: MAYRA Nitroglycerin (Nitrostat) 0.4 mg SL NOW ONE Stop: 03/05/19 19:30 Last Admin: 03/05/19 19:50 Dose: 0.4 mg Documented by: KYLEE Ondansetron HCl (Zofran) 4 mg IV NOW ONE Stop: 03/05/19 19:38 Last Admin: 03/05/19 19:44 Dose: 4 mg Documented by: KYLEE Pantoprazole Sodium (Protonix) 40 mg IV NOW ONE Stop: 03/05/19 19:30 Last Admin: 03/05/19 19:44 Dose: 40 mg Documented by: KYLEE Vital Signs Vital signs: Vital Signs - 8 hr 03/06/19 01:25 Pulse Rate 83 Respiratory Rate 18 Blood Pressure [Right Arm] 146/64 H Pulse Oximetry 95 MDM - Chest Pain <Nava Newman DO - Last Filed: 03/06/19 07:57> Lab Data Attestation: I reviewed the patient's lab results. Result diagrams: 03/05/19 17:15 03/06/19 02:50 Labs: Lab Results 03/05/19 03/05/19 03/05/19 Range/Units 17:15 17:15 17:15 WBC 10.9 (4.5-11.0) X10^3/uL RBC 4.27 (4.0-5.2) X10^6/uL Hgb 13.9 (12.0-16.0) g/dL Hct 41.5 (36-46) % MCV 97.3 (80-100) fL MCH 32.5 (26-34) PG MCHC 33.4 (30-36) % RDW 14.5 (11.6-14.8) % Plt Count 206 (150-400) X10^3/uL Neut % (Auto) 74.5 (50-75) % Lymph % (Auto) 13.6 L (25-40) % [place] % (Auto) 11.0 (3-14) % Eos % (Auto) 0.6 L (2-4) % Baso % (Auto) 0.3 (0-2) % Neut # (Auto) 8100 H (5459-6072) /uL Lymph # (Auto) 1500 (5232-4710) /uL [place] # (Auto) 1200 H (0-900) /uL Eos # (Auto) 100 (0-450) /uL Baso # (Auto) 0 (0-100) /uL PT 19.4 H (10.1-12.7) SECONDS INR 1.7 H (0.9-1.3) APTT 41 H (26.4-36.2) SECONDS Sodium 139 (137-145) mmol/L Potassium 3.1 L (3.4-5.1) mmol/L Chloride 91 L (98-107) mmol/L Carbon Dioxide 36 H (22-32) mmol/L BUN 39 H (7-17) mg/dL Creatinine 2.00 H (0.52-1.04) mg/dL Estimated GFR 23.9 L (>60) mL/min BUN/Creatinine Ratio 19.5 (6-22) Glucose 139 H (80-110) mg/dL Calcium 10.0 (8.4-10.2) mg/dL Total Bilirubin 0.7 (0.2-1.3) mg/dL AST 56 H (14-36) IU/L ALT 21 (9-52) IU/L Alkaline Phosphatase 321 H (38-126) U/L Total Creatine Kinase 49 (30-135) U/L CK-MB (CK-2) TNP CK-MB (CK-2) Rel Index TNP Troponin I 0.023 (0.01-0.034) ng/mL B-Natriuretic Peptide 520 H (<100) Total Protein 8.7 H (6.3-8.2) g/dL Albumin 4.1 (3.5-5.0) g/dL Globulin 4.6 H (1.7-4.1) g/dL Albumin/Globulin Ratio 0.9 L (1.0-2.8) Lipase 121 (23-300) U/L 03/05/19 Range/Units 20:36 WBC (4.5-11.0) X10^3/uL RBC (4.0-5.2) X10^6/uL Hgb (12.0-16.0) g/dL Hct (36-46) % MCV (80-100) fL MCH (26-34) PG MCHC (30-36) % RDW (11.6-14.8) % Plt Count (150-400) X10^3/uL Neut % (Auto) (50-75) % Lymph % (Auto) (25-40) % [place] % (Auto) (3-14) % Eos % (Auto) (2-4) % Baso % (Auto) (0-2) % Neut # (Auto) (3884-2775) /uL Lymph # (Auto) (7048-7520) /uL [place] # (Auto) (0-900) /uL Eos # (Auto) (0-450) /uL Baso # (Auto) (0-100) /uL PT (10.1-12.7) SECONDS INR (0.9-1.3) APTT (26.4-36.2) SECONDS Sodium (137-145) mmol/L Potassium (3.4-5.1) mmol/L Chloride (98-107) mmol/L Carbon Dioxide (22-32) mmol/L BUN (7-17) mg/dL Creatinine (0.52-1.04) mg/dL Estimated GFR (>60) mL/min BUN/Creatinine Ratio (6-22) Glucose (80-110) mg/dL Calcium (8.4-10.2) mg/dL Total Bilirubin (0.2-1.3) mg/dL AST (14-36) IU/L ALT (9-52) IU/L Alkaline Phosphatase (38-126) U/L Total Creatine Kinase (30-135) U/L CK-MB (CK-2) CK-MB (CK-2) Rel Index Troponin I 0.020 (0.01-0.034) ng/mL B-Natriuretic Peptide (<100) Total Protein (6.3-8.2) g/dL Albumin (3.5-5.0) g/dL Globulin (1.7-4.1) g/dL Albumin/Globulin Ratio (1.0-2.8) Lipase (23-300) U/L Imaging Data Chest x-ray: Radiologist's impression: [address] [address] XRay Report Signed Patient: Kristen Dsouza [facility]#: [id number] : 1936Acct:[id number] Age/Sex: 83 / FDate of Service: 03/05/19 Loc: ED Accession Number: [id number] Procedure: XR chest 1V Ordering Provider: Nava Newman D.O. PROCEDURE: XR CHEST 1V INDICATIONS: chest pain TECHNIQUE: One view of the chest was acquired. COMPARISON: [facility], , XR CHEST 1V, 09/10/2018, 17:28. FINDINGS: Surgical changes and devices: An apparent septal closure device is faintly seen. Lungs and pleura: Low lung volumes are noted. This causes a crowded appearance to the lung markings and limits evaluation. Mild interstitial prominence is seen. No pleural effusions or pneumothorax. Mediastinum: Mediastinal contours appear normal. Heart size is mildly enlarged. Atherosclerotic calcification of the aortic arch is noted. Bones and chest wall: No suspicious bony lesions. Overlying soft tissues appear unremarkable. IMPRESSION: Mild cardiomegaly and mild pulmonary interstitial prominence. Please correlate with patient presentation, physical examination findings, and laboratory values for congestive heart failure. Dictated by: Johan Cheng M.D. on 03/05/2019 at 16:39 ECG Data Attestation: I personally reviewed and interpreted this ECG as follows: Prior ECG tracings: available for review Interpretation: EKG 1. Atrial fibrillation rate [address] changes similar to prior EKG 2. Atrial fibrillation rate [address] changes MDM Narrative Medical decision making narrative: The patient reexamined really complaining of burping [place] pain goes from back to front. She has absolutely no abdominal pain. Kidney function today is worse than what it was in November her creatinine is 2.0. She has no difficulty breathing or CHF signs. She previously stayed in the hospital in August for CHF exacerbation she had a nuclear stress test at that time. Troponin a is still negative at 0.023 however we will be repeating a 2nd troponin. Dissection is considered however not having significant amount of pain pain is not migrating. Due to renal function hesitant to do angio. At this time will try nitroglycerin Dilaudid and Protonix. Patient signed out to Dr. Serrato for further medical management. <Christa Serrato MD - Last Filed: 03/06/19 07:38> Medical Records Data Attestation: I reviewed the patient's medical records. Lab Data Attestation: I reviewed the patient's lab results. Labs: Lab Results 03/05/19 03/05/19 03/05/19 Range/Units 17:15 17:15 17:15 WBC 10.9 (4.5-11.0) X10^3/uL RBC 4.27 (4.0-5.2) X10^6/uL Hgb 13.9 (12.0-16.0) g/dL Hct 41.5 (36-46) % MCV 97.3 (80-100) fL MCH 32.5 (26-34) PG MCHC 33.4 (30-36) % RDW 14.5 (11.6-14.8) % Plt Count 206 (150-400) X10^3/uL Neut % (Auto) 74.5 (50-75) % Lymph % (Auto) 13.6 L (25-40) % [place] % (Auto) 11.0 (3-14) % Eos % (Auto) 0.6 L (2-4) % Baso % (Auto) 0.3 (0-2) % Neut # (Auto) 8100 H (6082-2146) /uL Lymph # (Auto) 1500 (8213-8465) /uL [place] # (Auto) 1200 H (0-900) /uL Eos # (Auto) 100 (0-450) /uL Baso # (Auto) 0 (0-100) /uL PT 19.4 H (10.1-12.7) SECONDS INR 1.7 H (0.9-1.3) APTT 41 H (26.4-36.2) SECONDS Sodium 139 (137-145) mmol/L Potassium 3.1 L (3.4-5.1) mmol/L Chloride 91 L (98-107) mmol/L Carbon Dioxide 36 H (22-32) mmol/L BUN 39 H (7-17) mg/dL Creatinine 2.00 H (0.52-1.04) mg/dL Estimated GFR 23.9 L (>60) mL/min BUN/Creatinine Ratio 19.5 (6-22) Glucose 139 H (80-110) mg/dL Calcium 10.0 (8.4-10.2) mg/dL Total Bilirubin 0.7 (0.2-1.3) mg/dL AST 56 H (14-36) IU/L ALT 21 (9-52) IU/L Alkaline Phosphatase 321 H (38-126) U/L Total Creatine Kinase 49 (30-135) U/L CK-MB (CK-2) TNP CK-MB (CK-2) Rel Index TNP Troponin I 0.023 (0.01-0.034) ng/mL B-Natriuretic Peptide 520 H (<100) Total Protein 8.7 H (6.3-8.2) g/dL Albumin 4.1 (3.5-5.0) g/dL Globulin 4.6 H (1.7-4.1) g/dL Albumin/Globulin Ratio 0.9 L (1.0-2.8) Lipase 121 (23-300) U/L 03/05/19 Range/Units 20:36 WBC (4.5-11.0) X10^3/uL RBC (4.0-5.2) X10^6/uL Hgb (12.0-16.0) g/dL Hct (36-46) % MCV (80-100) fL MCH (26-34) PG MCHC (30-36) % RDW (11.6-14.8) % Plt Count (150-400) X10^3/uL Neut % (Auto) (50-75) % Lymph % (Auto) (25-40) % [place] % (Auto) (3-14) % Eos % (Auto) (2-4) % Baso % (Auto) (0-2) % Neut # (Auto) (8784-9158) /uL Lymph # (Auto) (7144-5552) /uL [place] # (Auto) (0-900) /uL Eos # (Auto) (0-450) /uL Baso # (Auto) (0-100) /uL PT (10.1-12.7) SECONDS INR (0.9-1.3) APTT (26.4-36.2) SECONDS Sodium (137-145) mmol/L Potassium (3.4-5.1) mmol/L Chloride (98-107) mmol/L Carbon Dioxide (22-32) mmol/L BUN (7-17) mg/dL Creatinine (0.52-1.04) mg/dL Estimated GFR (>60) mL/min BUN/Creatinine Ratio (6-22) Glucose (80-110) mg/dL Calcium (8.4-10.2) mg/dL Total Bilirubin (0.2-1.3) mg/dL AST (14-36) IU/L ALT (9-52) IU/L Alkaline Phosphatase (38-126) U/L Total Creatine Kinase (30-135) U/L CK-MB (CK-2) CK-MB (CK-2) Rel Index Troponin I 0.020 (0.01-0.034) ng/mL B-Natriuretic Peptide (<100) Total Protein (6.3-8.2) g/dL Albumin (3.5-5.0) g/dL Globulin (1.7-4.1) g/dL Albumin/Globulin Ratio (1.0-2.8) Lipase (23-300) U/L ECG Data Attestation: I personally reviewed and interpreted this ECG as follows: (See below) Interpretation: Twelve lead EKG performed primary 2019 at 1741 p.m., as follows: Irregular ventricular rhythm with a rate of 65 beats per minute P waves undetectable QRS duration 149 millisecond QTC interval 423 millisecond Diffusely inverted T-waves throughout leads to, 3, AVF, he V2, V3, V4, and biphasic in V5. Occasional ectopy Interpretation: Atrial fibrillation with controlled rate; right bundle-branch block; possible septal myocardial infarction of indeterminate age; abnormal EKG as interpreted by ED MD. Discharge Plan Departure Patient Disposition: Admitted as Observation Clinical Impression: Abdominal pain Qualifiers: Abdominal location: epigastric Qualified Code(s): R10.13 - Epigastric pain Discharge Date/Time: 03/06/19 03:46 Referrals: Amanda Mann MD [Primary Care Provider] - Admit Date/Time: 03/06/19 02:24 Admit Provider: Cesar Garza
[2019-03-05] MEDS: SODIUM CHLORIDE 0.9% 1,000 ML 150 ML IV (17:22)
[2019-03-05] MEDS: HYDROMORPHONE 0.5 MG INJ IV ×2 (17:22→19:41)
[2019-03-05 17:31] LABS: Add Manual Diff / Slide Review NO; Basophils Absolute Auto 0 /uL (0-100); Basophils Percent Auto 0.3 % (0-2); Eosinophils Absolute Auto 100 /uL (0-450); Eosinophils Percent Auto 0.6 % (2-4); Hematocrit 41.5 % (36-46); Hemoglobin 13.9 g/dL (12.0-16.0); Lymphocytes Absolute Auto 1500 /uL (1100-4500); Lymphocytes Percent Auto 13.6 % (25-40); Mean Corpuscular HGB Conc 33.4 % (30-36); Mean Corpuscular Hemoglobin 32.5 PG (26-34); Mean Corpuscular Volume 97.3 fL (80-100); Monocytes Absolute Auto 1200 /uL (0-900); Neutrophils Absolute Auto 8100 /uL (1500-7000); Neutrophils Percent Auto 74.5 % (50-75); Platelet Count 206 X10^3/uL (150-400); Red Blood Cell Count 4.27 X10^6/uL (4.0-5.2); Red Cell Distribution Width 14.5 % (11.6-14.8); White Blood Cell Count 10.9 X10^3/uL (4.5-11.0)
[2019-03-05 17:38] LABS: INR 1.7 (0.9-1.3); Prothrombin Time 19.4 SECONDS (10.1-12.7)
[2019-03-05 17:40] LABS: PTT Partial Thromboplastin Tim 41 SECONDS (26.4-36.2)
[2019-03-05 17:42] LABS: Alanine Aminotransferase 21 IU/L (9-52); Albumin 4.1 g/dL (3.5-5.0); Albumin Globulin Ratio 0.9 (1.0-2.8); Alkaline Phosphatase 321 U/L (38-126); Aspartate Aminotransferase 56 IU/L (14-36); BUN Creatinine Ratio 19.5 (6-22); Bilirubin Total 0.7 mg/dL (0.2-1.3); Blood Urea Nitrogen 39 mg/dL (7-17); Carbon Dioxide 36 mmol/L (22-32); Chloride 91 mmol/L (98-107); Creatine Kinase 49 U/L (30-135); Estimated Glomerular Filt Rate 23.9 mL/min (>60); Globulin 4.6 g/dL (1.7-4.1); Glucose 139 mg/dL (80-110); HEMOLYSIS < 15 (0-50); Lipase 121 U/L (23-300); Potassium 3.1 mmol/L (3.4-5.1); Sodium 139 mmol/L (137-145); Total Protein 8.7 g/dL (6.3-8.2)
[2019-03-05 17:53] LABS: Troponin I 0.023 ng/mL (0.01-0.034)
[2019-03-05 18:01] LABS: B Type Natriuretic Peptide 520 (<100)
[2019-03-05] MEDS: ONDANSETRON 4 MG/2 ML INJ IV (19:44)
[2019-03-05] MEDS: PANTOPRAZOLE 40 MG VIAL IV (19:44)
[2019-03-05] MEDS: NITROGLYCERIN 0.4 MG SL TAB SL (19:50)
--- NOTE | 2019-03-05 19:51 | PC.NURSE ---
Pt c/o back pain radiating through to chest with belching and nausea 7/10. Pain improved to 4/10 after dilaudid, protonix, and zofran. SpO2 decreased to 80% RA, 2liters O2 started via NC. BP 135/71, 1 tab SL nitro given, pt now rates pain 3/10. Will CTM.
--- NOTE | 2019-03-05 22:44 | DI.US.S_ITS ---
PROCEDURE: US ABDOMEN LIMITED INDICATIONS: BACK PAIN, FEELS LIKE GALLBLADDER DID BEFORE TECHNIQUE: Real-time focused scanning was performed of the abdomen, with image documentation. COMPARISON: None. FINDINGS: Image quality limited by patient body habitus and bowel gas. Liver is normal in size. Liver is slightly echogenic. No focal hepatic mass lesions identified. Gallbladder is well-visualized and may be absent. Common bile duct is dilated measuring 14.0 mm. The body of pancreas is sonographically normal. Tail of pancreas obscured by bowel gas. IMPRESSION: Biliary dilatation with common bile duct measuring 14.0 mm. Recommend correlation with laboratory data to exclude biliary obstruction. If there is clinical concern for biliary obstruction, an MRCP should be considered for further evaluation. Dictated by: Hannah Olea MD, PhD on 03/06/2019 at 8:54 Approved by: Hannah Olea MD, PhD on 03/06/2019 at 9:00
[2019-03-06] VITALS (12 sets, daily range): BP systolic 95–165; BP diastolic 50–81; PULSE 60–83; RESP 16–21; TEMP 36.6–36.9; O2SAT 93–98; BMI 35.2
--- NOTE | 2019-03-06 00:02 | DI.CT.S_ITS ---
PROCEDURE: CT KIDNEY URETER BLADDER (KUB) INDICATIONS: CBD abnormal, no GB seen on US, no h/o cholecyestectomy TECHNIQUE: Noncontrast 5 mm thick sections acquired from the diaphragms to the symphysis. 5 mm thick coronal and sagittal reformats were then performed. For radiation dose reduction, the following was used: automated exposure control, adjustment of mA and/or kV according to patient size. COMPARISON: [facility], US, US ABDOMEN LIMITED, 03/05/2019, 23:30. FINDINGS: Image quality: Excellent. Lung bases: There is mild atelectasis in the lung bases. Heart size is normal. There is a small pericardial effusion. A prosthetic aortic valve is partly visualized. Urinary system: The kidneys demonstrate no nephrolithiasis or hydronephrosis. There is mild nonspecific perinephric stranding bilaterally. Both ureters appear non-dilated throughout their expected courses. The urinary bladder is nondistended. No calcified bladder stones. Other solid organs: Noncontrast evaluation of the liver demonstrates no focal hepatic lesions. The gallbladder is not visualized and presumed surgically absent. There is mild biliary ductal dilatation, with the common bile duct measuring up to approximately 1.1 cm with tapering distally into the ampulla of Vater. No calcified common duct stone visualized. No discrete mass identified on noncontrast evaluation. Pancreas is mildly atrophic in size without a discrete mass identified on noncontrast evaluation. Spleen is normal in size. No adrenal nodules. Peritoneum and bowel: Unenhanced bowel loops demonstrate normal wall thickness and caliber. No pericecal inflammatory changes to suggest appendicitis. There is colonic diverticulosis without acute diverticulitis. No free fluid or air. Nodes and vessels: No retroperitoneal or mesenteric adenopathy by size criteria. Aorta and inferior vena cava are normal in caliber. There is prominent atherosclerotic vascular calcification. Abdominal wall: No ventral hernias. There is a calcified surgical mesh along the ventral abdominal wall. Pelvis: No free pelvic fluid. No inguinal hernias or adenopathy. Bones: No suspicious bony lesions. There is fusion at L5-S1. Bilateral pars defects are demonstrated at L5. No vertebral body compression fractures. IMPRESSION: 1. Presumed surgical absence of the gallbladder. 2. Mild biliary ductal dilatation without a calcified common duct stone visualized. The differential includes reservoir effect from prior cholecystectomy or an ampulla stricture. Recommend correlation with laboratory values. 3. No evidence of nephrolithiasis or obstructive uropathy. 4. Colonic diverticulosis without acute diverticulitis. Dictated by: Heriberto Cuba M.D. on 03/06/2019 at 8:59 Approved by: Heribetro Cuba M.D. on 03/06/2019 at 9:07
[2019-03-06] MEDS: HYDROMORPHONE 1 MG INJ IV (01:44)
[2019-03-06 03:10] LABS: Blood Urea Nitrogen 38 mg/dL (7-17); Calcium 9.5 mg/dL (8.4-10.2); Carbon Dioxide 34 mmol/L (22-32); Chloride 95 mmol/L (98-107); Estimated Glomerular Filt Rate 23.9 mL/min (>60); Glucose 145 mg/dL (80-110); HEMOLYSIS < 15 (0-50); Sodium 136 mmol/L (137-145)
[2019-03-06 03:19] LABS: Potassium 2.7 mmol/L (3.4-5.1)
--- NOTE | 2019-03-06 03:22 | PC.NURSE ---
Dr Serrato and admitting provider Greg notified of critical Potassium level, orders to replete K received.
--- NOTE | 2019-03-06 03:24 | PM.HP.1 ---
History of Present Illness History of Present Illness Date Patient Seen: 03/06/19 Time Patient Seen: 03:06 Chief complaint: Chest Pain Narrative: Ms. Kristen Dsouza is an 83-year-old female with a history of coronary artery disease status post stenting on Brilinta, TAVR, CHF, severely depressed EF 10-15%, atrial fibrillation, hypertension, chronic kidney disease stage IV, and hypothyroidism who presents to the ER today with back and abdominal pain. The patient reports onset of pain approximately 24 hours ago starting at 4-430 yesterday morning waking her from sleep. Patient reports it feels like when she has had gallstones. She reports the pain to in her upper shoulder blades and indicates that tends to move side to side and will radiate anteriorly. The patient states she has had nausea off and on but denies her cardiac chest pain or palpitations. She has shortness of breath when ?I tried to do too much?. She denies cough or wheezing. She reports somewhat diminished appetite and has had no vomiting and denies diarrhea and instead frequently deals with constipation. The patient is followed by her parking lot attendant and cashier, Dr. Rubi, and scientific affairs manager Dr. Longoria. She denies recent illness and states she was doing well the day prior to onset of her symptoms. She has had no Headaches or dizziness, nasal congestion or sore throat. She reports no urinary difficulties. Upon review arrival in the ER the patient is a while with a temperature of 98.4?, bradycardic at a rate of 54, blood pressure 136/70, respirations 16 saturating 98% on room air. Patient underwent CT examination found a small pericardial effusion with dilated common bile duct and diverticulosis without diverticulitis. Ultrasound is obtained due to inability to 2 contrast related to renal function which finds again dilated common bile duct and apparent surgically absent gallbladder. Chest x-ray reveals mild cardiomyopathy with mild pulmonary edema. Her labs reveal with a rate 9, hemoglobin the 0.9 hematocrit of 41.5 with platelets of 205. She is hypokalemic with potassium of 3.1 with low chloride at 91 and elevated CO at 36. She has a BUN of 39 and creatinine of 2.0 with a nonfasting glucose of 139. Her EGFR is 23.9. On her LFT she has a total bilirubin of 0.7 with an elevated AST of 56 ALT of 21 elevated alkaline phosphatase of 321. Her lipase is 121. On coags she has elevated PT at 19.4, INR 1.7 and PTT of 41. She is on tricagelor. Her total CK is 49 and her troponin is 0.020. Her BNP is elevated at 520. The patient is admitted for intractable back and abdominal pain of unknown etiology. Patient History Medical History (Updated 03/06/19 @ 03:38 by SABINE Ramires) Chronic kidney disease (Chronic) Congestive heart failure (Acute) Coronary artery disease (Acute) Fatty liver (Acute) GI bleed (Acute) Hypertension (Chronic) Hypothyroid (Chronic) Surgical History Hx of heart artery stent (Acute) S/P TAVR (transcatheter aortic valve replacement) (Chronic) Family History Father Medical history unknown Mother Congestive heart failure Diabetes mellitus Sister Diabetes mellitus Myocardial infarction Daughter Hypertension Social History household members: family and children Smoking Status: Former smoker alcohol intake: never substance use type: does not use Family & Social History Family History Father Medical history unknown Mother Congestive heart failure Diabetes mellitus Sister Diabetes mellitus Myocardial infarction Daughter Hypertension Social History: household members family,children Safety & Behavioral: Feels Safe in Current Yes Environment Been Physically Hurt or No Threatened By a Person Tobacco & Substance use: Smoking Status Former smoker alcohol intake never alcohol intake frequency holiday/special occasion Substance Use Type does not use Comment: The patient lives in a single family home with her daughter since January. She was for 45 years for 18 years. Patient states she never knew her father and mother had history diabetes and CHF. Her brothers in good health and she has 1 sister who has had an IN and diabetes. Her daughter has hypertension and she has a son with degenerative bone disease. 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 She designates her daughter is surrogate decision maker. Meds Home Medications and Allergies Home Medications Medication Instructions Recorded Confirmed Type Fish Oil Pearls 1 cap PO DAILY 09/10/18 09/10/18 History Martin 3-6-9 1 tab PO DAILY 09/10/18 09/10/18 History acyclovir 400 mg PO BID 09/10/18 09/10/18 History ascorbic acid (vitamin C) [Vitamin 250 mg PO DAILY 09/10/18 09/10/18 History C] atorvastatin 20 mg PO BEDTIME 09/10/18 09/10/18 History calcium citrate-vitamin D3 1 tab PO DAILY 09/10/18 09/10/18 History [Calcitrate-Vitamin D] cetirizine 10 mg PO DAILY 09/10/18 09/10/18 History ferrous gluconate 324 mg PO BID 09/10/18 09/10/18 History hydralazine 50 mg PO BID 09/10/18 09/10/18 History levothyroxine 25 mcg PO DAILY 09/10/18 09/10/18 History melatonin 3 mg PO BEDTIME PRN 09/10/18 09/10/18 History multivitamin 1 tab PO DAILY 09/10/18 09/10/18 History omeprazole magnesium [Acid Senior National Account Manager 20 mg PO BID 09/10/18 09/10/18 History (omeprazole)] ticagrelor 90 mg PO BID 09/10/18 09/10/18 History furosemide 40 mg PO DAILY #0 tab 09/18/18 09/10/18 Rx potassium chloride [Klor-Con M20] 10 meq PO DAILYCC #30 tab 09/18/18 Rx Allergies Allergy/AdvReac Type Severity Reaction Status Date / Time morphine AdvReac Hallucinati Verified 09/16/18 13:23 ng Review of Systems Review of Systems ROS Unobtainable: All systems reviewed & are unremarkable except as noted in HPI and below Exam Vital Signs (past 8 hours): - 03/05/19 19:50 03/05/19 21:00 03/05/19 21:34 Pulse Rate 73 74 71 Respiratory Rate 21 14 Blood Pressure 135/71 Blood Pressure [Left Arm] Blood Pressure [Right Arm] 130/66 146/61 H Pulse Oximetry 97 99 03/05/19 22:30 03/05/19 23:46 03/06/19 01:25 Pulse Rate 77 88 83 Respiratory Rate 21 20 18 Blood Pressure Blood Pressure [Left Arm] Blood Pressure [Right Arm] 149/65 H 149/67 H 146/64 H Pulse Oximetry 96 94 95 03/06/19 02:40 03/06/19 03:08 Pulse Rate 72 71 Respiratory Rate 20 Blood Pressure Blood Pressure [Left Arm] 151/81 H Blood Pressure [Right Arm] 125/65 165/73 H Pulse Oximetry 98 Oxygen Delivery Method Nasal Cannula Oxygen Flow Rate 1 Narrative Exam Narrative: GENERAL APPEARANCE: well developed, obese female with BMI 34.5, ill-appearing and slightly lethargic HEENT: Normocephalic, irregular right pupil, conjunctiva clear, EOMs intact without nystagmus, no sinus tenderness to percussion, no rhinorrhea, mucous membranes are moist and pink without lesions or exudate. NECK/THYROID: neck supple, no jugular venous distention, no carotid bruit, no thyromegaly, trachea midline. LYMPH NODES: no cervical or supraclavicular lymphadenopathy. SKIN: warm and dry, no suspicious lesions, no rashes, good turgor. HEART: Irregularly irregular rhythm with bradycardic rate S1-S2 2/6 systolic murmur, no rubs or gallops, brisk capillary refill, 2+ edema to the level of the tibial tubercle LUNGS: Breath sounds diminished in all granados with crackles bibasilar, no cough CHEST: Symmetrical movement, no accessory muscle use, no pain to AP and lateral compression. ABDOMEN: Soft, round, no epigastric or abdominal tenderness on palpation, no guarding or peritoneal signs, no organomegaly, no flank or suprapubic tenderness BACK: Normal curvature, nontender to palpation EXTREMITIES: Crepitus bilateral shoulder joints, MARIXA, strength is 5/5 and symmetrical, 1+ symmetrical dorsalis pedis pulses NEUROLOGIC: AAO x4, no focal neurologic deficits, motor strength normal upper and lower extremities, sensory exam intact to light touch. PSYCH: alert, fair eye contact, cognitive function intact, flat affect Objective Labs Result Diagrams: 03/05/19 17:15 03/06/19 02:50 Labs: Laboratory Results - last 24 hr 03/05/19 03/05/19 03/05/19 17:15 17:15 17:15 WBC 10.9 RBC 4.27 Hgb 13.9 Hct 41.5 MCV 97.3 MCH 32.5 MCHC 33.4 RDW 14.5 Plt Count 206 Neut % (Auto) 74.5 Lymph % (Auto) 13.6 L [place] % (Auto) 11.0 Eos % (Auto) 0.6 L Baso % (Auto) 0.3 Neut # (Auto) 8100 H Lymph # (Auto) 1500 [place] # (Auto) 1200 H Eos # (Auto) 100 Baso # (Auto) 0 PT 19.4 H INR 1.7 H APTT 41 H Sodium 139 Potassium 3.1 L Chloride 91 L Carbon Dioxide 36 H BUN 39 H Creatinine 2.00 H Estimated GFR 23.9 L BUN/Creatinine Ratio 19.5 Glucose 139 H Lactate Calcium 10.0 Total Bilirubin 0.7 AST 56 H ALT 21 Alkaline Phosphatase 321 H Total Creatine Kinase 49 CK-MB (CK-2) TNP CK-MB (CK-2) Rel Index TNP Troponin I 0.023 B-Natriuretic Peptide 520 H Total Protein 8.7 H Albumin 4.1 Globulin 4.6 H Albumin/Globulin Ratio 0.9 L Lipase 121 03/05/19 03/06/19 03/06/19 20:36 02:50 02:50 WBC RBC Hgb Hct MCV MCH MCHC RDW Plt Count Neut % (Auto) Lymph % (Auto) [place] % (Auto) Eos % (Auto) Baso % (Auto) Neut # (Auto) Lymph # (Auto) [place] # (Auto) Eos # (Auto) Baso # (Auto) PT INR APTT Sodium 136 L Potassium 2.7 L* Chloride 95 L Carbon Dioxide 34 H BUN 38 H Creatinine 2.00 H Estimated GFR 23.9 L BUN/Creatinine Ratio 19.0 Glucose 145 H Lactate 1.0 Calcium 9.5 Total Bilirubin AST ALT Alkaline Phosphatase Total Creatine Kinase CK-MB (CK-2) CK-MB (CK-2) Rel Index Troponin I 0.020 B-Natriuretic Peptide Total Protein Albumin Globulin Albumin/Globulin Ratio Lipase Assessment & Plan Assessment & Plan narrative: 1. Acute intractable pain, present on admission, active -patient describes pain between the upper scapula, moves from side to side radiates anteriorly into the chest and abdomen. -chest x-ray finds pulmonary edema but no evidence of pneumonia oxygenation is adequate at 98% with respirations of 16 and nonlabored. -noncontrast CT is obtained due to reduced renal function, finding dilated common bile duct, absent gallbladder, colonic diverticulosis without diverticulitis. Elevated AST at 56 and alkaline phosphatase at 321. Lipase is 121. -patient is afebrile, has normal white count at 10.9 will check lactate and procalcitonin and tract infection markers. -patient received ceftriaxone 1 g IV in the emergency department. With the concern for the back pain being referred pain for intra-abdominal etiology the patient will be started on Zosyn 3.375 g IV every 8 hours. 2. Congestive heart failure, present on admission, acute on chronic -diagnosed with CHF in April 2017, chest x-ray today reveals mild cardiomyopathy and mild pulmonary edema, troponin is 0.020 and BNP is 520. -echocardiogram done on 11/02/2018: Reveals an EF of 10-15% Severe global hypokinesis and severe dyssynchronous contractile pattern consistent with conduction abnormality Only meaningful contractility in the proximal and mid posterior wall similar to previous study. Left ventricle is severely dilated, diastolic parameters suggest relaxation abnormality of the left ventricle consistent with probable normal filling pressures Right ventricle is mildly dilated and right ventricular systolic function is mildly reduced Right ventricular systolic pressure is estimated to be 51 mm of mercury and based on the right atrial pressure of 15 mm of mercury Both atria are moderately dilated There is [id number] mitral regurgitation and mild to moderate tricuspid regurgitation, Aortic valve is moderately calcified. -patient has exertional dyspnea and trace pedal edema -will continue current home regimen of furosemide 40 mg daily. 3. Atrial fibrillation, chronic present on admission, active -12 lead EKG reveals atrial fibrillation controlled rate with right bundle branch block, ventricular response at a rate of 61, right bundle branch block, probable right ventricular hypertrophy with increased prominence of R waves in V1 -3 compared with prior exam of 09/10/2018. No evidence of ST or T-wave changes, prior anterior septal infarct -patient is anticoagulated on tricagelor 90 mg BID which is continued. -will obtain an echocardiogram -will obtain a TSH and and monitor electrolytes 4. Acute hypokalemia, present on admission, active -initial laboratory findings reveal potassium of 3.1, on re-evaluation potassium and gone down to 2.7. -K rider 60 mEq IV x1, and recheck potassium due to stage IV renal disease. -monitor electrolytes 5. Chronic kidney disease stage 4, chronic -patient is followed by Nephrology and has had recent medication adjustments with increase in Lasix and discontinuation of losartan -BUN is 39 with creatinine of 2.0. Calculated creatinine clearance is 31.2. -will continue Lasix 40 mg daily and will follow renal function and consult Nephrology for worsening parameters 6. Hypertension, chronic -patient is on hydralazine 50 mg twice daily for blood pressure and also to receives Lasix 40 mg once daily which are both continued. 6. Obesity, BMI 34.5, chronic -the patient with decreasing activity tolerance and impaired mobility -PT and OT to consult, evaluate and treat The patient is admitted to the hospital related to the severity of symptoms and the high risk for complications. The patient is admitted as observation with expected length of stay less than 2 midnights. Time Spent With Patient Time with patient: 25 - 35 minutes
[2019-03-06 03:33] LABS: Magnesium 2.3 mg/dL (1.6-2.3)
[2019-03-06 03:51] LABS: Procalcitonin 0.31 ng/mL (<0.5)
[2019-03-06] MEDS: SODIUM CHLORIDE 0.9% 1,000 ML 150 ML IV (04:10)
[2019-03-06] MEDS: POTASSIUM CHLORIDE 60 MEQ in SODIUM CHLORIDE 0.9% 500 ML 88.333 ML IV (04:10)
[2019-03-06] MEDS: SODIUM CHLORIDE 0.9% 1,000 ML 50 ML IV ×2 (07:49→22:10)
[2019-03-06] MEDS: PANTOPRAZOLE 20 MG TABLET PO ×2 (08:04→16:39)
[2019-03-06] MEDS: LEVOTHYROXINE 25 MCG TABLET PO (08:04)
[2019-03-06] MEDS: PIPERACILLIN-TAZO 3.375 GM/50 ML FROZ.PIGGY IV ×2 (08:48→16:39)
[2019-03-06] MEDS: FUROSEMIDE 40 MG TABLET PO (09:46)
[2019-03-06] MEDS: DOCUSATE 100 MG CAPSULE PO ×2 (09:46→20:46)
[2019-03-06] MEDS: HYDRALAZINE 25 MG TABLET 50 MG PO ×2 (09:47→20:43)
[2019-03-06] MEDS: ACETAMINOPHEN 325 MG TABLET 650 MG PO (09:47)
[2019-03-06 11:13] LABS: Add Manual Diff / Slide Review NO; Basophils Absolute Auto 100 /uL (0-100); Basophils Percent Auto 0.4 % (0-2); Eosinophils Absolute Auto 0 /uL (0-450); Eosinophils Percent Auto 0.1 % (2-4); Hematocrit 40.3 % (36-46); Hemoglobin 13.3 g/dL (12.0-16.0); Lymphocytes Absolute Auto 2200 /uL (1100-4500); Lymphocytes Percent Auto 12.9 % (25-40); Mean Corpuscular HGB Conc 32.9 % (30-36); Mean Corpuscular Hemoglobin 32.4 PG (26-34); Mean Corpuscular Volume 98.4 fL (80-100); Monocytes Absolute Auto 2200 /uL (0-900); Monocytes Percent Auto 13.1 % (3-14); Neutrophils Absolute Auto 12300 /uL (1500-7000); Neutrophils Percent Auto 73.5 % (50-75); Platelet Count 181 X10^3/uL (150-400); Red Cell Distribution Width 14.7 % (11.6-14.8); White Blood Cell Count 16.8 X10^3/uL (4.5-11.0)
[2019-03-06 11:23] LABS: BUN Creatinine Ratio 18.1 (6-22); Blood Urea Nitrogen 38 mg/dL (7-17); Calcium 9.6 mg/dL (8.4-10.2); Carbon Dioxide 30 mmol/L (22-32); Chloride 96 mmol/L (98-107); Estimated Glomerular Filt Rate 22.5 mL/min (>60); Glucose 129 mg/dL (80-110); HEMOLYSIS < 15 (0-50); Potassium 3.7 mmol/L (3.4-5.1); Sodium 139 mmol/L (137-145)
[2019-03-06 11:25] LABS: Appearance Urine UA CLEAR; Bilirubin Urine UA NEGATIVE (NEGATIVE); Color Urine UA YELLOW; Glucose Urine UA NEGATIVE (Negative); Ketones Urine UA NEGATIVE (NEGATIVE); Leukocyte Esterase Urine UA TRACE (NEGATIVE); Nitrite Urine UA NEGATIVE (Negative); Occult Blood Urine UA TRACE-INTACT (Negative); Protein Urine UA 2+ (Negative); Specific Gravity Urine UA 1.025 (1.000-1.035); Urobilinogen Urine UA 0.2 E.U./dL (0.2)
[2019-03-06 11:46] LABS: RBC Urine 0-1/HPF (0-5/HPF)
[2019-03-06 11:47] LABS: Bacteria Urine Moderate (10-30); Culture Indicated Urine Specimen Cultured; Granular Casts Urine 30-100/LPF; Hyaline Casts Urine 5-10/LPF; Squamous Epithelial Cell Urine 1-5 /HPF (0-5/HPF); WBC Urine 30-100/HPF (0-5/HPF)
--- NOTE | 2019-03-06 13:26 | CM.SWNOTE ---
SW/DCP Pt is an 83 yo female who was admitted to for abdominal pain and back pain. She lives in [place] with her daughter Maryanne Carson. PCP is Amanda Mann MD. Pt is independent with most ADLS. She ambulates independently with a walker and can toilet and feed herself independently. Daughter assists in shower and shops and cooks for pt. Primary payor: Medicare, Secondary payor: [facility] Neither pt nor daughter felt that HH was needed this time, but reported that [facility] had been useful in the past. Plan: ECHO expected today. Pending outcome, plan is to d/c home when medically stable.. Daughter is available to transport pt home. CM team to follow if needs arise. Discharge Planning/Care Management CM Discharge Assessment Start: 03/06/19 13:21 Freq: Status: Active Protocol: Document 03/06/19 13:22 (Rec: 03/06/19 13:26 [id number]) Discharge Planning Assessment Assigned Foreign Correspondent STEVEN Toscano Advance Directives? No: Discussed DPOA with pt and her daughter Advance Directives on File No History Provided By Patient,Family Member,Medical Record Prior Living Arrangements House Household Members family,children Type of transporation used prior to Relies on Others admit Independent with ADL's Yes: Daughter provides assistance is shower Is patient alert and oriented? Yes Needs Assistance With Bathing,Home Chores / Shopping DME Already Rented / Owned FWW / Walker Barriers to Discharge No Comment No anticipated d/c needs Discharge Plan Home Transportation Arrangement Dtr bedside and can provide transport if safe for d/c home Referrals Initiated None needed Additional Comment Waiting for PT eval
--- NOTE | 2019-03-06 15:10 | DI.ECHO.S_ITS ---
[facility] +---------+ : : [address] : : : : [id number] : : : : Phone: [phone] Echocardiogram Report + + :Name: SHANNAN APPLE Study Date: 03/06/2019 Height: 58 in : :[facility] Weight: 205 lb : : Gender: Female BSA: 1.8 m2 : :: 1935 Age: 83 yrs BP: 112/54 mmHg: :Reason For Study: Pericardial Effusion : :Ordering Physician: Veronica Millan : :Alice Performed By: Eileen Brown : :Referring: AVINASH BARRIOS : + + Interpretation Summary Afib with controlled rate and wide QRS complexes. Normal LV size and wall thickness; normal wall motion and LV systolic function EF is 60-65%. Severe LA enlargement; otherwise normal chamber sizes. Pt's aortic valve has been replaced with a stented bioprosthesis via TAVR. It is funcitoning normally. Mild MAC with mild associated MR. There is moderate central TR; estimated PA systlic pressure is 49 mm Hg assuming RA pressure of 3 mm Hg. Compared to [facility] study 09/11/2018 no significant changes have occurred. Procedure: A two-dimensional transthoracic echocardiogram with color flow and Doppler was performed. The study quality was technically adequate. Comparison is made with the echocardiogram of 09-11-18. The patient was in atrial fibrillation with heart rates between 70-81 bpm during the exam. Left Ventricle: The left ventricle is normal in size, wall thickness, and systolic function without any focal wall motion abnormalities. The ejection fraction is estimated to be 60-65%. Right Ventricle: The right ventricle grossly appears normal in size with probable normal systolic function. Atria: The left atrium is severely dilated. Right atrial size is normal. The interatrial septum is intact with no evidence for an atrial septal defect. Aortic Valve: A TAVR aortic valve appears to be well seated. There is trace aortic regurgitation. Tricuspid Valve: The tricuspid valve leaflets are thin and pliable. There is mild tricuspid regurgitation. The right ventricular systolic pressure is estimated to be at least 49 mmHg based on an estimated right atrial pressure of 3 mm Hg. Pulmonic Valve: The pulmonic valve is not well seen, but is grossly normal. There is trace pulmonic regurgitation. Great Vessels: The aortic root is normal size. The dimensions of the ascending aorta are normal. The aortic arch is normal in size. The IVC is of normal diameter and collapses greater than 50% with a sniff. This suggests a low right atrial pressure of 3 mm Hg. Pericardium/ Pleura There is a trivial to small pericardial effusion noted. There is no pleural effusion. MMode/2D Measurements & Calculations LVIDd: 4.8 cm LVOT diam: 2.1 cm LVIDs: 3.2 cm Ao root diam: 3.2 cm FS: 34.5 % asc Aorta Diam: 3.3 cm EPSS: 1.0 cm Ao Arch Diam (Prox Trans): 3.0 cm IVSd: 0.97 cm LVPWd: 0.79 cm LV green. diameter/BSA (cm/m^2): 2.6 LV sys. diameter/BSA (cm/m^2): 1.7 LA dimension: 6.3 cm RA long axis: 5.5 cm LA A2 area: 25.2 cm2 RA area: 20.1 cm2 LA A4 area: 31.4 cm2 RA vol: 61.9 ml LA length (vol): 6.4 cm RA : 33.6 ml/m2 LA vol: 104.2 ml IVC diam: 2.1 cm LA vol index: 56.6 ml/m2 RVDd major: 5.1 cm RVD1 (basal): 3.8 cm RVD2 (mid): 3.1 cm Doppler Measurements & Calculations Ao V2 max: 190.9 cm/sec LVOT Max Isai: 144.6 cm/sec Ao V2 mean: 131.0 cm/sec LV V1 max P.4 mmHg Ao max P.6 mmHg LV V1 VTI: 25.4 cm Ao mean P.9 mmHg TERE(I,D): 2.4 cm2 Ao V2 VTI: 35.6 cm TERE(V,D): 2.6 cm2 sev ratio: 0.71 TERE indexed to BSA (cm^2/m^2): 1.3 MV E max isai: 129.3 cm/sec TR max isai: 339.1 cm/sec MV A max isai: 33.4 cm/sec TR max P.0 mmHg MV E/A: 3.9 PA V2 max: 138.2 cm/sec Med Peak E' Isai: 5.5 cm/sec PA V2 mean: 90.1 cm/sec E/E' med: 23.6 PA mean P.7 mmHg Lat Peak E' Isai: 4.3 cm/sec PA Accel Time: 0.13 sec E/E' lat: 30.0 E/e' average: 26.8 MV dec time: 0.26 sec MV P1/2t: 75.1 msec MV P1/2t max isai: 128.6 cm/sec SV(LVOT): 85.7 ml MVA(/2t): 2.9 cm2 Electronically signed by: Telma Arriola M.D. on Reading Physician:03/06/2019 05:57 PM
--- NOTE | 2019-03-06 15:26 | DIET.PN ---
Dietary Progress Note Assessment: 83y F c hx of CAD, CHF, CKD4 referred to nutrition for obesity and severely diminished cardiac output When asked about kidney function, pt was unaware of her CKD4. Pt stated my kidneys tried to go out on me but got better though renal fxn shows worsening in 6mo associated c severe unintentional weight loss. Pt presents c moderate muscle and fat losses as well as considerable baggy skin from rapid wt loss. Pt lovingly cared for by daughter, granddaughters. They all take turns cooking. Pt has low appetite and chronic constipation. Usual Intake: B: fiber cookie c coffee (cream and sweet n low) L: salad or sandwich D: not a picky eater, likes roast beef, tamales. Does not snack. HT: 162.5cm WT: 93kg (17% unintentional wt loss in 6mo (severe)) BMI: 35.2 Labs: K+ 2.7 (L), GFR 23.9 (43 in 09/13), Creatinine 2.0 (1.1 in 09/13) Nutrition Diagnosis: Severe Acute on Chronic PCM r/t declining renal fxn, CHF associated edema aeb 17% unintentional wt loss in 6mo (severe), <75% EER for >1mo, chronic constipation, and considerable baggy skin c NFPE showing moderate muscle losses in interosseous, temples, clavicle, and moderate subcutaneous fat losses in orbitals, clavicle. Interventions: Recc ONS ensure bid EERs: 1800kcal, 80g PRO (0.9g/kg renal elder), 2.3 L fluids (25cc/kg CHF/RD) Monitoring/Evaluations: POs, wt, edema
--- NOTE | 2019-03-06 17:39 | PM.PN.1 ---
Subjective Subjective Date Patient Seen: 03/06/19 Time Patient Seen: 17:40 Interval history: Kristen Dsouza is an 83 F with PMH of coronary artery disease status post stenting on Brilinta, TAVR, CHF, severely depressed EF 10-15%, atrial fibrillation, hypertension, chronic kidney disease stage IV, and hypothyroidism who presented with primarily left-sided shoulder pain radiating to the front. Her imaging showed a trace pericardial effusion, and common bile duct dilatation to 14 mm with the absence of a gallbladder or stones. She had mild LFT elevations which have been stable. Her UA was positive and is being sent for culture. Her white blood cell count increased today and her procalcitonin went to 0.31. Her potassium improved from 2.6-3.7 after repletion. Patient reported today this has been seen previously, and that she did not have a gallbladder. After speaking with her her symptoms do not sound consistent with biliary pathology, and although she does have a trace pericardial effusion I am not sure of the chronicity of this however her symptoms could represent asymptomatic effusion. Her symptoms have since improved today. She remains on Zosyn pending cultures. Exam Vital Signs (past 8 hours): - 03/06/19 11:00 03/06/19 16:12 Temperature 97.8 F Pulse Rate 82 70 Respiratory Rate 16 18 Blood Pressure 102/54 L 112/54 L Pulse Oximetry 95 94 Oxygen Delivery Method Nasal Cannula Oxygen Flow Rate 1 Narrative Exam Narrative: GENERAL APPEARANCE: Well developed, well nourished, in no acute distress. SKIN: Inspection of the skin reveals no rashes, ulcerations or petechiae. HEENT: The sclerae were anicteric and conjunctivae were pink and moist. Extraocular movements were intact and pupils were equal, round with normal accommodation. External inspection of the ears and nose showed no scars, lesions, or masses. Lips, teeth, and gums showed normal mucosa. The oral mucosa, hard and soft palate, tongue and posterior pharynx were unremarkable. NECK: Supple and symmetric. There was no thyroid enlargement, and no tenderness, or masses were felt. CHEST: Normal AP diameter and normal contour without any kyphoscoliosis. LUNGS: Auscultation of the lungs revealed no wheezes, rhonchi, or rales. CARDIOVASCULAR: There was a regular rate and rhythm without any murmurs, gallops, rubs. Peripheral pulses were 2+ and symmetric. ABDOMEN: Soft and nontender with normal bowel sounds. No ascites was noted. MUSCULOSKELETAL: There was no tenderness or effusions noted. Muscle strength and tone were normal. EXTREMITIES: No cyanosis, clubbing or edema. NEUROLOGIC: Alert and oriented x 3. Normal affect. Gait was normal. Strength is +5/5 in the Upper Extremities and Lower Extremities Bilaterally. Sensation to touch was normal. Objective Labs Result Diagrams: 03/07/19 05:00 03/07/19 05:00 Labs: Laboratory Results - last 24 hr 03/05/19 03/05/19 03/05/19 17:15 17:15 17:15 WBC RBC Hgb Hct MCV MCH MCHC RDW Plt Count Neut % (Auto) Lymph % (Auto) [place] % (Auto) Eos % (Auto) Baso % (Auto) Neut # (Auto) Lymph # (Auto) [place] # (Auto) Eos # (Auto) Baso # (Auto) PT 19.4 H INR 1.7 H APTT 41 H Sodium 139 Potassium 3.1 L Chloride 91 L Carbon Dioxide 36 H BUN 39 H Creatinine 2.00 H Estimated GFR 23.9 L BUN/Creatinine Ratio 19.5 Glucose 139 H Lactate Calcium 10.0 Magnesium Total Bilirubin 0.7 AST 56 H ALT 21 Alkaline Phosphatase 321 H Total Creatine Kinase 49 CK-MB (CK-2) TNP CK-MB (CK-2) Rel Index TNP Troponin I 0.023 B-Natriuretic Peptide 520 H Total Protein 8.7 H Albumin 4.1 Globulin 4.6 H Albumin/Globulin Ratio 0.9 L Lipase 121 Procalcitonin Urine Color Urine Appearance Urine pH Ur Specific [place] Urine Protein Urine Glucose (UA) Urine Ketones Urine Occult Blood Urine Nitrate Urine Bilirubin Urine Urobilinogen Ur Leukocyte Esterase Urine RBC Urine WBC Ur Squamous Epith Cells Urine Bacteria Hyaline Casts Granular Casts Ur Culture Indicated? 03/05/19 03/06/19 03/06/19 20:36 02:50 02:50 WBC RBC Hgb Hct MCV MCH MCHC RDW Plt Count Neut % (Auto) Lymph % (Auto) [place] % (Auto) Eos % (Auto) Baso % (Auto) Neut # (Auto) Lymph # (Auto) [place] # (Auto) Eos # (Auto) Baso # (Auto) PT INR APTT Sodium 136 L Potassium 2.7 L* Chloride 95 L Carbon Dioxide 34 H BUN 38 H Creatinine 2.00 H Estimated GFR 23.9 L BUN/Creatinine Ratio 19.0 Glucose 145 H Lactate 1.0 Calcium 9.5 Magnesium Total Bilirubin AST ALT Alkaline Phosphatase Total Creatine Kinase CK-MB (CK-2) CK-MB (CK-2) Rel Index Troponin I 0.020 B-Natriuretic Peptide Total Protein Albumin Globulin Albumin/Globulin Ratio Lipase Procalcitonin Urine Color Urine Appearance Urine pH Ur Specific [place] Urine Protein Urine Glucose (UA) Urine Ketones Urine Occult Blood Urine Nitrate Urine Bilirubin Urine Urobilinogen Ur Leukocyte Esterase Urine RBC Urine WBC Ur Squamous Epith Cells Urine Bacteria Hyaline Casts Granular Casts Ur Culture Indicated? 03/06/19 03/06/19 03/06/19 02:50 02:50 11:00 WBC 16.8 H D RBC 4.10 Hgb 13.3 Hct 40.3 MCV 98.4 MCH 32.4 MCHC 32.9 RDW 14.7 Plt Count 181 Neut % (Auto) 73.5 Lymph % (Auto) 12.9 L [place] % (Auto) 13.1 Eos % (Auto) 0.1 L Baso % (Auto) 0.4 Neut # (Auto) 97134 H Lymph # (Auto) 2200 [place] # (Auto) 2200 H Eos # (Auto) 0 Baso # (Auto) 100 PT INR APTT Sodium Potassium Chloride Carbon Dioxide BUN Creatinine Estimated GFR BUN/Creatinine Ratio Glucose Lactate Calcium Magnesium 2.3 Total Bilirubin AST ALT Alkaline Phosphatase Total Creatine Kinase CK-MB (CK-2) CK-MB (CK-2) Rel Index Troponin I B-Natriuretic Peptide Total Protein Albumin Globulin Albumin/Globulin Ratio Lipase Procalcitonin 0.31 Urine Color Urine Appearance Urine pH Ur Specific [place] Urine Protein Urine Glucose (UA) Urine Ketones Urine Occult Blood Urine Nitrate Urine Bilirubin Urine Urobilinogen Ur Leukocyte Esterase Urine RBC Urine WBC Ur Squamous Epith Cells Urine Bacteria Hyaline Casts Granular Casts Ur Culture Indicated? 03/06/19 03/06/19 11:00 11:21 WBC RBC Hgb Hct MCV MCH MCHC RDW Plt Count Neut % (Auto) Lymph % (Auto) [place] % (Auto) Eos % (Auto) Baso % (Auto) Neut # (Auto) Lymph # (Auto) [place] # (Auto) Eos # (Auto) Baso # (Auto) PT INR APTT Sodium 139 Potassium 3.7 Chloride 96 L Carbon Dioxide 30 BUN 38 H Creatinine 2.10 H Estimated GFR 22.5 L BUN/Creatinine Ratio 18.1 Glucose 129 H Lactate Calcium 9.6 Magnesium Total Bilirubin AST ALT Alkaline Phosphatase Total Creatine Kinase CK-MB (CK-2) CK-MB (CK-2) Rel Index Troponin I B-Natriuretic Peptide Total Protein Albumin Globulin Albumin/Globulin Ratio Lipase Procalcitonin Urine Color Yellow Urine Appearance Clear Urine pH 5.0 Ur Specific [place] 1.025 Urine Protein 2+ H Urine Glucose (UA) Negative Urine Ketones Negative Urine Occult Blood Trace-intact Urine Nitrate Negative Urine Bilirubin Negative Urine Urobilinogen 0.2 Ur Leukocyte Esterase Trace H Urine RBC 0-1/hpf Urine WBC 30-100/hpf H Ur Squamous Epith Cells 1-5 /hpf Urine Bacteria Moderate (10-30) H Hyaline Casts 5-10/lpf Granular Casts 30-100/lpf Ur Culture Indicated? Specimen cultured Assessment & Plan Assessment & Plan narrative: I agree with the original assessment and plan except as noted below. 1. Acute intractable pain, present on admission, active -unclear etiology at this time. Differential includes pericardial effusion, musculoskeletal pain, and less likely biliary pathology or intra-abdominal cause given primarily left-sided in nature. Her UA was positive but she was asymptomatic. Today has a leukocytosis and mildly elevated procalcitonin, she remains on Zosyn pending clarification as to the etiology of her symptoms. -continue Zosyn pending cultures -Follow up echocardiogram -consider non urgent surgical evaluation if no obvious source is found and no improvement in leukocytosis\or procalcitonin 3. Atrial fibrillation, chronic present on admission, active -12 lead EKG reveals atrial fibrillation controlled rate with right bundle branch block, ventricular response at a rate of 61, right bundle branch block, probable right ventricular hypertrophy with increased prominence of R waves in V1 -3 compared with prior exam of 09/10/2018. No evidence of ST or T-wave changes, prior anterior septal infarct -patient is supposedly on apixaban, daughter has list of medications but is not currently present. -will obtain an echocardiogram -will obtain a TSH and and monitor electrolytes Quality VTE Deep Vein Thrombosis/Pulmonary Embolism Present on Admission: Yes
--- NOTE | 2019-03-06 19:36 | P.CONS_ITS ---
History of Present Illness Consult details Date Patient Seen: 03/06/19 Time Patient Seen: 19:36 Chief complaint: Chest Pain Reason for consult: Abdominal pain Requesting provider: Cesar Garza Narrative: Patient is a woman about whom I was called last night from the ER. It was not apparent that she had any general surgical issue from discussion with the ER doctor. However romya asked to see her today. The patient relates that she never had any abdominal pain. She was having back pain radiating into her chest. She was concerned about her heart. When she took a deep breath the pain became quite sharp. She relates this to abdominal pain she had when she thought she was having a gallbladder attack years ago. Of interest, she had an exploration and that included a search for her gallbladder and none was found by the surgeon per her history. She has no recollection of ever having her gallbladder removed. She also has had scans that have failed to reveal her gallbladder. She denies any nausea or vomiting related to this. She has not been jaundiced. [facility] Medical History (Updated 03/06/19 @ 03:38 by SABINE Ramires) Chronic kidney disease (Chronic) Congestive heart failure (Acute) Coronary artery disease (Acute) Fatty liver (Acute) GI bleed (Acute) Hypertension (Chronic) Hypothyroid (Chronic) Surgical History (Updated 03/06/19 @ 19:40 by Trent Valdovinos MD) History of oophorectomy (Acute) History of ventral hernia repair (Acute) Hx of heart artery stent (Acute) S/P TAVR (transcatheter aortic valve replacement) (Chronic) Family History Father Medical history unknown Mother Congestive heart failure Diabetes mellitus Sister Diabetes mellitus Myocardial infarction Daughter Hypertension Social History household members: family and children Smoking Status: Former smoker alcohol intake: never substance use type: does not use Family History Father Medical history unknown Mother Congestive heart failure Diabetes mellitus Sister Diabetes mellitus Myocardial infarction Daughter Hypertension Social History household members: family and children Smoking Status: Former smoker alcohol intake: never substance use type: does not use Meds Home Medications and Allergies Home Medications Medication Instructions Recorded Confirmed Type Fish Oil Pearls 1 cap PO DAILY 09/10/18 09/10/18 History [place] 3-6-9 1 tab PO DAILY 09/10/18 09/10/18 History acyclovir 400 mg PO BID 09/10/18 03/06/19 History ascorbic acid (vitamin C) [Vitamin 250 mg PO DAILY 09/10/18 09/10/18 History C] calcium citrate-vitamin D3 1 tab PO DAILY 09/10/18 09/10/18 History [Calcitrate-Vitamin D] cetirizine 10 mg PO DAILY 09/10/18 09/10/18 History ferrous gluconate 324 mg PO BID 09/10/18 09/10/18 History hydralazine 50 mg PO BID 09/10/18 09/10/18 History levothyroxine 25 mcg PO DAILY 09/10/18 03/06/19 History melatonin 3 mg PO BEDTIME PRN 09/10/18 09/10/18 History multivitamin 1 tab PO DAILY 09/10/18 09/10/18 History omeprazole magnesium [Acid Short Goods Drier 20 mg PO BID 09/10/18 09/10/18 History (omeprazole)] ticagrelor 90 mg PO BID 09/10/18 09/10/18 History furosemide 40 mg PO DAILY #0 tab 09/18/18 03/06/19 Rx potassium chloride [Klor-Con M20] 10 meq PO DAILYCC #30 tab 09/18/18 03/06/19 Rx apixaban [Eliquis] 5 mg PO BID 03/06/19 03/06/19 History hydralazine 50 mg PO BID 03/06/19 03/06/19 History rosuvastatin 40 mg PO DAILY 03/06/19 03/06/19 History Allergies Allergy/AdvReac Type Severity Reaction Status Date / Time morphine AdvReac Hallucinati Verified 09/16/18 13:23 ng Review of Systems Review of Systems Narrative: No black or bloody bowel movements. Had an evaluation for anemia earlier this year. Exam Vital Signs (past 8 hours): - 03/06/19 16:12 Pulse Rate 70 Respiratory Rate 18 Blood Pressure 112/54 L Pulse Oximetry 94 Oxygen Delivery Method Room Air Oxygen Flow Rate 1 Narrative Exam Narrative: Very pleasant alert woman. Morbidly obese. Abdomen is protuberant soft absolutely nontender with vigorous exam. Objective Imaging CT scan - abdomen: My impression: Gas distending a portion of the transverse colon. Otherwise fairly unremarkable study. No free air. No visible gallbladder. Ultrasound of the abdomen consistent with same. Common bile duct 14 mm. Labs Result Diagrams: 03/06/19 11:00 03/06/19 11:00 Labs: Laboratory Results - last 24 hr 03/05/19 03/06/19 03/06/19 20:36 02:50 02:50 WBC RBC Hgb Hct MCV MCH MCHC RDW Plt Count Neut % (Auto) Lymph % (Auto) [place] % (Auto) Eos % (Auto) Baso % (Auto) Neut # (Auto) Lymph # (Auto) [place] # (Auto) Eos # (Auto) Baso # (Auto) Sodium 136 L Potassium 2.7 L* Chloride 95 L Carbon Dioxide 34 H BUN 38 H Creatinine 2.00 H Estimated GFR 23.9 L BUN/Creatinine Ratio 19.0 Glucose 145 H Lactate 1.0 Calcium 9.5 Magnesium Troponin I 0.020 Procalcitonin Urine Color Urine Appearance Urine pH Ur Specific [place] Urine Protein Urine Glucose (UA) Urine Ketones Urine Occult Blood Urine Nitrate Urine Bilirubin Urine Urobilinogen Ur Leukocyte Esterase Urine RBC Urine WBC Ur Squamous Epith Cells Urine Bacteria Hyaline Casts Granular Casts Ur Culture Indicated? 03/06/19 03/06/19 03/06/19 02:50 02:50 11:00 WBC 16.8 H D RBC 4.10 Hgb 13.3 Hct 40.3 MCV 98.4 MCH 32.4 MCHC 32.9 RDW 14.7 Plt Count 181 Neut % (Auto) 73.5 Lymph % (Auto) 12.9 L [place] % (Auto) 13.1 Eos % (Auto) 0.1 L Baso % (Auto) 0.4 Neut # (Auto) 01041 H Lymph # (Auto) 2200 [place] # (Auto) 2200 H Eos # (Auto) 0 Baso # (Auto) 100 Sodium Potassium Chloride Carbon Dioxide BUN Creatinine Estimated GFR BUN/Creatinine Ratio Glucose Lactate Calcium Magnesium 2.3 Troponin I Procalcitonin 0.31 Urine Color Urine Appearance Urine pH Ur Specific [place] Urine Protein Urine Glucose (UA) Urine Ketones Urine Occult Blood Urine Nitrate Urine Bilirubin Urine Urobilinogen Ur Leukocyte Esterase Urine RBC Urine WBC Ur Squamous Epith Cells Urine Bacteria Hyaline Casts Granular Casts Ur Culture Indicated? 03/06/19 03/06/19 11:00 11:21 WBC RBC Hgb Hct MCV MCH MCHC RDW Plt Count Neut % (Auto) Lymph % (Auto) [place] % (Auto) Eos % (Auto) Baso % (Auto) Neut # (Auto) Lymph # (Auto) [place] # (Auto) Eos # (Auto) Baso # (Auto) Sodium 139 Potassium 3.7 Chloride 96 L Carbon Dioxide 30 BUN 38 H Creatinine 2.10 H Estimated GFR 22.5 L BUN/Creatinine Ratio 18.1 Glucose 129 H Lactate Calcium 9.6 Magnesium Troponin I Procalcitonin Urine Color Yellow Urine Appearance Clear Urine pH 5.0 Ur Specific [place] 1.025 Urine Protein 2+ H Urine Glucose (UA) Negative Urine Ketones Negative Urine Occult Blood Trace-intact Urine Nitrate Negative Urine Bilirubin Negative Urine Urobilinogen 0.2 Ur Leukocyte Esterase Trace H Urine RBC 0-1/hpf Urine WBC 30-100/hpf H Ur Squamous Epith Cells 1-5 /hpf Urine Bacteria Moderate (10-30) H Hyaline Casts 5-10/lpf Granular Casts 30-100/lpf Ur Culture Indicated? Specimen cultured Assessment & Plan Assessment & Plan narrative: Pain is not abdominal but back pain radiating into her chest. Increases with deep breathing. Sounds like it could be pleuritic. No obvious surgical concern at this time. Multiple medical issues including new onset AFib with slow ventricular response, continued chronic morbid obesity, pain of uncertain etiology, possible UTI. No recommendations from a surgical point of view.
[2019-03-06] MEDS: APIXABAN 5 MG TABLET PO (20:43)
[2019-03-06] MEDS: ATORVASTATIN 20 MG TABLET PO (20:46)
--- NOTE | 2019-03-06 23:32 | PC.NURSE ---
A&OX3. 94%RA. pt reports her shoulder pain is almost non-existent. btx4. pt only ate 10% of her meal. 1PA to the BS.
[2019-03-07 00:28] VITALS: BP 111/52; PULSE 75; RESP 18; TEMP 36.8; O2SAT 99
[2019-03-07] MEDS: PIPERACILLIN-TAZO 3.375 GM/50 ML FROZ.PIGGY IV ×2 (00:48→08:54)
--- NOTE | 2019-03-07 00:57 | PC.NURSE ---
Patient is alert and oriented. Breath sounds CTA with RA sat of 99%; on continuous oximetry. HR irregular w/hx of afib; telemetry reading was afib CVR w/BBB. Denies nausea. BT present and is passing flatus. Denies dysuria, frequency, urgency or incontinence. Is able to move self in bed and gets up to bathroom with walker and 1 assist. Lightly pink under breasts. Denies pain except with deep breaths. Wearing bilateral SCD's. Fall risk score is high and bed alarm is activated.
[2019-03-07 04:03] VITALS: BP 114/51; PULSE 81; RESP 19; TEMP 36.9; O2SAT 95
[2019-03-07 05:51] LABS: Add Manual Diff / Slide Review NO; Basophils Absolute Auto 0 /uL (0-100); Basophils Percent Auto 0.3 % (0-2); Eosinophils Absolute Auto 100 /uL (0-450); Eosinophils Percent Auto 1.2 % (2-4); Hematocrit 34.2 % (36-46); Hemoglobin 11.3 g/dL (12.0-16.0); Lymphocytes Absolute Auto 1300 /uL (1100-4500); Lymphocytes Percent Auto 13.9 % (25-40); Mean Corpuscular HGB Conc 32.9 % (30-36); Mean Corpuscular Hemoglobin 32.2 PG (26-34); Mean Corpuscular Volume 97.9 fL (80-100); Monocytes Absolute Auto 1200 /uL (0-900); Monocytes Percent Auto 13.2 % (3-14); Neutrophils Absolute Auto 6600 /uL (1500-7000); Neutrophils Percent Auto 71.4 % (50-75); Platelet Count 140 X10^3/uL (150-400); Red Blood Cell Count 3.49 X10^6/uL (4.0-5.2); Red Cell Distribution Width 14.5 % (11.6-14.8); White Blood Cell Count 9.3 X10^3/uL (4.5-11.0)
[2019-03-07 05:56] LABS: INR 1.9 (0.9-1.3)
[2019-03-07 05:58] LABS: PTT Partial Thromboplastin Tim 41 SECONDS (26.4-36.2)
[2019-03-07 06:04] LABS: Alanine Aminotransferase 22 IU/L (9-52); Albumin 2.9 g/dL (3.5-5.0); Albumin Globulin Ratio 0.8 (1.0-2.8); Alkaline Phosphatase 186 U/L (38-126); Aspartate Aminotransferase 41 IU/L (14-36); BUN Creatinine Ratio 18.2 (6-22); Bilirubin Total 1.1 mg/dL (0.2-1.3); Blood Urea Nitrogen 40 mg/dL (7-17); Calcium 8.7 mg/dL (8.4-10.2); Carbon Dioxide 29 mmol/L (22-32); Chloride 97 mmol/L (98-107); Estimated Glomerular Filt Rate 21.4 mL/min (>60); Globulin 3.6 g/dL (1.7-4.1); Glucose 105 mg/dL (80-110); HEMOLYSIS < 15 (0-50); Magnesium 2.1 mg/dL (1.6-2.3); Potassium 3.1 mmol/L (3.4-5.1); Sodium 137 mmol/L (137-145); Total Protein 6.5 g/dL (6.3-8.2)
[2019-03-07 06:20] LABS: Procalcitonin 0.83 ng/mL (<0.5)
[2019-03-07] MEDS: PANTOPRAZOLE 20 MG TABLET PO (06:46)
[2019-03-07] MEDS: LEVOTHYROXINE 25 MCG TABLET PO (06:46)
[2019-03-07 08:49] VITALS: BP 127/66; PULSE 94; RESP 15; TEMP 37; O2SAT 95
[2019-03-07] MEDS: APIXABAN 5 MG TABLET PO (08:53)
[2019-03-07] MEDS: DOCUSATE 100 MG CAPSULE PO (08:53)
[2019-03-07] MEDS: FUROSEMIDE 40 MG TABLET PO (08:53)
[2019-03-07] MEDS: HYDRALAZINE 25 MG TABLET 50 MG PO (08:53)
[2019-03-07 11:25] VITALS: PULSE 73; O2SAT 93
[2019-03-07 11:52] VITALS: BP 107/43; PULSE 74; RESP 14; TEMP 36.9; O2SAT 94
--- NOTE | 2019-03-07 12:25 | P.DS_ITS ---
History of Present Illness History of Present Illness Date Patient Seen: 03/07/19 Time Patient Seen: 12:25 Chief complaint: Chest Pain Narrative: As per SABINE Ramires, Ms. Kristen Dsouza is an 83-year-old female with a history of coronary artery disease status post stenting on Brilinta, TAVR, CHF, severely depressed EF 10- 15%, atrial fibrillation, hypertension, chronic kidney disease stage IV, and hypothyroidism who presents to the ER today with back and abdominal pain. The patient reports onset of pain approximately 24 hours ago starting at 4-430 yesterday morning waking her from sleep. Patient reports it feels like when she has had gallstones. She reports the pain to in her upper shoulder blades and indicates that tends to move side to side and will radiate anteriorly. The patient states she has had nausea off and on but denies her cardiac chest pain or palpitations. She has shortness of breath when ?I tried to do too much?. She denies cough or wheezing. She reports somewhat diminished appetite and has had no vomiting and denies diarrhea and instead frequently deals with constipation. The patient is followed by her veterinarian helper, Dr. Rubi, and business continuity director Dr. Longoria. She denies recent illness and states she was doing well the day prior to onset of her symptoms. She has had no Headaches or dizziness, nasal congestion or sore throat. She reports no urinary difficulties. Upon review arrival in the ER the patient is a while with a temperature of 98.4?, bradycardic at a rate of 54, blood pressure 136/70, respirations 16 saturating 98% on room air. Patient underwent CT examination found a small pericardial effusion with dilated common bile duct and diverticulosis without diverticulitis. Ultrasound is obtained due to inability to 2 contrast related to renal function which finds again dilated common bile duct and apparent surgically absent gallbladder. Chest x-ray reveals mild cardiomyopathy with mild pulmonary edema. Her labs reveal with a rate 9, hemoglobin the 0.9 hematocrit of 41.5 with platelets of 205. She is hypokalemic with potassium of 3.1 with low chloride at 91 and elevated CO at 36. She has a BUN of 39 and creatinine of 2.0 with a nonfasting glucose of 139. Her EGFR is 23.9. On her LFT she has a total bilirubin of 0.7 with an elevated AST of 56 ALT of 21 elevated alkaline phosphatase of 321. Her lipase is 121. On coags she has elevated PT at 19.4, INR 1.7 and PTT of 41. She is on tricagelor. Her total CK is 49 and her troponin is 0.020. Her BNP is elevated at 520. The patient is admitted for intractable back and abdominal pain of unknown etiology. Discharge Providers Provider Date of admission: 03/06/19 02:24 Discharge Date: 03/07/19 Primary care physician: Amanda Mann MD Consults: 03/06/19 03:21 Consult to Dietitian, Adult Routine Comment: Reason For Exam: Obesity severely diminished cardiac output Consult to Discharge Planning Routine Comment: Consult to Physician Routine Comment: Consulting Provider: Trent Valdovinos Reason for consultation: Abdominal pain Has provider been notified: Yes Discharge provider: Cesar Valladares DO Summary Hospital Course Hospital Course: Kristen Dsouza is an 83-year-old female with past medical history of CHF with reduced ejection fraction, AFib, CKD, and hypertension who was admitted with intractable left shoulder pain of uncertain etiology. Differential included pericardial effusion, pneumonia, musculoskeletal pain, or less likely biliary pathology. ACS was ruled out and her echocardiogram showed no changes to prior studies. 1. Acute intractable pain, present on admission, active -unclear etiology at thi s time. Differential includes pericardial effusion, musculoskeletal pain, and less likely biliary pathology or intra-abdominal cause given primarily left- sided in nature. Her UA was positive but she was asymptomatic. Leukocytosis to 16 that improved and mildly elevated procalcitonin, she remained on Zosyn pending clarification as to the etiology of her symptoms, however given trace pericardial effusion, unlikely biliary source given history. -continue Augmentin at home to complete 7 day total course for a possible pneumonia (given pleuritic like chest pain on admission. -echocardiogram showed no changes from previous study. -appreciate surgical recommendations. 2. Chronic Congestive Heart failure with reduced ejection fraction, present on admission, -diagnosed with CHF in April 2017, chest x-ray today reveals mild cardiomyopathy and mild pulmonary edema, troponin is 0.020 and BNP is 520. -echocardiogram done on 11/02/2018: Reveals an EF of 10-15% Severe global hypokinesis and severe dyssynchronous contractile pattern consistent with conduction abnormality Only meaningful contractility in the proximal and mid posterior wall similar to previous study. Left ventricle is severely dilated, diastolic parameters suggest relaxation abnormality of the left ventricle consistent with probable normal filling pressures Right ventricle is mildly dilated and right ventricular systolic function is mildly reduced Right ventricular systolic pressure is estimated to be 51 mm of mercury and based on the right atrial pressure of 15 mm of mercury Both atria are moderately dilated There is [id number] mitral regurgitation and mild to moderate tricuspid regurgitation, Aortic valve is moderately calcified. -will continue current home regimen of furosemide 40 mg daily. 3. Paroxysmal Atrial fibrillation, chronic present on admission, active -continue home medications. -apixaban was reduced given age and Cr to 2.5 mg BID. 4. Acute hypokalemia, present on admission, active, stable 5. Chronic kidney disease stage 4, chronic Cr stable during hospital stay around 2.2. 6. Hypertension, chronic -patient is on hydralazine 50 mg twice daily for blood pressure and also to receives Lasix 40 mg once daily which are both continued. Patient was seen and evaluated by PT, stable for discharge to assisted living with . Dispo: stable for return to assisted livingt Exam Vital Signs (past 8 hours): - 03/07/19 08:49 03/07/19 11:25 03/07/19 11:52 Temperature 98.6 F 98.4 F Pulse Rate 94 H 73 74 Respiratory Rate 15 14 Blood Pressure 127/66 107/43 L Pulse Oximetry 95 93 94 Oxygen Delivery Method Room Air Oxygen Flow Rate 0 Narrative Exam Narrative: GENERAL APPEARANCE: Well developed, well nourished, in no acute distress. SKIN: Inspection of the skin reveals no rashes, ulcerations or petechiae. HEENT: The sclerae were anicteric and conjunctivae were pink and moist. Extraocular movements were intact and pupils were equal, round with normal accommodation. External inspection of the ears and nose showed no scars, lesions, or masses. Lips, teeth, and gums showed normal mucosa. The oral mucosa, hard and soft palate, tongue and posterior pharynx were unremarkable. NECK: Supple and symmetric. There was no thyroid enlargement, and no tenderness, or masses were felt. CHEST: Normal AP diameter and normal contour without any kyphoscoliosis. LUNGS: Auscultation of the lungs revealed no wheezes, rhonchi, or rales. CARDIOVASCULAR: There was a regular rate and rhythm without any murmurs, gallops, rubs. Peripheral pulses were 2+ and symmetric. ABDOMEN: Soft and nontender with normal bowel sounds. No ascites was noted. MUSCULOSKELETAL: There was no tenderness or effusions noted. Muscle strength and tone were normal. EXTREMITIES: No cyanosis, clubbing or edema. NEUROLOGIC: Alert and oriented x 3. Normal affect. Gait was normal. Strength is +5/5 in the Upper Extremities and Lower Extremities Bilaterally. Sensation to touch was normal. Objective Labs Result Diagrams: 03/07/19 05:00 03/07/19 05:00 Labs: Laboratory Results - last 24 hr 03/07/19 03/07/19 03/07/19 05:00 05:00 05:00 WBC 9.3 RBC 3.49 L Hgb 11.3 L Hct 34.2 L MCV 97.9 MCH 32.2 MCHC 32.9 RDW 14.5 Plt Count 140 L Neut % (Auto) 71.4 Lymph % (Auto) 13.9 L [place] % (Auto) 13.2 Eos % (Auto) 1.2 L Baso % (Auto) 0.3 Neut # (Auto) 6600 Lymph # (Auto) 1300 [place] # (Auto) 1200 H Eos # (Auto) 100 Baso # (Auto) 0 PT 22.0 H INR 1.9 H APTT 41 H Sodium Potassium Chloride Carbon Dioxide BUN Creatinine Estimated GFR BUN/Creatinine Ratio Glucose Calcium Magnesium Total Bilirubin AST ALT Alkaline Phosphatase Total Protein Albumin Globulin Albumin/Globulin Ratio Procalcitonin 0.83 H 03/07/19 05:00 WBC RBC Hgb Hct MCV MCH MCHC RDW Plt Count Neut % (Auto) Lymph % (Auto) [place] % (Auto) Eos % (Auto) Baso % (Auto) Neut # (Auto) Lymph # (Auto) [place] # (Auto) Eos # (Auto) Baso # (Auto) PT INR APTT Sodium 137 Potassium 3.1 L Chloride 97 L Carbon Dioxide 29 BUN 40 H Creatinine 2.20 H Estimated GFR 21.4 L BUN/Creatinine Ratio 18.2 Glucose 105 Calcium 8.7 Magnesium 2.1 Total Bilirubin 1.1 AST 41 H ALT 22 Alkaline Phosphatase 186 H Total Protein 6.5 Albumin 2.9 L Globulin 3.6 Albumin/Globulin Ratio 0.8 L Procalcitonin Discharge Plan Discharge Plan Patient Disposition: Home Discharge comment: You were admitted to the hospital for left-sided shoulder pain. You are being discharged to complete a course of antibiotics at home for a possible pneumonia and potentially a urinary tract infection. Your kidney function is slightly worse than previously been, but it is stable. You should be seen by your primary care doctor for further follow up of your kidney function in the next few weeks. Because of your kidney function,your Eliquis dosing has been reduced to 2.5 mg BID. Discharge Med Rec/Prescriptions Prescriptions: New apixaban 2.5 mg tablet 2.5 mg PO BID 30 Days Qty: 60 RF: 0 amoxicillin-pot clavulanate [Augmentin] 875-125 mg tablet 1 tab PO BID 5 Days Qty: 10 RF: 0 Continued hydralazine 25 mg tablet 50 mg PO BID RF: 0 acyclovir 400 mg tablet 400 mg PO BID RF: 0 levothyroxine 25 mcg tablet 25 mcg PO DAILY RF: 0 omeprazole magnesium [Acid Software Quality Engineer (omeprazole)] 20 mg Capsule,Delayed Release(Dr/Ec) 20 mg PO BID RF: 0 ferrous gluconate 324 mg (37.5 mg iron) Tablet 324 mg PO TID RF: 0 calcium citrate-vitamin D3 [Calcitrate-Vitamin D] 315-250 mg-unit Tablet 1 tab PO DAILY RF: 0 multivitamin Tablet 1 tab PO DAILY RF: 0 melatonin 3 mg Tablet 3 mg PO BEDTIME PRN (Reason: Insomnia) RF: 0 ascorbic acid (vitamin C) [Vitamin C] 250 mg Tablet 250 mg PO DAILY RF: 0 cetirizine 10 mg Capsule 10 mg PO DAILY RF: 0 Fish Oil Pearls 150-400 mg Capsule 1 cap PO DAILY RF: 0 [place] 3-6-9 1,200 mg Capsule 1 tab PO DAILY RF: 0 furosemide 40 mg tablet 40 mg PO DAILY Qty: 0 RF: 0 hydralazine 50 mg tablet 50 mg PO TID RF: 0 rosuvastatin 40 mg tablet 40 mg PO DAILY RF: 0 Discontinued Eliquis 5 mg tablet 5 mg PO BID RF: 0 Follow up/Referrals: Amanda Mann MD [Primary Care Provider] - Provider Discharge Instructions Diet: Diet as Tolerated Activity: No restrictions Visit Report/Discharge Packet Instructions: Picking a Pain Reliever: Which One Should You Take?, You Don't Have to Live With Pain, DI for Urinary Tract Infection (UTI), Amoxicillin, Apixaban Visit Report Forms: Stroke Signs & Symptoms Discharge Data Primary Care Provider: Amanda Mann Attending Provider: Cesar Garza Admit Date/Time: 03/06/19 02:24 Discharges patient from system. Discharge Date/Time: 03/07/19 13:31 Quality VTE Deep Vein Thrombosis/Pulmonary Embolism Present on Admission: Yes
--- NOTE | 2019-03-07 13:29 | PC.NURSE ---
Day shift: Pt left unit via WC to private car driven by Pt's daughter. Has MD corey. Paperwork signed and all questions answered. Pt has all personal belongings. Pt in good spirits with going home. Pt's daughter very involved with her mothers care.
--- NOTE | 2019-03-24 12:26 | PC.NURSE ---
late entry: potassium chloride stopped 03/06 1010
== END 2019-03-07 13:31 | disposition home or self-care (01) ==
LOC: ED 03-06 02:13 → AC 03-06 02:25
PROVIDERS: Emergency Medicine; Internal Medicine; Admitting Provider Nurse Practitioner Adult Health; Emergency Provider Emergency Medicine; PCP Internal Medicine; Visit Provider Nurse Practitioner Adult Health
DX: R07.9 Chest pain, unspecified (principal); M25.512 Pain in left shoulder; R10.9 Unspecified abdominal pain; N18.4 Chronic kidney disease, stage 4 (severe); I11.0 Hypertensive heart disease with heart failure; I50.9 Heart failure, unspecified; I25.10 Atherosclerotic heart disease of native coronary artery without angina pectoris; K76.0 Fatty (change of) liver, not elsewhere classified; E03.9 Hypothyroidism, unspecified; I48.0 Paroxysmal atrial fibrillation; E87.6 Hypokalemia
CPT/HCPCS: 36415; 36591; 71045; 74176; 76705; 80048; 80053; 81001; 82550; 83605; 83690; 83735; 83880; 84145; 84484; 85025; 85610; 85730; 87086; 93005; 93010; 93306; 94762; 96361; 96365; 96366; 96367; 96375; 96376; 99285; G0378; C9113; J1170; J2405; J2543; J3480

== ENCOUNTER → 2019-03-13 11:08 | Outpatient (CLI) | payer MEDICARE, SELFPAY ==
[2019-03-06 03:24] VITALS: BMI 35.2
--- NOTE | 2019-03-13 | DI.CT.S_ITS ---
PROCEDURE: CT CHEST WO CON INDICATIONS: CHEST PAIN ON BREATHING TECHNIQUE: Noncontrast 5 mm thick sections acquired from the pulmonary apices to the posterior costophrenic angles. 1 mm lung window, 5 mm thick coronal and sagittal and 7 mm axial MIP reformats were then acquired. For radiation dose reduction, the following was used: automated exposure control, adjustment of mA and/or kV according to patient size. COMPARISON: None. FINDINGS: Image quality: Excellent. Lungs and pleura: Ill-defined air space opacity in the posterior aspect of the left lower lobe is seen suggestive of small left basilar infiltrate/atelectasis. Mild dependent atelectasis in the right lung base is also seen. There is no pleural effusions or pneumothorax. Central and peripheral airways are patent and normal in caliber. Mediastinum: Heart size is enlarged. Small pericardial effusion is seen measures up to 8 mm in thickness. Prosthetic aortic valve is seen. Dense atherosclerotic calcifications or coronary vessels and thoracic aorta is noted. The No mediastinal adenopathy by size criteria. Thoracic aorta and central pulmonary arteries are normal in size. Esophagus is normal in caliber. There is a small hiatal hernia. Bones and chest wall: No suspicious bony lesions. No vertebral body compression fractures. No axillary or supraclavicular adenopathy by size criteria. Thyroid gland is within normal limits. Abdomen: Visualized upper abdominal solid organs and bowel loops appear normal in the absence of contrast. IMPRESSION: 1. Small infiltrate/atelectasis in posterior aspect of left lower lobe. Right basilar linear scarring/atelectasis. No pleural effusion or pneumothorax. Airway is patent. 2. Prosthetic aortic valve in place. Cardiomegaly. Small pericardial effusion. No gross mediastinal or hilar lymphadenopathy. 3. Moderate atherosclerotic disease and coronary vessels and thoracic aorta. Dictated by: Josh Boyle M.D. on 03/13/2019 at 12:42 Approved by: Josh Boyle M.D. on 03/13/2019 at 13:35
== END ==
PROVIDERS: PCP Internal Medicine; Visit Provider Internal Medicine
DX: R07.1 Chest pain on breathing (principal); I51.7 Cardiomegaly; I25.10 Atherosclerotic heart disease of native coronary artery without angina pectoris; I31.3 Pericardial effusion (noninflammatory); I70.0 Atherosclerosis of aorta; K44.9 Diaphragmatic hernia without obstruction or gangrene; Z95.2 Presence of prosthetic heart valve
CPT/HCPCS: 71250

== ENCOUNTER → 2019-03-14 11:02 | Outpatient (CLI) | payer MEDICARE, SELFPAY ==
[2019-03-06 03:24] VITALS: BMI 35.2
[2019-03-14 12:26] LABS: BUN Creatinine Ratio 23.9 (6-22); Blood Urea Nitrogen 43 mg/dL (7-17); Calcium 9.6 mg/dL (8.4-10.2); Carbon Dioxide 30 mmol/L (22-32); Chloride 90 mmol/L (98-107); Estimated Glomerular Filt Rate 26.9 mL/min (>60); Glucose 126 mg/dL (80-110); Magnesium 1.9 mg/dL (1.6-2.3); Sodium 136 mmol/L (137-145)
[2019-03-14 12:27] LABS: HEMOLYSIS 103 (0-50)
== END ==
PROVIDERS: PCP Internal Medicine; Visit Provider Internal Medicine
DX: N17.9 Acute kidney failure, unspecified (principal)
CPT/HCPCS: 36415; 80048; 83735

== ENCOUNTER → 2019-05-08 18:55 | Outpatient (ROUT) | payer MEDICARE, SELFPAY ==
[2019-03-06 03:24] VITALS: BMI 35.2
[2019-05-08 19:33] LABS: Add Manual Diff / Slide Review NO; Basophils Absolute Auto 0 /uL (0-100); Basophils Percent Auto 0.4 % (0-2); Eosinophils Absolute Auto 0 /uL (0-450); Eosinophils Percent Auto 0.2 % (2-4); Hematocrit 38.3 % (36-46); Hemoglobin 12.9 g/dL (12.0-16.0); Iron 52 ug/dL (37-170); Lymphocytes Absolute Auto 900 /uL (1100-4500); Lymphocytes Percent Auto 8.6 % (25-40); Mean Corpuscular HGB Conc 33.7 % (30-36); Mean Corpuscular Volume 95.1 fL (80-100); Monocytes Absolute Auto 900 /uL (0-900); Monocytes Percent Auto 8.6 % (3-14); Neutrophils Absolute Auto 8400 /uL (1500-7000); Neutrophils Percent Auto 82.2 % (50-75); Platelet Count 260 X10^3/uL (150-400); Red Blood Cell Count 4.03 X10^6/uL (4.0-5.2); Red Cell Distribution Width 14.8 % (11.6-14.8); White Blood Cell Count 10.2 X10^3/uL (4.5-11.0)
[2019-05-08 19:34] LABS: BUN Creatinine Ratio 15.9 (6-22); Blood Urea Nitrogen 27 mg/dL (7-17); Calcium 9.4 mg/dL (8.4-10.2); Carbon Dioxide 33 mmol/L (22-32); Chloride 91 mmol/L (98-107); Estimated Glomerular Filt Rate 28.8 mL/min (>60); Glucose 139 mg/dL (80-110); HEMOLYSIS 19 (0-50); Potassium 3.2 mmol/L (3.4-5.1); Sodium 135 mmol/L (137-145)
[2019-05-08 19:40] LABS: Transferrin 185 mg/dL (206-381)
[2019-05-08 20:23] LABS: Vitamin B12 435 pg/mL (239-931)
[2019-05-12 14:00] LABS: HEMOLYSIS < 15 (0-50); Percent Iron Saturation 21 % (15-50); Total Iron Binding Capacity 251 ug/dL (265-497)
== END ==
PROVIDERS: PCP Internal Medicine; Visit Provider Internal Medicine
DX: D64.9 Anemia, unspecified (principal); I50.32 Chronic diastolic (congestive) heart failure
CPT/HCPCS: 80048; 82607; 82728; 83540; 83550; 85025

== ENCOUNTER → 2019-06-06 19:02 | Outpatient (ROUT) | payer MEDICARE, SELFPAY ==
[2019-03-06 03:24] VITALS: BMI 35.2
[2019-06-06 19:30] LABS: BUN Creatinine Ratio 14.7 (6-22); Blood Urea Nitrogen 25 mg/dL (7-17); Calcium 9.5 mg/dL (8.4-10.2); Chloride 86 mmol/L (98-107); Estimated Glomerular Filt Rate 28.8 mL/min (>60); Glucose 129 mg/dL (80-110); HEMOLYSIS < 15 (0-50); Potassium 2.8 mmol/L (3.4-5.1); Sodium 135 mmol/L (137-145)
[2019-06-06 19:32] LABS: Carbon Dioxide 39 mmol/L (22-32)
== END ==
PROVIDERS: PCP Internal Medicine; Visit Provider Internal Medicine
DX: I50.32 Chronic diastolic (congestive) heart failure (principal)
CPT/HCPCS: 80048

== ENCOUNTER → 2019-06-16 09:17 | Outpatient (CLI) | payer MEDICARE, SELFPAY ==
[2019-03-06 03:24] VITALS: BMI 35.2
--- NOTE | 2019-06-16 | DI.ECHO.S_ITS ---
[facility] +---------+ : : [address] [place] : : : : [id number] : : : : Phone: [phone] Echocardiogram Report + + :Name: SHANNAN APPLE Study Date: 06/16/2019 Height: 58 in : :[facility] Weight: 197 lb : : Gender: Female BSA: 1.8 m2 : :: 1935 Age: 83 yrs BP: 158/68 mmHg: :Reason For Study: Congestive Heart Failure : : Performed By: Eileen Brown : :Referring: ABRIL JENKINS : + + Interpretation Summary 1) Normal left ventricular thickness, size, wall motion, and systolic function (EF 65-70%). 2) Normal right ventricular size and function grossly. 3) The left atrium is severely dilated. 4) There is a bioprosthetic aortic valve that is well seated and opens well with expected gradient (mean 7.2mmHg) across it. 5) There is a trivial pericardial effusion noted. 6) Compared to the Echo done 03/06/2019, no significant change. Procedure: A two-dimensional transthoracic echocardiogram with color flow and Doppler was performed. The study quality was technically adequate. Comparison is made with the echocardiogram of 03-06-19. The patient was in atrial fibrillation with heart rates between 86-96 bpm during the exam. Left Ventricle: The left ventricle is normal in size, wall thickness, and systolic function without any focal wall motion abnormalities. The ejection fraction is estimated to be 65-70%. Diastolic function could not be accurately assessed due to atrial fibrillation. Right Ventricle: The right ventricle grossly appears normal in size with probable normal systolic function. Atria: The left atrium is severely dilated. Right atrial size is normal. The interatrial septum is intact with no evidence for an atrial septal defect. Mitral Valve: The mitral valve leaflets appear mildly thickened, but open well. There is moderate mitral annular calcification. There has been no significant change since the previous study. Aortic Valve: There is a bioprosthetic aortic valve. The prosthetic aortic valve is well-seated. The prosthetic aortic valve appears to open well. There is probable normal prosthetic aortic valve function. The peak aortic velocity is 1.9 m/sec. The peak aortic velocity on the previous exam was 1.9 m/sec. No aortic regurgitation is present. Tricuspid Valve: The tricuspid valve leaflets are thin and pliable. There is mild tricuspid regurgitation. The right ventricular systolic pressure is estimated to be at least 44 mmHg based on an estimated right atrial pressure of 3 mm Hg. Pulmonic Valve: The pulmonic valve is not well seen, but is grossly normal. There is trace pulmonic regurgitation. Great Vessels: The aortic root is normal size. The ascending aorta could not be visualized. The aortic arch is normal in size. The IVC is of normal diameter and collapses greater than 50% with a sniff. This suggests a low right atrial pressure of 3 mm Hg. Pericardium/ Pleura There is a trivial pericardial effusion noted. There is no pleural effusion. MMode/2D Measurements & Calculations LVIDd: 5.1 cm LVOT diam: 2.0 cm LVIDs: 2.6 cm Ao root diam: 3.2 cm FS: 48.0 % Aortic Jxn: 2.6 cm IVSd: 0.96 cm Ao Arch Diam (Prox Trans): 2.6 cm LVPWd: 0.93 cm LV green. diameter/BSA (cm/m^2): 2.8 LV sys. diameter/BSA (cm/m^2): 1.5 LA dimension: 4.4 cm RA long axis: 5.5 cm LA A2 area: 27.7 cm2 RA area: 17.6 cm2 LA A4 area: 30.1 cm2 RA vol: 47.9 ml LA length (vol): 6.4 cm RA : 26.5 ml/m2 LA vol: 110.1 ml IVC diam: 2.1 cm LA vol index: 60.8 ml/m2 LA Length_phl: 6.7 cm Doppler Measurements & Calculations Ao V2 max: 193.0 cm/sec LVOT Max Isai: 135.9 cm/sec Ao V2 mean: 120.6 cm/sec LV V1 max P.4 mmHg Ao max P.9 mmHg LV V1 VTI: 17.1 cm Ao mean P.2 mmHg TERE(I,D): 1.8 cm2 Ao V2 VTI: 31.4 cm TERE(V,D): 2.3 cm2 sev ratio: 0.54 TERE indexed to BSA (cm^2/m^2): 0.98 Med Peak E' Isai: 5.7 cm/sec TR max isai: 321.6 cm/sec Lat Peak E' Isai: 7.7 cm/sec TR max P.4 mmHg MV P1/2t: 82.8 msec PA V2 max: 177.0 cm/sec MVA(VTI): 2.1 cm2 PA V2 mean: 102.2 cm/sec PA mean P.1 mmHg PA Accel Time: 0.12 sec MV V2 mean: 66.4 cm/sec MV P1/2t max isai: 137.1 cm/sec MV mean P.6 mmHg MVA(P1/2t): 2.7 cm2 MV V2 VTI: 26.9 cm SV(LVOT): 55.8 ml Reading Physician:05:43 PM
== END ==
PROVIDERS: PCP Internal Medicine; Visit Provider Internal Medicine Cardiovascular Disease
DX: I07.1 Rheumatic tricuspid insufficiency (principal); I50.812 Chronic right heart failure; Z95.2 Presence of prosthetic heart valve
CPT/HCPCS: 93306

== ENCOUNTER → 2019-06-26 10:31 | Outpatient (CLI) | payer MEDICARE, SELFPAY ==
[2019-03-06 03:24] VITALS: BMI 35.2
[2019-06-26 12:16] LABS: Add Manual Diff / Slide Review NO; Basophils Absolute Auto 0 /uL (0-100); Basophils Percent Auto 0.3 % (0-2); Eosinophils Absolute Auto 0 /uL (0-450); Eosinophils Percent Auto 0.2 % (2-4); Hematocrit 38.1 % (36-46); Hemoglobin 12.6 g/dL (12.0-16.0); Lymphocytes Absolute Auto 1300 /uL (1100-4500); Lymphocytes Percent Auto 14.1 % (25-40); Mean Corpuscular HGB Conc 33.1 % (30-36); Mean Corpuscular Hemoglobin 31.1 PG (26-34); Mean Corpuscular Volume 94.1 fL (80-100); Monocytes Absolute Auto 900 /uL (0-900); Monocytes Percent Auto 9.4 % (3-14); Neutrophils Absolute Auto 7100 /uL (1500-7000); Platelet Count 264 X10^3/uL (150-400); Red Blood Cell Count 4.05 X10^6/uL (4.0-5.2); Red Cell Distribution Width 16.2 % (11.6-14.8); White Blood Cell Count 9.4 X10^3/uL (4.5-11.0)
[2019-06-26 12:23] LABS: BUN Creatinine Ratio 13.5 (6-22); Blood Urea Nitrogen 23 mg/dL (7-17); Calcium 9.5 mg/dL (8.4-10.2); Carbon Dioxide 34 mmol/L (22-32); Chloride 91 mmol/L (98-107); Cholesterol 123 mg/dL (140-199); Estimated Glomerular Filt Rate 28.8 mL/min (>60); Glucose 118 mg/dL (80-110); HDL Cholesterol 41 mg/dL (40-60); HEMOLYSIS 42 (0-50); LDL Cholesterol Calculated 61 mg/dL (<100); Potassium 3.3 mmol/L (3.4-5.1); Sodium 136 mmol/L (137-145); Triglycerides 107 mg/dL (35-150)
== END ==
PROVIDERS: PCP Internal Medicine; Visit Provider Internal Medicine Cardiovascular Disease
DX: E78.5 Hyperlipidemia, unspecified (principal); I48.11 Longstanding persistent atrial fibrillation; N18.3 Chronic kidney disease, stage 3 (moderate); I50.812 Chronic right heart failure
CPT/HCPCS: 36415; 80048; 80061; 85025

== ENCOUNTER → 2019-07-04 12:40 | Outpatient (CLI) | payer MEDICARE, SELFPAY ==
[2019-03-06 03:24] VITALS: BMI 35.2
[2019-07-04 14:20] LABS: Add Manual Diff / Slide Review NO; Basophils Absolute Auto 0 /uL (0-100); Basophils Percent Auto 0.3 % (0-2); Eosinophils Absolute Auto 0 /uL (0-450); Eosinophils Percent Auto 0.1 % (2-4); Hematocrit 38.4 % (36-46); Hemoglobin 12.8 g/dL (12.0-16.0); Lymphocytes Absolute Auto 800 /uL (1100-4500); Lymphocytes Percent Auto 9.1 % (25-40); Mean Corpuscular HGB Conc 33.4 % (30-36); Mean Corpuscular Hemoglobin 31.1 PG (26-34); Mean Corpuscular Volume 93.2 fL (80-100); Monocytes Absolute Auto 700 /uL (0-900); Monocytes Percent Auto 7.3 % (3-14); Neutrophils Absolute Auto 7700 /uL (1500-7000); Neutrophils Percent Auto 83.2 % (50-75); Platelet Count 188 X10^3/uL (150-400); Red Blood Cell Count 4.11 X10^6/uL (4.0-5.2); Red Cell Distribution Width 16.6 % (11.6-14.8); White Blood Cell Count 9.3 X10^3/uL (4.5-11.0)
[2019-07-04 15:40] LABS: BUN Creatinine Ratio 15.3 (6-22); Blood Urea Nitrogen 26 mg/dL (7-17); Calcium 9.9 mg/dL (8.4-10.2); Carbon Dioxide 31 mmol/L (22-32); Chloride 91 mmol/L (98-107); Estimated Glomerular Filt Rate 28.8 mL/min (>60); Glucose 106 mg/dL (80-110); HEMOLYSIS < 15 (0-50); Potassium 3.4 mmol/L (3.4-5.1); Sodium 133 mmol/L (137-145)
== END ==
PROVIDERS: PCP Internal Medicine; Visit Provider Internal Medicine Cardiovascular Disease
DX: I25.10 Atherosclerotic heart disease of native coronary artery without angina pectoris (principal)
CPT/HCPCS: 36415; 80048; 85025

== ENCOUNTER 2019-07-15 15:00 | Inpatient (IN) | payer MEDICARE, SELFPAY ==
[2019-03-06 03:24] VITALS: BMI 35.2
[2019-07-15] VITALS (12 sets, daily range): BP systolic 74–144; BP diastolic 34–93; PULSE 83–127; RESP 12–30; TEMP 36.5–37.4; O2SAT 94–98; BMI 40.1; BMI 41.0
--- NOTE | 2019-07-15 15:12 | DI.CT.S_ITS ---
PROCEDURE: CT HEAD/BRAIN WO CON INDICATIONS: fall in shower TECHNIQUE: Noncontrast 4.5 mm thick angled axial sections acquired from the foramen magnum to the vertex, with coronal and sagittal reformats. For radiation dose reduction, the following was used: automated exposure control, adjustment of mA and/or kV according to patient size. COMPARISON: None. FINDINGS: Image quality: Excellent. CSF spaces: Basal cisterns are patent. No extra-axial fluid collections. The ventricles are symmetric in size and shape. Brain: No intracranial bleeds or masses. There is cerebral volume loss for age, with resultant ventricular and sulcal prominence. There are periventricular and deep white matter chronic small vessel ischemic changes. There is intracranial internal carotid artery atherosclerosis. Skull and face: Calvarium and visualized facial bones appear intact, without suspicious lesions. Sinuses: Visualized sinuses and mastoids are clear. IMPRESSION: No acute intracranial hemorrhage is seen. No acute intracranial process is seen. Note is made of age-appropriate brain parenchymal volume loss and chronic small vessel ischemic changes. Dictated by: Johan Cheng M.D. on 07/15/2019 at 14:49 Approved by: Johan Cheng M.D. on 07/15/2019 at 14:50
--- NOTE | 2019-07-15 15:12 | DI.RAD.S_ITS ---
PROCEDURE: XR PELVIS 1-2V INDICATIONS: fall in shower TECHNIQUE: 1 view(s) of the pelvis acquired. COMPARISON: [facility], CT, CT KIDNEY URETER BLADDER (KUB), 03/06/2019, 0:11. [facility], CT, CT HEAD/BRAIN WO CON, 07/15/2019, 15:22. [facility], CR, XR KNEE RT 1TO2V, 07/15/2019, 15:11. [facility], CR, XR KNEE LT 1TO2V, 07/15/2019, 15:11. FINDINGS: Bones: No fractures or dislocations. No suspicious bony lesions. Age-appropriate bony degenerative changes are seen. Soft tissues: Visualized bowel gas pattern is normal. No suspicious soft tissue calcifications. Backboard artifact can be seen. IMPRESSION: No displaced fracture can be seen on this single view study. If there is point tenderness (or other clinical suspicion for a fracture not seen on these images) please consider a dedicated CT for further evaluation. Dictated by: Johan Cheng M.D. on 07/15/2019 at 14:53 Approved by: Johan Cheng M.D. on 07/15/2019 at 14:54
--- NOTE | 2019-07-15 15:12 | DI.RAD.S_ITS ---
PROCEDURE: XR KNEE RT 1TO2V INDICATIONS: fall in shower TECHNIQUE: 2 views of the knee were acquired. COMPARISON: [facility], CT, CT HEAD/BRAIN WO CON, 07/15/2019, 15:22. [facility], CR, XR KNEE LT 1TO2V, 07/15/2019, 15:11. [facility], CR, XR PELVIS 1-2V, 07/15/2019, 15:11. FINDINGS: Bones: No fractures or dislocations. No suspicious bony lesions. Right knee arthroplasty hardware is seen. No findings of hardware failure or hardware loosening are seen. Soft tissues: There is a moderate joint effusion. No suspicious soft tissue calcifications. IMPRESSION: Moderate joint effusion. No acute bony injury is seen. Unremarkable hardware. Dictated by: Johan Cheng M.D. on 07/15/2019 at 14:54 Approved by: Johan Cheng M.D. on 07/15/2019 at 14:55
--- NOTE | 2019-07-15 15:12 | DI.RAD.S_ITS ---
PROCEDURE: XR KNEE LT 1TO2V INDICATIONS: fall in shower TECHNIQUE: 2 views of the knee were acquired. COMPARISON: [facility], CT, CT HEAD/BRAIN WO CON, 07/15/2019, 15:22. [facility], CR, XR KNEE RT 1TO2V, 07/15/2019, 15:11. [facility], CR, XR PELVIS 1-2V, 07/15/2019, 15:11. FINDINGS: Bones: No fractures or dislocations. No suspicious bony lesions. Unremarkable left knee arthroplasty hardware is seen. Soft tissues: No joint effusion. No suspicious soft tissue calcifications. IMPRESSION: No acute plain film abnormality is seen. Unremarkable hardware. Dictated by: Johan Cheng M.D. on 07/15/2019 at 14:52 Approved by: Johan Cheng M.D. on 07/15/2019 at 14:53
--- NOTE | 2019-07-15 15:18 | ED_ITS ---
HPI - Fall <Nava Newman, DO - Last Filed: 07/17/19 12:02> General Chief Complaint: Fall Stated Complaint: GLF - Slipped Time Seen by Provider: 07/15/19 15:10 Source: patient Mode of arrival: EMS History of Present Illness HPI Narrative: Patient is a 83-year-old female on Eliquis for atrial fibrillation who presents with slip and fall in shower. She did not hit her head. She was unable to ambulate per EMS due to bilateral knee pain and toe pain. She does all. She denies any chest pain dizziness lightheadedness or neck pain. Daughter states that she has actually been weak over the last few days. However today she was up and doing her bills. Related Data Home Medications Medication Instructions Recorded Confirmed Fish Oil [place] 1 cap PO DAILY 09/10/18 07/16/19 [place] 3-6-9 1 tab PO DAILY 09/10/18 07/16/19 acyclovir 400 mg PO BID 09/10/18 07/15/19 ascorbic acid (vitamin C) [Vitamin 250 mg PO DAILY 09/10/18 07/16/19 C] calcium citrate-vitamin D3 1 tab PO DAILY 09/10/18 07/16/19 [Calcitrate-Vitamin D] cetirizine 10 mg PO DAILY 09/10/18 07/15/19 melatonin 3 mg PO BEDTIME PRN 09/10/18 07/15/19 multivitamin 1 tab PO DAILY 09/10/18 07/15/19 omeprazole magnesium [Acid Client Application Support Engineer 20 mg PO BID 09/10/18 07/16/19 (omeprazole)] hydralazine 50 mg PO TID 03/06/19 07/15/19 rosuvastatin 40 mg PO DAILY 03/06/19 07/15/19 albuterol sulfate [Ventolin HFA] 2 puff INHALATION Q4-6H PRN 07/15/19 07/15/19 apixaban [Eliquis] 5 mg BID 07/15/19 07/15/19 furosemide 10 mg PO Q OTHER DAY 07/15/19 07/15/19 levothyroxine 25 mcg PO DAILY 07/15/19 07/15/19 nitroglycerin [Nitrostat] 0.4 mg SUBLINGUAL PRN PRN 01/18/20 01/18/20 potassium chloride 10 meq PO DAILY 07/15/19 07/15/19 prednisolone acetate 1 drp EYE-RIGHT DAILY 07/15/19 07/15/19 spironolactone 25 mg PO DAILY 07/15/19 07/15/19 Allergies Allergy/AdvReac Type Severity Reaction Status Date / Time morphine AdvReac Hallucinati Verified 09/16/18 13:23 ng Review of Systems <Nava Newman DO - Last Filed: 07/17/19 12:02> Review of Systems ROS Unobtainable: All systems reviewed & are unremarkable except as noted in HPI and below Constitutional Constitutional: Denies chills, Denies fatigue, Denies fever(s), Denies frequent falls and Reports weakness ENT Ears, Nose, Mouth, and Throat: Denies change in voice, Denies neck pain and Denies sore throat Cardiovascular Cardiovascular: Denies chest pain, Denies irregular heart rhythm, Denies lightheadedness, Denies palpitations, Denies dyspnea, Denies dyspnea on exertion and Denies orthopnea Respiratory Respiratory: Denies cough, Denies dyspnea, Denies dyspnea on exertion and Denies wheezing Gastrointestinal Gastrointestinal: Denies abdominal pain, Denies change in bowel habits, Denies diarrhea, Denies nausea and Denies vomiting Musculoskeletal Musculoskeletal: Reports as per HPI and Denies neck pain Integumentary/Breasts Skin/Breast: Denies pruritus, Denies erythema, Denies rash and Denies wounds Neurologic Neurologic: Denies frequent falls and Reports weakness Endocrine Endocrine: Denies fatigue and Denies palpitations Allergic/Immunologic Allergic/Immunologic: Denies wheezing Patient History <DO Renea Snow Last Filed: 07/17/19 12:02> Medical History Chronic kidney disease (Chronic) Congestive heart failure (Acute) Coronary artery disease (Acute) Fatty liver (Acute) GI bleed (Acute) Hypertension (Chronic) Hypothyroid (Chronic) Surgical History History of oophorectomy (Acute) History of ventral hernia repair (Acute) Hx of heart artery stent (Acute) S/P TAVR (transcatheter aortic valve replacement) (Chronic) Family History Father Medical history unknown Mother Congestive heart failure Diabetes mellitus Sister Diabetes mellitus Myocardial infarction Daughter Hypertension Social History household members: family and children Smoking Status: Former smoker alcohol intake: never substance use type: does not use Smoking Status: Former smoker alcohol intake frequency: holidays/special occasions only Substance Use Type: does not use Exam <Nava Newman DO - Last Filed: 07/17/19 12:02> Initial Vital Signs Initial Vital Signs: Vital Signs Pulse Rate 99 H 07/15/19 15:03 Respiratory Rate 16 07/15/19 15:03 Pulse Oximetry 97 07/15/19 15:03 GENERAL: Alert pleasant elderly female no acute distress HEENT: Head atraumatic,EOMI, pupils reactive, face symmetric NECK: No vertebral tenderness no step-offs CARDIOVASCULAR: Regular rate and rhythm without murmurs, rubs or gallops. RESPIRATORY: Breath sounds equal bilaterally, no wheezes rales or rhonchi. ABDOMEN: Soft, nontender. Normoactive bowel sounds all 4 quadrants. No guarding or rebound. BACK: No vertebral tenderness no sign of trauma EXTREMITIES: Normal range of motion, no clubbing or edema. Neurovascularly intact NEUROLOGICAL: Alert and oriented x4. SKIN: Warm, dry, no laceration, no petechiae, no rashes or lesions. <El Nichole DO - Last Filed: 07/16/19 04:54> Initial Vital Signs Initial Vital Signs: Vital Signs Pulse Rate 99 H 07/15/19 15:03 Respiratory Rate 16 07/15/19 15:03 Pulse Oximetry 97 07/15/19 15:03 Course <Nava Newman DO - Last Filed: 07/17/19 12:02> Orders Ordered: Acetaminophen (Tylenol) 650 mg PO Q6HR PRN PRN Reason: Fever/Mild Pain (1-3) Last Admin: 07/17/19 09:50 Dose: 650 mg Documented by: Admin: 07/17/19 03:01 Dose: 650 mg Documented by: Admin: 07/16/19 21:35 Dose: 650 mg Documented by: Admin: 07/16/19 04:25 Dose: 650 mg Documented by: Admin: 01/18/20 22:31 Dose: 650 mg Documented by: TAMELA Acyclovir (Zovirax) 400 mg PO BID [facility] Last Admin: 07/17/19 09:55 Dose: 400 mg Documented by: Admin: 07/16/19 21:51 Dose: 400 mg Documented by: Admin: 07/16/19 08:36 Dose: 400 mg Documented by: NIEVES Mix Hydrox/Mg Hydrox/Simethicone (Maalox Plus) 30 ml PO Q6HR PRN PRN Reason: Dyspepsia Albuterol (Ventolin) 2.5 mg INH [id number] [facility] Last Admin: 07/17/19 06:12 Dose: 2.5 mg Documented by: Admin: 07/17/19 00:14 Dose: Not Given Documented by: Admin: 07/16/19 21:34 Dose: 2.5 mg Documented by: Admin: 07/16/19 16:57 Dose: 2.5 mg Documented by: Admin: 07/16/19 13:08 Dose: 2.5 mg Documented by: Admin: 07/16/19 08:42 Dose: 2.5 mg Documented by: Admin: 07/16/19 04:37 Dose: Not Given Documented by: LORIE Apixaban (Eliquis) 2.5 mg PO BID [facility] Atorvastatin Calcium (Lipitor) 40 mg PO BEDTIME [facility] Docusate Sodium (Colace) 100 mg PO BID PRN PRN Reason: Constipation Last Admin: 07/17/19 09:50 Dose: 100 mg Documented by: Admin: 07/16/19 21:35 Dose: 100 mg Documented by: TAMELA Furosemide (Lasix) 10 mg PO Q48H [facility] Last Admin: 07/17/19 09:55 Dose: 10 mg Documented by: MOHINI Hydralazine HCl (Apresoline) 50 mg PO TID [facility] Last Admin: 07/17/19 09:52 Dose: 50 mg Documented by: Admin: 07/16/19 21:35 Dose: 50 mg Documented by: Admin: 07/16/19 14:31 Dose: 50 mg Documented by: NIEVES Ceftriaxone Sodium/Dextrose (Rocephin) 2 gm in 50 mls @ 100 mls/hr IV Q24H [facility] Last Admin: 07/16/19 21:48 Dose: 100 mls/hr Documented by: Infusion: 07/15/19 23:57 Dose: 0 mls/hr Documented by: Admin: 07/15/19 22:30 Dose: 100 mls/hr Documented by: TAMELA Azithromycin 500 mg/ Dextrose 250 mls @ 250 mls/hr IV Q24H [facility] Stop: 07/17/19 21:46 Last Admin: 07/16/19 22:29 Dose: 250 mls/hr Documented by: Infusion: 07/16/19 03:23 Dose: 0 mls/hr Documented by: Admin: 07/16/19 00:39 Dose: 250 mls/hr Documented by: SIMONE Potassium Chloride 60 meq/ (Sodium Chloride) 530 mls @ 88.333 mls/hr IV NOW ONE Stop: 07/17/19 14:21 Last Admin: 07/17/19 09:50 Dose: 88.333 mls/hr Documented by: MOHINI Cosigned by: CRISTINA Levothyroxine Sodium (Synthroid) 25 mcg PO QACBREAK [facility] Last Admin: 07/17/19 06:35 Dose: 25 mcg Documented by: Admin: 07/16/19 08:36 Dose: 25 mcg Documented by: NIEVES Melatonin (Melatonin) 3 mg PO BEDTIME PRN PRN Reason: Insomnia Last Admin: 07/15/19 23:57 Dose: 3 mg Documented by: SIMONE Naloxone HCl (Narcan) 0.2 mg IV Q2MIN PRN PRN Reason: Opiate Reversal Nitroglycerin (Nitrostat) 0.4 mg SL PRN PRN PRN Reason: Chest Pain Ondansetron HCl (Zofran) 4 mg IV Q8HR PRN PRN Reason: Nausea And Vomiting Polyethylene Glycol (Miralax) 17 gm PO DAILY PRN PRN Reason: Constipation Potassium Chloride ([facility]) [facility] Prednisolone Acetate (Prednisolone Ophth Susp) 1 drops EYE-RIGHT DAILY [facility] Last Admin: 07/17/19 09:56 Dose: 1 drop Documented by: Admin: 07/16/19 08:36 Dose: 1 drop Documented by: NIEVES Spironolactone (Aldactone) 25 mg PO DAILY [facility] Last Admin: 07/17/19 09:56 Dose: 25 mg Documented by: Admin: 07/16/19 08:36 Dose: 25 mg Documented by: NIEVES Discontinued Medications Apixaban (Eliquis) 5 mg PO BID [facility] Last Admin: 07/17/19 09:51 Dose: 5 mg Documented by: Admin: 07/16/19 21:35 Dose: 5 mg Documented by: Admin: 07/16/19 08:36 Dose: 5 mg Documented by: NIEVES Apixaban (Eliquis) 2.5 mg PO BID [facility] Last Admin: 07/17/19 10:10 Dose: Not Given Documented by: MOHINI Furosemide (Lasix) 10 mg PO QOD [facility] Furosemide (Lasix) 10 mg PO QOD [facility] Sodium Chloride (Normal Saline 0.9%) 500 mls @ 1,000 mls/hr IV BOLUS ONE Stop: 07/15/19 19:02 Last Infusion: 07/15/19 19:13 Dose: 0 mls/hr Documented by: Admin: 07/15/19 18:35 Dose: 1,000 mls/hr Documented by: TEVIN Sodium Chloride (Normal Saline 0.9%) 1,000 mls @ 50 mls/hr IV CONT [facility] Last Admin: 07/15/19 22:29 Dose: 50 mls/hr Documented by: TAMELA Rosuvastatin Calcium (Crestor) 40 mg PO BEDTIME [facility] Last Admin: 07/16/19 21:35 Dose: 40 mg Documented by: TAMELA Vital Signs Vital signs: Vital Signs - 8 hr 07/15/19 15:03 07/15/19 15:05 07/15/19 17:30 Temperature 97.7 F Pulse Rate 99 H 104 H 87 Pulse Rate [Orthostatic Lying] Pulse Rate [Orthostatic Sitting] Respiratory Rate 16 30 H 18 Blood Pressure [Left Arm] 108/34 L 122/93 H Blood Pressure [Orthostatic Lying] Blood Pressure [Orthostatic Sitting] Pulse Oximetry 97 98 98 07/15/19 18:21 07/15/19 18:22 07/15/19 18:52 Temperature Pulse Rate 85 96 H 92 H Pulse Rate [Orthostatic Lying] Pulse Rate [Orthostatic Sitting] Respiratory Rate 12 16 18 Blood Pressure [Left Arm] 93/40 L 74/51 L 115/54 L Blood Pressure [Orthostatic Lying] Blood Pressure [Orthostatic Sitting] Pulse Oximetry 96 97 95 07/15/19 20:00 07/15/19 20:01 07/15/19 20:04 Temperature 98.6 F Pulse Rate 127 H 83 Pulse Rate [Orthostatic Lying] 84 Pulse Rate [Orthostatic Sitting] 89 Respiratory Rate 24 Blood Pressure [Left Arm] 119/46 L Blood Pressure [Orthostatic Lying] 127/53 L Blood Pressure [Orthostatic Sitting] 129/52 L Pulse Oximetry 97 <El Nichole DO - Last Filed: 07/16/19 04:54> Course Course Narrative: Patient received in sign-out from Dr. Newman with expectant admission coming. Of performed a very brief history and have no significant additions. Hospitalist has happy to accept upon hearing that patient fails orthostatics. Orders Ordered: Acetaminophen (Tylenol) 650 mg PO Q6HR PRN PRN Reason: Fever/Mild Pain (1-3) Last Admin: 07/17/19 09:50 Dose: 650 mg Documented by: Admin: 07/17/19 03:01 Dose: 650 mg Documented by: Admin: 07/16/19 21:35 Dose: 650 mg Documented by: Admin: 07/16/19 04:25 Dose: 650 mg Documented by: Admin: 07/15/19 22:31 Dose: 650 mg Documented by: TAMELA Acyclovir (Zovirax) 400 mg PO BID [facility] Last Admin: 07/17/19 09:55 Dose: 400 mg Documented by: Admin: 07/16/19 21:51 Dose: 400 mg Documented by: Admin: 07/16/19 08:36 Dose: 400 mg Documented by: NIEVES Mix Hydrox/Mg Hydrox/Simethicone (Maalox Plus) 30 ml PO Q6HR PRN PRN Reason: Dyspepsia Albuterol (Ventolin) 2.5 mg INH [id number] [facility] Last Admin: 07/17/19 06:12 Dose: 2.5 mg Documented by: Admin: 07/17/19 00:14 Dose: Not Given Documented by: Admin: 07/16/19 21:34 Dose: 2.5 mg Documented by: Admin: 07/16/19 16:57 Dose: 2.5 mg Documented by: Admin: 07/16/19 13:08 Dose: 2.5 mg Documented by: Admin: 07/16/19 08:42 Dose: 2.5 mg Documented by: Admin: 07/16/19 04:37 Dose: Not Given Documented by: LORIE Apixaban (Eliquis) 2.5 mg PO BID [facility] Atorvastatin Calcium (Lipitor) 40 mg PO BEDTIME [facility] Docusate Sodium (Colace) 100 mg PO BID PRN PRN Reason: Constipation Last Admin: 07/17/19 09:50 Dose: 100 mg Documented by: Admin: 07/16/19 21:35 Dose: 100 mg Documented by: TAMELA Furosemide (Lasix) 10 mg PO Q48H [facility] Last Admin: 07/17/19 09:55 Dose: 10 mg Documented by: MOHINI Hydralazine HCl (Apresoline) 50 mg PO TID [facility] Last Admin: 07/17/19 09:52 Dose: 50 mg Documented by: Admin: 07/16/19 21:35 Dose: 50 mg Documented by: Admin: 07/16/19 14:31 Dose: 50 mg Documented by: NIEVES Ceftriaxone Sodium/Dextrose (Rocephin) 2 gm in 50 mls @ 100 mls/hr IV Q24H [facility] Last Admin: 07/16/19 21:48 Dose: 100 mls/hr Documented by: Infusion: 07/15/19 23:57 Dose: 0 mls/hr Documented by: Admin: 07/15/19 22:30 Dose: 100 mls/hr Documented by: TAMELA Azithromycin 500 mg/ Dextrose 250 mls @ 250 mls/hr IV Q24H [facility] Stop: 07/17/19 21:46 Last Admin: 07/16/19 22:29 Dose: 250 mls/hr Documented by: Infusion: 07/16/19 03:23 Dose: 0 mls/hr Documented by: Admin: 07/16/19 00:39 Dose: 250 mls/hr Documented by: SIMONE Potassium Chloride 60 meq/ (Sodium Chloride) 530 mls @ 88.333 mls/hr IV NOW ONE Stop: 07/17/19 14:21 Last Admin: 07/17/19 09:50 Dose: 88.333 mls/hr Documented by: MOHINI Cosigned by: CRISTINA Levothyroxine Sodium (Synthroid) 25 mcg PO QACBREAK [facility] Last Admin: 07/17/19 06:35 Dose: 25 mcg Documented by: Admin: 07/16/19 08:36 Dose: 25 mcg Documented by: NIEVES Melatonin (Melatonin) 3 mg PO BEDTIME PRN PRN Reason: Insomnia Last Admin: 07/15/19 23:57 Dose: 3 mg Documented by: HARPALEL Naloxone HCl (Narcan) 0.2 mg IV Q2MIN PRN PRN Reason: Opiate Reversal Nitroglycerin (Nitrostat) 0.4 mg SL PRN PRN PRN Reason: Chest Pain Ondansetron HCl (Zofran) 4 mg IV Q8HR PRN PRN Reason: Nausea And Vomiting Polyethylene Glycol (Miralax) 17 gm PO DAILY PRN PRN Reason: Constipation Potassium Chloride (Klor-Con M10) 10 meq PO DAILYCC [facility] Prednisolone Acetate (Prednisolone Ophth Susp) 1 drops EYE-RIGHT DAILY [facility] Last Admin: 07/17/19 09:56 Dose: 1 drop Documented by: Admin: 07/16/19 08:36 Dose: 1 drop Documented by: NIEVES Spironolactone (Aldactone) 25 mg PO DAILY [facility] Last Admin: 07/17/19 09:56 Dose: 25 mg Documented by: Admin: 07/16/19 08:36 Dose: 25 mg Documented by: NIEVES Discontinued Medications Apixaban (Eliquis) 5 mg PO BID [facility] Last Admin: 07/17/19 09:51 Dose: 5 mg Documented by: Admin: 07/16/19 21:35 Dose: 5 mg Documented by: Admin: 07/16/19 08:36 Dose: 5 mg Documented by: NIEVES Apixaban (Eliquis) 2.5 mg PO BID [facility] Last Admin: 07/17/19 10:10 Dose: Not Given Documented by: MOHINI Furosemide (Lasix) 10 mg PO QOD [facility] Furosemide (Lasix) 10 mg PO QOD [facility] Sodium Chloride (Normal Saline 0.9%) 500 mls @ 1,000 mls/hr IV BOLUS ONE Stop: 07/15/19 19:02 Last Infusion: 07/15/19 19:13 Dose: 0 mls/hr Documented by: Admin: 07/15/19 18:35 Dose: 1,000 mls/hr Documented by: TEVIN Sodium Chloride (Normal Saline 0.9%) 1,000 mls @ 50 mls/hr IV CONT [facility] Last Admin: 07/15/19 22:29 Dose: 50 mls/hr Documented by: TAMELA Rosuvastatin Calcium (Crestor) 40 mg PO BEDTIME [facility] Last Admin: 07/16/19 21:35 Dose: 40 mg Documented by: TAMELA Vital Signs Vital signs: Vital Signs - 8 hr 07/15/19 15:03 07/15/19 15:05 07/15/19 17:30 Temperature 97.7 F Pulse Rate 99 H 104 H 87 Pulse Rate [Orthostatic Lying] Pulse Rate [Orthostatic Sitting] Respiratory Rate 16 30 H 18 Blood Pressure [Left Arm] 108/34 L 122/93 H Blood Pressure [Orthostatic Lying] Blood Pressure [Orthostatic Sitting] Pulse Oximetry 97 98 98 07/15/19 18:21 07/15/19 18:22 07/15/19 18:52 Temperature Pulse Rate 85 96 H 92 H Pulse Rate [Orthostatic Lying] Pulse Rate [Orthostatic Sitting] Respiratory Rate 12 16 18 Blood Pressure [Left Arm] 93/40 L 74/51 L 115/54 L Blood Pressure [Orthostatic Lying] Blood Pressure [Orthostatic Sitting] Pulse Oximetry 96 97 95 07/15/19 20:00 07/15/19 20:01 07/15/19 20:04 Temperature 98.6 F Pulse Rate 127 H 83 Pulse Rate [Orthostatic Lying] 84 Pulse Rate [Orthostatic Sitting] 89 Respiratory Rate 24 Blood Pressure [Left Arm] 119/46 L Blood Pressure [Orthostatic Lying] 127/53 L Blood Pressure [Orthostatic Sitting] 129/52 L Pulse Oximetry 97 MDM - Fall <Nava Newman DO - Last Filed: 07/17/19 12:02> Lab Data Attestation: I reviewed the patient's lab results. Result diagrams: 07/17/19 04:35 07/17/19 04:35 Labs: Lab Results 07/15/19 07/15/19 07/15/19 Range/Units 17:29 18:06 18:06 WBC 13.3 H (4.5-11.0) X10^3/uL RBC 4.32 (4.0-5.2) X10^6/uL Hgb 13.0 (12.0-16.0) g/dL Hct 40.1 (36-46) % MCV 92.8 (80-100) fL MCH 30.1 (26-34) PG MCHC 32.4 (30-36) % RDW 17.9 H (11.6-14.8) % Plt Count 136 L (150-400) X10^3/uL Neut % (Auto) 83.5 H (50-75) % Lymph % (Auto) 9.4 L (25-40) % Martin % (Auto) 6.6 (3-14) % Eos % (Auto) 0.1 L (2-4) % Baso % (Auto) 0.4 (0-2) % Neut # (Auto) 58611 H (4208-3833) /uL Lymph # (Auto) 1300 (1057-9534) /uL Martin # (Auto) 900 (0-900) /uL Eos # (Auto) 0 (0-450) /uL Baso # (Auto) 100 (0-100) /uL Sodium 133 L (137-145) mmol/L Potassium 4.3 (3.4-5.1) mmol/L Chloride 96 L (98-107) mmol/L Carbon Dioxide 30 (22-32) mmol/L BUN 36 H (7-17) mg/dL Creatinine 1.70 H (0.52-1.04) mg/dL Estimated GFR 28.8 L (>60) mL/min BUN/Creatinine Ratio 21.2 (6-22) Glucose 107 (80-110) mg/dL Calcium 9.4 (8.4-10.2) mg/dL Magnesium 1.8 (1.6-2.3) mg/dL Total Creatine Kinase < 20 L (30-135) U/L CK-MB (CK-2) TNP CK-MB (CK-2) Rel Index TNP Troponin I 0.028 (0.01-0.034) ng/mL Urine Color Urine Appearance Urine pH (4.5-8.0) Ur Specific [place] (1.000-1.035) Urine Protein (Negative) Urine Glucose (UA) (Negative) g/dL Urine Ketones (NEGATIVE) Urine Occult Blood (Negative) Urine Nitrate (Negative) Urine Bilirubin (NEGATIVE) Urine Urobilinogen (0.2) E.U./dL Ur Leukocyte Esterase (NEGATIVE) Urine RBC (0-5/HPF) Urine WBC (0-5/HPF) Amorphous Sediment Urine Bacteria (None) Ur Culture Indicated? 07/15/19 Range/Units 19:55 WBC (4.5-11.0) X10^3/uL RBC (4.0-5.2) X10^6/uL Hgb (12.0-16.0) g/dL Hct (36-46) % MCV (80-100) fL MCH (26-34) PG MCHC (30-36) % RDW (11.6-14.8) % Plt Count (150-400) X10^3/uL Neut % (Auto) (50-75) % Lymph % (Auto) (25-40) % Martin % (Auto) (3-14) % Eos % (Auto) (2-4) % Baso % (Auto) (0-2) % Neut # (Auto) (3717-6994) /uL Lymph # (Auto) (3282-1647) /uL Martin # (Auto) (0-900) /uL Eos # (Auto) (0-450) /uL Baso # (Auto) (0-100) /uL Sodium (137-145) mmol/L Potassium (3.4-5.1) mmol/L Chloride (98-107) mmol/L Carbon Dioxide (22-32) mmol/L BUN (7-17) mg/dL Creatinine (0.52-1.04) mg/dL Estimated GFR (>60) mL/min BUN/Creatinine Ratio (6-22) Glucose (80-110) mg/dL Calcium (8.4-10.2) mg/dL Magnesium (1.6-2.3) mg/dL Total Creatine Kinase (30-135) U/L CK-MB (CK-2) CK-MB (CK-2) Rel Index Troponin I (0.01-0.034) ng/mL Urine Color Yellow Urine Appearance Clear Urine pH 5.5 (4.5-8.0) Ur Specific [place] 1.010 (1.000-1.035) Urine Protein 1+ H (Negative) Urine Glucose (UA) Negative (Negative) g/dL Urine Ketones Negative (NEGATIVE) Urine Occult Blood Negative (Negative) Urine Nitrate Negative (Negative) Urine Bilirubin Negative (NEGATIVE) Urine Urobilinogen 0.2 (0.2) E.U./dL Ur Leukocyte Esterase Negative (NEGATIVE) Urine RBC None seen (0-5/HPF) Urine WBC 5-10/hpf H (0-5/HPF) Amorphous Sediment 2+ Urine Bacteria None seen (None) Ur Culture Indicated? Cult not indicated Imaging Data Extremity x-ray #1: Radiologist's Impression: PROCEDURE: XR PELVIS 1-2V INDICATIONS: fall in shower TECHNIQUE: 1 view(s) of the pelvis acquired. COMPARISON: [facility], CT, CT KIDNEY URETER BLADDER (KUB), 03/06/2019, 0:11. [facility], CT, CT HEAD/BRAIN WO CON, 07/15/2019, 15:22. [facility], CR, XR KNEE RT 1TO2V, 07/15/2019, 15:11. [facility], CR, XR KNEE LT 1TO2V, 07/15/2019, 15:11. FINDINGS: Bones: No fractures or dislocations. No suspicious bony lesions. Age- appropriate bony degenerative changes are seen. Soft tissues: Visualized bowel gas pattern is normal. No suspicious soft tissue calcifications. Backboard artifact can be seen. IMPRESSION: No displaced fracture can be seen on this single view study. If there is point tenderness (or other clinical suspicion for a fracture not seen on these images) please consider a dedicated CT for further evaluation. Dictated by: Johan Cheng M.D. on 07/15/2019 at 14:53 Extremity x-ray #2: Radiologist's Impression: PROCEDURE: XR KNEE LT 1TO2V INDICATIONS: fall in shower TECHNIQUE: 2 views of the knee were acquired. COMPARISON: [facility], CT, CT HEAD/BRAIN WO CON, 07/15/2019, 15:22. [facility], CR, XR KNEE RT 1TO2V, 07/15/2019, 15:11. [facility], CR, XR PELVIS 1-2V, 07/15/2019, 15:11. FINDINGS: Bones: No fractures or dislocations. No suspicious bony lesions. Unremarkable left knee arthroplasty hardware is seen. Soft tissues: No joint effusion. No suspicious soft tissue calcifications. IMPRESSION: No acute plain film abnormality is seen. Unremarkable hardware. Dictated by: Johan Cheng M.D. on 07/15/2019 at 14:52 Extremity x-ray #3: Radiologist's Impression: PROCEDURE: XR KNEE RT 1TO2V INDICATIONS: fall in shower TECHNIQUE: 2 views of the knee were acquired. COMPARISON: [facility], CT, CT HEAD/BRAIN WO CON, 07/15/2019, 15:22. [facility], CR, XR KNEE LT 1TO2V, 07/15/2019, 15:11. [facility], CR, XR PELVIS 1-2V, 07/15/2019, 15:11. FINDINGS: Bones: No fractures or dislocations. No suspicious bony lesions. Right knee arthroplasty hardware is seen. No findings of hardware failure or hardware loosening are seen. Soft tissues: There is a moderate joint effusion. No suspicious soft tissue calcifications. IMPRESSION: Moderate joint effusion. No acute bony injury is seen. Unremarkable hardware. Dictated by: Johan Cheng M.D. on 07/15/2019 at 14:54 Approved by: Johan Cheng M.D. on 07/15/2019 at 14:55 CT scan - head: Radiologist's Impression: PROCEDURE: CT HEAD/BRAIN WO CON INDICATIONS: fall in shower TECHNIQUE: Noncontrast 4.5 mm thick angled axial sections acquired from the foramen magnum to the vertex, with coronal and sagittal reformats. For radiation dose reduction, the following was used: automated exposure control, adjustment of mA and/or kV according to patient size. COMPARISON: None. FINDINGS: Image quality: Excellent. CSF spaces: Basal cisterns are patent. No extra-axial fluid collections. The ventricles are symmetric in size and shape. Brain: No intracranial bleeds or masses. There is cerebral volume loss for age, with resultant ventricular and sulcal prominence. There are periventricular and deep white matter chronic small vessel ischemic changes. There is intracranial internal carotid artery atherosclerosis. Skull and face: Calvarium and visualized facial bones appear intact, without suspicious lesions. Sinuses: Visualized sinuses and mastoids are clear. IMPRESSION: No acute intracranial hemorrhage is seen. No acute intracranial process is seen. Note is made of age-appropriate brain parenchymal volume loss and chronic small vessel ischemic changes. Dictated by: Johan Cheng M.D. on 07/15/2019 at 14:49 ECG Data Attestation: I personally reviewed and interpreted this ECG as follows: Prior ECG tracings: available for review Interpretation: Atrial fibrillation rate [address] changes similar to previous EKG. MDM Narrative Medical decision making narrative: Patient initially was slip and fall in the shower however upon daughter's arrival states that she has been weak over last few days blood work does reveal that she has mild leukocytosis of 13. However her previous problem with potassium seems to be resolved. Attempted ambulation trial she reported really is unable to sit up. She is overall extremely weak. I've called and spoken with Greg REGALADO who request urine. Patient signed out to Dr. Nichole for further management <El Nichole DO - Last Filed: 07/16/19 04:54> Lab Data Labs: Lab Results 07/15/19 07/15/19 07/15/19 Range/Units 17:29 18:06 18:06 WBC 13.3 H (4.5-11.0) X10^3/uL RBC 4.32 (4.0-5.2) X10^6/uL Hgb 13.0 (12.0-16.0) g/dL Hct 40.1 (36-46) % MCV 92.8 (80-100) fL MCH 30.1 (26-34) PG MCHC 32.4 (30-36) % RDW 17.9 H (11.6-14.8) % Plt Count 136 L (150-400) X10^3/uL Neut % (Auto) 83.5 H (50-75) % Lymph % (Auto) 9.4 L (25-40) % Martin % (Auto) 6.6 (3-14) % Eos % (Auto) 0.1 L (2-4) % Baso % (Auto) 0.4 (0-2) % Neut # (Auto) 22997 H (2526-0266) /uL Lymph # (Auto) 1300 (8901-4658) /uL Martin # (Auto) 900 (0-900) /uL Eos # (Auto) 0 (0-450) /uL Baso # (Auto) 100 (0-100) /uL Sodium 133 L (137-145) mmol/L Potassium 4.3 (3.4-5.1) mmol/L Chloride 96 L (98-107) mmol/L Carbon Dioxide 30 (22-32) mmol/L BUN 36 H (7-17) mg/dL Creatinine 1.70 H (0.52-1.04) mg/dL Estimated GFR 28.8 L (>60) mL/min BUN/Creatinine Ratio 21.2 (6-22) Glucose 107 (80-110) mg/dL Calcium 9.4 (8.4-10.2) mg/dL Magnesium 1.8 (1.6-2.3) mg/dL Total Creatine Kinase < 20 L (30-135) U/L CK-MB (CK-2) TNP CK-MB (CK-2) Rel Index TNP Troponin I 0.028 (0.01-0.034) ng/mL Urine Color Urine Appearance Urine pH (4.5-8.0) Ur Specific [place] (1.000-1.035) Urine Protein (Negative) Urine Glucose (UA) (Negative) g/dL Urine Ketones (NEGATIVE) Urine Occult Blood (Negative) Urine Nitrate (Negative) Urine Bilirubin (NEGATIVE) Urine Urobilinogen (0.2) E.U./dL Ur Leukocyte Esterase (NEGATIVE) Urine RBC (0-5/HPF) Urine WBC (0-5/HPF) Amorphous Sediment Urine Bacteria (None) Ur Culture Indicated? 07/15/19 Range/Units 19:55 WBC (4.5-11.0) X10^3/uL RBC (4.0-5.2) X10^6/uL Hgb (12.0-16.0) g/dL Hct (36-46) % MCV (80-100) fL MCH (26-34) PG MCHC (30-36) % RDW (11.6-14.8) % Plt Count (150-400) X10^3/uL Neut % (Auto) (50-75) % Lymph % (Auto) (25-40) % Martin % (Auto) (3-14) % Eos % (Auto) (2-4) % Baso % (Auto) (0-2) % Neut # (Auto) (5444-4116) /uL Lymph # (Auto) (3141-4186) /uL Martin # (Auto) (0-900) /uL Eos # (Auto) (0-450) /uL Baso # (Auto) (0-100) /uL Sodium (137-145) mmol/L Potassium (3.4-5.1) mmol/L Chloride (98-107) mmol/L Carbon Dioxide (22-32) mmol/L BUN (7-17) mg/dL Creatinine (0.52-1.04) mg/dL Estimated GFR (>60) mL/min BUN/Creatinine Ratio (6-22) Glucose (80-110) mg/dL Calcium (8.4-10.2) mg/dL Magnesium (1.6-2.3) mg/dL Total Creatine Kinase (30-135) U/L CK-MB (CK-2) CK-MB (CK-2) Rel Index Troponin I (0.01-0.034) ng/mL Urine Color Yellow Urine Appearance Clear Urine pH 5.5 (4.5-8.0) Ur Specific [place] 1.010 (1.000-1.035) Urine Protein 1+ H (Negative) Urine Glucose (UA) Negative (Negative) g/dL Urine Ketones Negative (NEGATIVE) Urine Occult Blood Negative (Negative) Urine Nitrate Negative (Negative) Urine Bilirubin Negative (NEGATIVE) Urine Urobilinogen 0.2 (0.2) E.U./dL Ur Leukocyte Esterase Negative (NEGATIVE) Urine RBC None seen (0-5/HPF) Urine WBC 5-10/hpf H (0-5/HPF) Amorphous Sediment 2+ Urine Bacteria None seen (None) Ur Culture Indicated? Cult not indicated Discharge Plan Departure Patient Disposition: Admitted as Observation Clinical Impression: Weakness, Adult failure to thrive Discharge Date/Time: 07/15/19 20:55 Referrals: Amanda Mann MD [Primary Care Provider] - Admit Date/Time: 07/15/19 20:49 Admit Provider: Cesar Garza
[2019-07-15 17:44] LABS: Add Manual Diff / Slide Review NO; Basophils Absolute Auto 100 /uL (0-100); Basophils Percent Auto 0.4 % (0-2); Eosinophils Absolute Auto 0 /uL (0-450); Eosinophils Percent Auto 0.1 % (2-4); Hematocrit 40.1 % (36-46); Lymphocytes Absolute Auto 1300 /uL (1100-4500); Lymphocytes Percent Auto 9.4 % (25-40); Mean Corpuscular HGB Conc 32.4 % (30-36); Mean Corpuscular Hemoglobin 30.1 PG (26-34); Mean Corpuscular Volume 92.8 fL (80-100); Monocytes Absolute Auto 900 /uL (0-900); Monocytes Percent Auto 6.6 % (3-14); Neutrophils Absolute Auto 11100 /uL (1500-7000); Neutrophils Percent Auto 83.5 % (50-75); Platelet Count 136 X10^3/uL (150-400); Red Blood Cell Count 4.32 X10^6/uL (4.0-5.2); Red Cell Distribution Width 17.9 % (11.6-14.8); White Blood Cell Count 13.3 X10^3/uL (4.5-11.0)
[2019-07-15] MEDS: SODIUM CHLORIDE 0.9% 500 ML 1000 ML IV (18:35)
--- NOTE | 2019-07-15 18:36 | PC.NURSE ---
pts blood pressure labile, no other symptoms. Dr. Newman aware. normal saline 500 cc bolus hung
[2019-07-15 18:37] LABS: BUN Creatinine Ratio 21.2 (6-22); Blood Urea Nitrogen 36 mg/dL (7-17); Calcium 9.4 mg/dL (8.4-10.2); Carbon Dioxide 30 mmol/L (22-32); Chloride 96 mmol/L (98-107); Creatine Kinase < 20 U/L (30-135); Estimated Glomerular Filt Rate 28.8 mL/min (>60); Glucose 107 mg/dL (80-110); HEMOLYSIS < 15 (0-50); Potassium 4.3 mmol/L (3.4-5.1); Sodium 133 mmol/L (137-145)
[2019-07-15 18:48] LABS: Troponin I 0.028 ng/mL (0.01-0.034)
--- NOTE | 2019-07-15 19:50 | DI.RAD.S_ITS ---
PROCEDURE: XR CHEST 1V INDICATIONS: weakness TECHNIQUE: One view of the chest was acquired. COMPARISON: [facility], CR, XR CHEST 1V, 03/05/2019, 17:29. [facility], CR, XR CHEST 1V, 09/10/2018, 17:28. FINDINGS: Surgical changes and devices: None. Lungs and pleura: Lungs are abnormal, with a retrocardiac left lower lobe pneumonia. No pleural effusions or pneumothorax. Mediastinum: Mediastinal contours appear normal. Heart size is normal. Bones and chest wall: No suspicious bony lesions. Overlying soft tissues appear unremarkable. IMPRESSION: Retrocardiac left lower lobe pneumonia. Dictated by: Greg Jacobs M.D. on 07/15/2019 at 20:10 Approved by: Greg Jacobs M.D. on 07/15/2019 at 20:10
--- NOTE | 2019-07-15 20:01 | PC.NURSE ---
patient unable to stand for orthostatic vitals signs and when patient sat up her heart rate jumped to 127 bpm. provider notified and aware.
[2019-07-15 20:33] LABS: Bacteria Urine None Seen; RBC Urine None Seen (0-5/HPF)
[2019-07-15 20:34] LABS: Appearance Urine UA CLEAR; Bilirubin Urine UA NEGATIVE (NEGATIVE); Color Urine UA YELLOW; Glucose Urine UA NEGATIVE (Negative); Ketones Urine UA NEGATIVE (NEGATIVE); Leukocyte Esterase Urine UA NEGATIVE (NEGATIVE); Nitrite Urine UA NEGATIVE (Negative); Occult Blood Urine UA NEGATIVE (Negative); Protein Urine UA 1+ (Negative); Urobilinogen Urine UA 0.2 E.U./dL (0.2)
[2019-07-15 20:40] LABS: pH Urine UA 5.5 (4.5-8.0)
[2019-07-15 20:41] LABS: Amorphous Sediment Urine 2+; Culture Indicated Urine Cult Not Indicated; WBC Urine 5-10/HPF (0-5/HPF)
--- NOTE | 2019-07-15 21:11 | PC.NURSE ---
Pt admitted from ICU, needing assistance to slide to new bed. VSS. Afib 79. Daughter at bedside. 0/10 pain when not moving, when active- 10/10 to right knee. Denies difficulty breathing and chest pain. LS diminished to bases. IV patent. Awaiting orders.
[2019-07-15 22:01] LABS: Magnesium 1.8 mg/dL (1.6-2.3)
[2019-07-15] MEDS: SODIUM CHLORIDE 0.9% 1,000 ML 50 ML IV (22:29)
[2019-07-15] MEDS: CEFTRIAXONE 2 GM/50 ML FROZ.PIGGY IV (22:30)
[2019-07-15] MEDS: ACETAMINOPHEN 325 MG TABLET 650 MG PO (22:31)
[2019-07-15 23:15] LABS: Troponin I 0.031 ng/mL (0.01-0.034)
[2019-07-15] MEDS: MELATONIN 3 MG TABLET PO (23:57)
[2019-07-16] VITALS (11 sets, daily range): BP systolic 101–147; BP diastolic 43–69; PULSE 78–95; RESP 14–23; TEMP 36.4–37.4; O2SAT 92–97
[2019-07-16] MEDS: AZITHROMYCIN 500 MG in DEXTROSE 5% IN WATER 250 ML IV ×2 (00:39→22:29)
[2019-07-16 01:35] LABS: Adenovirus Not Detected (Not Detect); Bordetella pertussis Not Detected (Not Detect); Chlamydophila pneumoniae Not Detected (Not Detect); Coronavirus 229E Not Detected (Not Detect); Coronavirus HKU1 Not Detected (Not Detect); Coronavirus NL 63 Not Detected (Not Detect); Coronavirus OC43 Not Detected (Not Detect); Human Metapneumovirus Not Detected (Not Detect); Human Rhinovirus/Enterovirus Not Detected (Not Detect); Influenza A Not Detected (Not Detect); Influenza B Not Detected (Not Detect); Mycoplasma pneumoniae Not Detected (Not Detect); Parainfluenza Virus 1 Not Detected (Not Detect); Parainfluenza Virus 2 Not Detected (Not Detect); Parainfluenza Virus 3 Not Detected (Not Detect); Parainfluenza Virus 4 Not Detected (Not Detect); Respiratory Syncytial Virus Not Detected (Not Detect)
--- NOTE | 2019-07-16 03:59 | PM.HP.1 ---
History of Present Illness History of Present Illness Time Patient Seen: 20:30 Chief complaint: GLF - Slipped Narrative: Ms. Kristen Dsouza is an 83-year-old female with a history of coronary artery disease status post stenting on apixaban, TAVR, CHF, atrial fibrillation, hypertension, chronic kidney disease stage IV, and hypothyroidism who presents to the ER with EMS with generalized weakness and a slip and fall in the shower today. Patient states she has been feeling increasingly weak over the last 3 days requiring more assistance from her daughter whom she lives with. She was in the shower today on the shower stool and required assistance from her daughter to stand up. She was too weak and slid from the shower stool on to the shower floor. Patient denies hitting her head neck or back pain and has had no loss conscious. Patient further adds that she had a cold about 2 years lasting for week with associated nausea and diarrhea. She states she was not seen insulin was time feeling lot better. She still reports complaints of some nasal congestion and had transient sore throat. She reports no fevers or chills though she feels cold all the time. She has no headaches or dizziness. She denies chest pain or palpitations. She denies shortness of breath and has an occasional cough which she reports is not new. She denies complaints of abdominal pain, heartburn and has no further nausea vomiting. She reports having loose stools but denies urinary symptoms of frequency urgency or burning. At baseline the patient can ambulate however due to weakness she has been unable. Upon arrival to the emergency department the patient his temperature 97.7?, heart rate 99, blood pressure of 108/34 with a respiratory rate of 30 saturating 98% on room air. CT of the head is obtained due to anticoagulation identifies age-appropriate volume loss with chronic small vessel ischemic changes. X-ray of the pelvis is negative and x-ray of the knee finds right knee with moderate effusion. Chest x-rays taken which finds a retrocardiac left lower lobe pneumonia, normal heart size. Urinalysis obtained which finds positive nitrate and positive bacteria negative leukocyte esterase negative WBCs. On lab analysis she has leukocytosis with a white count of 13.3, hemoglobin of 13.0, hematocrit of 40.1 and platelets of 136. She has 80 PT of 22, PTT of 1.9 and a PTT of 41. Her electrolytes are all within normal range she has a BUN of 36 and a creatinine of 1.7 with an EGFR of 28.8. Her nonfasting glucose is 107. Her troponin is 0.028. An EKG is obtained which finds atrial fibrillation with controlled rate with a bundle branch block. In the ER the patient did receive fluid bolus for transient hypotension blood pressure dropping to 74/51 with return to normal range. The patient is admitted to the medicine service for generalized weakness and pneumonia. Patient History Medical History Chronic kidney disease (Chronic) Congestive heart failure (Acute) Coronary artery disease (Acute) Fatty liver (Acute) GI bleed (Acute) Hypertension (Chronic) Hypothyroid (Chronic) Surgical History History of oophorectomy (Acute) History of ventral hernia repair (Acute) Hx of heart artery stent (Acute) S/P TAVR (transcatheter aortic valve replacement) (Chronic) Family & Social History Family History Father Medical history unknown Mother Congestive heart failure Diabetes mellitus Sister Diabetes mellitus Myocardial infarction Daughter Hypertension Social History: household members family,children Prior Living Arrangements House Safety & Behavioral: Feels Safe in Current Yes Environment Been Physically Hurt or No Threatened By a Person Suicidal Ideation Description None Suicide Plan Description No Plan Tobacco & Substance use: Tobacco type cigarettes Smoking Status Former smoker alcohol intake never alcohol intake frequency holiday/special occasion Substance Use Type does not use Comment: The patient lives in a single family home with her daughter since January. She was for 45 years for 18 years. Patient states she never knew her father and mother had history diabetes and CHF. Her brothers in good health and she has 1 sister who has had an AL and diabetes. Her daughter has hypertension and she has a son with degenerative bone disease. 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 Substance use: Patient denies recreation pharmaceuticals, herbal products or cannabis Advanced directives: The patient has POLST document indicating limited resuscitation, DO NOT INTUBATE, other interventions are acceptable. She designates her daughter Maryanne Bess as surrogate decision maker. Meds Home Medications and Allergies Home Medications Medication Instructions Recorded Confirmed Type Fish Oil Pearls 1 cap PO DAILY 09/10/18 09/10/18 History [place] 3-6-9 1 tab PO DAILY 09/10/18 09/10/18 History acyclovir 400 mg PO BID 09/10/18 07/15/19 History ascorbic acid (vitamin C) [Vitamin 250 mg PO DAILY 09/10/18 09/10/18 History C] calcium citrate-vitamin D3 1 tab PO DAILY 09/10/18 09/10/18 History [Calcitrate-Vitamin D] cetirizine 10 mg PO DAILY 09/10/18 07/15/19 History melatonin 3 mg PO BEDTIME PRN 09/10/18 07/15/19 History multivitamin 1 tab PO DAILY 09/10/18 07/15/19 History omeprazole magnesium [Acid C[employer] Mixer Driver 20 mg PO BID 09/10/18 09/10/18 History (omeprazole)] hydralazine 50 mg PO TID 03/06/19 07/15/19 History rosuvastatin 40 mg PO DAILY 03/06/19 07/15/19 History albuterol sulfate [Ventolin HFA] 2 puff INHALATION Q4-6H PRN 07/15/19 07/15/19 History apixaban [Eliquis] 5 mg BID 07/15/19 07/15/19 History furosemide 10 mg PO Q OTHER DAY 07/15/19 07/15/19 History levothyroxine 25 mcg PO DAILY 07/15/19 07/15/19 History nitroglycerin [Nitrostat] 0.4 mg SUBLINGUAL PRN PRN 07/15/19 07/15/19 History potassium chloride 10 meq PO DAILY 07/15/19 07/15/19 History prednisolone acetate 1 drp EYE-RIGHT DAILY 07/15/19 07/15/19 History spironolactone 25 mg PO DAILY 07/15/19 07/15/19 History Allergies Allergy/AdvReac Type Severity Reaction Status Date / Time morphine AdvReac Hallucinati Verified 09/16/18 13:23 ng Review of Systems Review of Systems Narrative: All systems reviewed and found unremarkable under discussed in the HPI above. Exam Vital Signs (past 8 hours): - 07/15/19 20:00 07/15/19 20:01 07/15/19 20:04 Temperature 98.6 F Pulse Rate 127 H 83 Pulse Rate [Orthostatic Lying] 84 Pulse Rate [Orthostatic Sitting] 89 Respiratory Rate 24 Blood Pressure Blood Pressure [Left Arm] 119/46 L Blood Pressure [Orthostatic Lying] 127/53 L Blood Pressure [Orthostatic Sitting] 129/52 L Pulse Oximetry 97 07/15/19 20:30 07/15/19 21:12 07/15/19 23:42 Temperature 98.4 F 99.4 F Pulse Rate 89 93 H 88 Pulse Rate [Orthostatic Lying] Pulse Rate [Orthostatic Sitting] Respiratory Rate 24 25 H 14 Blood Pressure 144/55 H 127/54 L Blood Pressure [Left Arm] 102/48 L Blood Pressure [Orthostatic Lying] Blood Pressure [Orthostatic Sitting] Pulse Oximetry 97 95 94 Oxygen Delivery Method Room Air Oxygen Flow Rate 0 Narrative Exam Narrative: GENERAL APPEARANCE: well developed, obese female with BMI 41.1, ill-appearing and slightly lethargic HEENT: Atraumatic, irregular right pupil with cornea opacity, conjunctiva clear, EOMs intact without nystagmus, no sinus tenderness to percussion, no rhinorrhea, mucous membranes are moist and pink. NECK/THYROID: Atraumatic, supple no jugular venous distention, no thyromegaly, trachea midline. LYMPH NODES: no cervical or supraclavicular lymphadenopathy. SKIN: warm and dry, resolving ecchymosis to medial left knee HEART: Irregularly irregular rhythm, S1-S2 2/6 systolic murmur, no rubs or gallops, brisk capillary refill, 1+ edema bilateral lower extremities LUNGS: Breath sounds diminished in all granados without coarseness or crackles, no wheezing, no cough CHEST: Symmetrical movement, no accessory muscle use, good tidal volume. ABDOMEN: Soft, round, no epigastric or abdominal tenderness on palpation, no guarding or peritoneal signs, no organomegaly, no flank or suprapubic tenderness. EXTREMITIES: Well-healed surgical scar right knee, pain with movement and effusion suprapatellar pouch right knee MARIXA, strength is 5/5 and symmetrical, 1+ symmetrical dorsalis pedis pulses NEUROLOGIC: AAO x3, no focal neurologic deficits, motor strength normal upper and lower extremities, sensory exam intact to light touch. PSYCH: alert, fair eye contact, cognitive function intact. Objective Labs Result Diagrams: 07/15/19 17:29 07/15/19 18:06 Labs: Laboratory Results - last 24 hr 07/15/19 07/15/19 07/15/19 17:29 18:06 18:06 WBC 13.3 H RBC 4.32 Hgb 13.0 Hct 40.1 MCV 92.8 MCH 30.1 MCHC 32.4 RDW 17.9 H Plt Count 136 L Neut % (Auto) 83.5 H Lymph % (Auto) 9.4 L [place] % (Auto) 6.6 Eos % (Auto) 0.1 L Baso % (Auto) 0.4 Neut # (Auto) 48139 H Lymph # (Auto) 1300 [place] # (Auto) 900 Eos # (Auto) 0 Baso # (Auto) 100 Sodium 133 L Potassium 4.3 Chloride 96 L Carbon Dioxide 30 BUN 36 H Creatinine 1.70 H Estimated GFR 28.8 L BUN/Creatinine Ratio 21.2 Glucose 107 Calcium 9.4 Magnesium 1.8 Total Creatine Kinase < 20 L CK-MB (CK-2) TNP CK-MB (CK-2) Rel Index TNP Troponin I 0.028 Urine Color Urine Appearance Urine pH Ur Specific [place] Urine Protein Urine Glucose (UA) Urine Ketones Urine Occult Blood Urine Nitrate Urine Bilirubin Urine Urobilinogen Ur Leukocyte Esterase Urine RBC Urine WBC Amorphous Sediment Urine Bacteria Ur Culture Indicated? Nasal Screen MRSA (PCR) Chlamy pneumoniae PCR Adenovirus (PCR) B.parapertussis DNA PCR Coronavirus OC43 (PCR) Coronavirus HKU1 (PCR) Coronavirus 229E (PCR) Coronavirus NL63 (PCR) Human Metapneumovir PCR Influenza Type A (PCR) Influenza Type B (PCR) M. pneumoniae (PCR) Parainfluenza 1 (PCR) Parainfluenza 2 (PCR) Parainfluenza 3 (PCR) Parainfluenza 4 (PCR) RSV (PCR) Entero/Rhino (PCR) 07/15/19 07/15/19 07/15/19 19:55 21:40 22:45 WBC RBC Hgb Hct MCV MCH MCHC RDW Plt Count Neut % (Auto) Lymph % (Auto) [place] % (Auto) Eos % (Auto) Baso % (Auto) Neut # (Auto) Lymph # (Auto) [place] # (Auto) Eos # (Auto) Baso # (Auto) Sodium Potassium Chloride Carbon Dioxide BUN Creatinine Estimated GFR BUN/Creatinine Ratio Glucose Calcium Magnesium Total Creatine Kinase CK-MB (CK-2) CK-MB (CK-2) Rel Index Troponin I 0.031 Urine Color Yellow Urine Appearance Clear Urine pH 5.5 Ur Specific [place] 1.010 Urine Protein 1+ H Urine Glucose (UA) Negative Urine Ketones Negative Urine Occult Blood Negative Urine Nitrate Negative Urine Bilirubin Negative Urine Urobilinogen 0.2 Ur Leukocyte Esterase Negative Urine RBC None seen Urine WBC 5-10/hpf H Amorphous Sediment 2+ Urine Bacteria None seen Ur Culture Indicated? Cult not indicated Nasal Screen MRSA (PCR) Negative for mrsa Chlamy pneumoniae PCR Adenovirus (PCR) B.parapertussis DNA PCR Coronavirus OC43 (PCR) Coronavirus HKU1 (PCR) Coronavirus 229E (PCR) Coronavirus NL63 (PCR) Human Metapneumovir PCR Influenza Type A (PCR) Influenza Type B (PCR) M. pneumoniae (PCR) Parainfluenza 1 (PCR) Parainfluenza 2 (PCR) Parainfluenza 3 (PCR) Parainfluenza 4 (PCR) RSV (PCR) Entero/Rhino (PCR) 07/15/19 23:45 WBC RBC Hgb Hct MCV MCH MCHC RDW Plt Count Neut % (Auto) Lymph % (Auto) [place] % (Auto) Eos % (Auto) Baso % (Auto) Neut # (Auto) Lymph # (Auto) [place] # (Auto) Eos # (Auto) Baso # (Auto) Sodium Potassium Chloride Carbon Dioxide BUN Creatinine Estimated GFR BUN/Creatinine Ratio Glucose Calcium Magnesium Total Creatine Kinase CK-MB (CK-2) CK-MB (CK-2) Rel Index Troponin I Urine Color Urine Appearance Urine pH Ur Specific [place] Urine Protein Urine Glucose (UA) Urine Ketones Urine Occult Blood Urine Nitrate Urine Bilirubin Urine Urobilinogen Ur Leukocyte Esterase Urine RBC Urine WBC Amorphous Sediment Urine Bacteria Ur Culture Indicated? Nasal Screen MRSA (PCR) Chlamy pneumoniae PCR Not detected Adenovirus (PCR) Not detected B.parapertussis DNA PCR Not detected Coronavirus OC43 (PCR) Not detected Coronavirus HKU1 (PCR) Not detected Coronavirus 229E (PCR) Not detected Coronavirus NL63 (PCR) Not detected Human Metapneumovir PCR Not detected Influenza Type A (PCR) Not detected Influenza Type B (PCR) Not detected M. pneumoniae (PCR) Not detected Parainfluenza 1 (PCR) Not detected Parainfluenza 2 (PCR) Not detected Parainfluenza 3 (PCR) Not detected Parainfluenza 4 (PCR) Not detected RSV (PCR) Not detected Entero/Rhino (PCR) Not detected Assessment & Plan Assessment & Plan narrative: This is an 83-year-old female patient who presents for progressive weakness for 3 days with a slip and fall in the shower today. Workup finds left lower lobe pneumonia and right knee effusion status post fall. 1. Community-acquired pneumonia, acute, present on admission, active -the patient describes symptoms of generalized weakness time threes days with a cough that has been persistent since she had a cold end of May. -patient with diminished breath sounds, no crackles appreciated, mild dyspnea at rest. -patient with leukocytosis at 13.3 with a left shift. -chest x-ray finds a retrocardiac left lower lobe pneumonia. -ordered ceftriaxone 2 g IV daily. -ordered azithromycin 500 mg IV daily. -will obtain a procalcitonin and respiratory PCR panel. -will obtain strep and Legionella urine antigen screening. 2. Congestive heart failure, present on admission, acute on chronic -diagnosed with CHF in April 2017, chest x-ray today finds heart normal size without findings of pulmonary edema -patient has dyspnea at rest and trace pedal edema -echocardiogram completed 06/16/2019 finds: 1) Normal left ventricular thickness, size, wall motion, and systolic function (EF 65-70%). 2) Normal right ventricular size and function grossly. 3) The left atrium is severely dilated. 4) There is a bioprosthetic aortic valve that is well seated and opens well with expected gradient (mean 7.2mmHg) across it. 5) There is a trivial pericardial effusion noted. -will continue current home regimen of furosemide 10 mg and spirolactone 25 mg daily. 3. Atrial fibrillation, chronic present on admission, active -12 lead EKG reveals atrial fibrillation controlled rate with RBBB, ventricular response at a rate of 96, right bundle branch block. -patient is anticoagulated on apixaban 5 mg mg BID which is continued. -patient is not currently on rate control medication. -will monitor electrolytes closely. 4. Chronic kidney disease stage 4, chronic -patient is followed by Nephrology with recent changes of medications to Lasix 10 mg and spironolactone 25 mg daily. -BUN is 36 with creatinine 1.7 and is at baseline. Calculated creatinine clearance is 35.89. -will continue current regimen of Lasix 10 mg and spironolactone 25 mg daily. 5. Hypertension, chronic -blood pressure has been low side normal with admission pressure of 108/34 subsequently dropping to 74/51 responding to fluid bolus. -will hold morning dose of hydralazine and reassess fluid pressure status prior to resume routine home regimen of hydralazine 50 mg 3 times daily. 6. Right knee effusion, acute, present on admission, active -patient is status post right total knee arthroplasty -slow injure her right knee in her sleep fall today with palpable effusion and pain with movement. -x-ray finds right knee effusion without displacement of prosthetics. -physical therapy to consult, evaluate and treat. 7. Obesity, BMI 41.1, chronic -patient has an increase in BMI of approximately 6 kg since February. -the patient with decreasing activity tolerance and impaired mobility -PT and to consult, evaluate and treat The patient is admitted to the hospital related to the severity of symptoms and the high risk for complications. The patient is admitted as inpatient with expected length of stay greater than 2 midnights.
[2019-07-16] MEDS: ACETAMINOPHEN 325 MG TABLET 650 MG PO ×2 (04:25→21:35)
[2019-07-16 04:49] LABS: Add Manual Diff / Slide Review NO; Basophils Absolute Auto 0 /uL (0-100); Basophils Percent Auto 0.3 % (0-2); Eosinophils Absolute Auto 0 /uL (0-450); Eosinophils Percent Auto 0.1 % (2-4); Hematocrit 29.9 % (36-46); Lymphocytes Absolute Auto 1300 /uL (1100-4500); Lymphocytes Percent Auto 11.4 % (25-40); Mean Corpuscular HGB Conc 33.6 % (30-36); Mean Corpuscular Hemoglobin 30.5 PG (26-34); Mean Corpuscular Volume 90.8 fL (80-100); Monocytes Absolute Auto 1400 /uL (0-900); Monocytes Percent Auto 12.1 % (3-14); Neutrophils Absolute Auto 8700 /uL (1500-7000); Neutrophils Percent Auto 76.1 % (50-75); Platelet Count 100 X10^3/uL (150-400); Red Blood Cell Count 3.29 X10^6/uL (4.0-5.2); Red Cell Distribution Width 16.9 % (11.6-14.8); White Blood Cell Count 11.5 X10^3/uL (4.5-11.0)
[2019-07-16 04:58] LABS: BUN Creatinine Ratio 21.2 (6-22); Blood Urea Nitrogen 36 mg/dL (7-17); Calcium 9.1 mg/dL (8.4-10.2); Carbon Dioxide 29 mmol/L (22-32); Chloride 96 mmol/L (98-107); Estimated Glomerular Filt Rate 28.8 mL/min (>60); Glucose 97 mg/dL (80-110); HEMOLYSIS < 15 (0-50); Potassium 3.6 mmol/L (3.4-5.1); Sodium 131 mmol/L (137-145)
[2019-07-16 05:10] LABS: Troponin I 0.031 ng/mL (0.01-0.034)
--- NOTE | 2019-07-16 06:29 | PC.NURSE ---
[facility] Supervisor Note-Patient is A/Ox3, has generalized weakness, and difficulty falling asleep due to Rt knee pain. Repositioned frequently, using ice packs, and Tylenol for pain. Melatonin prn given at midnight as well. A-fib/flutter CVR, BBB, afebrile, VSS, SpO2 >92%, except brief 2 second episodes of apnea noted where she would desat to 88%, but recover quickly. Denies chest pain or dyspnea, no cough, lung sounds dim in bases, faint crackles LLL, otherwise clear. Respiratory panel collected. Voided clear yellow urine on bedpan.
[2019-07-16 06:50] LABS: Procalcitonin 0.72 ng/mL (<0.5)
[2019-07-16] MEDS: SPIRONOLACTONE 25 MG TABLET PO (08:36)
[2019-07-16] MEDS: prednisoLONE OPHTH SUSP 1 DROPS EYE-RIGHT (08:36)
[2019-07-16] MEDS: APIXABAN 5 MG TABLET PO ×2 (08:36→21:35)
[2019-07-16] MEDS: LEVOTHYROXINE 25 MCG TABLET PO (08:36)
[2019-07-16] MEDS: ACYCLOVIR 400 MG TABLET PO ×2 (08:36→21:51)
[2019-07-16] MEDS: ALBUTEROL 2.5 MG/3 ML NEB (ADULT) INH ×4 (08:42→21:34)
--- NOTE | 2019-07-16 09:45 | PT.IIE ---
Current Diagnoses Pneumonia, unspecified organism (07/15/19) Surgical History (Last Reviewed 07/16/19 @ 04:21 by SABINE Ramires) History of oophorectomy (Acute) History of ventral hernia repair (Acute) Hx of heart artery stent (Acute) S/P TAVR (transcatheter aortic valve replacement) (Chronic) Medical History (Last Reviewed 07/16/19 @ 04:21 by SABINE Ramires) Chronic kidney disease (Chronic) Congestive heart failure (Acute) Coronary artery disease (Acute) Fatty liver (Acute) GI bleed (Acute) Hypertension (Chronic) Hypothyroid (Chronic) Physical Therapy Inpatient Evaluation/Re-Eval M1 PT/OT-IP Prior Functional Status Start: 07/16/19 08:06 Freq: NEEDED Status: Active Protocol: Document 07/16/19 09:45 AW (Rec: 07/16/19 10:58 AW [id number]) Medical Review Prior Functional Status Medical History Reviewed Yes Communication WNL Mobility and Gait Pt was modified independent with FWW 100% of the time. She fell in her shower prior to current admission, but denies any other falls. Activities of Daily Living and IADL's Pt states she had trouble donning shoes and socks but could dress herself independently. She was indpendent for toileting. Her daughter provided standby assist and some washing assist for showers. Social History Household Members family,children Living Arrangements House Number of Floors (Floors) Two Floors Number of Stairs To Enter/Railing? 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 Home Environment High Toilet,Walk in Shower, Ramp Home Equipment Front Wheel Walker,Bedside Commode,Shower Seat with Backrest,Hand Held Shower, Route Cdl Driver,Lift Recliner,Grab Bars Near Toilet,Grab Bars In Shower Additional Social History Comment Pt sleeps in a sleep chair and also has lift recliners. She lives with her daughter, Maryanne, who provides assistance to the patient and does not work outside the home. M2 PT-IP Current Condition Start: 07/16/19 08:06 Freq: NEEDED Status: Active Protocol: Document 07/16/19 09:45 AW (Rec: 07/16/19 10:58 AW [id number]) Physical Therapy Current Condition Current Condition Evaluation Date 07/16/19 Treatment Diagnosis pneumonia, generalized weakness, R knee effusion Onset Date 07/15/2019 Precautions Other Precautions Pt with labile BP, stable at time of evaluation. Weight Bearing Status Weight Bearing Status Full Weight Bearing M3 PT-IP Subjective Start: 07/16/19 08:06 Freq: NEEDED Status: Active Protocol: Document 07/16/19 09:45 AW (Rec: 07/16/19 10:58 AW [id number]) Subjective Physical Therapy Visit Type Type Initial Evaluation Visit Start Time 08:58 Visit Stop Time 09:32 Total Visit Minutes 34 Physical Therapy Visit Comments Patient Comments Pt is apologetic for not being able to do more, willing to participate with therapy Patient Goals To return home ultimately Therapy Pain Assessment Pain When Pain Assessed During Mobility Pain Present Pain Present Pain Reported Location Bilateral Knee Intensity 7 Scale Used R knee Description Sharp Pain Behaviors Facial Grimacing,Guarding, Wincing Pain Management Techniques Apply Cold,Re-positioning M4 PT-IP Mobility and Gait Start: 07/16/19 08:06 Freq: NEEDED Status: Active Protocol: Document 07/16/19 09:45 AW (Rec: 07/16/19 10:58 AW [id number]) PT-Bed Mobility Assessment Rolling Type of Rolling Roll to Right,Roll to Left Level of Assist Moderate Assistance,1 Person Assistance Supine to Sit Supine to Sit Maximum Assistance,1 Person Assistance,2 Person Assistance ,Head of Bed Elevated,Bedrails Sit to Supine Sit to Supine Maximum Assistance,2 Person Assistance,Head of Bed Elevated,Bedrails Scooting Scooting to Edge of Bed Moderate Assistance Scooting Up and Down in Bed Dependent PT-Transfer Assessment Comments Mobility Comments Pt complained on right knee pain which comes and goes but is always there when I'm moving. She required mod A x 1 to roll side to side for placement of draw sheet. She completed supine to sit with heavy use of bed features and assist required to move the right leg due to reported knee pain with observable swelling . She attempted to scoot toward EOB but became short of breath with this level of activity, requiring extra time and cues for deep breathing. SpO2 remained constant high 90 's on room air. BP was 115/59 with HR 88 at rest. HR was mid -120's with activity. With RN providing assist with draw sheet, pt was able to scoot toward EOB and to sit with poor balance, exhibiting lateral lean and weak postural control. Pt attempted to stand using FWW and max A x 2 but required considerable effort with pt complaining of increased right knee pain. She was unable to achieve a fully upright position. Pt was seated EOB and required max A x 2 to return to supine. She was repositioned on the bed with bilateral SCD's on lower extremities and ice packs applied to right knee. Pt left with RN attending. Gait Assessment Comments Gait Comments Pt unable. Stair Climbing Assessment Comments Stair Climbing Comments Not assessed. No stairs at home. PT-Balance Assessment Sitting Balance and Reactions Static Sitting Balance Ability Fair Dynamic Sitting Balance Ability Poor Standing Balance and Reactions Static Standing Balance Ability Poor M5 PT-IP Objective Assessments Start: 07/16/19 08:06 Freq: NEEDED Status: Active Protocol: Document 07/16/19 09:45 AW (Rec: 07/16/19 10:58 AW [id number]) Orientation Orientation/Cognition Level of Alertness Alert Orientation Name,Month,Place,Situation Language Function Ability No Deficits Noted Safety Awareness Understands Safety Issues Memory Description No Deficits Noted Gross Range of Motion Upper Extremity ROM Assessment Bilaterally Impaired Impairments Shoulder flexion limited to ~ 120 degrees Lower Extremity ROM Assessment Bilaterally Impaired Impairments Pt unable to fully extend right knee secondary to pain Strength Upper Extremity Strength Assessment Bilaterally Impaired Shoulder 4-/5 Elbow 4-/5 Hand 4-/5 Lower Extremity Strength Assessment Bilaterally Impaired Hip 3-/5 Knee L 4/5; R 3/-5 Ankle B 4-/5 Coordination Assessment Gross Coordination Gross Coordination WNL Sensation Assessment Sensation Gross Sensation WNL Muscle Tone Muscle Tone WNL Yes M6 PT-IP Treatment Start: 07/16/19 08:06 Freq: NEEDED Status: Active Protocol: Document 07/16/19 09:45 AW (Rec: 07/16/19 10:58 AW [id number]) Physical Therapy Treatment Exercises Exercises Ankle Pumps Education Education Provided Precautions,Safety Other Treatments Other Treatment Performed Provided education on role of PT and plan of care. Also initiated discharge planning conversation with pt tentatively agreeing that she may require SNF rehab for safe return to home. M7 PT-IP Assessment and Plan Start: 07/16/19 08:06 Freq: NEEDED Status: Active Protocol: Document 07/16/19 09:45 AW (Rec: 01/19/20 10:58 AW [id number]) PT Summary Assessment and Plan Potential Rehabilitation Potential Good Status of Condition at Evaluation Evolving Summary Impairments Pain,ROM,Strength,Balance,Bed Mobility,Transfers,Gait, Activity Tolerance Assessment Summary Kristen is an 83 yo woman seen for PT evaluation one day after admission with community acquired pneumonia, generalized weakness, and right knee effusion. She fell in her shower prior to admit but denies any other falls. At baseline, she was modified independent with use of FWW for ambulation. She lives with her daughter who provides assist with showering, meal prep, medication management. On evaluation, Kristen is requiring mod to max assist for bed mobility, demonstrates poor seated balance, and is unable to stand without max A x 2 secondary to weakness and right knee pain. X-ray of the right knee ruled out fracture but demonstrated moderate joint effusion. Pt is also limited by poor activity tolerance with HR 88 at rest and mid-120's with bed mobility. She will require SNF rehab to address these deficits and to promote safe return to home environment with family assistance. Goals Bed Mobility Goal Contact Guard Assistance Transfer Goal Minimal Assistance,Front Wheeled Walker Gait Goal Minimal Assistance,Front Wheel Walker Gait Distance 100 Days to Meet Goals 10 Frequency of Treatment Frequency Of Treatment Twice a Day Treatment Plan Physical Therapy Treatment Plan Bed Mobility Training,Transfer Training,Gait Training, Therapeutic Exercise,Balance Retraining,Discharge Planning, Hot or Cold Pack,Neuromuscular Re-ed,Manual Therapy Other Recommendations and Next Treatment seated balance, sit to stand Focus as tolerated, transfer if able Recommendations To Nursing Amount of Assist Needed 3 or More Person Assist Discharge Recommendations PT Discharge Recommendations SNF Rehab
--- NOTE | 2019-07-16 11:20 | CM.DANOTE ---
Addendum entered by ANYA Snyder 07/16/19 15:22: ADD: Call back from November, admissions at [facility], stating that they can accept the pt when stable for d/c. Original Note: Patient is an 83 year old female who was admitted on 07/15/19 for GLF/Slipped. Pt has MCR and AARP for insurance and her PCP is Dr. Amanda Mann. EMR was reviewed. Per MD, pt with completed POLST and designated DNI and here with likely community acquired pneumonia and CHF. Per PT initial eval and recommendations, pt currently 2PA and profoundly weak and likely SNF at d/c. SW met bedside with pt and explained role and pt confirms that she lives at home with her Dtr Maryanne who she believes is her DPOA and pt has lived there since Jan 2019. Pt is mostly independent with ADL's but needs assist with bathing and chores/shopping and driving. Pt denies any hx of SNF but confirms that she has used [facility] in the past and is not currently open with HH. Pt was last admitted to [facility] in Feb 2019 and was able to successfully d/c home with family assist. SW discussed current SNF recommendation and provided the SNF Choice list and discussed Medicare coverage of SNF. Pt states her preference would be to d/c home but is aware that she is requiring 2PA and has only been able to briefly tolerate standing and sitting on the edge of the bed. Pt agreeable to SW also calling her Dtr Maryanne to discuss SNF. SW called Dtr Maryanne who confirms that pt is far below baseline and cannot safely return home needing this much assist. MAHSA discussed SNF Choice List and Medicare coverage and Maryanne confirms that she feels SNF needed at d/ and preference would be [facility] due to location close to their home and agreeable with SW making SNF referral to [facility]. SW called [facility] admissions and left ms with new referral and requested review. PASRR completed in anticipation of SNF at d/. Plan: SW to follow for [facility] SNF review to determine if they can accept and ongoing coordination of d/c with pt and Dtr Maryanne after further PT. ANYA Snyder Discharge Planning/Care Management CM Discharge Assessment Start: 07/16/19 11:14 Freq: Status: Active Protocol: Document 07/16/19 11:14 BF (Rec: 07/16/19 11:20 BF [id number]) Discharge Planning Assessment Assigned Or Director ANYA Dexter DPOA/Assigned Designee Name Mor Madden Contact Information [phone] Advance Directives? No: Discussed DPOA with pt and her daughter Advance Directives on File No History Provided By Patient,Family Member,Medical Record Has Patient been admitted in last 30 No days? Prior Living Arrangements House Household Members family,children Type of transporation used prior to Relies on Others admit Independent with ADL's No: has help with showering and meds Is patient alert and oriented? Yes Needs Assistance With Bathing,Meal Prep,Home Chores / Shopping Caregiver for Another No DME Already Rented / Owned Bath Bench,FWW / Walker Patient/Family Preference [facility] Facility Barriers to Discharge No Discharge Plan [facility] Transportation Arrangement Dtr bedside and can provide transport if safe for d/c home vs SNF Facility van Referrals Initiated [facility] Medicare Choice List Provided Yes SNF/HH Preference [facility] Has Agency SNF been contacted Yes Whiteboard Updated in Patient Room with Yes name and ext. # of Or Director Review Status In Process Please Provide Date Initial DC 07/16/19 Assessment Was Performed Next Review Type Continued Stay Review
[2019-07-16] MEDS: HYDRALAZINE 25 MG TABLET 50 MG PO ×2 (14:31→21:35)
--- NOTE | 2019-07-16 14:36 | PC.NURSE ---
Day Shift Note Alert and oriented x3. SpO2 95% RA. SOB with any exertion. Attempted to transfer to chair with PT but pt unable to stand without significant assist. Unable to transfer. Denies cough. Denies pain. Call light within reach, using appropriately to make needs known.
--- NOTE | 2019-07-16 14:38 | PM.PN.1 ---
Subjective Subjective Date Patient Seen: 07/16/19 Interval history: Kristen Dsouza is an 83-year-old female with a history of coronary artery disease status post stenting, TAVR, diastolic CHF, chronic atrial fibrillation on Eliquis, hypertension, chronic kidney disease stage IV, and hypothyroidism who presented after ground level fall with generalized weakness. The patient is resting in bed comfortably. She reports she is trying to gain strength and is performing range of motion exercises in bed. She plans to work with physical therapy twice today. She endorses mild intermittent nonproductive cough. She reports she has been getting over a flu-like illness recently. She has no other complaints and denies headache, ear pain, rhinitis, sore throat, cough, shortness of breath, chest pain, abdominal pain, nausea, vomiting, fever, chills, dysuria, diarrhea or constipation. She is voiding and eliminating without difficulty. She is up ambulating with assistance. Exam Vital Signs (past 8 hours): - 07/16/19 08:43 07/16/19 08:58 07/16/19 12:00 Temperature 97.6 F 98.6 F Pulse Rate 78 84 85 Respiratory Rate 14 19 22 Blood Pressure 147/69 H 107/51 L Pulse Oximetry 95 96 96 Oxygen Delivery Method Room Air Oxygen Flow Rate 0 Narrative Exam Narrative: General: Elderly obese female lying in bed and in no acute distress, well-developed, well-nourished, appropriately interactive. HEENT: Normocephalic, atraumatic. External ears without defect. Pupils equal, round, and reactive to light. Anicteric sclerae, moist conjunctivae, and lid lag of right eye which she almost completely blind in. Neck: Supple with full range of motion. No jugular venous distension. No lymphadenopathy or thyromegaly. Cardiovascular: Irregularly irregular without murmurs, rubs, or gallops appreciated. Pulmonary: Diminished throughout but clear to auscultation bilaterally with scattered rhonchi at left base. No crackles. Normal respiratory effort with no use of accessory muscles. Abdomen: Soft, bowel sounds present, nontender, nondistended. No hepatosplenomegaly or masses appreciated. Extremities: No clubbing or cyanosis. Mild bipedal edema and stasis dermatitis bilaterally. Skin: Normal temperature, turgor, and texture; no ulcers, or subcutaneous nodules appreciated. Neurological: Cranial nerves grossly intact. Psychiatric: Mildly depressed mood and affect. Alert and oriented to person, place, and time. Objective Labs Result Diagrams: 07/16/19 04:35 07/16/19 04:35 Labs: Laboratory Results - last 24 hr 07/15/19 07/15/19 07/15/19 17:29 18:06 18:06 WBC 13.3 H RBC 4.32 Hgb 13.0 Hct 40.1 MCV 92.8 MCH 30.1 MCHC 32.4 RDW 17.9 H Plt Count 136 L Neut % (Auto) 83.5 H Lymph % (Auto) 9.4 L [place] % (Auto) 6.6 Eos % (Auto) 0.1 L Baso % (Auto) 0.4 Neut # (Auto) 50385 H Lymph # (Auto) 1300 [place] # (Auto) 900 Eos # (Auto) 0 Baso # (Auto) 100 Sodium 133 L Potassium 4.3 Chloride 96 L Carbon Dioxide 30 BUN 36 H Creatinine 1.70 H Estimated GFR 28.8 L BUN/Creatinine Ratio 21.2 Glucose 107 Calcium 9.4 Magnesium 1.8 Total Creatine Kinase < 20 L CK-MB (CK-2) TNP CK-MB (CK-2) Rel Index TNP Troponin I 0.028 Procalcitonin Urine Color Urine Appearance Urine pH Ur Specific [place] Urine Protein Urine Glucose (UA) Urine Ketones Urine Occult Blood Urine Nitrate Urine Bilirubin Urine Urobilinogen Ur Leukocyte Esterase Urine RBC Urine WBC Amorphous Sediment Urine Bacteria Ur Culture Indicated? Nasal Screen MRSA (PCR) Chlamy pneumoniae PCR Adenovirus (PCR) B.parapertussis DNA PCR Coronavirus OC43 (PCR) Coronavirus HKU1 (PCR) Coronavirus 229E (PCR) Coronavirus NL63 (PCR) Human Metapneumovir PCR Influenza Type A (PCR) Influenza Type B (PCR) M. pneumoniae (PCR) Parainfluenza 1 (PCR) Parainfluenza 2 (PCR) Parainfluenza 3 (PCR) Parainfluenza 4 (PCR) RSV (PCR) Entero/Rhino (PCR) 07/15/19 07/15/19 07/15/19 19:55 21:40 22:45 WBC RBC Hgb Hct MCV MCH MCHC RDW Plt Count Neut % (Auto) Lymph % (Auto) [place] % (Auto) Eos % (Auto) Baso % (Auto) Neut # (Auto) Lymph # (Auto) [place] # (Auto) Eos # (Auto) Baso # (Auto) Sodium Potassium Chloride Carbon Dioxide BUN Creatinine Estimated GFR BUN/Creatinine Ratio Glucose Calcium Magnesium Total Creatine Kinase CK-MB (CK-2) CK-MB (CK-2) Rel Index Troponin I 0.031 Procalcitonin Urine Color Yellow Urine Appearance Clear Urine pH 5.5 Ur Specific [place] 1.010 Urine Protein 1+ H Urine Glucose (UA) Negative Urine Ketones Negative Urine Occult Blood Negative Urine Nitrate Negative Urine Bilirubin Negative Urine Urobilinogen 0.2 Ur Leukocyte Esterase Negative Urine RBC None seen Urine WBC 5-10/hpf H Amorphous Sediment 2+ Urine Bacteria None seen Ur Culture Indicated? Cult not indicated Nasal Screen MRSA (PCR) Negative for mrsa Chlamy pneumoniae PCR Adenovirus (PCR) B.parapertussis DNA PCR Coronavirus OC43 (PCR) Coronavirus HKU1 (PCR) Coronavirus 229E (PCR) Coronavirus NL63 (PCR) Human Metapneumovir PCR Influenza Type A (PCR) Influenza Type B (PCR) M. pneumoniae (PCR) Parainfluenza 1 (PCR) Parainfluenza 2 (PCR) Parainfluenza 3 (PCR) Parainfluenza 4 (PCR) RSV (PCR) Entero/Rhino (PCR) 07/15/19 07/16/19 07/16/19 23:45 04:35 04:35 WBC 11.5 H RBC 3.29 L Hgb 10.0 L Hct 29.9 L MCV 90.8 MCH 30.5 MCHC 33.6 RDW 16.9 H Plt Count 100 L Neut % (Auto) 76.1 H Lymph % (Auto) 11.4 L [place] % (Auto) 12.1 Eos % (Auto) 0.1 L Baso % (Auto) 0.3 Neut # (Auto) 8700 H Lymph # (Auto) 1300 [place] # (Auto) 1400 H Eos # (Auto) 0 Baso # (Auto) 0 Sodium 131 L Potassium 3.6 Chloride 96 L Carbon Dioxide 29 BUN 36 H Creatinine 1.70 H Estimated GFR 28.8 L BUN/Creatinine Ratio 21.2 Glucose 97 Calcium 9.1 Magnesium Total Creatine Kinase CK-MB (CK-2) CK-MB (CK-2) Rel Index Troponin I Procalcitonin Urine Color Urine Appearance Urine pH Ur Specific [place] Urine Protein Urine Glucose (UA) Urine Ketones Urine Occult Blood Urine Nitrate Urine Bilirubin Urine Urobilinogen Ur Leukocyte Esterase Urine RBC Urine WBC Amorphous Sediment Urine Bacteria Ur Culture Indicated? Nasal Screen MRSA (PCR) Chlamy pneumoniae PCR Not detected Adenovirus (PCR) Not detected B.parapertussis DNA PCR Not detected Coronavirus OC43 (PCR) Not detected Coronavirus HKU1 (PCR) Not detected Coronavirus 229E (PCR) Not detected Coronavirus NL63 (PCR) Not detected Human Metapneumovir PCR Not detected Influenza Type A (PCR) Not detected Influenza Type B (PCR) Not detected M. pneumoniae (PCR) Not detected Parainfluenza 1 (PCR) Not detected Parainfluenza 2 (PCR) Not detected Parainfluenza 3 (PCR) Not detected Parainfluenza 4 (PCR) Not detected RSV (PCR) Not detected Entero/Rhino (PCR) Not detected 07/16/19 07/16/19 04:35 04:35 WBC RBC Hgb Hct MCV MCH MCHC RDW Plt Count Neut % (Auto) Lymph % (Auto) [place] % (Auto) Eos % (Auto) Baso % (Auto) Neut # (Auto) Lymph # (Auto) [place] # (Auto) Eos # (Auto) Baso # (Auto) Sodium Potassium Chloride Carbon Dioxide BUN Creatinine Estimated GFR BUN/Creatinine Ratio Glucose Calcium Magnesium Total Creatine Kinase CK-MB (CK-2) CK-MB (CK-2) Rel Index Troponin I 0.031 Procalcitonin 0.72 H Urine Color Urine Appearance Urine pH Ur Specific [place] Urine Protein Urine Glucose (UA) Urine Ketones Urine Occult Blood Urine Nitrate Urine Bilirubin Urine Urobilinogen Ur Leukocyte Esterase Urine RBC Urine WBC Amorphous Sediment Urine Bacteria Ur Culture Indicated? Nasal Screen MRSA (PCR) Chlamy pneumoniae PCR Adenovirus (PCR) B.parapertussis DNA PCR Coronavirus OC43 (PCR) Coronavirus HKU1 (PCR) Coronavirus 229E (PCR) Coronavirus NL63 (PCR) Human Metapneumovir PCR Influenza Type A (PCR) Influenza Type B (PCR) M. pneumoniae (PCR) Parainfluenza 1 (PCR) Parainfluenza 2 (PCR) Parainfluenza 3 (PCR) Parainfluenza 4 (PCR) RSV (PCR) Entero/Rhino (PCR) Assessment & Plan Assessment & Plan narrative: Kristen Dsouza is an 83-year-old female with a history of coronary artery disease status post stenting, TAVR, diastolic CHF, chronic atrial fibrillation on Eliquis, hypertension, chronic kidney disease stage IV, and hypothyroidism who presented after ground level fall with generalized weakness. 1. Acute community-acquired bacterial pneumonia, present on admission. Resolving. -Patient presented after ground level fall with generalized weakness, previous flu-like illness, and intermittent nonproductive cough. -Initial leukocytosis 13.3 and procalcitonin 0.83. Continue to monitor WBC and procalcitonin daily. -Chest x-ray demonstrated retrocardiac left lower lobe pneumonia. -Ordered pneumonia workup including: Respiratory viral PCR negative. Strep pneumoniae and Legionella urine antigens pending. Blood and sputum cultures not obtained. -Continue azithromycin 500 mg IV x 3 doses and ceftriaxone 2 g IV daily. 2. Acute right knee effusion, present on admission. Active. -Status post right total knee arthroplasty. Patient endured a ground level fall as a small palpable right knee effusion and pain with movement. -Right knee x-ray moderate joint effusion with unremarkable hardware. -Continue physical and occupational therapy evaluation treatment. 3. Diastolic congestive heart failure, present on admission. Stable. -Does not represent an acute CHF exacerbation. -Previous echocardiogram demonstrated: normal left ventricular thickness, size, wall motion, and systolic function (EF 65-70%), normal right ventricular size and function grossly, left atrium is severely dilated, bioprosthetic aortic valve that is well seated and opens well with expected gradient (mean 7.2mmHg) across it and a trivial pericardial effusion noted. Diastolic function could not be accurately assessed due to atrial fibrillation. -Continue cardiac medications including furosemide 10 mg every other day, hydralazine 50 mg 3 times daily, and spironolactone 25 mg daily. -Continue to monitor strict I&Os and daily weights. 4 Chronic atrial fibrillation, present on admission. Stable. -EKG demonstrated atrial fibrillation with controlled rate and RBBB. -Patient is not currently on rate control medication. -Continue anticoagulation with Eliquis 5 mg twice daily. 5. Chronic kidney disease stage IV, present on admission. Stable. -Patient is followed by Nephrology with recent changes of medications to Lasix 10 mg and spironolactone 25 mg daily. -Baseline creatinine 1.7 for which patient is currently at her baseline. -Continue to avoid nephrotoxic agents and optimize renal perfusion. -Continue to monitor renal function periodically. 6. Hypertension, chronic, present on admission. Stable. -Blood pressure has been labile and on the low side of normal with admission pressure of 108/34. Initially held hydralazine. Continue hydralazine 50 mg 3 times daily with hold parameters not to give if SBP < 100 mm Hg. 7. Morbid obesity with acute on chronic deconditioning, chronic, present on admission. Stable. -BMI 41.1. Patient has had an increase in BMI of 6 points since last hospitalization. -Patient has chronic deconditioning and has noted slowly decline in activity tolerance and impaired mobility. -Continue physical therapy evaluation treatment. Disposition: Patient likely to discharge to group home facility for continued rehabilitation and 1-2 days once pneumonia has been adequately treated.
--- NOTE | 2019-07-16 16:56 | PT-IP ANOTE ---
Unable to see pt this afternoon due to staffing. Will check on pt morning of 07/17/2019.
--- NOTE | 2019-07-16 19:28 | PC.NURSE ---
Addendum entered by Mikaela Duenas R.N. 07/16/19 23:37: IV Abx infusing slowly wtih small 24g IV. Pt denying pain at present time. RLE continued to bother her this shift with knee pain- elevated on pillow relieving pain. No swelling noted. Sacrum continues to be red with very fragile skin-no breakdown. Turning q2hrs. Daughter and pt aware of need for prevention of pressure and breakdown. Pt eager to work with PT in the am to work towards home discharge and not nursing facility. Addendum entered by Mikaela Duenas R.N. 07/16/19 21:57: Pt turned and rotated with 2 assist. Continues to use IS. Reinforced need for pulmonary toiletry and skin breakdown prevention. Original Note: Pt continues to be repositioned and turned to relieve any pressure on sacrum. Sacrum still red but blancheable- increased redness in this turn noticed. Barrier cream applied- pt turned entirely off of sacrum wtih pillows. Educated pt on importance of turning q2hrs to prevent skin breakdown. Verbalized understanding.
[2019-07-16] MEDS: ROSUVASTATIN 10 MG TABLET 40 MG PO (21:35)
[2019-07-16] MEDS: DOCUSATE 100 MG CAPSULE PO (21:35)
[2019-07-16] MEDS: CEFTRIAXONE 2 GM/50 ML FROZ.PIGGY IV (21:48)
[2019-07-17] VITALS (9 sets, daily range): BP systolic 115–138; BP diastolic 46–64; PULSE 77–92; RESP 17–24; TEMP 36.5–36.7; O2SAT 96–97
--- NOTE | 2019-07-17 01:15 | PC.NURSE ---
[employer] Director Note: 0030: Awake, resting in bed. Vital signs stable. IV in place in rt forearm. SCDs on; pt states they are bothering her: turned off for now. Turned and repositioned to lt side.
[2019-07-17] MEDS: ACETAMINOPHEN 325 MG TABLET 650 MG PO ×3 (03:01→17:15)
[2019-07-17 05:03] LABS: Add Manual Diff / Slide Review NO; Basophils Absolute Auto 100 /uL (0-100); Basophils Percent Auto 0.6 % (0-2); Eosinophils Absolute Auto 100 /uL (0-450); Eosinophils Percent Auto 0.8 % (2-4); Hematocrit 28.2 % (36-46); Hemoglobin 9.6 g/dL (12.0-16.0); Lymphocytes Absolute Auto 1900 /uL (1100-4500); Lymphocytes Percent Auto 19.9 % (25-40); Mean Corpuscular HGB Conc 33.9 % (30-36); Mean Corpuscular Hemoglobin 30.7 PG (26-34); Mean Corpuscular Volume 90.6 fL (80-100); Monocytes Absolute Auto 1900 /uL (0-900); Monocytes Percent Auto 19.7 % (3-14); Neutrophils Absolute Auto 5700 /uL (1500-7000); Platelet Count 112 X10^3/uL (150-400); Red Blood Cell Count 3.11 X10^6/uL (4.0-5.2); Red Cell Distribution Width 17.5 % (11.6-14.8); White Blood Cell Count 9.6 X10^3/uL (4.5-11.0)
[2019-07-17 05:08] LABS: BUN Creatinine Ratio 18.3 (6-22); Blood Urea Nitrogen 33 mg/dL (7-17); Calcium 8.8 mg/dL (8.4-10.2); Carbon Dioxide 27 mmol/L (22-32); Chloride 96 mmol/L (98-107); Estimated Glomerular Filt Rate 26.9 mL/min (>60); Glucose 88 mg/dL (80-110); HEMOLYSIS < 15 (0-50); Magnesium 1.9 mg/dL (1.6-2.3); Potassium 3.3 mmol/L (3.4-5.1); Sodium 131 mmol/L (137-145)
[2019-07-17 05:38] LABS: TSH w/ Reflex to FT4 4.61 uIU/mL (0.47-4.68)
[2019-07-17] MEDS: ALBUTEROL 2.5 MG/3 ML NEB (ADULT) INH (06:12)
[2019-07-17] MEDS: LEVOTHYROXINE 25 MCG TABLET PO (06:35)
--- NOTE | 2019-07-17 08:23 | P.PN_ITS ---
Subjective Subjective Date Patient Seen: 07/17/19 Interval history: Kristen Dsouza is an 83-year-old female with a history of coronary artery disease status post stenting, TAVR, diastolic CHF, chronic atrial fibrillation on Eliquis, hypertension, chronic kidney disease stage IV, and hypothyroidism who presented after ground level fall with generalized weakness. The patient is resting in bed comfortably. The patient appears more defeated today. She reports she had a panic attack last night and is very anxious and dreading rehabilitation. Discussed rehabilitation in detail including the necessity long-term benefit of being able to stay at home with her daughter for longer time and potentially the rest of her life. Inquired with the patient regarding whether she thought she may be depressed for which she readily endorses. She reports depressed mood, decreased interest, increased guilt and feeling as though she is a burden to her family, hypersomnolence with insomnia, decreased concentration, and decreased energy. She denies suicidal ideation. She would like to be started on an antidepressant and is interested in going to counseling as an outpatient. She has no other complaints and denies headache, shortness of breath, chest pain, abdominal pain, nausea, vomiting, fever, chills, dysuria, diarrhea or constipation. She is voiding without difficulty. She has not had a bowel movement since admission and a bowel regimen has been implemented. She is up minimally and requires maximum assistance. Continue PT and OT. Exam Vital Signs (past 8 hours): - 07/17/19 03:10 07/17/19 06:14 07/17/19 07:50 Temperature 97.9 F 97.8 F Pulse Rate 92 H 90 Respiratory Rate 19 24 Blood Pressure 118/59 L 121/61 Pulse Oximetry 96 97 96 Oxygen Delivery Method Room Air Oxygen Flow Rate 0 Narrative Exam Narrative: General: Elderly obese female lying in bed and in no acute distress, well- developed, well-nourished, appropriately interactive. HEENT: Normocephalic, atraumatic. External ears without defect. Pupils equal, round, and reactive to light. 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 Neck: Supple with full range of motion. No jugular venous distension. No lymphadenopathy or thyromegaly. Cardiovascular: Irregularly irregular without murmurs, rubs, or gallops appreciated. Pulmonary: Diminished throughout but clear to auscultation bilaterally with scattered rhonchi at left base. No crackles. Normal respiratory effort with no use of accessory muscles. Abdomen: Soft, bowel sounds present, non-tender, non-distended. No hepatosplenomegaly or masses appreciated. Extremities: No clubbing or cyanosis. Mild bipedal edema and stasis dermatitis bilaterally. Small right medial joint effusion with mild tenderness to palpation. Skin: Normal temperature, turgor, and texture; no ulcers, or subcutaneous n odules appreciated. Neurological: Cranial nerves grossly intact. Psychiatric: Depressed mood and flat affect. Alert and oriented to person, place, and time. Objective Labs Result Diagrams: 07/17/19 04:35 07/17/19 04:35 Labs: Laboratory Results - last 24 hr 07/17/19 07/17/19 07/17/19 04:35 04:35 04:35 WBC 9.6 RBC 3.11 L Hgb 9.6 L Hct 28.2 L MCV 90.6 MCH 30.7 MCHC 33.9 RDW 17.5 H Plt Count 112 L Neut % (Auto) 59.0 Lymph % (Auto) 19.9 L Mclennan % (Auto) 19.7 H Eos % (Auto) 0.8 L Baso % (Auto) 0.6 Neut # (Auto) 5700 Lymph # (Auto) 1900 Mclennan # (Auto) 1900 H Eos # (Auto) 100 Baso # (Auto) 100 Sodium 131 L Potassium 3.3 L Chloride 96 L Carbon Dioxide 27 BUN 33 H Creatinine 1.80 H Estimated GFR 26.9 L BUN/Creatinine Ratio 18.3 Glucose 88 Calcium 8.8 Magnesium 1.9 Procalcitonin 0.60 H TSH 07/17/19 04:35 WBC RBC Hgb Hct MCV MCH MCHC RDW Plt Count Neut % (Auto) Lymph % (Auto) Mclennan % (Auto) Eos % (Auto) Baso % (Auto) Neut # (Auto) Lymph # (Auto) Mclennan # (Auto) Eos # (Auto) Baso # (Auto) Sodium Potassium Chloride Carbon Dioxide BUN Creatinine Estimated GFR BUN/Creatinine Ratio Glucose Calcium Magnesium Procalcitonin TSH 4.61 Assessment & Plan Assessment & Plan narrative: Kristen Dsouza is an 83-year-old female with a history of coronary artery disease status post stenting, TAVR, diastolic CHF, chronic atrial fibrillation on Eliquis, hypertension, chronic kidney disease stage IV, and hypothyroidism who presented after ground level fall with generalized weakness. 1. Acute community-acquired bacterial pneumonia, present on admission. Resol ving. -Patient presented after ground level fall with generalized weakness, previous flu-like illness, and intermittent nonproductive cough. -Initial leukocytosis 13.3 and procalcitonin 0.83. WBC trended down and now normalized at 9.6. Procalcitonin trending down now 0.60. Continue to monitor WBC and procalcitonin daily. -Chest x-ray demonstrated retrocardiac left lower lobe pneumonia. -Ordered pneumonia workup including: Respiratory viral PCR negative. Strep pneumoniae and Legionella urine antigens pending. Blood and sputum cultures not obtained. -Continue azithromycin 500 mg IV x 3 doses and ceftriaxone 2 g IV daily. 2. Acute right knee effusion, present on admission. Active. -Status post right total knee arthroplasty. Patient endured a ground level fall and has a small palpable right knee effusion and pain with movement. -Right knee x-ray demonstrated moderate joint effusion with unremarkable hardware. If mobility continues to be significantly impaired will consider contacting Orthopedic surgery for possible drainage of right knee effusion. -Continue physical and occupational therapy evaluation and treatment. 3. Diastolic congestive heart failure, present on admission. Stable. -Does not represent an acute CHF exacerbation. -Previous echocardiogram demonstrated: normal left ventricular thickness, size, wall motion, and systolic function (EF 65-70%), normal right ventricular size and function grossly, left atrium is severely dilated, bioprosthetic aortic valve that is well seated and opens well with expected gradient (mean 7.2mmHg) across it and a trivial pericardial effusion noted. Diastolic function could not be accurately assessed due to atrial fibrillation. -Continue cardiac medications including furosemide 10 mg every other day, hydralazine 50 mg 3 times daily, and spironolactone 25 mg daily. -Continue to monitor strict I&Os and daily weights. 4 Chronic atrial fibrillation, present on admission. Stable. -EKG demonstrated atrial fibrillation with controlled rate and RBBB. -Patient is not currently on rate control medication. -Continue anticoagulation with Eliquis 2.5 mg twice daily (dose adjusted for age and decreased renal function). 5. Chronic kidney disease stage IV, present on admission. Stable. -Patient is followed by Nephrology with recent changes of medications to Lasix 10 mg and spironolactone 25 mg daily. -Baseline creatinine 1.7-2.0. Creatinine currently 1.8 and at baseline. -Continue to avoid nephrotoxic agents and optimize renal perfusion. -Continue to monitor renal function periodically. 6. Hypertension, chronic, present on admission. Stable. -Blood pressure has been labile and on the low side of normal with admission pressure of 108/34. -Initially held hydralazine. Continue hydralazine 50 mg 3 times daily with hold parameters not to give if SBP < 100 mm Hg. 7. Morbid obesity with acute on chronic deconditioning, chronic, present on admission. Stable. -BMI 41.1. Patient has had an increase in BMI of 6 points since last hospitalization. -Patient has chronic deconditioning and has noted slow progressive decline in activity tolerance and impaired mobility. -Continue physical and occupational therapy evaluation and treatment. 8. Depression, chronic, present on admission. Stable. -Patient is significantly depressed with depressed mood, insomnia and hypersomnolence, decreased interest, increased guilt, decreased concentration and decreased appetite. Patient denies suicidal ideation. -Plan to start fluoxetine 10 mg daily tomorrow and will need to be monitored and titrated to effect as an outpatient by PCP. Highly recommended outpatient cognitive behavioral therapy for which the patient is highly interested. -Continued home melatonin increased from 3 mg to 6 mg and changed from as needed to scheduled daily at bedtime for sleep maintenance. Disposition: Patient likely to discharge to [facility] facility for continued rehabilitation tomorrow.
[2019-07-17] MEDS: DOCUSATE 100 MG CAPSULE PO ×2 (09:50→21:03)
[2019-07-17] MEDS: POTASSIUM CHLORIDE 60 MEQ in SODIUM CHLORIDE 0.9% 500 ML 88.333 ML IV (09:50)
[2019-07-17] MEDS: APIXABAN 5 MG TABLET PO (09:51)
[2019-07-17] MEDS: HYDRALAZINE 25 MG TABLET 50 MG PO ×3 (09:52→21:03)
[2019-07-17] MEDS: FUROSEMIDE 20 MG TABLET 10 MG PO (09:55)
[2019-07-17] MEDS: ACYCLOVIR 400 MG TABLET PO ×2 (09:55→21:04)
[2019-07-17] MEDS: prednisoLONE OPHTH SUSP 1 DROPS EYE-RIGHT (09:56)
[2019-07-17] MEDS: SPIRONOLACTONE 25 MG TABLET PO (09:56)
--- NOTE | 2019-07-17 11:55 | CM.DPC ---
DCP/continued: Reviewed chart. Spoke with provider in AM rounds whom reports patient will most likely be medically stable for d/c tomorrow 07-17-19. Placed call to [facility], spoke with Katty. She confirms that they will have bed for this patient. CM team to confirm with patient today d/c plan for tomorrow. P: Anticipate d/c to [facility] tomorrow. PASRR done. ANYA Rodriguez
--- NOTE | 2019-07-17 12:21 | PT.IPTN ---
Current Diagnoses Pneumonia, unspecified organism (07/15/19) Physical Therapy Treatment Note M2 PT-IP Current Condition Start: 07/16/19 08:06 Freq: NEEDED Status: Active Protocol: Document 07/16/19 09:45 AW (Rec: 07/16/19 10:58 AW [id number]) Physical Therapy Current Condition Current Condition Evaluation Date 07/16/19 Treatment Diagnosis pneumonia, generalized weakness, R knee effusion Onset Date 07/15/2019 Precautions Other Precautions Pt with labile BP, stable at time of evaluation. Weight Bearing Status Weight Bearing Status Full Weight Bearing M3 PT-IP Subjective Start: 07/16/19 08:06 Freq: NEEDED Status: Active Protocol: Document 07/17/19 11:57 KS (Rec: 07/17/19 13:15 KS [email or web address]) Subjective Physical Therapy Visit Type Type Treatment Note Visit Start Time 11:57 Visit Stop Time 12:21 Total Visit Minutes 24 Notes Pt agreeable to work with therapy. Pts daughter/ caregiver present during treatment. Pts daughter is concerned about pts ability to transfer while at home. Number of TRAUMA SURGEON Visits 1 Physical Therapy Visit Comments Patient Comments Pt is anxious about her ability to perform well, stating I don't know how much of this I can do. I feel weak . Patient Goals To return home ultimately Therapy Pain Assessment Pain When Pain Assessed During Mobility Pain Present Pain Present Pain Reported Location Right Knee Scale Used no number given, pt reports normal amount of pain. M4 PT-IP Mobility and Gait Start: 07/16/19 08:06 Freq: NEEDED Status: Active Protocol: Document 07/17/19 11:57 KS (Rec: 07/17/19 13:15 KS [email or web address]) PT-Bed Mobility Assessment Rolling Type of Rolling Roll to Right,Roll to Left Level of Assist Moderate Assistance,1 Person Assistance Supine to Sit Supine to Sit Moderate Assistance,1 Person Assistance,Head of Bed Elevated,Bedrails Sit to Supine Sit to Supine Moderate Assistance,Maximum Assistance,1 Person Assistance Scooting Scooting to Edge of Bed Moderate Assistance Scooting Up and Down in Bed Maximum Assistance PT-Transfer Assessment Comments Mobility Comments Pt reported feelings of anxiousness prior to beginning treatment. She was able to perform 1X5 ankle pumps, heel slides, and SLR w/ cues to straighten knee and raise toes to therapists hand. Pt moved LE off R side of bed w/ Mod A. Mod A and frequent cues for hand placement for sup<>sit EOB w/ HOB elevated. HOB was then flattened to prevent pt leaning towards HOB while sitting. Mod A for scooting EOB. Once bed was flat, pt was able to hold herself up in sitting position w/ CGA and frequent cues to sit up tall. Pt sat EOB for 12 min and performed 1X10 LAQ and ankle pumps as well as 1X5 glute squeezes. Pt stated that she did not feel strong enough to stand, but agreed to try after lunch. After sitting EOB, pt was Mod A to Max A for sit<>sup with guidance of trunk down to bed slowly and assistance w/ LE back into bed. Max x2 for scooting pt up in bed, however pt did attempt to push herself up w/ LE to assist therapist and nursing. HR was 88-96 and O2 >91 throughout treatment. Pt left in bed w/ HOB elevated, all needs in reach, and nursing staff in room. Gait Assessment Comments Gait Comments Pt unable. Stair Climbing Assessment Comments Stair Climbing Comments Not assessed. No stairs at home. PT-Balance Assessment Sitting Balance and Reactions Static Sitting Balance Ability Fair Dynamic Sitting Balance Ability Poor Standing Balance and Reactions Static Standing Balance Ability Poor M5 PT-IP Objective Assessments Start: 07/16/19 08:06 Freq: NEEDED Status: Active Protocol: Document 07/16/19 09:45 AW (Rec: 07/16/19 10:58 AW [id number]) Orientation Orientation/Cognition Level of Alertness Alert Orientation Name,Month,Place,Situation Language Function Ability No Deficits Noted Safety Awareness Understands Safety Issues Memory Description No Deficits Noted Gross Range of Motion Upper Extremity ROM Assessment Bilaterally Impaired Impairments Shoulder flexion limited to ~ 120 degrees Lower Extremity ROM Assessment Bilaterally Impaired Impairments Pt unable to fully extend right knee secondary to pain Strength Upper Extremity Strength Assessment Bilaterally Impaired Shoulder 4-/5 Elbow 4-/5 Hand 4-/5 Lower Extremity Strength Assessment Bilaterally Impaired Hip 3-/5 Knee L 4/5; R 3/-5 Ankle B 4-/5 Coordination Assessment Gross Coordination Gross Coordination WNL Sensation Assessment Sensation Gross Sensation WNL Muscle Tone Muscle Tone WNL Yes M6 PT-IP Treatment Start: 07/16/19 08:06 Freq: NEEDED Status: Active Protocol: Document 07/17/19 11:57 KS (Rec: 07/17/19 13:15 KS [email or web address]) Physical Therapy Treatment Exercises Exercises Ankle Pumps,Gluteal Sets,Heel Slides,Straight Leg Raises Education Education Provided Precautions,Safety Other Treatments Other Treatment Performed Long Arc Quads sitting EOB. M7 PT-IP Assessment and Plan Start: 07/16/19 08:06 Freq: NEEDED Status: Active Protocol: Document 07/17/19 11:57 KS (Rec: 07/17/19 13:15 KS [email or web address]) PT Summary Assessment and Plan Potential Rehabilitation Potential Good Status of Condition at Evaluation Evolving Summary Impairments Pain,ROM,Strength,Balance,Bed Mobility,Transfers,Gait, Activity Tolerance Assessment Summary Kristen reported high levels of anxiety upon arrival from therapy today and stated that she is feeling weak. Pts daughter/caregiver was present during treatment and offered encouragement. Mod A w/ HOB elevated for sup<>sit EOB for assistance w/ trunk and LE guidance. Pt sat EOB for 12 min w/ CGA where she performed glute sets, LAQs and ankle pumps. Frequent cues for hand placement and to sit up tall while sitting EOB. Mod A to Max A x1 for sit<>sup for trunk control and LE assistance. Max A x2 for scooting up in bed, though pt did try to assist by pushing into bed w/ LE. Pn assessed during mobility, pt reported normal amounts of pain in R knee. Goals Bed Mobility Goal Contact Guard Assistance Transfer Goal Minimal Assistance,Front Wheeled Walker Gait Goal Minimal Assistance,Front Wheel Walker Gait Distance 100 Days to Meet Goals 10 Frequency of Treatment Frequency Of Treatment Twice a Day Treatment Plan Physical Therapy Treatment Plan Bed Mobility Training,Transfer Training,Gait Training, Therapeutic Exercise,Balance Retraining,Discharge Planning, Hot or Cold Pack,Neuromuscular Re-ed,Manual Therapy Other Recommendations and Next Treatment seated balance, sit to stand Focus as tolerated, transfer if able Recommendations To Nursing Amount of Assist Needed 2 Person Assist,3 or More Person Assist Discharge Recommendations PT Discharge Recommendations SNF Rehab
--- NOTE | 2019-07-17 14:21 | OT.IP.EVAL ---
Current Diagnoses Pneumonia, unspecified organism (07/15/19) Past Medical History (Last Reviewed 07/16/19 @ 04:21 by SABINE Ramires) Chronic kidney disease (Chronic) Congestive heart failure (Acute) Coronary artery disease (Acute) Fatty liver (Acute) GI bleed (Acute) Hypertension (Chronic) Hypothyroid (Chronic) Surgical History (Last Reviewed 07/16/19 @ 04:21 by SABINE Ramires) History of oophorectomy (Acute) History of ventral hernia repair (Acute) Hx of heart artery stent (Acute) S/P TAVR (transcatheter aortic valve replacement) (Chronic) Occupational Therapy Inpatient Evaluation/Re-Eval M1 PT/OT-IP Prior Functional Status Start: 07/16/19 08:06 Freq: NEEDED Status: Active Protocol: Document 07/17/19 14:21 IMANI (Rec: 07/17/19 16:20 IMANI [id number]) Medical Review Prior Functional Status Medical History Reviewed Yes Diet/Fluid Consistency Regular Communication WNL Mobility and Gait Pt was modified independent with FWW 100% of the time. She fell in her shower prior to current admission, but denies any other falls. Activities of Daily Living and IADL's Pt states she had trouble donning shoes and socks but could dress herself independently. She was independent with toileting and continent. Her daughter, Maryanne, provided standby assist and some washing pt's back during seated shower. Prior Functional Level (Other details) Daughter and granddaughters assist with all HH chores, medication management. Pt manages her own checkbook. Pt has to step onto footstool to access her daughter's high van. Pt's daughter also cares for pt's disabled granddaughter who walks with assist in house and uses w/c in community. Social History Household Members family,children Living Arrangements House Number of Floors (Floors) Two Floors Number of Stairs To Enter/Railing? pt has ramp to main level of home where she stays Home Environment High Toilet,Walk in Shower Home Equipment Shower Seat with Backrest, Press Tender Short Goods,Lift Recliner,Grab Bars Near Toilet,Grab Bars In Shower, FWW, W/C Employment Status Retired Additional Social History Comment Pt sleeps in lift chair. M2 OT-IP Current Condition Start: 07/17/19 13:40 Freq: Status: Active Protocol: Document 07/17/19 14:21 PJM (Rec: 07/17/19 16:20 PJ [id number]) Occupational Therapy Current Condition Current Condition Evaluation Date 07/17/19 Treatment Diagnosis decr'd self care, mobility, fall.DX: PNA, CHF exacerbation , R knee effusion Diagnosis Onset Date 07/15/19 Post Operative Precautions Other Precautions fall risk M3 OT- IP Subjective and Pain Start: 07/17/19 13:40 Freq: Status: Active Protocol: Document 07/17/19 14:21 PJM (Rec: 07/17/19 16:20 PJ [email or web address]) OT- Subjective Occupational Therapy Visit Type Type Initial Evaluation Visit Start Time 13:57 Visit Stop Time 14:21 Total Visit Minutes 24 Notes Pt's daughterMaryanne, here this session. Occupational Therapy Visit Comments Patient Comments I hope I can go home. Patient/Caregiver Goals to return to daughter's house and prior level of independence OT Pain Assessment Pain When Pain Assessed After Treatment Pain Present Pain Present Denied Pain M4 OT- IP ADL's Start: 07/17/19 13:40 Freq: Status: Active Protocol: Document 07/17/19 14:21 PJM (Rec: 07/17/19 16:20 PJ [email or web address]) OT PPJ-Pybv-Oulxecl General Evaluation Self-Feeding Ability Independent OT ADL-Grooming General Evaluation Grooming Ability Standby Assistance Areas Needing Assistance Retrieving/Set-up of Grooming Items,Face Washing Comments OT Grooming Comments with bed in chair position OT ADL-Oral Care General Eval Oral Care Ability Standby Assistance Areas of Assistance Retrieving/Set-Up of Items Devices Oral Care Devices Toothbrush Comments Oral Care Comments with bed in chair position OT ADL-Dressing General Eval Lower Body Dressing Ability Total Assistance Areas Needing Assistance Socks,Shoes Assistive Devices Dressing Assistive Devices Press Tender Short Goods,Sock Aid Comments OT Dressing Comments began education re: use of imposer and sock aid for lower body dressing OT ADL-Toileting General Evaluation Toileting Ability Total Assistance Devices Toileting Assistive Devices Bedpan OT ADL-Bathing Comments OT Bathing Comments to be assessed when activity tolerance and mobility improve M5 OT- IP IADL's Start: 07/17/19 13:40 Freq: Status: Active Protocol: Document 07/17/19 14:21 PJM (Rec: 07/17/19 16:20 [facility] [email or web address]) OT-Instrumental Activities of Daily Living Deficits IADL Deficits Identified Deficits Home Safety Awareness Awareness of Need for Assistance at Home Good Awareness Home Safety Comments daughter and grand daughter assist with all IADLS PRN Medication Management Medication Management Caregiver Provides Supervision Money Management Money Management No Deficits Identified Meal Preparation Meal Preparation Caregiver Provides Assist Textile Supervisor Textile Supervisor Caregiver Provides Assist Driving Driving Caregiver Provides Assist M6 OT- IP Functional Cognition Start: 07/17/19 13:40 Freq: Status: Active Protocol: Document 07/17/19 14:21 PJ (Rec: 07/17/19 16:20 [facility] [email or web address]) Cognitive Factors Limiting Selfcare Function Cognitive Ability Level of Alertness Alert Patient Orientation Name,Age,Birthday,Month,Date, Year,Place Attention Span Ability Capable of Focused Attention, Capable of Sustained Attention Ability to Follow Commands Able to Follow One Step Commands Safety Awareness Underestimates Need for Assistance Cognitive Comments Cognitive Assessment Comments Pt has decreased insight into current functional abilities and care needs. 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 M7 OT- IP Mobility and Balance Start: 07/17/19 13:40 Freq: Status: Active Protocol: Document 07/17/19 14:21 PJ (Rec: 07/17/19 16:20 [facility] [email or web address]) OT-Transfer Assessment Comments Mobility Comments did not occur this session due to fatigue from previous bed bath and P.T. session OT- Gait Assessment Comments Gait Ability Comments pt has not yet transferred to chair or ambulated with P.T. due to weakness and R knee pain OT- Balance Assessment Comments Other Balance Tests/Deviations/Treatment see P.T. notes : M8 OT- IP Objective Assessments Start: 07/17/19 13:40 Freq: Status: Active Protocol: Document 07/17/19 14:21 PJ (Rec: 07/17/19 16:20 [facility] [id number]) OT Gross Range of Motion Upper Extremity Range of Motion Assessment Bilaterally Impaired ROM Impairments B shoulder scaption limited to 90 degrees due to stiffness. Distal AROM WFL. Pt has crepitus in B shoulders/elbows and painful R thumb CMC joint due to arthritis. 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 but WFL for basic self care skills OT-Muscle Tone Assessment Muscle Tone WNL Yes OT Sensation Assessment Comments Summary Comments BUW WNL per pt Edema Edema Absent M9 OT- IP Assessment and Plan Start: 07/17/19 13:40 Freq: Status: Active Protocol: Document 07/17/19 14:21 PJM (Rec: 07/17/19 16:20 PJM [id number]) OT Summary Assessment and Plan Potential Rehabilitation Potential Good Analytic Complexity at Evaluation Low Summary OT Impairments Pain,Strength,Balance, Functional Mobility,Grooming, Dressing,Toileting,Bathing, Toilet Transfers,Shower Transfers Assessment Summary Low complexity OT assessment completed on this 83 yr old female admitted with DX: CAP, CHF exacerbation, R knee effusion after sliding to ground from shower chair at home. Pt presents with significant performance deficits in activity tolerance and all functional mobility/ transfers. Pt has not yet ambulated with P.T. Pt also has performance deficits in standing grooming, dressing, bathing and toileting. Pt is not safe to d/c home at present due to decreased mobility and current care needs. Recommend short term SNF for further rehab services with chcf goal of return to her daughter's home. Goals Grooming Goal Standby Assistance Dressing Goal Minimal Assistance,Long Handled Shoe Horn,Press Tender Short Goods Toileting Goal Standby Assistance Toilet Transfer Goal Minimal Assistance Shower Transfer Goal Minimal Assistance Patient/Caregiver Education Goal Demonstrate Energy Conservation and Pacing OT-Other Goals Grooming goal is with pt seated in chair. Bathing goal is for seated upper body sponge bath. Days to Meet Goals 5 Frequency of Treatment Frequency Of Treatment Once a Day Treatment Plan OT Treatment Plan ADL Training,Functional Mobility,Patient/Family Education,Discharge Planning Discharge Recommendations OT Discharge Recommendations SNF Rehab Home Equipment Needs sock aid
--- NOTE | 2019-07-17 14:40 | PC.NURSE ---
Pt anxious r/t possible need for SNF on d/c. Pt's goal is to d/c to home with daughter who is her primary caregiver. She has been unable to get OOB since admission r/t ble weakness and r knee pain. Educated pt to exercises she may perform in bed. Educated to med regimen. Applied ice pack to r knee and administered tylenol this AM with good effect. Pt was able to sit at the edge of the bed during 1st PT session today, but was unable to get OOB. During second PT session, pt was able to stand at the side of the bed. She is reluctant to walk r/t r knee pain with movement but continues to deny pain at rest. SHIPPING TECHNICIAN rounded with pt. Daughter present at this time. Plan at this time is to d/c tomorrow to [facility] for ongoing rehab.
--- NOTE | 2019-07-17 14:43 | CM.DPC ---
DCP/continued: Reviewed chart. Spoke with Dr. Carmen in AM rounds. It is anticipated that patient will be medically stable for discharge tomorrow 07-18-19. Current recommendation is SNF. First choice is [facility]. Met with patient and daughter/Maryanne at bedside. Patient somewhat reluctant to go to rehab but agreeable if needed. Daughter would like to see how patient does this afternoon with therapy. If rehab is continued to be recommended and patient agreeable to short stay at SNF. Both patient and daughter agreeable to [facility]. Spoke with Katty at [facility] and they confirm bed. PASRR done. P: Current plan [facility] for short SNF stay. ANYA Rodriguez
--- NOTE | 2019-07-17 14:55 | PT.IPTN ---
Current Diagnoses Pneumonia, unspecified organism (07/15/19) Physical Therapy Treatment Note M2 PT-IP Current Condition Start: 07/16/19 08:06 Freq: NEEDED Status: Active Protocol: Document 07/16/19 09:45 AW (Rec: 07/16/19 10:58 AW [id number]) Physical Therapy Current Condition Current Condition Evaluation Date 07/16/19 Treatment Diagnosis pneumonia, generalized weakness, R knee effusion Onset Date 07/15/2019 Precautions Other Precautions Pt with labile BP, stable at time of evaluation. Weight Bearing Status Weight Bearing Status Full Weight Bearing M3 PT-IP Subjective Start: 07/16/19 08:06 Freq: NEEDED Status: Active Protocol: Document 07/17/19 14:33 KS (Rec: 07/17/19 16:19 KS [email or web address]) Subjective Physical Therapy Visit Type Type Treatment Note Visit Start Time 14:33 Visit Stop Time 14:55 Total Visit Minutes 22 Notes industrial engineering manager and pts daughter/ Maryanne present upon arrival from therapy discussing possible d/c to [facility] tomorrow. Physical Therapy Visit Comments Patient Comments Pt agreeable to work w/ therapy. Therapy Pain Assessment Pain When Pain Assessed During Mobility Pain Present Pain Present Pain Reported Location Right Knee Intensity 5 Scale Used Numeric (1 - 10) Pain Behaviors Wincing Pain Management Techniques Modification of Treatment,Re- positioning M4 PT-IP Mobility and Gait Start: 07/16/19 08:06 Freq: NEEDED Status: Active Protocol: Document 07/17/19 14:33 KS (Rec: 07/17/19 16:19 KS [email or web address]) PT-Bed Mobility Assessment Supine to Sit Supine to Sit Moderate Assistance,1 Person Assistance,Head of Bed Elevated,Bedrails Sit to Supine Sit to Supine Moderate Assistance,1 Person Assistance Scooting Scooting to Edge of Bed Moderate Assistance Scooting Up and Down in Bed Maximum Assistance PT-Transfer Assessment Sit to and From Stand Sit to and from Stand Maximum Assistance,2 Person Assistance,Use of Upper Extremities Equipment Transfer Assistive Device Gait Belt,Front Wheeled Walker Orthotic/Prosthetic Devices or Brace: No Transfers Transfer Destination Bed Transfer Ability Level of Assist Maximum Assistance,2 Person Assistance,Use of Upper Extremities Comments Mobility Comments Pt was in bed w/ HOB elevated upon arrival from therapy. Nursing called in to assist w/ standing pt. Mod A and HOB elevated for sup<>sit for trunk control and guidance of LE. Mod A for scooting pt to EOB. Pt was able to maintain balance while sitting EOB w/ SBA. Sit<>stand w/ Max A x2 from therapist and nursing staff and cues for pt to push up from bed. Once standing, pt required cues for correct hand placement on FWW and upright posture. Pt stood for ~20 seconds before requesting to sit. Mod A x2 and cues to reach back and lower down slowly into bed. 1 min sitting rest break taken before 2nd standing attempt. Pt demonstrated good carryover, remembering need to push up from bed. Max A x2 for standing 2nd time, pt stood for ~30 sec and tried weight shifting but was limited by reported pain in R knee. Mod A x 2 for stand<>sit, 2 min seated rest break before 3rd standing attempt. Pt was unable to complete 3rd stand due to pain in R knee and LE weakness. Mod A for sit<>sup, and Max Ax2 w/ pt attempting to push through LE to scoot up in bed. Pt left in bed with all needs in reach and daughter Maryanne in room. Gait Assessment Comments Gait Comments Pt unable. Stair Climbing Assessment Comments Stair Climbing Comments Not assessed. No stairs at home. PT-Balance Assessment Sitting Balance and Reactions Static Sitting Balance Ability Fair Dynamic Sitting Balance Ability Poor Standing Balance and Reactions Static Standing Balance Ability Poor Device Used FWW M5 PT-IP Objective Assessments Start: 07/16/19 08:06 Freq: NEEDED Status: Active Protocol: Document 07/16/19 09:45 AW (Rec: 07/16/19 10:58 AW [id number]) Orientation Orientation/Cognition Level of Alertness Alert Orientation Name,Month,Place,Situation Language Function Ability No Deficits Noted Safety Awareness Understands Safety Issues Memory Description No Deficits Noted Gross Range of Motion Upper Extremity ROM Assessment Bilaterally Impaired Impairments Shoulder flexion limited to ~ 120 degrees Lower Extremity ROM Assessment Bilaterally Impaired Impairments Pt unable to fully extend right knee secondary to pain Strength Upper Extremity Strength Assessment Bilaterally Impaired Shoulder 4-/5 Elbow 4-/5 Hand 4-/5 Lower Extremity Strength Assessment Bilaterally Impaired Hip 3-/5 Knee L 4/5; R 3/-5 Ankle B 4-/5 Coordination Assessment Gross Coordination Gross Coordination WNL Sensation Assessment Sensation Gross Sensation WNL Muscle Tone Muscle Tone WNL Yes M6 PT-IP Treatment Start: 07/16/19 08:06 Freq: NEEDED Status: Active Protocol: Document 07/17/19 14:33 KS (Rec: 07/17/19 16:19 KS [email or web address]) Physical Therapy Treatment Exercises Exercises Ankle Pumps,Gluteal Sets, Straight Leg Raises Education Education Provided Precautions,Weight Bearing Status,Safety Other Treatments Other Treatment Performed Educated pt on SNF for full recovery. M7 PT-IP Assessment and Plan Start: 07/16/19 08:06 Freq: NEEDED Status: Active Protocol: Document 07/17/19 14:33 KS (Rec: 07/17/19 16:19 KS [email or web address]) PT Summary Assessment and Plan Potential Rehabilitation Potential Good Status of Condition at Evaluation Evolving Summary Impairments Pain,ROM,Strength,Balance,Bed Mobility,Transfers,Gait, Activity Tolerance Assessment Summary Kristen is showing slow improvements with mobility, but still requires at least Mod A for bed mobility, and Max A x2 for sit<>stand due to weakness, fatigue and R knee pain. industrial engineering manager and daughter present upon arrival from therapy discussing going to SNF. Suggested pt go to SNF to make full recovery before going home, pt is reluctant but agreeable. Mod A for sup<>sit and scooting EOB , Max A x2 and cues for sit<> stand, Mod A x2 and cues for stand<>sit. Max A x2 for scooting up in bed. Goals Bed Mobility Goal Contact Guard Assistance Transfer Goal Minimal Assistance,Front Wheeled Walker Gait Goal Minimal Assistance,Front Wheel Walker Gait Distance 100 Days to Meet Goals 10 Frequency of Treatment Frequency Of Treatment Twice a Day Treatment Plan Physical Therapy Treatment Plan Bed Mobility Training,Transfer Training,Gait Training, Therapeutic Exercise,Balance Retraining,Discharge Planning, Hot or Cold Pack,Neuromuscular Re-ed,Manual Therapy Other Recommendations and Next Treatment seated balance, sit to stand Focus as tolerated, transfer if able , standing weight shift Recommendations To Nursing Amount of Assist Needed 2 Person Assist,3 or More Person Assist Discharge Recommendations PT Discharge Recommendations SNF Rehab
[2019-07-17] MEDS: CEFTRIAXONE 2 GM/50 ML FROZ.PIGGY IV (21:02)
[2019-07-17] MEDS: MELATONIN 3 MG TABLET 6 MG PO (21:03)
[2019-07-17] MEDS: ATORVASTATIN 20 MG TABLET 40 MG PO (21:03)
[2019-07-17] MEDS: APIXABAN 5 MG TABLET 2.5 MG PO (21:07)
[2019-07-17] MEDS: AZITHROMYCIN 500 MG in DEXTROSE 5% IN WATER 250 ML IV (22:33)
--- NOTE | 2019-07-17 22:44 | PC.NURSE ---
2229 - Pt expressing concerns r/t d/c tomorrow. I am trying not to get upset thinking about tomorrow. Allowed express feelings. Educated to treatment plan, therapy and efforts to return to baseline. Pt requesting to have SCD's removed for break. They are making my legs itch burn. Cuffs removed. Repositioned to left side lying. Pt denies need for bedpad at this time. Abx infusing. Call light in reach.
[2019-07-18] VITALS: BP 122/57; PULSE 80; RESP 19; TEMP 36.8; O2SAT 95
[2019-07-18 03:58] VITALS: BP 128/75; PULSE 81; RESP 21; TEMP 36.6; O2SAT 94
[2019-07-18 04:46] VITALS: O2SAT 94
[2019-07-18 05:04] LABS: BUN Creatinine Ratio 16.5 (6-22); Blood Urea Nitrogen 28 mg/dL (7-17); Calcium 8.9 mg/dL (8.4-10.2); Carbon Dioxide 28 mmol/L (22-32); Chloride 100 mmol/L (98-107); Estimated Glomerular Filt Rate 28.8 mL/min (>60); Glucose 85 mg/dL (80-110); HEMOLYSIS < 15 (0-50); Potassium 4.2 mmol/L (3.4-5.1); Sodium 132 mmol/L (137-145)
[2019-07-18 05:22] LABS: Procalcitonin 0.38 ng/mL (<0.5)
[2019-07-18] MEDS: LEVOTHYROXINE 25 MCG TABLET PO (06:33)
[2019-07-18 07:28] VITALS: BP 130/68; PULSE 81; RESP 16; TEMP 36.8; O2SAT 96
[2019-07-18] MEDS: ACETAMINOPHEN 325 MG TABLET 650 MG PO (07:40)
[2019-07-18] MEDS: DOCUSATE 100 MG CAPSULE PO (07:40)
[2019-07-18] MEDS: APIXABAN 5 MG TABLET 2.5 MG PO (07:40)
[2019-07-18] MEDS: POTASSIUM CHLORIDE 10 MEQ TAB PO (07:40)
[2019-07-18] MEDS: HYDRALAZINE 25 MG TABLET 50 MG PO (07:40)
[2019-07-18] MEDS: ACYCLOVIR 400 MG TABLET PO (07:41)
[2019-07-18] MEDS: prednisoLONE OPHTH SUSP 1 DROPS EYE-RIGHT (07:41)
[2019-07-18] MEDS: SPIRONOLACTONE 25 MG TABLET PO (07:42)
[2019-07-18] MEDS: FLUoxetine 10 MG CAPSULE PO (07:42)
--- NOTE | 2019-07-18 07:57 | P.DS_ITS ---
History of Present Illness History of Present Illness Date Patient Seen: 07/16/19 Chief complaint: GLF - Slipped Narrative: Written by Cesar REGALADO: Ms. Kristen Dsouza is an 83-year-old female with a history of coronary artery disease status post stenting on apixaban, TAVR, CHF, atrial fibrillation, hypertension, chronic kidney disease stage IV, and hypothyroidism who presents to the ER with EMS with generalized weakness and a slip and fall in the shower today. Patient states she has been feeling increasingly weak over the last 3 days requiring more assistance from her daughter whom she lives with. She was in the shower today on the shower stool and required assistance from her daughter to stand up. She was too weak and slid from the shower stool on to the shower floor. Patient denies hitting her head neck or back pain and has had no loss conscious. Patient further adds that she had a cold about 2 years lasting for week with associated nausea and diarrhea. She states she was not seen insulin was time feeling lot better. She still reports complaints of some nasal congestion and had transient sore throat. She reports no fevers or chills though she feels cold all the time. She has no headaches or dizziness. She denies chest pain or palpitations. She denies shortness of breath and has an occasional cough which she reports is not new. She denies complaints of abdominal pain, heartburn and has no further nausea vomiting. She reports havi ng loose stools but denies urinary symptoms of frequency urgency or burning. At baseline the patient can ambulate however due to weakness she has been unable. Upon arrival to the emergency department the patient his temperature 97.7?, heart rate 99, blood pressure of 108/34 with a respiratory rate of 30 saturating 98% on room air. CT of the head is obtained due to anticoagulation identifies age-appropriate volume loss with chronic small vessel ischemic changes. X-ray of the pelvis is negative and x-ray of the knee finds right knee with moderate effusion. Chest x-rays taken which finds a retrocardiac left lower lobe pneumonia, normal heart size. Urinalysis obtained which finds positive nitrate and positive bacteria negative leukocyte esterase negative WBCs. On lab analysis she has leukocytosis with a white count of 13.3, hemoglobin of 13.0, hematocrit of 40.1 and platelets of 136. She has 80 PT of 22, PTT of 1.9 and a PTT of 41. Her electrolytes are all within normal range she has a BUN of 36 and a creatinine of 1.7 with an EGFR of 28.8. Her nonfasting glucose is 107. Her troponin is 0.028. An EKG is obtained which finds atrial fibrillation with controlled rate with a bundle branch block. In the ER the patient did receive fluid bolus for transient hypotension blood pressure dropping to 74/51 with return to normal range. The patient is admitted to the medicine service for generalized weakness and pneumonia. Discharge Providers Provider Date of admission: 07/15/19 20:49 Discharge Date: 07/18/19 Primary care physician: Amanda Mann MD Consults: 07/15/19 21:38 Consult to Dietitian, Adult Routine Comment: Reason For Exam: Obesity, CAD, AF on Eliquis, CHF 07/15/19 21:39 Consult to Discharge Planning Routine Comment: Consult to Physical Therapy Evaluate & Treat Comment: Right knee pain s/p TKA, post fall with effusion Physician Instructions: Evaluate and Treat 07/15/19 21:50 Consult to Dietitian, Adult Routine Comment: last few monhts unintentionally Reason For Exam: Per admission assessment- lost >7lbs in last few m 07/17/19 09:51 Consult to Occupational Therapy Evaluate & Treat Comment: Physician Instructions: Evaluate and treat Discharge provider: Larissa Carmen DO Summary Hospital Course Discharge Diagnosis: 1. Acute community-acquired bacterial pneumonia, present on admission. Resolved. 2. Acute right knee effusion, present on admission. Active. 3. Diastolic congestive heart failure, present on admission. Stable. 4. Chronic atrial fibrillation, present on admission. Stable. 5. Chronic kidney disease stage IV, present on admission. Stable. 6. Hypertension, chronic, present on admission. Stable. 7. Hyperlipidemia, chronic, present on admission. Stable. 8. Morbid obesity with acute on chronic deconditioning, chronic, present on admission. Stable. 9. Depression, chronic, present on admission. Stable. Hospital Course: Kristen Dsouza is an 83-year-old female with a history of coronary artery disease status post stenting, TAVR, diastolic CHF, chronic atrial fibrillation on Eliquis, hypertension, chronic kidney disease stage IV, and hypothyroidism who presented after ground level fall with generalized weakness. 1. Acute community-acquired bacterial pneumonia, present on admission. Resolved. -Patient presented after ground level fall with generalized weakness, previous flu-like illness, and intermittent nonproductive cough. -Initial leukocytosis 13.3 and procalcitonin 0.83. WBC trended down and now normalized at 9.6. Procalcitonin trending down now 0.60. Continue to monitor WBC and procalcitonin daily. -Chest x-ray demonstrated retrocardiac left lower lobe pneumonia. -Ordered pneumonia workup including: Respiratory viral PCR negative. Strep pneumoniae and Legionella urine antigens pending. Blood and sputum cultures not obtained. -Continued azithromycin 500 mg IV x 3 doses and ceftriaxone 2 g IV daily x 3 days. The patient's infectious markers have normalized and pneumonia has been adequately treated no need to further treat at this point. 2. Acute right knee effusion, present on admission. Active. -Status post right total knee arthroplasty. Patient endured a ground level fall and has a small palpable right knee effusion and pain with movement. -Right knee x-ray demonstrated moderate joint effusion with unremarkable h ardware. If mobility continues to be significantly impaired despite conservative management consider Orthopedic surgery evaluation for possible joint aspiration/drainage of right knee effusion. -Continued physical and occupational therapy evaluation and treatment. 3. Diastolic congestive heart failure, present on admission. Stable. -Does not represent an acute CHF exacerbation. -Previous echocardiogram demonstrated: normal left ventricular thickness, size, wall motion, and systolic function (EF 65-70%), normal right ventricular size and function grossly, left atrium is severely dilated, bioprosthetic aortic valve that is well seated and opens well with expected gradient (mean 7.2 mmHg) across it and a trivial pericardial effusion noted. Diastolic function could not be accurately assessed due to atrial fibrillation. -Continued cardiac medications including furosemide 10 mg every other day, hydralazine 50 mg 3 times daily, and spironolactone 25 mg daily. -Continued to monitor strict I&Os and daily weights. 4. Chronic atrial fibrillation, present on admission. Stable. -EKG demonstrated atrial fibrillation with controlled rate and RBBB. -Patient is not currently on rate control medication. -Continued anticoagulation with Eliquis lowered from 5 mg to 2.5 mg twice daily (dose adjusted for age and decreased renal function). 5. Chronic kidney disease stage IV, present on admission. Stable. -Patient is followed by Nephrology with recent changes of medications to Lasix 10 mg and spironolactone 25 mg daily. -Baseline creatinine 1.7-2.0. Creatinine currently 1.8 and at baseline. -Continued to avoid nephrotoxic agents and optimize renal perfusion. -Continued to monitor renal function periodically. 6. Hypertension, chronic, present on admission. Stable. -Blood pressure has been labile and on the low side of normal with admission pressure of 108/34. -Initially held hydralazine. Continued hydralazine 50 mg 3 times daily with hold parameters not to give if SBP < 100 mm Hg. 7. Hyperlipidemia, chronic, present on admission. Stable. -Switched rosuvastatin 40 mg daily to atorvastatin 40 mg daily at bedtime (due to CKD). 8. Morbid obesity with acute on chronic deconditioning, chronic, present on admission. Stable. -BMI 41.1. Patient has had an increase in BMI of 6 points since last hospitalization. -Patient has chronic deconditioning and has noted slow progressive decline in activity tolerance and impaired mobility. -Continued physical and occupational therapy evaluation and treatment. 9. Depression, chronic, present on admission. Stable. -Patient is significantly depressed with depressed mood, insomnia and hypersomnolence, decreased interest, increased guilt, decreased concentration and decreased appetite. Patient denies suicidal ideation. -Started and continued fluoxetine 10 mg daily tomorrow and will need to be monitored and titrated to effect as an outpatient by PCP. Highly recommended outpatient cognitive behavioral therapy for which the patient is highly interested. -Continued home melatonin increased from 3 mg to 6 mg and changed from as needed to scheduled daily at bedtime for sleep maintenance. Exam Vital Signs (past 8 hours): - 07/18/19 00:00 07/18/19 03:58 07/18/19 04:46 Temperature 98.2 F 97.9 F Pulse Rate 80 81 Respiratory Rate 19 21 Blood Pressure 122/57 L 128/75 Pulse Oximetry 95 94 94 07/18/19 07:28 Temperature 98.3 F Pulse Rate 81 Respiratory Rate 16 Blood Pressure 130/68 Pulse Oximetry 96 Oxygen Delivery Method Room Air Oxygen Flow Rate 0 Narrative Exam Narrative: General: Elderly obese female lying in bed and in no acute distress, well- developed, well-nourished, appropriately interactive. HEENT: Normocephalic, atraumatic. External ears without defect. Pupils equal, round, and reactive to light. 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 Neck: Supple with full range of motion. No jugular venous distension. No lymphadenopathy or thyromegaly. Cardiovascular: Irregularly irregular without murmurs, rubs, or gallops appreciated. Pulmonary: Diminished throughout but clear to auscultation bilaterally with scattered rhonchi at left base. No crackles. Normal respiratory effort with no use of accessory muscles. Abdomen: Soft, bowel sounds present, non-tender, non-distended. No hepatosplenomegaly or masses appreciated. Extremities: No clubbing or cyanosis. Mild bipedal edema and stasis dermatitis bilaterally. Small right medial joint effusion with mild tenderness to palpation. Skin: Normal temperature, turgor, and texture; no ulcers, or subcutaneous nodules appreciated. Neurological: Cranial nerves grossly intact. Psychiatric: Depressed mood and flat affect but slightly brighter today. Alert and oriented to person, place, and time. Objective Labs Result Diagrams: 07/17/19 04:35 07/18/19 04:40 Labs: Laboratory Results - last 24 hr 07/18/19 07/18/19 04:40 04:40 Sodium 132 L Potassium 4.2 Chloride 100 Carbon Dioxide 28 BUN 28 H Creatinine 1.70 H Estimated GFR 28.8 L BUN/Creatinine Ratio 16.5 Glucose 85 Calcium 8.9 Magnesium 2.0 Procalcitonin 0.38 Discharge Plan Discharge Plan Patient Disposition: SNF Transfer to: [facility] Under care of provider: chief medical director Discharge orders & Medications Prescriptions: New atorvastatin [Lipitor] 20 mg Tablet 40 mg PO BEDTIME Qty: 30 RF: 0 polyethylene glycol 3350 17 gram Powder In Packet 17 gm PO DAILY PRN (Reason: Constipation) Qty: 30 RF: 0 fluoxetine [Prozac] 10 mg Capsule 10 mg PO DAILY Qty: 30 RF: 0 docusate sodium [DOK] 100 mg Capsule 100 mg PO BID Qty: 60 RF: 0 Continued acyclovir 400 mg tablet 400 mg PO BID RF: 0 omeprazole magnesium [Acid Senior Program Analyst (omeprazole)] 20 mg Capsule,Delayed Release(Dr/Ec) 20 mg PO BID RF: 0 calcium citrate-vitamin D3 [Calcitrate-Vitamin D] 315-250 mg-unit Tablet 1 tab PO DAILY RF: 0 multivitamin Tablet 1 tab PO DAILY RF: 0 melatonin 3 mg Tablet 3 mg PO BEDTIME PRN (Reason: Insomnia) RF: 0 ascorbic acid (vitamin C) [Vitamin C] 250 mg Tablet 250 mg PO DAILY RF: 0 cetirizine 10 mg Capsule 10 mg PO DAILY RF: 0 Fish Oil Pearls 150-400 mg Capsule 1 cap PO DAILY RF: 0 [place] 3-6-9 1,200 mg Capsule 1 tab PO DAILY RF: 0 hydralazine 50 mg tablet 50 mg PO TID RF: 0 levothyroxine 25 mcg Tablet 25 mcg PO DAILY RF: 0 furosemide 20 mg Tablet 10 mg PO Q OTHER DAY RF: 0 spironolactone 25 mg Tablet 25 mg PO DAILY RF: 0 prednisolone acetate drops 1 drp EYE-RIGHT DAILY RF: 0 potassium chloride 10 mEq Tablet Extended Release 10 meq PO DAILY RF: 0 nitroglycerin [Nitrostat] 0.4 mg Tablet, Sublingual 0.4 mg sublingual PRN PRN (Reason: Chest Pain) RF: 0 albuterol sulfate [Ventolin HFA] 90 mcg/actuation Hfa Aerosol Inhaler 2 puff INHALATION Q4-6H PRN (Reason: Shortness Of Breath Or Wheezing) RF: 0 Changed Eliquis 5 mg tablet 2.5 mg PO BID Qty: 0 RF: 0 Discontinued rosuvastatin 40 mg tablet 40 mg PO DAILY RF: 0 Follow up/Referrals: Amanda Mann MD [Primary Care Provider] - Diet/Activity/Treatments Diet: Diet as Tolerated, Low-fat, Low-sodium and Low-cholesterol Activity: Activity as tolerated with forward wheeled walker and physical and occupational therapy [facility] Rehab type: Physical therapy and Occupational therapy Discharge Data Primary Care Provider: Amanda Mann
--- NOTE | 2019-07-18 10:02 | PT.IPTN ---
Current Diagnoses Pneumonia, unspecified organism (07/15/19) Physical Therapy Treatment Note M2 PT-IP Current Condition Start: 07/16/19 08:06 Freq: NEEDED Status: Active Protocol: Document 07/16/19 09:45 AW (Rec: 07/16/19 10:58 AW [id number]) Physical Therapy Current Condition Current Condition Evaluation Date 07/16/19 Treatment Diagnosis pneumonia, generalized weakness, R knee effusion Onset Date 07/15/2019 Precautions Other Precautions Pt with labile BP, stable at time of evaluation. Weight Bearing Status Weight Bearing Status Full Weight Bearing M3 PT-IP Subjective Start: 07/16/19 08:06 Freq: NEEDED Status: Active Protocol: Document 07/18/19 10:02 CLB (Rec: 07/18/19 13:07 CLB [id number]) Subjective Physical Therapy Visit Type Type Treatment Note Visit Start Time 10:02 Visit Stop Time 10:36 Total Visit Minutes 34 Notes Co-treat with OT, daughter present during tx. Number of OPERATING ROOM TECHNICIAN Visits 3 Physical Therapy Visit Comments Patient Comments Pt agreeable to work w/ therapy. Therapy Pain Assessment Pain When Pain Assessed During Mobility Pain Present Pain Present Pain Reported Location Right Knee Intensity 4 Scale Used Numeric (1 - 10) Pain Behaviors Wincing Pain Management Techniques Modification of Treatment,Re- positioning M4 PT-IP Mobility and Gait Start: 07/16/19 08:06 Freq: NEEDED Status: Active Protocol: Document 07/18/19 10:02 CLB (Rec: 07/18/19 13:07 CLB [id number]) PT-Bed Mobility Assessment Supine to Sit Supine to Sit Minimal Assistance,1 Person Assistance,Head of Bed Elevated Sit to Supine Sit to Supine Moderate Assistance,1 Person Assistance Scooting Scooting to Edge of Bed Moderate Assistance Scooting Up and Down in Bed Maximum Assistance PT-Transfer Assessment Sit to and From Stand Sit to and from Stand Minimal Assistance,2 Person Assistance,Use of Upper Extremities Equipment Transfer Assistive Device Gait Belt,Front Wheeled Walker Orthotic/Prosthetic Devices or Brace: No Transfers Transfer Destination Bed Transfer Ability Level of Assist Minimal Assistance,2 Person Assistance Comments Mobility Comments Pt required Min A for supine- sit with HOB elevated and Mod A with scooting to EOB with use of draw sheet. Pt required cues for hand placement to have one hand on bed for safety. Pt required Min A x2 to full stand and was able to stand for ~30 seconds. Pt then stood a second time and performed side steps to get closer to the HOB before sitting. Pt was able with cues to use UE's and then pivoted left foot back and forth to prevent putting weight on right foot, pt was then able to lift right foot to side step. Pt reported 4-5/10 pain in RLE. Pt required Mod A x2 sit-supine as pts shoulders and legs were assisted into bed. Pt then assisted with bent left leg and bent knee pushing heel into bed to assist with getting to HOB with bed tilted in trendelenburg. Pt performed bed ther ex. Pt was left in bed with call light and all needs within reach and daughter present. Gait Assessment Comments Gait Comments Pt unable. Stair Climbing Assessment Comments Stair Climbing Comments Not assessed. No stairs at home. M5 PT-IP Objective Assessments Start: 07/16/19 08:06 Freq: NEEDED Status: Active Protocol: Document 07/16/19 09:45 AW (Rec: 07/16/19 10:58 AW [id number]) Orientation Orientation/Cognition Level of Alertness Alert Orientation Name,Month,Place,Situation Language Function Ability No Deficits Noted Safety Awareness Understands Safety Issues Memory Description No Deficits Noted Gross Range of Motion Upper Extremity ROM Assessment Bilaterally Impaired Impairments Shoulder flexion limited to ~ 120 degrees Lower Extremity ROM Assessment Bilaterally Impaired Impairments Pt unable to fully extend right knee secondary to pain Strength Upper Extremity Strength Assessment Bilaterally Impaired Shoulder 4-/5 Elbow 4-/5 Hand 4-/5 Lower Extremity Strength Assessment Bilaterally Impaired Hip 3-/5 Knee L 4/5; R 3/-5 Ankle B 4-/5 Coordination Assessment Gross Coordination Gross Coordination WNL Sensation Assessment Sensation Gross Sensation WNL Muscle Tone Muscle Tone WNL Yes M6 PT-IP Treatment Start: 07/16/19 08:06 Freq: NEEDED Status: Active Protocol: Document 07/18/19 10:02 CLB (Rec: 07/18/19 13:07 CLB [id number]) Physical Therapy Treatment Exercises Exercises Gluteal Sets,Quad Sets,Seated Knee Flexion/Extension Education Education Provided Precautions,Weight Bearing Status,Safety Other Treatments Other Treatment Performed seated march. M7 PT-IP Assessment and Plan Start: 07/16/19 08:06 Freq: NEEDED Status: Active Protocol: Document 01/21/20 10:02 CLB (Rec: 07/18/19 13:07 CLB [id number]) PT Summary Assessment and Plan Summary Impairments Pain,ROM,Strength,Balance,Bed Mobility,Transfers,Gait, Activity Tolerance Assessment Summary Pt continues to show slow progress however she did require less assist with supine to sit and sit<>stand. Pt was able to take side steps towards HOB but was unable to perform stand step pivot and cannot ambulate at this time. Pt will require a nusrat lift when d/c to SNF. Goals Bed Mobility Goal Contact Guard Assistance Transfer Goal Minimal Assistance,Front Wheeled Walker Gait Goal Minimal Assistance,Front Wheel Walker Gait Distance 100 Days to Meet Goals 10 Frequency of Treatment Frequency Of Treatment Twice a Day Treatment Plan Physical Therapy Treatment Plan Bed Mobility Training,Transfer Training,Gait Training, Therapeutic Exercise,Balance Retraining,Discharge Planning, Hot or Cold Pack,Neuromuscular Re-ed,Manual Therapy Other Recommendations and Next Treatment seated balance, sit to stand Focus as tolerated, transfer if able , standing weight shift Recommendations To Nursing Amount of Assist Needed Mechanical Lift Discharge Recommendations PT Discharge Recommendations SNF Rehab
--- NOTE | 2019-07-18 10:29 | OT.IP.TRT ---
Current Diagnoses Pneumonia, unspecified organism (07/15/19) Occupational Therapy Treatment Note M3 OT- IP Subjective and Pain Start: 07/17/19 13:40 Freq: Status: Active Protocol: Document 07/18/19 10:29 PJM (Rec: 07/18/19 15:25 [facility] [id number]) OT- Subjective Occupational Therapy Visit Type Type Treatment Note Visit Start Time 10:04 Visit Stop Time 10:29 Total Visit Minutes 25 Notes Partial co tx with P.T. as 2 skilled assist needed for safety with mobility Occupational Therapy Visit Comments Patient Comments I am just so afraid of falling. Patient/Caregiver Goals to get stronger so she can return home with daughter's assist OT Pain Assessment Pain When Pain Assessed After Treatment Pain Present Pain Present Denied Pain M4 OT- IP ADL's Start: 07/17/19 13:40 Freq: Status: Active Protocol: Document 07/18/19 10:29 PJM (Rec: 07/18/19 15:25 [facility] [id number]) OT ADL-Dressing Comments OT Dressing Comments Provided education re: use of newspaper distributor supervisor and sock aid to don and doff socks. Pt needing mod assist and max cues for unfamiliar sock aid use. M7 OT- IP Mobility and Balance Start: 07/17/19 13:40 Freq: Status: Active Protocol: Document 07/18/19 10:29 PJM (Rec: 07/18/19 15:25 [facility] [id number]) OT- Bed Mobility Assessment Supine to Sit Supine to Sit Assist Minimal Assistance,1 Person Assistance,Head of Bed Elevated Sit to Supine Sit to Supine Assist Moderate Assistance,1 Person Assistance,Head of Bed Elevated Scooting Scooting to Edge of Bed Moderate Assistance,1 Person Assistance Scooting Up and Down in Bed Maximum Assistance,2 Person Assistance OT-Transfer Assessment Sit to and From Stand Sit to and from Stand Minimal Assistance,2 Person Assistance,Use of Upper Extremities Comments Mobility Comments Worked on sit to stand x3 with min assist of 2 and then 3-4 side steps along edge of bed. Pt tends to pivot L foot rather than weight shift onto painful RLE to take an actual step OT- Gait Assessment Comments Gait Ability Comments prer gait activities today OT- Balance Assessment Sitting Balance and Reactions Static Sitting Balance Ability Good Dynamic Sitting Balance Ability Fair Standing Balance and Reactions Static Standing Balance Ability Fair M9 OT- IP Assessment and Plan Start: 07/17/19 13:40 Freq: Status: Active Protocol: Document 07/18/19 10:29 PJM (Rec: 07/18/19 15:25 PJM [id number]) OT Summary Assessment and Plan Potential Rehabilitation Potential Good Summary OT Impairments Pain,Strength,Balance, Functional Mobility,Dressing, Toileting,Bathing,Toilet Transfers,Shower Transfers Progress Towards Goals Progressing Toward Goals Assessment Summary Pt making daily progress with functional mobility with less R knee pain and much less assistance needed for sit to stand trials today. Pt still hesitant to weight shift onto painful RLE to take steps so she remains non ambulatory. Pt would benefit from further practice with lower body dressing equipt to increase independence. Pt plans to d/c to SNF for further rehab services today. Frequency of Treatment Frequency Of Treatment Discharge Discharge Recommendations OT Discharge Recommendations SNF Rehab Home Equipment Needs to be determined in next rehab setting pending progress
--- NOTE | 2019-07-18 10:47 | CM.DPC ---
DCP Cont: Faxed signed meds, PASRR and SNF order to [facility] at fax # [phone]. Fax confirmation scanned in. Karen Braxton, [facility]
--- NOTE | 2019-07-18 11:49 | PC.NURSE ---
Addendum entered by Nomi Montelongo R.N. 07/18/19 13:53: 2PA from bed to w/c. Pt able to stand, bed moved, and sat in w/c. Pt PIV were removed and tele off. All belongings gathered and sent with daughter. Pt left via w/c with [employer] route sales delivery driver. D/C packet sent with route sales delivery driver. Pt left in no acute distress. Original Note: Report called to Julianne at [facility]. Plan is for pt to d/c to SNF at 1330. Pt and daughter aware and agreeable to plan.
--- NOTE | 2019-07-18 13:18 | CM.DPC ---
DCP Cont: Faxed signed discharge summary to [facility] at fax # [phone] as requested. Fax confirmation scanned in. Karen Braxton, [facility] Front Load Trash Truck Driver
--- NOTE | 2019-07-18 13:35 | PT.IPTN ---
Current Diagnoses Pneumonia, unspecified organism (07/15/19) Physical Therapy Treatment Note M2 PT-IP Current Condition Start: 07/16/19 08:06 Freq: NEEDED Status: Discharge Protocol: Document 07/16/19 09:45 AW (Rec: 07/16/19 10:58 AW [id number]) Physical Therapy Current Condition Current Condition Evaluation Date 07/16/19 Treatment Diagnosis pneumonia, generalized weakness, R knee effusion Onset Date 07/15/2019 Precautions Other Precautions Pt with labile BP, stable at time of evaluation. Weight Bearing Status Weight Bearing Status Full Weight Bearing M3 PT-IP Subjective Start: 07/16/19 08:06 Freq: NEEDED Status: Discharge Protocol: Document 07/18/19 13:35 CLB (Rec: 07/18/19 14:02 CLB [id number]) Subjective Physical Therapy Visit Type Type Treatment Note Visit Start Time 13:35 Visit Stop Time 13:45 Total Visit Minutes 10 Notes RN assist with transfer to as second person was required for safety. Number of CAKE STRIPPER Visits 4 Physical Therapy Visit Comments Patient Comments Pt needing assist to transfer to WC. Therapy Pain Assessment Pain When Pain Assessed During Mobility Pain Present Pain Present Pain Reported Location Right Knee Intensity 5 Scale Used Numeric (1 - 10) Pain Behaviors Wincing Pain Management Techniques Modification of Treatment,Re- positioning M4 PT-IP Mobility and Gait Start: 07/16/19 08:06 Freq: NEEDED Status: Discharge Protocol: Document 07/18/19 13:35 CLB (Rec: 07/18/19 14:02 CLB [id number]) PT-Bed Mobility Assessment Supine to Sit Supine to Sit Minimal Assistance,2 Person Assistance,Head of Bed Elevated Scooting Scooting to Edge of Bed Moderate Assistance PT-Transfer Assessment Sit to and From Stand Sit to and from Stand Minimal Assistance,2 Person Assistance,Use of Upper Extremities Equipment Transfer Assistive Device Gait Belt,Front Wheeled Walker Orthotic/Prosthetic Devices or Brace: No Transfers Transfer Destination Wheelchair Transfer Ability Level of Assist Minimal Assistance,2 Person Assistance Comments Mobility Comments Pt required Min A for bed mobility, Mod A for scooting to EOB and Min A x2 for sit<> stand. Pt stood with assist and stood as bed was moved and WC was placed directly behind her. Pt stood ~30 seconds as brief was pulled up and WC moved behind her. Pt was then provided Min A to sit with cues for reaching back and using UE's to control descent. Pt was left in WC with RN and daughter present. Gait Assessment Comments Gait Comments Pt unable. Stair Climbing Assessment Comments Stair Climbing Comments Not assessed. No stairs at home. M5 PT-IP Objective Assessments Start: 07/16/19 08:06 Freq: NEEDED Status: Discharge Protocol: Document 07/16/19 09:45 AW (Rec: 07/16/19 10:58 AW [id number]) Orientation Orientation/Cognition Level of Alertness Alert Orientation Name,Month,Place,Situation Language Function Ability No Deficits Noted Safety Awareness Understands Safety Issues Memory Description No Deficits Noted Gross Range of Motion Upper Extremity ROM Assessment Bilaterally Impaired Impairments Shoulder flexion limited to ~ 120 degrees Lower Extremity ROM Assessment Bilaterally Impaired Impairments Pt unable to fully extend right knee secondary to pain Strength Upper Extremity Strength Assessment Bilaterally Impaired Shoulder 4-/5 Elbow 4-/5 Hand 4-/5 Lower Extremity Strength Assessment Bilaterally Impaired Hip 3-/5 Knee L 4/5; R 3/-5 Ankle B 4-/5 Coordination Assessment Gross Coordination Gross Coordination WNL Sensation Assessment Sensation Gross Sensation WNL Muscle Tone Muscle Tone WNL Yes M6 PT-IP Treatment Start: 07/16/19 08:06 Freq: NEEDED Status: Discharge Protocol: Document 07/18/19 10:02 CLB (Rec: 07/18/19 13:07 CLB [id number]) Physical Therapy Treatment Exercises Exercises Gluteal Sets,Quad Sets,Seated Knee Flexion/Extension Education Education Provided Precautions,Weight Bearing Status,Safety Other Treatments Other Treatment Performed seated marches. M7 PT-IP Assessment and Plan Start: 07/16/19 08:06 Freq: NEEDED Status: Discharge Protocol: Document 07/18/19 13:35 CLB (Rec: 07/18/19 14:02 CLB [id number]) PT Summary Assessment and Plan Summary Impairments Pain,ROM,Strength,Balance,Bed Mobility,Transfers,Gait, Activity Tolerance Assessment Summary Pt required Min A x2 for transfer to . Pt fearful of falling but was able to stand for ~30 seconds with Min A x2 as bed was moved and WC placed directly behind her as pt is unable to perform stand pivot transfer. Pt requires nusrat lift transfer by nursing staff at this time. Goals Bed Mobility Goal Contact Guard Assistance Transfer Goal Minimal Assistance,Front Wheeled Walker Gait Goal Minimal Assistance,Front Wheel Walker Gait Distance 100 Days to Meet Goals 10 Frequency of Treatment Frequency Of Treatment Twice a Day Treatment Plan Physical Therapy Treatment Plan Bed Mobility Training,Transfer Training,Gait Training, Therapeutic Exercise,Balance Retraining,Discharge Planning, Hot or Cold Pack,Neuromuscular Re-ed,Manual Therapy Recommendations To Nursing Amount of Assist Needed Mechanical Lift Discharge Recommendations PT Discharge Recommendations SNF Rehab
[2019-07-19 17:02] LABS: Strep pneumoniae Ag, Urine NOT DETECTED
== END 2019-07-18 13:45 | DRG 194 ==
LOC: ED 20:32 → ICU 07-16 08:11
PROVIDERS: Emergency Medicine; Internal Medicine; Admitting Provider Nurse Practitioner Adult Health; Emergency Provider Emergency Medicine; PCP Internal Medicine; Visit Provider Nurse Practitioner Adult Health
DX: J18.9 Pneumonia, unspecified organism (principal); I48.20 Chronic atrial fibrillation, unspecified; I13.0 Hypertensive heart and chronic kidney disease with heart failure and stage 1 through stage 4 chronic kidney disease, or unspecified chronic kidney disease; N18.4 Chronic kidney disease, stage 4 (severe); Z68.41 Body mass index [BMI] 40.0-44.9, adult; I50.32 Chronic diastolic (congestive) heart failure; F32.9 Major depressive disorder, single episode, unspecified; E66.01 Morbid (severe) obesity due to excess calories; M25.461 Effusion, right knee; E03.9 Hypothyroidism, unspecified; W18.2XXA Fall in (into) shower or empty bathtub, initial encounter; Y92.002 Bathroom of unspecified non-institutional (private) residence as the place of occurrence of the external cause; Z87.891 Personal history of nicotine dependence
CPT/HCPCS: 36415; 70450; 71045; 72170; 73560; 80048; 81001; 82550; 83735; 84145; 84443; 84484; 85025; 87449; 87633; 87797; 93005; 93010; 94640; 94760; 94762; 96360; 97110; 97162; 97165; 97530; 97535; 99285; J0696; J3480; J7613

== ENCOUNTER 2019-08-17 22:30 | Emergency (ER) | payer MEDICARE, SELFPAY ==
[2019-07-15 21:43] VITALS: BMI 41.0
[2019-08-17 22:30] VITALS: BP 153/66; PULSE 91; RESP 20; O2SAT 95
[2019-08-17 22:34] VITALS: BP 144/63; PULSE 84; RESP 20; TEMP 37.4; O2SAT 94; BMI 41.2
--- NOTE | 2019-08-17 22:46 | ED.EXTPRO ---
HPI - Extremity Problem General Chief complaint: Extremity Problem,Nontraumatic Stated complaint: Right leg pain Time Seen by Provider: 08/17/19 22:33 Source: patient and EMS Mode of arrival: EMS Limitations: no limitations History of Present Illness HPI Narrative: 84-year-old female. Is a DNR. Was brought in by EMS for concerns of right leg pain. Apparently this has been going on for the past 24 hours. She states started in her right foot and then moves up to her right knee. Is not constant. It moves back and forth between her foot in her knee. She does have lower extremity swelling but this is not new. She is here with family. They were concerned about a blood clot. Related Data Home Medications Medication Instructions Recorded Confirmed Fish Oil Pearls 1 cap PO DAILY 09/10/18 07/16/19 Bradford 3-6-9 1 tab PO DAILY 09/10/18 07/16/19 acyclovir 400 mg PO BID 09/10/18 07/15/19 ascorbic acid (vitamin C) [Vitamin 250 mg PO DAILY 09/10/18 07/16/19 C] calcium citrate-vitamin D3 1 tab PO DAILY 09/10/18 07/16/19 [Calcitrate-Vitamin D] cetirizine 10 mg PO DAILY 09/10/18 07/15/19 melatonin 3 mg PO BEDTIME PRN 09/10/18 07/15/19 multivitamin 1 tab PO DAILY 09/10/18 07/15/19 omeprazole magnesium [Acid Stretcher Operator 20 mg PO BID 09/10/18 07/16/19 (omeprazole)] hydralazine 50 mg PO TID 03/06/19 07/15/19 albuterol sulfate [Ventolin HFA] 2 puff INHALATION Q4-6H PRN 07/15/19 07/15/19 furosemide 10 mg PO Q OTHER DAY 07/15/19 07/15/19 levothyroxine 25 mcg PO DAILY 07/15/19 07/15/19 nitroglycerin [Nitrostat] 0.4 mg SUBLINGUAL PRN PRN 07/15/19 07/15/19 potassium chloride 10 meq PO DAILY 07/15/19 07/15/19 prednisolone acetate 1 drp EYE-RIGHT DAILY 07/15/19 07/15/19 spironolactone 25 mg PO DAILY 07/15/19 07/15/19 Previous Rx's Medication Instructions Recorded Eliquis 2.5 mg PO BID #0 tab 07/18/19 atorvastatin [Lipitor] 40 mg PO BEDTIME #30 tab 07/18/19 docusate sodium [DOK] 100 mg PO BID #60 cap 07/18/19 fluoxetine [Prozac] 10 mg PO DAILY #30 cap 07/18/19 polyethylene glycol 3350 17 gm PO DAILY PRN #30 ea 07/18/19 Allergies Allergy/AdvReac Type Severity Reaction Status Date / Time honey Allergy ITCHING Verified 07/17/19 16:52 morphine AdvReac Hallucinati Verified 09/16/18 13:23 ng Review of Systems Constitutional Constitutional: Denies fever(s) Cardiovascular Cardiovascular: Denies chest pain and Denies dyspnea Respiratory Respiratory: Denies dyspnea Musculoskeletal Comments: Right lower extremity pain Integumentary/Breasts Skin/Breast: Denies lesions and Denies rash Neurologic Neurologic: Denies behavioral changes Psychiatric Psychiatric: Denies behavioral changes Hematologic/Lymphatic Comments: On Eliquis Patient History Medical History Chronic kidney disease (Chronic) Congestive heart failure (Acute) Coronary artery disease (Acute) Fatty liver (Acute) GI bleed (Acute) Hypertension (Chronic) Hypothyroid (Chronic) Social History household members: family and children Smoking Status: Former smoker alcohol intake: never substance use type: does not use Smoking Status: Former smoker alcohol intake frequency: holidays/special occasions only Substance Use Type: does not use Exam Initial Vital Signs Initial Vital Signs: Vital Signs Pulse Rate 91 H 08/17/19 22:30 Respiratory Rate 20 08/17/19 22:30 Blood Pressure 153/66 H 08/17/19 22:30 Pulse Oximetry 95 08/17/19 22:30 Const General: cooperative and comfortable Limitations: mental status not altered Resp Effort & Inspection: normal respiratory effort Cardio Pulses: dorsalis pedis present bilaterally Skin Lesions: no lesions Rashes: no rashes Neuro Sensory Exam: no sensory deficits noted Extrem General: capillary refill normal and edema Other: Patient able to flex and extend at the right ankle without any problems. Does have some tenderness to her lower extremity with doing a straight leg raise however passively has no tenderness with flexion-extension of the knee. Psych Appearance: grossly normal and well kempt Course Orders Ordered: ED Orders 08/17/19 22:55 Basic Metabolic Panel Stat Discontinued Medications Tramadol HCl (Ultram 50mg Prepack) 1 bottle MISC SEEINSTR ONE Stop: 08/18/19 00:02 Last Admin: 08/18/19 00:25 Dose: 1 bottle Documented by: GLEN Vital Signs Vital signs: Vital Signs - 8 hr 08/17/19 22:30 08/17/19 22:34 08/17/19 23:30 Temperature 99.3 F Pulse Rate 91 H 84 81 Respiratory Rate 20 20 18 Blood Pressure 144/63 H Blood Pressure [Left Arm] 153/66 H 143/67 H Pulse Oximetry 95 94 93 08/18/19 00:34 Temperature Pulse Rate 84 Respiratory Rate 18 Blood Pressure 140/65 Blood Pressure [Left Arm] Pulse Oximetry 95 MDM - Extremity (Nontraumatic) Lab Data Attestation: I reviewed the patient's lab results. Result diagrams: 08/17/19 22:55 Labs: Lab Results 08/17/19 Range/Units 22:55 Sodium 136 L (137-145) mmol/L Potassium 4.7 (3.4-5.1) mmol/L Chloride 102 (98-107) mmol/L Carbon Dioxide 32 (22-32) mmol/L BUN 22 H (7-17) mg/dL Creatinine 1.00 (0.52-1.04) mg/dL Estimated GFR 53.0 L (>60) mL/min BUN/Creatinine Ratio 22.0 (6-22) Glucose 98 (80-110) mg/dL Calcium 9.2 (8.4-10.2) mg/dL [facility] Narrative Medical decision making narrative: Patient is neurovascularly intact. Given the fact she is on Eliquis and her history and physical exam I have a very low suspicion that she has a DVT. Her skin is unremarkable. Low suspicion for cellulitis. She does have edema but this is not new. No trauma. Low suspicion for fracture. I feel we can hold on radiologic studies. We did check her electrolytes given the fact that she is on Lasix. These were unremarkable. I discussed all this with the patient and family is at bedside. Unsure the exact etiology however this could be musculoskeletal versus tenderness secondary to the swelling. If further we can hold on further workup for now here in the ER. She will talk with her primary provider. Will provide a very short course of some stronger pain medication than the Tylenol and ibuprofen that she has been having. Patient was given return precautions and follow-up instructions. She expressed understanding and agreement. Discharge Plan Departure Patient Disposition: Home Clinical Impression: Dependent edema, Pain in right leg Discharge Date/Time: 08/18/19 01:03 Instructions: DI for Dependent Edema Activity Restrictions/Additional Instructions: Continue all of your medications as needed. You can take the Ultram/tramadol that you were given this evening as needed for discomfort. I recommend you contact your primary provider for a follow-up. Prescriptions: No Action acyclovir 400 mg tablet 400 mg PO BID RF: 0 omeprazole magnesium [Acid Stretcher Operator (omeprazole)] 20 mg Capsule,Delayed Release(Dr/Ec) 20 mg PO BID RF: 0 calcium citrate-vitamin D3 [Calcitrate-Vitamin D] 315-250 mg-unit Tablet 1 tab PO DAILY RF: 0 multivitamin Tablet 1 tab PO DAILY RF: 0 melatonin 3 mg Tablet 3 mg PO BEDTIME PRN (Reason: Insomnia) RF: 0 ascorbic acid (vitamin C) [Vitamin C] 250 mg Tablet 250 mg PO DAILY RF: 0 cetirizine 10 mg Capsule 10 mg PO DAILY RF: 0 Fish Oil Pearls 150-400 mg Capsule 1 cap PO DAILY RF: 0 Bradford 3-6-9 1,200 mg Capsule 1 tab PO DAILY RF: 0 hydralazine 50 mg tablet 50 mg PO TID RF: 0 levothyroxine 25 mcg Tablet 25 mcg PO DAILY RF: 0 furosemide 20 mg Tablet 10 mg PO Q OTHER DAY RF: 0 spironolactone 25 mg Tablet 25 mg PO DAILY RF: 0 prednisolone acetate drops 1 drp EYE-RIGHT DAILY RF: 0 potassium chloride 10 mEq Tablet Extended Release 10 meq PO DAILY RF: 0 nitroglycerin [Nitrostat] 0.4 mg Tablet, Sublingual 0.4 mg sublingual PRN PRN (Reason: Chest Pain) RF: 0 albuterol sulfate [Ventolin HFA] 90 mcg/actuation Hfa Aerosol Inhaler 2 puff INHALATION Q4-6H PRN (Reason: Shortness Of Breath Or Wheezing) RF: 0 atorvastatin [Lipitor] 20 mg Tablet 40 mg PO BEDTIME Qty: 30 RF: 0 polyethylene glycol 3350 17 gram Powder In Packet 17 gm PO DAILY PRN (Reason: Constipation) Qty: 30 RF: 0 fluoxetine [Prozac] 10 mg Capsule 10 mg PO DAILY Qty: 30 RF: 0 docusate sodium [DOK] 100 mg Capsule 100 mg PO BID Qty: 60 RF: 0 Eliquis 5 mg tablet 2.5 mg PO BID Qty: 0 RF: 0 Referrals: Amanda Mann MD [Primary Care Provider] -
[2019-08-17 23:14] LABS: Blood Urea Nitrogen 22 mg/dL (7-17); Calcium 9.2 mg/dL (8.4-10.2); Carbon Dioxide 32 mmol/L (22-32); Chloride 102 mmol/L (98-107); Glucose 98 mg/dL (80-110); HEMOLYSIS < 15 (0-50); Potassium 4.7 mmol/L (3.4-5.1); Sodium 136 mmol/L (137-145)
[2019-08-17 23:30] VITALS: BP 143/67; PULSE 81; RESP 18; O2SAT 93
[2019-08-18] MEDS: TRAMADOL 50 MG PREPACK 1 BOTTLE MISC (00:25)
[2019-08-18 00:34] VITALS: BP 140/65; PULSE 84; RESP 18; O2SAT 95
--- NOTE | 2019-08-18 00:35 | PC.NURSE ---
She is going back to [facility] via ambulance.Her daughter is with her.she is pleasant,alert, and very thankfull.
== END 2019-08-18 01:03 | disposition home or self-care (01) ==
PROVIDERS: Emergency Provider Emergency Medicine; PCP Internal Medicine
DX: R60.9 Edema, unspecified (principal); M79.604 Pain in right leg
CPT/HCPCS: 36415; 80048; 99281; 99283

== ENCOUNTER → 2019-08-21 12:08 | Outpatient (CLI) | payer MEDICARE, SELFPAY ==
[2019-07-15 21:43] VITALS: BMI 41.0
--- NOTE | 2019-08-21 12:15 | DI.US.S_ITS ---
PROCEDURE: US PERIPH VENOUS UP EXTREM RT INDICATIONS: ACUTE EMBOLI TECHNIQUE: Real-time imaging, as well as color and pulse Doppler interrogation, was performed of the right upper extremity deep veins from the inferior neck to the antecubital fossa. COMPARISON: None. FINDINGS: The internal jugular vein, visualized portions of the subclavian vein, axillary, and brachial veins are free of intraluminal thrombus. Where physically possible, the veins are normally compressible. Color and pulse Doppler demonstrate normal intraluminal flow, with expected phasicity and pulsatility. Additional scanning of the cephalic and basilic veins of the superficial system demonstrate normal compressibility, without thrombus. IMPRESSION: No deep venous thrombosis. It is noted some areas have limited visualization for evaluation. Dictated by: Jacque Miranda M.D. on 08/21/2019 at 13:26 Approved by: Jacque Miranda M.D. on 08/21/2019 at 13:28
== END ==
PROVIDERS: PCP Internal Medicine; Referring Provider Internal Medicine; Visit Provider Internal Medicine
DX: I82.621 Acute embolism and thrombosis of deep veins of right upper extremity (principal)
CPT/HCPCS: 93971

== ENCOUNTER 2019-08-23 05:30 | Inpatient (IN) | payer MEDICARE, SELFPAY ==
[2019-07-15 21:43] VITALS: BMI 41.0
[2019-08-23] VITALS (7 sets, daily range): BP systolic 95–139; BP diastolic 53–83; PULSE 82–95; RESP 16–22; TEMP 36.2–36.7; O2SAT 92–98; BMI 49.1
--- NOTE | 2019-08-23 05:31 | DI.CT.S_ITS ---
PROCEDURE: CT STROKE INDICATIONS: code stroke TECHNIQUE: Noncontrast 4.5 mm thick angled axial sections acquired from the foramen magnum to the vertex, with coronal reformats. For radiation dose reduction, the following was used: automated exposure control, adjustment of mA and/or kV according to patient size. COMPARISON: [facility], CT, CT HEAD/BRAIN WO CON, 07/15/2019, 15:22. FINDINGS: Image quality: Excellent. CSF spaces: Basal cisterns are patent. No extra-axial fluid collections. The ventricles are symmetric in size and shape. Brain: No intracranial bleeds or masses. 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 There is cerebral volume loss for age, with resultant ventricular and sulcal prominence. There are periventricular and deep white matter chronic small vessel ischemic changes. There is intracranial internal carotid artery atherosclerosis. Skull and face: Calvarium and visualized facial bones appear intact, without suspicious lesions. Sinuses: The left maxillary sinus is completely opacified. Mastoids are clear. IMPRESSION: 1. No acute intracranial abnormalities. 2. Cerebral volume loss and chronic microvascular ischemic changes. 3. Complete patient left maxillary sinus opacification. No significant discrepancy with the night manager radiology preliminary report. This study fulfills neurological imaging criteria for inclusion or exclusion of acute stroke therapies based on available published neurological guidelines. Dictated by: Devan Lewis M.D. on 08/23/2019 at 7:17 Approved by: Devan Lewis M.D. on 08/23/2019 at 7:20
--- NOTE | 2019-08-23 05:51 | ED.NEUROSD ---
HPI - Neuro Symptoms/Deficit General Chief Complaint: Neuro Symptoms/Deficit Stated Complaint: stroke Time Seen by Provider: 08/23/19 05:31 Source: patient and EMS Mode of arrival: EMS Limitations: no limitations History of Present Illness HPI Narrative: Patient is an 84-year-old female. History of atrial fibrillation. On Eliquis. Last known normal at 0200 hours. Arrived to the emergency department as a code stroke. Approximately 515 in the morning during the rounds at the nursing facility where patient was staying it was noted that the patient was slurring her words and also had left-sided weakness. EMS was called. Patient states that she is in no pain. She states that ?something is wrong ?she does describe problems moving her left side. She denies any headache. No change in vision. No chest pain. No shortness of breath. Related Data Home Medications Medication Instructions Recorded Confirmed Fish Oil Pearls 1 cap PO DAILY 09/10/18 07/16/19 [place] 3-6-9 1 tab PO DAILY 09/10/18 07/16/19 acyclovir 400 mg PO BID 09/10/18 07/15/19 ascorbic acid (vitamin C) [Vitamin 250 mg PO DAILY 09/10/18 07/16/19 C] calcium citrate-vitamin D3 1 tab PO DAILY 09/10/18 07/16/19 [Calcitrate-Vitamin D] cetirizine 10 mg PO DAILY 09/10/18 07/15/19 melatonin 3 mg PO BEDTIME PRN 09/10/18 07/15/19 multivitamin 1 tab PO DAILY 09/10/18 07/15/19 omeprazole magnesium [Acid [employer] 20 mg PO BID 09/10/18 07/16/19 (omeprazole)] hydralazine 50 mg PO TID 03/06/19 07/15/19 albuterol sulfate [Ventolin HFA] 2 puff INHALATION Q4-6H PRN 07/15/19 07/15/19 furosemide 10 mg PO Q OTHER DAY 07/15/19 07/15/19 levothyroxine 25 mcg PO DAILY 07/15/19 07/15/19 nitroglycerin [Nitrostat] 0.4 mg SUBLINGUAL PRN PRN 07/15/19 07/15/19 potassium chloride 10 meq PO DAILY 07/15/19 07/15/19 prednisolone acetate 1 drp EYE-RIGHT DAILY 07/15/19 07/15/19 spironolactone 25 mg PO DAILY 07/15/19 07/15/19 Previous Rx's Medication Instructions Recorded Eliquis 2.5 mg PO BID #0 tab 07/18/19 atorvastatin [Lipitor] 40 mg PO BEDTIME #30 tab 07/18/19 docusate sodium [DOK] 100 mg PO BID #60 cap 07/18/19 fluoxetine [Prozac] 10 mg PO DAILY #30 cap 07/18/19 polyethylene glycol 3350 17 gm PO DAILY PRN #30 ea 07/18/19 Allergies Allergy/AdvReac Type Severity Reaction Status Date / Time honey Allergy ITCHING Verified 07/17/19 16:52 morphine AdvReac Hallucinati Verified 09/16/18 13:23 ng Review of Systems Constitutional Constitutional: Denies fever(s), Denies headache(s) and Reports weakness Eyes Eyes: Denies change in vision ENT Ears, Nose, Mouth, and Throat: Denies vertigo and Denies headache(s) Cardiovascular Cardiovascular: Denies chest pain and Denies dyspnea Respiratory Respiratory: Denies dyspnea Gastrointestinal Gastrointestinal: Denies abdominal pain, Denies nausea and Denies vomiting Genitourinary Genitourinary: Denies dysuria Musculoskeletal Musculoskeletal: Denies myalgias, Denies arthralgias and Denies tingling Integumentary/Breasts Skin/Breast: Denies lesions and Denies rash Neurologic Neurologic: Reports abnormal speech, Reports behavioral changes, Denies confusion, Denies vertigo, Denies headache(s), Reports focal weakness, Denies sensory deficit, Denies tingling, Denies paresthesias and Reports weakness Psychiatric Psychiatric: Reports behavioral changes and Denies confusion Hematologic/Lymphatic Comments: On Eliquis Allergic/Immunologic Allergic/Immunologic: Denies urticaria Patient History Social History household members: family and children Smoking Status: Former smoker alcohol intake: never substance use type: does not use Smoking Status: Former smoker alcohol intake frequency: holidays/special occasions only Substance Use Type: does not use Exam Initial Vital Signs Initial Vital Signs: Vital Signs Temperature 97.8 F 08/23/19 05:40 Pulse Rate 95 H 08/23/19 05:40 Respiratory Rate 16 08/23/19 05:40 Blood Pressure 139/83 08/23/19 05:40 Pulse Oximetry 96 08/23/19 05:40 Const General: cooperative, comfortable and well developed Limitations: mental status not altered HENMT Head: normal to inspection and normocephalic Eyes Pupils: PERRL Resp Effort & Inspection: normal respiratory effort Auscultation: clear to auscultation bilaterally Cardio Rate: regular rate Rhythm: regular rhythm Pulses: radial pulses present GI Inspection: non-distended Palpation: soft Skin Lesions: no lesions Rashes: no rashes Neuro General: alert, awake and oriented x3 Cognition: normal cognition Other: Please see NIH scale Extrem General: normal to inspection and capillary refill normal Psych Appearance: grossly normal and well kempt Scores GCS Shelby coma scale eye opening: Spontaneous Shelby coma scale verbal response: Orientated Shelby coma scale motor response: Obey commands R[place]hawn coma scale total score: 15 NIH Stroke Scale Level of Conciousness: Alert, keenly responsive Ask month/age: Answers both questions correctly. Open/close eyes, close hand: Performs both tasks correctly Best gaze horizontal: Partial gaze palsy, can be overcome by finger tracking, head turning Visual granados: No visual loss Facial palsy: Minor paralysis, flattened nasolabial fold, asymmetry on smiling Left arm drift: Some effort against gravity, cannot maintain, drifts down to bed Right arm drift: No drift for full 10 sec Left leg drift: No effort against gravity Right leg drift: Drifts down, not to bed Limb ataxia: Present in two limbs Sensory on face/arms/legs: Normal, no sensory loss Best language: Severe aphasia, not much is understood, fragmented Dysarthria: Mild to mod,some slurring Extinction or inattention: No abnormality Total NIH Stroke scale score: 13 Course Orders Ordered: ED Orders 08/23/19 05:31 CT Stroke Stat 08/23/19 05:32 EKG-12 Lead Stat 08/23/19 06:00 Ammonia (NH3) Stat Complete Blood Count AUTO DIFF Stat Comprehensive Metabolic Panel Stat Lipase Stat Partial Thromboplastin Time Stat Prolactin Stat Prothrombin Time INR Stat 08/23/19 06:27 MR stroke Stat Discontinued Medications Lorazepam (Ativan) 0.5 mg IV NOW ONE Stop: 08/23/19 06:20 Last Admin: 08/23/19 06:30 Dose: 0.5 mg Documented by: HGUBERN Vital Signs Vital signs: Vital Signs - 8 hr 08/23/19 05:40 08/23/19 06:08 Temperature 97.8 F Pulse Rate 95 H 92 H Respiratory Rate 16 16 Blood Pressure 139/83 Blood Pressure [Right Wrist] 114/81 Pulse Oximetry 96 95 MDM - Neuro Symptoms/Deficit Lab Data Attestation: I reviewed the patient's lab results. Result diagrams: 08/23/19 06:00 08/23/19 06:00 Labs: Lab Results 08/23/19 08/23/19 08/23/19 Range/Units 06:00 06:00 06:00 WBC 19.5 H (4.5-11.0) X10^3/uL RBC 3.52 L (4.0-5.2) X10^6/uL Hgb 10.9 L (12.0-16.0) g/dL Hct 33.3 L (36-46) % MCV 94.4 (80-100) fL MCH 30.9 (26-34) PG MCHC 32.7 (30-36) % RDW 18.4 H (11.6-14.8) % Plt Count 89 L (150-400) X10^3/uL Neut % (Auto) Not Reportable Lymph % (Auto) Not Reportable [place] % (Auto) Not Reportable Eos % (Auto) Not Reportable Baso % (Auto) Not Reportable Lymph # (Auto) Not Reportable [place] # (Auto) Not Reportable Baso # (Auto) Not Reportable Total Counted 100 Seg Neutrophils % 87.0 H (38-70) % Band Neutrophils % 1.0 L (3-7) % Lymphocytes % (Manual) 6.0 L (25-45) % Monocytes % (Manual) 6.0 (2-11) % Neutrophils # (Manual) 52110 H (5379-3921) /uL RBC Morphology See below Anisocytosis 1+ H Target Cells 1+ H PT 15.6 H (10.1-12.7) SECONDS INR 1.4 H (0.9-1.3) APTT 34 D (26.4-36.2) SECONDS Sodium 138 (137-145) mmol/L Potassium 4.3 (3.4-5.1) mmol/L Chloride 100 (98-107) mmol/L Carbon Dioxide 31 (22-32) mmol/L BUN 25 H (7-17) mg/dL Creatinine 1.00 (0.52-1.04) mg/dL Estimated GFR 53.0 L (>60) mL/min BUN/Creatinine Ratio 25.0 H (6-22) Glucose 93 (80-110) mg/dL Calcium 9.1 (8.4-10.2) mg/dL Total Bilirubin 0.7 (0.2-1.3) mg/dL AST 42 H (14-36) IU/L ALT 16 (<35) IU/L Alkaline Phosphatase 199 H (38-126) U/L Ammonia (9-30) umol/L Total Protein 6.6 (6.3-8.2) g/dL Albumin 2.6 L (3.5-5.0) g/dL Globulin 4.0 (1.7-4.1) g/dL Albumin/Globulin Ratio 0.7 L (1.0-2.8) Lipase 114 (23-300) U/L Prolactin (3.0-18.6) ng/mL 08/23/19 08/23/19 Range/Units 06:00 06:00 WBC (4.5-11.0) X10^3/uL RBC (4.0-5.2) X10^6/uL Hgb (12.0-16.0) g/dL Hct (36-46) % MCV (80-100) fL MCH (26-34) PG MCHC (30-36) % RDW (11.6-14.8) % Plt Count (150-400) X10^3/uL Neut % (Auto) Lymph % (Auto) [place] % (Auto) Eos % (Auto) Baso % (Auto) Lymph # (Auto) [place] # (Auto) Baso # (Auto) Total Counted Seg Neutrophils % (38-70) % Band Neutrophils % (3-7) % Lymphocytes % (Manual) (25-45) % Monocytes % (Manual) (2-11) % Neutrophils # (Manual) (3942-1498) /uL RBC Morphology Anisocytosis Target Cells PT (10.1-12.7) SECONDS INR (0.9-1.3) APTT (26.4-36.2) SECONDS Sodium (137-145) mmol/L Potassium (3.4-5.1) mmol/L Chloride (98-107) mmol/L Carbon Dioxide (22-32) mmol/L BUN (7-17) mg/dL Creatinine (0.52-1.04) mg/dL Estimated GFR (>60) mL/min BUN/Creatinine Ratio (6-22) Glucose (80-110) mg/dL Calcium (8.4-10.2) mg/dL Total Bilirubin (0.2-1.3) mg/dL AST (14-36) IU/L ALT (<35) IU/L Alkaline Phosphatase (38-126) U/L Ammonia 26 (9-30) umol/L Total Protein (6.3-8.2) g/dL Albumin (3.5-5.0) g/dL Globulin (1.7-4.1) g/dL Albumin/Globulin Ratio (1.0-2.8) Lipase (23-300) U/L Prolactin 13.9 (3.0-18.6) ng/mL Point of Care Testing Glucose POC [address] scan - head: Radiologist's Impression: No acute intracranial pathology 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 Does have an NIH scale of 13. Her head CT shows no signs of acute pathology. Blood glucose unremarkable. Patient is not a candidate for tPA given the fact that she is a DNR/DNI with limited interventions and the fact she is on Eliquis. I did discuss the case with Dr. Dsouza who is on-call for Stroke Neurology. She stated given the patient's DNR status, the fact that she is on Eliquis she agrees with no tPA. We did discuss the possibility of his CTA to evaluate for potential retrieval however given the patient's baseline status prior to this event had a care facility Dr. Dsouza stated that she would not be a candidate for retrieval. The 1 concern of physical finding was that she did have gaze deviation to the left. This did not fit the rest of her neurologic symptoms. There was some concern about a seizure however upon re-evaluation patient had no nystagmus, no eye twitching. She did have some movement of her left lower extremity however the patient could overcome this. I do feel like seizures less likely given her physical exam. Stroke Neurology did recommend an MRI. Patient does have a aortic valve replacement. We were able to clarify with gopogo that her valve was ?conditional ?those conditions were given to the MRI techs who stated that they could follow those and the patient could get an MRI. I did discuss the case with SHARYN Garza who will admit the patient. Discussed the diagnosis and the need for admission with the patient and daughter at bedside. They both expressed understanding and agreement. Discharge Plan Departure Patient Disposition: Admitted As Inpatient Clinical Impression: Cerebrovascular accident Discharge Date/Time: 08/23/19 07:37 Admit Date/Time: 08/23/19 06:56 Admit Provider: Cesar Garza
[2019-08-23 06:12] LABS: Hemoglobin 10.9 g/dL (12.0-16.0); Mean Corpuscular Hemoglobin 30.9 PG (26-34); Red Blood Cell Count 3.52 X10^6/uL (4.0-5.2)
[2019-08-23 06:16] LABS: Hematocrit 33.3 % (36-46); INR 1.4 (0.9-1.3); Mean Corpuscular HGB Conc 32.7 % (30-36); Mean Corpuscular Volume 94.4 fL (80-100); Prothrombin Time 15.6 SECONDS (10.1-12.7); Red Cell Distribution Width 18.4 % (11.6-14.8); White Blood Cell Count 19.5 X10^3/uL (4.5-11.0)
[2019-08-23 06:18] LABS: Add Manual Diff / Slide Review YES; Platelet Count 89 X10^3/uL (150-400)
[2019-08-23 06:19] LABS: Ammonia (NH3) 26 umol/L (9-30); PTT Partial Thromboplastin Tim 34 SECONDS (26.4-36.2)
[2019-08-23 06:20] LABS: Alanine Aminotransferase 16 IU/L (<35); Albumin 2.6 g/dL (3.5-5.0); Albumin Globulin Ratio 0.7 (1.0-2.8); Alkaline Phosphatase 199 U/L (38-126); Aspartate Aminotransferase 42 IU/L (14-36); Bilirubin Total 0.7 mg/dL (0.2-1.3); Blood Urea Nitrogen 25 mg/dL (7-17); Calcium 9.1 mg/dL (8.4-10.2); Carbon Dioxide 31 mmol/L (22-32); Chloride 100 mmol/L (98-107); Glucose 93 mg/dL (80-110); HEMOLYSIS < 15 (0-50); Lipase 114 U/L (23-300); Potassium 4.3 mmol/L (3.4-5.1); Sodium 138 mmol/L (137-145); Total Protein 6.6 g/dL (6.3-8.2)
--- NOTE | 2019-08-23 06:27 | DI.MRI.S_ITS ---
PROCEDURE: MR STROKE Pre- and post-contrast brain MRI, non-contrast brain MR angiogram, pre- and postcontrast neck MR angiogram INDICATIONS: stroke TECHNIQUE: Brain: Noncontrast axial T1 spin echo, axial T2 fast spin echo, sagittal and axial FLAIR, coronal T2 fast spin echo, axial gradient echo, axial diffusion and ADC through the brain. After the administration of contrast, axial 3D VIBE of the cranial vasculature and brain. Brain MRA: Non-contrast 3-D time of flight MR angiogram, with multiple fvbeppy-jeopjfdfz-novmpbyakh (MIP) reformats performed. Neck MRA: Axial and sagittal TruFISP through the neck. Coronal dynamic MR angiogram during administration of contrast in the arterial and venous phases, with 3-dimenstional eywfsav-dinzznkvk-oiyoissbor (MIP) reformats constructed from subtraction images. COMPARISON: [facility], CT, CT STROKE, 08/23/2019, 5:24. FINDINGS: Image quality: Excellent. BRAIN: CSF spaces: Ventricles are normal in size and shape. Basal cisterns are patent. No extra-axial fluid collections. Brain: No intracranial bleeds or mass effects. Garcia-white matter interface is normal. Diffusion weighted images show a small area of acute infarct in the right frontal deep white matter measuring 7 mm, possibly minimally extending to the cortex. Brainstem appears normal. Normal intravascular flow voids are present. No abnormal intracranial enhancement. Age related volume loss and moderate small vessel ischemic change. Some gliosis in the left temporal tip region may be related to remote trauma. Skull and face: Calvarial marrow signal is normal. Orbits appear normal. Sinuses: There is complete opacification of the left maxillary sinus. BRAIN MR ANGIOGRAM: Anterior circulation: Intracranial internal carotid arteries are normal in size and enhancement. The flow within the paired anterior cerebral arteries is normal and symmetric. The flow within the middle cerebral arteries is normal and symmetric. The anterior communicating artery is seen. No stenoses, occlusions, or aneurysms. Posterior circulation: The visualized portions of the vertebral arteries demonstrate normal caliber, and join to form a normal appearing basilar artery. The flow within the posterior cerebral arteries is normal and symmetric. origin of the right posterior cerebral artery or of the anterior circulation, a normal anatomic variant. No stenoses, occlusions, or aneurysms. NECK MR ANGIOGRAM: Carotids: Great vessels demonstrate a conventional anatomy as they arise from the aortic arch. The origins of the common carotid arteries appear patent. The calibers and courses of both common carotid arteries are normal. The bifurcation regions demonstrate mild nonflow limiting stenoses bilaterally. The internal carotid arteries demonstrate normal course and caliber. Posterior circulation: The origins of the vertebral arteries appear patent. More superior portions of both vertebral arteries demonstrate normal course and caliber, and join to form a normal appearing basilar artery. Miscellaneous: Subclavian arteries appear patent. Pre-contrast images through the neck show no soft tissue abnormalities. IMPRESSION: BRAIN MRI: 1. Age related volume loss and moderate small vessel ischemic change. 2. Tiny, 7 mm area of acute infarct in the right frontal deep white matter possibly extending minimally to the cortex. 3. Question signal abnormality in the left temporal tip related to remote trauma. 4. Complete opacification of left maxillary sinus. BRAIN MR ANGIOGRAM: No stenosis, occlusion, or aneurysm. NECK MR ANGIOGRAM: Mild nonflow limiting bilateral internal carotid artery origin stenoses. Dictated by: Markell Newman M.D. on 08/23/2019 at 8:45 Approved by: Markell Newman M.D. on 08/23/2019 at 8:54
[2019-08-23] MEDS: LORazepam 2 MG/ML INJ 0.5 MG IV (06:30)
[2019-08-23 06:36] LABS: Neutrophils Absolute Manual 17160 /uL (3000-5900); Total Cells Counted 100
[2019-08-23 06:37] LABS: Anisocytosis 1+; Target Cells 1+
[2019-08-23 07:04] LABS: Prolactin 13.9 ng/mL (3.0-18.6)
--- NOTE | 2019-08-23 09:30 | PM.HP.1 ---
History of Present Illness History of Present Illness Date Patient Seen: 08/23/19 Chief complaint: stroke Narrative: Kristen Dsouza is an 83-year-old female with a history of coronary artery disease status post stenting, aortic stenosis status post TAVR, diastolic CHF, chronic atrial fibrillation on Eliquis, hypertension, chronic kidney disease stage 3, and hypothyroidism who presented to the ED from long term facility for left-sided hemiparesis and dysarthria. Last known normal at 0200 hours. Patient reports she awoke with diarrhea. She called nursing staff to bedside and was noted to have dysarthria with slurred speech, left sided facial droop, and left sided hemiparesis. EMS was called. She was noted to have a NIH score of [address] [facility] neurology was contacted and patient was not candidate for tPA or clot retrival due to outside the window and on anticaogulation. The patien't symptoms seem to be resolving and she has residual mild dysarthria and left lower extremity weakness. She reports severe headache several days ago that isnow resolved. She endorses fatigue. She denies vision changes, lightheadedness, dizziness, headache, shortness of breath, chest pain, abdominal pain, nausea, vomiting, fever, chills, dysuria or consitpation. She has had mild diarrhea. She is admitted inpatient for acute CVA. Patient History Medical History Chronic kidney disease (Chronic) Congestive heart failure (Acute) Coronary artery disease (Acute) Fatty liver (Acute) GI bleed (Acute) Hypertension (Chronic) Hypothyroid (Chronic) Surgical History History of oophorectomy (Acute) History of ventral hernia repair (Acute) Hx of heart artery stent (Acute) S/P TAVR (transcatheter aortic valve replacement) (Chronic) Family & Social History Family History Father Medical history unknown Mother Congestive heart failure Diabetes mellitus Sister Diabetes mellitus Myocardial infarction Daughter Hypertension Social History: household members family,children Safety & Behavioral: Feels Safe in Current Yes Environment Tobacco & Substance use: Tobacco type cigarettes Smoking Status Former smoker alcohol intake never alcohol intake frequency holiday/special occasion Substance Use Type does not use Meds Home Medications and Allergies Home Medications Medication Instructions Recorded Confirmed Type Fish Oil Pearls 1 cap PO DAILY 09/10/18 08/23/19 History acyclovir 400 mg PO BID 09/10/18 08/23/19 History ascorbic acid (vitamin C) [Vitamin 250 mg PO QPM 09/10/18 08/24/19 History C] melatonin 3 mg PO BEDTIME PRN 09/10/18 08/24/19 History omeprazole magnesium [Acid Discharge Planner 20 mg PO BID 09/10/18 08/24/19 History (omeprazole)] hydralazine 50 mg PO TID 03/06/19 08/24/19 History albuterol sulfate [Ventolin HFA] 2 puff INHALATION Q4-6H PRN 07/15/19 08/23/19 History levothyroxine 25 mcg PO DAILY 07/15/19 08/23/19 History nitroglycerin [Nitrostat] 0.4 mg SUBLINGUAL PRN PRN 07/15/19 08/23/19 History potassium chloride 10 meq PO DAILY 07/15/19 08/23/19 History prednisolone acetate (PF) 1 % EYE-RIGHT QPM #0 07/15/19 08/24/19 History spironolactone 25 mg PO DAILY 07/15/19 08/24/19 History docusate sodium [DOK] 100 mg PO BID #60 cap 07/18/19 08/24/19 Rx fluoxetine [Prozac] 10 mg PO DAILY #30 cap 07/18/19 08/24/19 Rx polyethylene glycol 3350 17 gm PO DAILY PRN #30 ea 07/18/19 08/23/19 Rx acetaminophen 650 mg PO Q4H PRN 08/24/19 08/24/19 History apixaban [Eliquis] 2.5 mg PO BID 08/24/19 08/24/19 History atorvastatin 40 mg PO BEDTIME 08/24/19 08/24/19 History bisacodyl 5 mg PO PRN PRN 08/24/19 08/24/19 History bisacodyl 10 mg [place] PRN PRN 08/24/19 08/24/19 History calcium citrate 250 mg PO DAILY 08/24/19 08/24/19 History cetirizine 10 mg PO QAM 08/24/19 08/24/19 History guaifenesin 200 mg PO Q4H 08/24/19 08/24/19 History loperamide 2 mg PO Q1H PRN MDD 4 caps 08/24/19 08/24/19 History multivitamin with minerals 1 tab PO DAILY 08/24/19 08/24/19 History naproxen sodium 220 mg PO BID PRN 08/24/19 08/24/19 History omega-3 fatty acids 1,000 mg PO DAILY 08/24/19 08/24/19 History tramadol 50 mg PO Q6H PRN 08/24/19 08/24/19 History Allergies Allergy/AdvReac Type Severity Reaction Status Date / Time honey Allergy ITCHING Verified 07/17/19 16:52 morphine AdvReac Hallucinati Verified 09/16/18 13:23 ng Review of Systems Review of Systems Narrative: A 10 system comprehensive review of systems was conducted with the patient and found to be negative except as above in the History of Present Illness. Exam Vital Signs (past 8 hours): - 08/23/19 05:40 08/23/19 06:08 08/23/19 08:30 Temperature 97.8 F 98.1 F Pulse Rate 95 H 92 H 90 Respiratory Rate 16 16 22 Blood Pressure 139/83 106/57 L Blood Pressure [Right Wrist] 114/81 Pulse Oximetry 96 95 93 Oxygen Delivery Method Room Air Oxygen Flow Rate 0 Narrative Exam Narrative: General: Elderly obese female lying in bed and in no acute distress, well-developed, well-nourished, appropriately interactive. HEENT: Normocephalic, atraumatic. External ears without defect. Pupils equal, round, and reactive to light. 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 Neck: Supple with full range of motion. No jugular venous distension. No lymphadenopathy or thyromegaly. Cardiovascular: Irregularly irregular without murmurs, rubs, or gallops appreciated. Pulmonary: Diminished throughout but clear to auscultation in anterior lung granados. No obvious crackles, wheeze or rhonchi. Normal respiratory effort with no use of accessory muscles. Abdomen: Soft, obese, bowel sounds present, non-tender, non-distended. No hepatosplenomegaly or masses appreciated. Extremities: No clubbing or cyanosis. Bilateral lipedema and stasis dermatitis bilaterally. Skin: Normal temperature, turgor, and texture; no ulcers, or subcutaneous nodules appreciated. 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 Subtle left-sided facial droop. Subtle dysarthria inform of slurred speech. Cerebellar function intact with [id number] (difficult to assess due to body habitus but appears to be intact) and [id number] (difficult to assess due to right eye blindness). Left lower extremity weakness +4/5 otherwise +5/5 in all other extremities. Psychiatric: Depressed mood and flat affect. Alert and oriented to person, place, and time. Objective Labs Result Diagrams: 08/24/19 09:17 08/23/19 06:00 Labs: Laboratory Results - last 24 hr 08/23/19 08/23/19 08/23/19 06:00 06:00 06:00 WBC 19.5 H RBC 3.52 L Hgb 10.9 L Hct 33.3 L MCV 94.4 MCH 30.9 MCHC 32.7 RDW 18.4 H Plt Count 89 L Neut % (Auto) Not Reportable Lymph % (Auto) Not Reportable Colbert % (Auto) Not Reportable Eos % (Auto) Not Reportable Baso % (Auto) Not Reportable Lymph # (Auto) Not Reportable Colbert # (Auto) Not Reportable Baso # (Auto) Not Reportable Total Counted 100 Seg Neutrophils % 87.0 H Band Neutrophils % 1.0 L Lymphocytes % (Manual) 6.0 L Monocytes % (Manual) 6.0 Neutrophils # (Manual) 08158 H RBC Morphology See below Anisocytosis 1+ H Target Cells 1+ H PT 15.6 H INR 1.4 H APTT 34 D Sodium 138 Potassium 4.3 Chloride 100 Carbon Dioxide 31 BUN 25 H Creatinine 1.00 Estimated GFR 53.0 L BUN/Creatinine Ratio 25.0 H Glucose 93 Calcium 9.1 Total Bilirubin 0.7 AST 42 H ALT 16 Alkaline Phosphatase 199 H Ammonia Total Protein 6.6 Albumin 2.6 L Globulin 4.0 Albumin/Globulin Ratio 0.7 L Lipase 114 Prolactin 08/23/19 08/23/19 06:00 06:00 WBC RBC Hgb Hct MCV MCH MCHC RDW Plt Count Neut % (Auto) Lymph % (Auto) Colbert % (Auto) Eos % (Auto) Baso % (Auto) Lymph # (Auto) Colbert # (Auto) Baso # (Auto) Total Counted Seg Neutrophils % Band Neutrophils % Lymphocytes % (Manual) Monocytes % (Manual) Neutrophils # (Manual) RBC Morphology Anisocytosis Target Cells PT INR APTT Sodium Potassium Chloride Carbon Dioxide BUN Creatinine Estimated GFR BUN/Creatinine Ratio Glucose Calcium Total Bilirubin AST ALT Alkaline Phosphatase Ammonia 26 Total Protein Albumin Globulin Albumin/Globulin Ratio Lipase Prolactin 13.9 Assessment & Plan Assessment & Plan narrative: Kristen Dsouza is an 83-year-old female with a history of coronary artery disease status post stenting, aortic stenosis status post TAVR, diastolic CHF, chronic atrial fibrillation on Eliquis, hypertension, chronic kidney disease stage 3, and hypothyroidism who presented to the ED from long term facility for left-sided hemiparesis and dysarthria. 1. Acute frontal lobe CVA, present on admission. Active. -Patient presented with left-sided hemiparesis, leftward gaze, left-sided facial droop and dysarthria. -Initial NIH score 13. Current NIH score 2. Continue to monitor NIH score every shift. Continue frequent neuro checks. -Patient not considered tPA or clot retrieval candidate as patient was not within 90 min window and is on anticoagulation. -Cardiovascular risk factors include: CAD, hypertension, hyperlipidemia, chronic atrial fibrillation on anticoagulation, morbid obesity, and family history. -CT brain without contrast demonstrated no acute intracranial abnormalities, cerebral volume loss and chronic microvascular ischemic changes and complete patient left maxillary sinus opacification. -MR stroke protocol demonstrated age related volume loss and moderate small vessel ischemic change. Tiny, 7 mm area of acute infarct in the right frontal deep white matter possibly extending minimally to the cortex. Question signal abnormality in the left temporal tip related to remote trauma. Complete opacification of left maxillary sinus. No hemodynamically significant cerebral stenosis, occlusion, or aneurysm. Mild nonflow limiting bilateral internal carotid artery origin stenoses. -Continue to monitor closely on telemetry. -Allow for permissive hypertension for 24 hours. Ordered labetalol 10 mg IV every 4 hours as needed for SBP >220 mmHg and DBP > 110 mmHg. -Risk stratified with hemoglobin A1c which was normal at 4.7% and fasting lipid panel which demonstrated excellent lipid control with total cholesterol 83, triglycerides 92, LDL 52, HDL 13. -Ordered echocardiogram to rule out embolic source, pending. -Continue Eliquis increased from a 2.5 mg to 5 mg twice daily as creatinine is now 1.0 (only meets one criteria now with age to indicate dose adjustment) and patient is morbidly obese therefore efficacy is uncertain. Continue atorvastatin 40 mg daily at bedtime for stroke prevention. -Ordered physical, occupational, and speech therapy evaluation and treatment, pending. 2. Diastolic congestive heart failure, present on admission. Stable. -Patient does appear hypervolemic but is not hypoxemic. -Previous echocardiogram demonstrated: normal left ventricular thickness, size, wall motion, and systolic function (EF 65-70%), normal right ventricular size and function grossly, left atrium is severely dilated, bioprosthetic aortic valve that is well seated and opens well with expected gradient (mean 7.2mmHg) across it and a trivial pericardial effusion noted. Diastolic function could not be accurately assessed due to atrial fibrillation. -Continue cardiac medications including furosemide increased from 10 mg every other day to 20 mg daily, hydralazine 50 mg 3 times daily, and spironolactone 25 mg daily with holding parameters and if BP allows. -Continue to monitor strict I&Os and daily weights. 3. Chronic kidney disease stage 3, present on admission. Stable. -Initial creatinine 1.0 which is possibly falsely low due to inadequate diuresis and hypervolemia? Baseline creatinine 1.5-2.0. GFR 53 and CrCl adjusted for body weight 45. -Avoid nephrotoxin agents. -Continue to monitor renal function daily. 4. Chronic atrial fibrillation, present on admission. Stable. -EKG demonstrated atrial fibrillation with controlled rate and RBBB. -Patient is not currently on rate control medication. -Continue Eliquis increased from a 2.5 mg to 5 mg twice daily as creatinine is now 1.0 (only meets one criteria now with age to indicate dose adjustment) and patient is morbidly obese therefore efficacy is uncertain. 5. Hypertension, chronic, present on admission. Stable. -Blood pressure has been on the low side of normal at 102/58. -Allow for permissive hypertension as above. Will continue furosemide increased from 10 mg every other day to 20 mg daily, hydralazine 50 mg 3 times daily, and spironolactone 25 mg daily with holding parameters and if BP allows. 6. Morbid obesity with acute on chronic deconditioning, chronic, present on admission. Stable. -BMI 49. -Patient has chronic deconditioning and has noted slow progressive decline in activity tolerance and impaired mobility. -Continue physical and occupational therapy evaluation and treatment as above. -Counseled patient on lifestyle modification including diet and exercise. -Consulted dietitian, pending. 7. Depression, chronic, present on admission. Stable. -Patient is significantly depressed with depressed mood, insomnia and hypersomnolence, decreased interest, increased guilt, decreased concentration and decreased appetite. Patient denies suicidal ideation. -patient previously started on fluoxetine 10 mg daily but reported to nursing staff does not take this currently. Continue to recommend outpatient cognitive behavioral therapy for which the patient is highly interested. -Continue home melatonin 6 mg daily at bedtime for sleep maintenance. 8. History of aortic stenosis status post TAVR. Patient is admitted under inpatient status with expected length of stay greater than 2 midnights due to severity of presenting symptoms, risk of adverse event, and complexity of treatment plan. Scores NIHSS Level of Conciousness: Alert, keenly responsive Ask month/age: Answers both questions correctly. Open/close eyes, close hand: Performs both tasks correctly Best gaze horizontal: Normal Visual granados: No visual loss Facial palsy: Minor paralysis, flattened nasolabial fold, asymmetry on smiling Left arm drift: No drift for full 10 sec Right arm drift: No drift for full 10 sec Left leg drift: No drift for full 5 sec Right leg drift: No drift for full 5 sec Limb ataxia: Absent Sensory on face/arms/legs: Normal, no sensory loss Best language: Mild to moderate, slurs some words Dysarthria: Normal Extinction or inattention: No abnormality Total NIH Stroke scale score: 2
--- NOTE | 2019-08-23 09:35 | PT.IIE ---
Surgical History (Last Reviewed 07/16/19 @ 04:21 by SABINE Ramires) History of oophorectomy (Acute) History of ventral hernia repair (Acute) Hx of heart artery stent (Acute) S/P TAVR (transcatheter aortic valve replacement) (Chronic) Medical History (Last Reviewed 08/18/19 @ 04:05 by Donis Aggarwal DO) Chronic kidney disease (Chronic) Congestive heart failure (Acute) Coronary artery disease (Acute) Fatty liver (Acute) GI bleed (Acute) Hypertension (Chronic) Hypothyroid (Chronic) Physical Therapy Inpatient Evaluation/Re-Eval M1 PT/OT-IP Prior Functional Status Start: 08/23/19 11:51 Freq: NEEDED Status: Active Protocol: Document 08/23/19 09:35 AB (Rec: 08/23/19 12:10 AB [id number]) Medical Review Prior Functional Status Medical History Reviewed Yes Communication able to make needs known Mobility and Gait per family: [facility]. stated that pt is fearful of falling. Prior Functional Level (Other details) pt was admitted here in the hospital last june for PNA and was discharged to [facility] afterwards and has been there for ~ 1 month per family. prior to PNA, pt was modified independent with ambulation using FWW at home. Social History Household Members family,children Number of Floors (Floors) One Floor Number of Stairs To Enter/Railing? ramp to enter Home Environment High Toilet,Walk in Shower Home Equipment Front Wheel Walker,Shower Seat with Backrest,Hand Held Shower,Grab Bars Near Toilet, Grab Bars In Shower M2 PT-IP Current Condition Start: 08/23/19 11:51 Freq: NEEDED Status: Active Protocol: Document 08/23/19 09:35 AB (Rec: 08/23/19 12:10 AB [id number]) Physical Therapy Current Condition Current Condition Evaluation Date 08/23/19 Treatment Diagnosis CVA; difficulty in walking Onset Date 08/23/2019 M3 PT-IP Subjective Start: 08/23/19 11:51 Freq: NEEDED Status: Active Protocol: Document 08/23/19 09:35 AB (Rec: 08/23/19 12:10 AB [id number]) Subjective Physical Therapy Visit Type Type Initial Evaluation Visit Start Time 09:35 Visit Stop Time 10:48 Total Visit Minutes 41 Notes pt seen for split visits: 935 to 956 and 1028 to 1048 Number of NURSE INFORMATICS EDUCATOR Visits 0 Physical Therapy Visit Comments Patient Comments pt agreeable to do PT Therapy Pain Assessment Pain Present Pain Present Denied Pain M4 PT-IP Mobility and Gait Start: 08/23/19 11:51 Freq: NEEDED Status: Active Protocol: Document 08/23/19 09:35 AB (Rec: 08/23/19 12:10 AB [id number]) PT-Bed Mobility Assessment Rolling Level of Assist Maximal Assistance,2 Person Assistance Supine to Sit Supine to Sit Maximum Assistance,2 Person Assistance,Bedrails Scooting Scooting to Edge of Bed Maximum Assistance PT-Transfer Assessment Sit to and From Stand Sit to and from Stand Maximum Assistance,2 Person Assistance,Use of Upper Extremities Equipment Transfer Assistive Device Bed Rail,Front Wheeled Walker Orthotic/Prosthetic Devices or Brace: No Transfers Transfer Destination Chair Transfer Technique Stand Step Pivot Transfer Ability Level of Assist Maximum Assistance,2 Person Assistance,Use of Upper Extremities Comments Mobility Comments required max A x 2 for rolling L<>R while NAC assisted with bedpan. required 2 attempts to completed bed mobility supine to sit. pt was able to sit on EOB CGA and cues. completed scooting to EOB max A and max cues. pt expressed fear of falling. was able to complete sit to stand max A x 2 and max cues. pt transferred to chair step transfer using FWW max A x 2 and max cues. pt refused to do ambulation. c/o feeling tired. positioned pt on the chair. call light and table placed within reach. Gait Assessment Comments Gait Comments refused ambulation PT-Balance Assessment Sitting Balance and Reactions Static Sitting Balance Ability Fair Dynamic Sitting Balance Ability Fair Standing Balance and Reactions Static Standing Balance Ability Fair Dynamic Standing Balance Ability Poor Device Used FWW M5 PT-IP Objective Assessments Start: 08/23/19 11:51 Freq: NEEDED Status: Active Protocol: Document 08/23/19 09:35 AB (Rec: 08/23/19 12:10 AB [id number]) Orientation Orientation/Cognition Level of Alertness Alert Orientation Name Safety Awareness Decreased Safety Awareness Memory Description Short Term Impaired Gross Range of Motion Lower Extremity ROM Assessment Within Functional Limits Strength Lower Extremity Strength Assessment Bilaterally Impaired Comments Strength Comments LLE: 3-/5 RLE: 3+/5 Muscle Tone Muscle Tone WNL Yes M6 PT-IP Treatment Start: 08/23/19 11:51 Freq: NEEDED Status: Active Protocol: Document 08/23/19 09:35 AB (Rec: 08/23/19 12:10 AB [id number]) Physical Therapy Treatment Education Education Provided Safety M7 PT-IP Assessment and Plan Start: 08/23/19 11:51 Freq: NEEDED Status: Active Protocol: Document 08/23/19 09:35 AB (Rec: 08/23/19 12:10 AB [id number]) PT Summary Assessment and Plan Potential Rehabilitation Potential Fair Status of Condition at Evaluation Evolving Summary Impairments ROM,Strength,Balance, Coordination,Sensation,Tone, Cognition,Bed Mobility, Transfers,Gait,Activity Tolerance Assessment Summary Pt requires max A x 2 and max cues with all tasks and has decrease activity tolerance. pt will require SNF rehab to iimprove strength and mobility Goals Bed Mobility Goal Minimal Assistance Transfer Goal Minimal Assistance,Front Wheeled Walker Gait Goal Minimal Assistance,Front Wheel Walker Gait Distance 50 Days to Meet Goals 5 Frequency of Treatment Frequency Of Treatment Twice a Day Treatment Plan Physical Therapy Treatment Plan Bed Mobility Training,Transfer Training,Gait Training, Therapeutic Exercise,Balance Retraining,Discharge Planning, Neuromuscular Re-ed, Coordination Retraining Recommendations To Nursing Amount of Assist Needed 2 Person Assist Discharge Recommendations PT Discharge Recommendations SNF Rehab Transportation Needs at Discharge Wheelchair/Cabulance
[2019-08-23 09:41] LABS: Cholesterol 83 mg/dL (140-199); HDL Cholesterol 13 mg/dL (40-60); LDL Cholesterol Calculated 52 mg/dL (<100); Magnesium 1.5 mg/dL (1.6-2.3); Triglycerides 92 mg/dL (35-150)
[2019-08-23 09:46] LABS: Hemoglobin A1C% w Est Avg Glu 4.7 % (4.0-6.0)
[2019-08-23] MEDS: DEXTROSE 5%-0.9% NS 1,000 ML 60 ML IV (10:48)
--- NOTE | 2019-08-23 14:20 | PC.NURSE ---
Day Shift- Report rec'd from SHELLEY Henderson in ED at 0733. Pt arrived to unit, room 215 at 0752. Used slider board and 3PA to move pt from stretcher to bed. Pt arrived from MRI. Pt oriented to call light, unable to use bed functions at this time due to pt's positioning. Aware to call for assist. Pt's daughter Maryanne in room shortly after admit. Pt A&OX4, Denies pain with rest, has right knee pain with movement. NIH score is 6 with left extremity weakness and slight drift to both upper and lower extremity. Pt has slurred and mumbled speech. With no expression, pt has right droop to mouth area, when pt smiles, slight droop noted. No droop to left side face. Pt normally has a droop to right eye area due to scarring. Bedside swallow performed by this RN using water, juice, applesauce and crackers without difficulty, no pocketing of meds, no coughing, choking, controlled saliva. Has weak to moderate cough when asked to cough, able to clear secretions. [facility] taking in thin liquids with a heart healthy type diet without difficulty. Spoke with Dr. Carmen around 1320, request for Nystatin powder for abd fold moist area and unable to get a urine sample, request for I/O. Also made aware of above assessment regarding left versus right weakness, facial droop. High fall risk precautions in place, pt expresses appreciation and has no voiced concerns at this time. Call light within reach. Family in/out of room throughout shift.
[2019-08-23] MEDS: MAGNESIUM CHLORIDE 64 MG TABLET 128 MG PO (14:33)
--- NOTE | 2019-08-23 14:38 | CM.DANOTE ---
Patient is an 84 year old female who was admitted on 08/23/19 for Stroke. Pt has [facility] and [facility] for insurance and her PCP is Dr. Amanda Mann. EMR was reviewed. Per MD, MRI was positive for stroke and PT/OT/ST ordered and pending. SW met bedside with pt and multiple family members including her Dtr Maryanne and pt was able to participate in discussion and her speech has significantly improved since her admission early this morning per family and pt. Pt confirms that she has been at [facility] SNF rehab for about a month since her d/c from after a GLF and pt and family both feel SNF will be needed at d/c and agreeable with return to [facility]. Pt moved to [place] last summer[place] to live with her Dtr Maryanne and plan is to return to [facility] after SNF rehab. SW called [facility] and confirmed that they can accept pt when stable for d/c and no barriers at this time. Plan: SW to follow for pt return to [facility] when medically stable and PASRR not needed. ANYA Snyder Discharge Planning/Care Management CM Discharge Assessment Start: 08/23/19 14:35 Freq: Status: Active Protocol: Document 08/23/19 14:36 BF (Rec: 08/23/19 14:37 BF [id number]) Discharge Planning Assessment Assigned Inside Sales Engineer NATALIE Dexter DPOA/Assigned Designee Name Mor Madden Contact Information [phone] Advance Directives? Yes Advance Directives on File No History Provided By Patient,Family Member,Medical Record Has Patient been admitted in last 30 No days? Comment Discharged to [facility] on after GLF Prior Living Arrangements House Household Members family,children Type of transporation used prior to Relies on Others admit Facility Name Admitted From: [facility] Willing to Return to Facility? Yes: has been there for approx 5 weeks Independent with ADL's No Is patient alert and oriented? Yes: mostly Needs Assistance With Bathing,Meal Prep,Toileting, Managing Medications,Home Chores / Shopping Caregiver for Another No Patient/Family Preference Group Home Facility Comment No anticipated d/c needs Discharge Plan Group Home Facility Transportation Arrangement SNF Facility van Referrals Initiated Group Home If patient plan is SNF: Has PASSR been No: not needed, return to SNF completed? Whiteboard Updated in Patient Room with Yes name and ext. # of Inside Sales Engineer Review Status In Process Please Provide Date Initial DC 08/23/19 Assessment Was Performed Next Review Type Continued Stay Review
--- NOTE | 2019-08-23 14:54 | OT.IP.EVAL ---
Past Medical History (Last Reviewed 08/23/19 @ 17:44 by Larissa Carmen DO) Chronic kidney disease (Chronic) Congestive heart failure (Acute) Coronary artery disease (Acute) Fatty liver (Acute) GI bleed (Acute) Hypertension (Chronic) Hypothyroid (Chronic) Surgical History (Last Reviewed 08/23/19 @ 17:44 by Larissa Carmen DO) History of oophorectomy (Acute) History of ventral hernia repair (Acute) Hx of heart artery stent (Acute) S/P TAVR (transcatheter aortic valve replacement) (Chronic) Occupational Therapy Inpatient Evaluation/Re-Eval M1 PT/OT-IP Prior Functional Status Start: 08/23/19 11:51 Freq: NEEDED Status: Active Protocol: Document 08/23/19 14:54 PJM (Rec: 08/24/19 09:16 PJM [id number]) Medical Review Prior Functional Status Medical History Reviewed Yes Communication able to make needs known Mobility and Gait Per family: pt was able to ambulate with P.T. at [facility]. She was able to walk ~100 feet with chair follow and frequent rest breaks. Pt is fearful of falling. Activities of Daily Living and IADL's Pt was using veterinary virologist and sock aid with assist from therapist at [facility] to do dressing. Pt was doing stand pivot transfer from w/c to toilet with assist of 1 person and had max assist with seated shower. Prior Functional Level (Other details) Pt had recent hospital admit here 07/15-07/17/19 for PNA, CHF and painful R knee effusion after fall at home. Pt was discharged to [facility] and has been there for past month per family. Prior to PNA, pt was modified independent with ambulation using FWW at home, where she lives with her daughter, Maryanne (primary caregiver for pt) and several granddaughters (one of whom is disabled). Daughter provided SBA for seated shower. Pt was independent with dressing and toileting (continent) and managed own checkbook. Social History Household Members family,children Living Arrangements House Number of Floors (Floors) One Floor Number of Stairs To Enter/Railing? ramp to enter home Home Environment High Toilet,Walk in Shower, Ramp Home Equipment Front Wheel Walker,Manual Wheelchair,Shower Seat with Backrest,Funeral Assistant,Sock Aid,Lift Recliner,Grab Bars Near Toilet,Grab Bars In Shower Employment Status Retired Additional Social History Comment pt has borrowed W/C, sleeps in her recliner, pt uses toilet tongs for rehan care at home M2 OT-IP Current Condition Start: 08/24/19 08:48 Freq: Status: Active Protocol: Document 08/23/19 14:54 PJM (Rec: 08/24/19 09:16 PJM [id number]) Occupational Therapy Current Condition Current Condition Evaluation Date 08/23/19 Treatment Diagnosis stroke with improving L side weakness, decreased indep ADLs , mobility Diagnosis Onset Date 08/23/19 Post Operative Precautions Other Precautions fall risk M3 OT- IP Subjective and Pain Start: 08/24/19 08:48 Freq: Status: Active Protocol: Document 08/23/19 14:54 PJM (Rec: 08/24/19 09:16 PJM [id number]) OT- Subjective Occupational Therapy Visit Type Type Re-Evaluation Visit Start Time 14:32 Visit Stop Time 14:54 Total Visit Minutes 22 Notes Pt's daughter Maryanne here to provide backround information. Occupational Therapy Visit Comments Patient Comments My L arm is getting better. Patient/Caregiver Goals to get strong enough to go home with her family OT Pain Assessment Pain When Pain Assessed After Treatment Pain Present Pain Present Pain Reported Location Back Intensity 3 Description Aching,Chronic M4 OT- IP ADL's Start: 08/24/19 08:48 Freq: Status: Active Protocol: Document 08/23/19 14:54 PJM (Rec: 08/24/19 09:16 PJM [id number]) OT OAT-Yklx-Aymgpdl General Evaluation Diet Level for Self-Feeding [facility] soft, thin liquids per S.T. Self-Feeding Ability Standby Assistance Comments OT Self-Feeding Comments after set up in bed OT ADL-Grooming General Evaluation Grooming Ability Standby Assistance Areas Needing Assistance Combing/Brushing Hair,Face Washing Comments OT Grooming Comments after set up in bed, pt suing B hands for self care tasks OT ADL-Oral Care Comments Oral Care Comments did not occur this session OT ADL-Dressing General Eval Upper Body Dressing Ability Minimal Assistance Lower Body Dressing Ability Total Assistance OT ADL-Toileting General Evaluation Toileting Ability Total Assistance Comments OT Toileting Comments oneil in place, pt max assist of 2 to bedside commode OT ADL-Bathing Bathing Type Bathing Type Bed Bath General Evaluation Bathing Ability Maximal Assistance M5 OT- IP IADL's Start: 08/24/19 08:48 Freq: Status: Active Protocol: Document 08/23/19 14:54 PJM (Rec: 08/24/19 09:16 PJ [id number]) OT-Instrumental Activities of Daily Living Deficits IADL Deficits Identified Deficits Home Safety Awareness Awareness of Need for Assistance at Home Good Awareness Home Safety Comments pt has assist with all IADLS from family at home and caregivers at SNF Medication Management Medication Management Caregiver Administers Money Management Money Management Caregiver Provides Supervision Meal Preparation Meal Preparation Caregiver Provides Assist Circuit Breaker Mechanic Circuit Breaker Mechanic Caregiver Provides Assist Driving Driving Caregiver Provides Assist M6 OT- IP Functional Cognition Start: 08/24/19 08:48 Freq: Status: Active Protocol: Document 08/23/19 14:54 PJM (Rec: 08/24/19 09:16 PJ [id number]) Cognitive Factors Limiting Selfcare Function Cognitive Ability Level of Alertness Alert Patient Orientation Name,Month,Date,Year,Place, Situation Attention Span Ability Capable of Focused Attention, Capable of Sustained Attention Ability to Follow Commands Able to Follow One Step Commands Cognitive Comments Cognitive Assessment Comments Pt alert, oriented, cooperative. Further observations to follow. 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 She is sensitive to bright light. Pt able to read wall clock accurately. No new vision deficits identified. M7 OT- IP Mobility and Balance Start: 08/24/19 08:48 Freq: Status: Active Protocol: Document 08/23/19 14:54 PJM (Rec: 08/24/19 09:16 PJ [id number]) OT-Transfer Assessment Comments Mobility Comments see P.T. notes; pt seen at bedside this session due to fatigue; POWER MULE OPERATOR reports pt max assist of 2 to bedside commode earlier today OT- Gait Assessment Comments Gait Ability Comments pt is non ambulatory at present OT- Balance Assessment Comments Other Balance Tests/Deviations/Treatment see P.T. notes : M8 OT- IP Objective Assessments Start: 08/24/19 08:48 Freq: Status: Active Protocol: Document 08/23/19 14:54 PJM (Rec: 08/24/19 09:16 PJM [id number]) OT Gross Range of Motion Upper Extremity Range of Motion Assessment Bilaterally Impaired ROM Impairments Pt has significant arthritis with pain and crepitus in B shoulders. B shoulder scaption limited to ~80 degrees on B shoulders. Distal AROM AFL distally. OT Strength Upper Extremity Strength Assessment Left Impaired Hand Residential Property Manager Strength Hand Dominance Right Comments Strength Comments Pt does not tolerate MMT to shoulders due to pain and crepitus. Pt appears slightly weaker in non dominant LUE compared to R, but using LUE and hand consistently as assist for self care tasks. OT- Coordination Assessment Comments Coordination Comments LUE appears WFL for self care. Pt able to use L hand to hold brush and brush L side eof hair. OT-Muscle Tone Assessment Muscle Tone WNL Yes OT Sensation Assessment Comments Summary Comments Pt detects lt touch throughout LUE and hand and denies any changes in sensation. M9 OT- IP Assessment and Plan Start: 08/24/19 08:48 Freq: Status: Active Protocol: Document 08/23/19 14:54 PJM (Rec: 08/24/19 09:16 PJ [id number]) OT Summary Assessment and Plan Potential Rehabilitation Potential Fair Summary Assessment Summary Low complexity OT assessment completed on this 84 yr old female admitted with stroke with resolving L side weakness. Pt familiar to this therapist from her last admit here 07/15-07/17/19 for PNA,CHF, painful R knee effusion which was limiting her mobility. Pt has been recovering at [facility] since that time. Pt presents today with significant performance deficits in activity tolerance and all functional mobility/ transfers. She is currently 2 person assist for transfers from bed to [facility] and has not yet ambulated. Pt also has decreased independence in dressing, bathing and toileting. LUE function appears close to baseline. No new deficits identified in vision or cognition. Recommend pt return to [facility] when medically stable. Will provide OT services here to address the goals below. Goals Grooming Goal Standby Assistance Dressing Goal Moderate Assistance Toileting Goal Moderate Assistance Bathing Goal Moderate Assistance Toilet Transfer Goal Moderate Assistance,Bedside Commode OT-Other Goals Grooming to be done seated in chair. Bathing goal is for upper body sponge bath seated in chair. Days to Meet Goals 7 Frequency of Treatment Frequency Of Treatment Once a Day Treatment Plan OT Treatment Plan ADL Training,Functional Mobility,Patient/Family Education,Discharge Planning Discharge Recommendations OT Discharge Recommendations SNF Rehab Home Equipment Needs to be determined pending progress in next rehab setting Transportation Needs at Discharge Wheelchair/Cabulance
[2019-08-23] MEDS: NYSTATIN POWDER 30 GM 1 APPLIC TOP (16:21)
--- NOTE | 2019-08-23 16:29 | PT-IP ANOTE ---
pt refused PT x 2. initially stated that she wants to rest first and wants PT to come back. checked back on pt after ~ 2 hours but then continues to refuse. stated that she does not want to do anything. will check again tomorrow.
--- NOTE | 2019-08-23 17:52 | ST.IPIE ---
Visit Care Team Role Provider Type Amanda Mann MD Primary Care Provider Physician Specialty: Internal Medicine Address: [address] [place] [address], [id number] Email: [email or web address] Donis Aggarwal DO Emergency Provider Physician Referring Provider Specialty: Emergency Medicine Address: [address] [place] [address], [address] Email: [email or web address] Admit Provider Physician Attending Provider Specialty: Internal Medicine Address: [address] [place] [address], [address] Email: [email or web address] Past Medical History (Last Reviewed 08/23/19 @ 17:44 by Larissa Carmen DO) Chronic kidney disease (Chronic Medical) Congestive heart failure (Acute Medical) Coronary artery disease (Acute Medical) Fatty liver (Acute Medical) GI bleed (Acute Medical) Hypertension (Chronic Medical) Hypothyroid (Chronic Medical) ST IP Initial Evaulation Report DIRECTORY OPERATOR Clinical Swallow Evaluation Start: 08/23/19 14:35 Freq: Status: Active Protocol: Document 08/23/19 14:36 GRACE (Rec: 08/23/19 14:37 GRACE [id number]) Clinical Swallow Evaluation Session Time Visit Start Time 13:55 Visit Stop Time 14:30 Total Visit Minutes [address] Carmen Reason for Referral Stroke Setting Assessment Location Acute Care Visit Type Note Type Initial Evaluation Next Note Type Next Note Type Treatment Note Patient Information Identification Type Name,ID Card History Pt is an 84-yr-old female resident of [facility] where she has been recovering from PNA for ~1 mo. She was noted this morning to have left side weakness and slurred words and was brought to Emergency Dept . Pt was not a candidate for tPA. MRI revealed Age related volume loss and moderate small vessel ischemic change; Tiny, 7 mm area of acute infarct in the right frontal deep white matter possibly extending minimally to the cortex. Subjective Observations The pt was sleeping but easily awakened and agreeable to swallow evaluation. She was repositioned to upright in bed . She denied swallow, speech or language difficulties prior to event. She denied current swallow difficulties, said she felt her speech was improving but not back to normal, and she following conversations of others was sometimes a little hard. She stated she felt able to express her wants and needs. Evaluation Liquids Trialed Ice Chips,Thin Solids Trialed Puree,Mechanical Soft,Regular Administration Type Tea Spoon,Cup Single Sip,Cup Consecutive Sips,Straw,Self- Feeding Oral Impairment Mildly Impaired Oral Strategies Upright at 90 degrees Oral Phase Comments Oral Peripheral Exam: Significant right side facial droop. Per nursing, pt had surgery above her right eye in the past which as resulted in right eye droop. The pt was able to elevate right corner of mouth and cheek upon smiling but not symmetrical to left side. Mild right side lingual deviation and weakness also observed. Pt was able to both shift air from cheek to cheek and laterally shift mandible but with effort and decreased coordination, which she verbally acknowledged. Lip seal was normal. Soft palate elevated upon phonation. Hyolaryngeal elevation and excursion appeared to be WNL but was difficulty to palpate d/t dense neck tissue. The pt has natural dentition with many upper and lower molars missing. Oral Phase: Mildly slowed mastication likely secondary to dentition and mildly slowed bolus prep secondary to lingual weakness and reduced oral coordination. No anterior leakage observed. Swallow trigger appeared to be timely. No abnormal oral residue or pocketing observed. Pharyngeal Impairment WFL Pharyngeal Strategies Sitting Upright (90 deg),Small Bites and Sips Pharyngeal Phase Comments The pt is right handed and was able to self-feed with some effort and reduced hand-mouth coordination. At two distinctly different times, respiratory wheezing was noted , which immediately dissipated . Unclear if related to swallow. No other overt s/sx of aspiration were exhibited with all trials. Vocal quality remained clear and pt had no complaints. O2 sats were observed to drop to 88 briefly x1; otherwise remained in low 90s with and without oral intake. Findings Dysphagia Type Mild oral dysphagia Rehabilitation Potential Good Impressions The pt presents with mild oral dysphagia secondary to sparse dentition and reduced strength and coordination of musculature. She does not appear to be at high risk of aspiration, although given possible intermittent presence of respiratory wheezing, recommend ongoing assessment. Mechanical soft diet texture is recommended to preserve energy and ease of intake during mastication. The pt's speech was observed to be moderately dysarthric, >90% intelligible. She participated normally in conversation and was able to follow 1- and 2-step directions. She did not exhibit obvious visual neglect . She recalled the clinician's name from start to end of session and exhibited good humor. Diet Recommendations Liquids Order Thin Diet Order Mechanical Soft Medication Recommendations As Tolerated Aspiration Precautions Recommended Precautions Upright at 90 Degrees,Small Bites/Sips Treatment Plan Placement Recommendations after Care Home Facility Discharge Appropriate for Therapy Yes Therapy Recommendations Ongoing assessment of swallow safety. Evaluation of speech and language. Dysphagia Goals 1. The pt will participate in evaluation of speech and expressive/receptive language to determine strengths/ weaknesses and guide POC. 2. The pt will exhibit speech and language skills sufficient to communicate effectively in functional conversations and participate in medical decisions. 3. The pt will tolerate least restrictive diet to meet her nutrition and hydration needs.
[2019-08-23 18:06] LABS: Bacteria Urine None Seen
[2019-08-23 18:07] LABS: Appearance Urine UA CLEAR; Bilirubin Urine UA NEGATIVE (NEGATIVE); Color Urine UA YELLOW; Glucose Urine UA NEGATIVE (Negative); Ketones Urine UA NEGATIVE (NEGATIVE); Leukocyte Esterase Urine UA NEGATIVE (NEGATIVE); Nitrite Urine UA NEGATIVE (Negative); Occult Blood Urine UA NEGATIVE (Negative); Protein Urine UA NEGATIVE (Negative); Urobilinogen Urine UA 0.2 E.U./dL (0.2)
[2019-08-23 18:20] LABS: Culture Indicated Urine Cult Not Indicated; RBC Urine 0-1/HPF (0-5/HPF); Squamous Epithelial Cell Urine 0-1 /HPF (0-5/HPF); WBC Urine 1-5/HPF (0-5/HPF)
--- NOTE | 2019-08-23 23:30 | PC.NURSE ---
A&OX4. 88%RA while asleep, 94% 1L. SOB w/exertion. pt denied pain. BLE elevated. q2turn. pt has a baseline R. eyebrow droop and R. eye blurry vision. denied any nausea. stress incontinence. briefs on. 2PA bed mobility. scds. call light in reach. bed alarm active.
[2019-08-24] VITALS (17 sets, daily range): BP systolic 83–142; BP diastolic 56–78; PULSE 78–99; RESP 15–24; TEMP 36.2–36.6; O2SAT 88–100; BMI 47.6
[2019-08-24] MEDS: NYSTATIN POWDER 30 GM 1 APPLIC TOP ×3 (09:00→22:14)
--- NOTE | 2019-08-24 09:25 | DI.RAD.S_ITS ---
PROCEDURE: XR CHEST 1V INDICATIONS: SOB, CHF?. TECHNIQUE: One view of the chest was acquired. COMPARISON: [facility], CR, XR CHEST 1V, 07/15/2019, 19:56. FINDINGS: Surgical changes and devices: None. Lungs and pleura: Prominent perihilar interstitial markings are identified. There probably are small bilateral pleural effusions. No definite pneumothorax. Mediastinum: Mediastinal contours appear normal. The heart is enlarged. Valvular stent is present. There is aortic atherosclerosis. Bones and chest wall: No suspicious bony lesions. Overlying soft tissues appear unremarkable. IMPRESSION: Cardiomegaly with associated pulmonary edema and small effusions is suggestive of congestive heart failure. Dictated by: Naresh Augustin M.D. on 08/24/2019 at 11:14 Approved by: Naresh Augustin M.D. on 08/24/2019 at 11:15
[2019-08-24 09:32] LABS: Add Manual Diff / Slide Review NO; Basophils Absolute Auto 0 /uL (0-100); Basophils Percent Auto 0.1 % (0-2); Eosinophils Absolute Auto 100 /uL (0-450); Eosinophils Percent Auto 0.4 % (2-4); Hematocrit 35.2 % (36-46); Hemoglobin 11.4 g/dL (12.0-16.0); Lymphocytes Absolute Auto 1700 /uL (1100-4500); Lymphocytes Percent Auto 10.9 % (25-40); Mean Corpuscular HGB Conc 32.4 % (30-36); Mean Corpuscular Hemoglobin 30.9 PG (26-34); Mean Corpuscular Volume 95.5 fL (80-100); Monocytes Absolute Auto 1900 /uL (0-900); Monocytes Percent Auto 12.2 % (3-14); Neutrophils Absolute Auto 11700 /uL (1500-7000); Neutrophils Percent Auto 76.4 % (50-75); Platelet Count 80 X10^3/uL (150-400); Red Blood Cell Count 3.69 X10^6/uL (4.0-5.2); Red Cell Distribution Width 18.6 % (11.6-14.8); White Blood Cell Count 15.4 X10^3/uL (4.5-11.0)
[2019-08-24 09:39] LABS: Magnesium 1.6 mg/dL (1.6-2.3)
--- NOTE | 2019-08-24 10:08 | DIET.PN ---
Dietary Progress Note Assessment: 84y F rehabbing at [facility] past month receiving all meals there admitted for stroke referred to nutrition for Amol 15. Starting nadya bid to support skin integrity. 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 Interventions: 1. nadya bid to support skin integrity r/t low Amol score (15) Diet Order: dysphagia mech soft/thin EER: 1700kcal (-200 to support wt loss), 93g PRO (0.9g/kg), 3L fluids Monitoring/Evaluations: POs
--- NOTE | 2019-08-24 10:35 | PT.IPTN ---
Current Diagnoses Cerebral infarction, unspecified (08/23/19) Physical Therapy Treatment Note M2 PT-IP Current Condition Start: 08/23/19 11:51 Freq: NEEDED Status: Active Protocol: Document 08/23/19 09:35 AB (Rec: 08/23/19 12:10 AB [id number]) Physical Therapy Current Condition Current Condition Evaluation Date 08/23/19 Treatment Diagnosis CVA; difficulty in walking Onset Date 08/23/2019 M3 PT-IP Subjective Start: 08/23/19 11:51 Freq: NEEDED Status: Active Protocol: Document 08/24/19 10:35 AB (Rec: 08/24/19 12:24 AB [id number]) Subjective Physical Therapy Visit Type Type Treatment Note Visit Start Time 10:35 Visit Stop Time 10:57 Total Visit Minutes 22 Number of PANEL MACHINE OPERATOR Visits 0 Physical Therapy Visit Comments Patient Comments pt stated that she is very weak but agreed to get out of bed M4 PT-IP Mobility and Gait Start: 08/23/19 11:51 Freq: NEEDED Status: Active Protocol: Document 08/24/19 10:35 AB (Rec: 08/24/19 12:24 AB [id number]) PT-Bed Mobility Assessment Sit to Supine Sit to Supine Maximum Assistance,1 Person Assistance,2 Person Assistance ,Head of Bed Elevated,Bedrails Scooting Scooting to Edge of Bed Maximum Assistance PT-Transfer Assessment Sit to and From Stand Sit to and from Stand Moderate Assistance,1 Person Assistance,Use of Upper Extremities Equipment Transfer Assistive Device Gait Belt,Front Wheeled Walker Orthotic/Prosthetic Devices or Brace: No Transfers Transfer Destination Chair Transfer Technique Stand Step Pivot Transfer Ability Level of Assist Moderate Assistance,Use of Upper Extremities Comments Mobility Comments pt completed bed mobility supine to sit with HOB elevated and use of bed rails requiring max A x 1-2 and max cues. pt required max A to scoot to EOB. pt was able to maintain sitting on EOB SBA. completed sit to stand mod A and cues and transferred to the chair using FWW mod A and cues. pt refused to do further PT and stated that she needs to rest. positioned pt on chair. call light and table placed within reach. M5 PT-IP Objective Assessments Start: 08/23/19 11:51 Freq: NEEDED Status: Active Protocol: Document 08/23/19 09:35 AB (Rec: 08/23/19 12:10 AB [id number]) Orientation Orientation/Cognition Level of Alertness Alert Orientation Name Safety Awareness Decreased Safety Awareness Memory Description Short Term Impaired Gross Range of Motion Lower Extremity ROM Assessment Within Functional Limits Strength Lower Extremity Strength Assessment Bilaterally Impaired Comments Strength Comments LLE: 3-/5 RLE: 3+/5 Muscle Tone Muscle Tone WNL Yes M6 PT-IP Treatment Start: 08/23/19 11:51 Freq: NEEDED Status: Active Protocol: Document 08/24/19 10:35 AB (Rec: 08/24/19 12:24 AB [id number]) Physical Therapy Treatment Education Education Provided Safety M7 PT-IP Assessment and Plan Start: 08/23/19 11:51 Freq: NEEDED Status: Active Protocol: Document 08/24/19 10:35 AB (Rec: 08/24/19 12:24 AB [id number]) PT Summary Assessment and Plan Potential Rehabilitation Potential Good Summary Impairments Pain,ROM,Strength,Balance, Coordination,Sensation,Tone, Cognition,Bed Mobility, Transfers,Gait,Activity Tolerance Progress Towards Goals Slow Progress due to Activity Tolerance Assessment Summary pt requires max A x 1-2 with bed mobility but improved with sit to stand and transfers using fWW to mod A and cues. pt will require 24/ assist and will benefit from SNF rehab to improve strength and mobility. Goals Bed Mobility Goal Minimal Assistance Transfer Goal Minimal Assistance,Front Wheeled Walker Gait Goal Minimal Assistance,Front Wheel Walker Gait Distance 50 Days to Meet Goals 5 Frequency of Treatment Frequency Of Treatment Twice a Day Treatment Plan Physical Therapy Treatment Plan Bed Mobility Training,Transfer Training,Gait Training, Therapeutic Exercise,Balance Retraining,Discharge Planning, Neuromuscular Re-ed, Coordination Retraining Other Recommendations and Next Treatment ambulation Focus Recommendations To Nursing Amount of Assist Needed 2 Person Assist Discharge Recommendations PT Discharge Recommendations SNF Rehab Transportation Needs at Discharge Wheelchair/Cabulance
[2019-08-24] MEDS: FUROSEMIDE 20 MG TABLET PO (11:17)
[2019-08-24] MEDS: prednisoLONE OPHTH SUSP 1 DROPS EYE-RIGHT (11:18)
[2019-08-24] MEDS: POTASSIUM CHLORIDE 10 MEQ TAB PO (11:18)
[2019-08-24] MEDS: APIXABAN 5 MG TABLET PO ×2 (11:19→22:09)
[2019-08-24] MEDS: SPIRONOLACTONE 25 MG TABLET PO (11:19)
[2019-08-24] MEDS: LEVOTHYROXINE 25 MCG TABLET PO (11:19)
[2019-08-24] MEDS: SODIUM CHLORIDE 0.9% FLUSH 10 ML IV ×3 (11:19→22:11)
--- NOTE | 2019-08-24 11:45 | OT.IP.TRT ---
Current Diagnoses Cerebral infarction, unspecified (08/23/19) Occupational Therapy Treatment Note M2 OT-IP Current Condition Start: 08/24/19 08:48 Freq: Status: Active Protocol: Document 08/23/19 14:54 PJM (Rec: 08/24/19 09:16 PJM [id number]) Occupational Therapy Current Condition Current Condition Evaluation Date 08/23/19 Treatment Diagnosis stroke with improving L side weakness, decreased independence ADLs, mobility Diagnosis Onset Date 08/23/19 Post Operative Precautions Other Precautions fall risk M3 OT- IP Subjective and Pain Start: 08/24/19 08:48 Freq: Status: Active Protocol: Document 08/24/19 11:45 PJM (Rec: 08/24/19 12:25 PJM [id number]) OT- Subjective Occupational Therapy Visit Type Type Treatment Note Visit Start Time 11:26 Visit Stop Time 11:45 Total Visit Minutes 19 Notes Pts oximeter alarming when therapist arrived as pt O2 sats in low 80's. Pt dozing in chair when therapist arrived. O2 sats did not improve with pursed ulises breathing so added 1L 02 with sats rapidly up to mid 90's. Once pt more awake, O2 sats in high 80's, low 90's on room air. Occupational Therapy Visit Comments Patient Comments I just don't feel good today. The medicine I just took made me a little nauseous. Patient/Caregiver Goals to go back to rehab and get strong enough to go home OT Pain Assessment Pain When Pain Assessed After Treatment Pain Present Pain Present Pain Reported Location Left Shoulder Intensity 3 Description Aching,Chronic Pain Behaviors Facial Grimacing,Guarding M4 OT- IP ADL's Start: 08/24/19 08:48 Freq: Status: Active Protocol: Document 08/24/19 11:45 PJM (Rec: 08/24/19 12:25 PJM [id number]) OT ADL-Grooming General Evaluation Grooming Ability Minimal Assistance Areas Needing Assistance Combing/Brushing Hair Comments OT Grooming Comments using B hands, need assist to get tob and mid back OT ADL-Dressing General Eval Lower Body Dressing Ability Moderate Assistance Areas Needing Assistance Socks Assistive Devices Dressing Assistive Devices Roof Tiler,Sock Aid Comments OT Dressing Comments practiced use of disposal operator and sock aid to don and doff socks ; pt able to doff socks with SBA with good technique with disposal operator; pt needed mod assist to get sock onto sock aid due to decreased B hand strength and R thumb arthritis OT ADL-Toileting Comments OT Toileting Comments did not occur this session M6 OT- IP Functional Cognition Start: 08/24/19 08:48 Freq: Status: Active Protocol: Document 08/24/19 11:45 PJM (Rec: 08/24/19 12:25 PJM [id number]) Cognitive Factors Limiting Selfcare Function Cognitive Ability Level of Alertness Drowsy Patient Orientation Name,Month,Date,Year,Place, Situation Attention Span Ability Capable of Focused Attention, Capable of Sustained Attention Ability to Follow Commands Able to Follow One Step Commands Cognitive Comments Cognitive Assessment Comments Pt drowsy when therapist arrived but more alert as session progressed M7 OT- IP Mobility and Balance Start: 08/24/19 08:48 Freq: Status: Active Protocol: Document 08/24/19 11:45 PJM (Rec: 08/24/19 12:25 PJM [id number]) OT-Transfer Assessment Comments Mobility Comments pt able to use BUE's on armrests to lean forward and scoot back in recliner with min assist OT- Balance Assessment Sitting Balance and Reactions Static Sitting Balance Ability Good Dynamic Sitting Balance Ability Good M9 OT- IP Assessment and Plan Start: 08/24/19 08:48 Freq: Status: Active Protocol: Document 08/24/19 11:45 PJM (Rec: 08/24/19 12:25 PJM [id number]) OT Summary Assessment and Plan Potential Rehabilitation Potential Good Summary Progress Towards Goals Progressing Toward Goals,Slow Progress due to Activity Tolerance Assessment Summary Pt drowsy initially, but more alert as session progressed with good effort and participation in seated self care tasks. Occasional slurred words noted in conversation. Pt does appear to desaturate when sleeping on room air. Pt reports she uses EPAP without O2 when sleeping at home to assist with exhalation. 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 Pt motivated to increased transfer ability and short distance ambulation as needed for return home with daughter's assist. Recommend pt return to [facility] for further rehab when medically stable. Pt ready to try standing at sink for grooming to increase BLE strength, endurance and standing balance. Goals Grooming Goal Standby Assistance Dressing Goal Minimal Assistance Toileting Goal Moderate Assistance Bathing Goal Moderate Assistance Toilet Transfer Goal Moderate Assistance,Bedside Commode OT-Other Goals Grooming to be done seated in chair. Bathing goal is for upper body sponge bath seated in chair. Days to Meet Goals 6 Frequency of Treatment Frequency Of Treatment Once a Day Treatment Plan OT Treatment Plan ADL Training,Functional Mobility,Patient/Family Education,Discharge Planning Discharge Recommendations OT Discharge Recommendations SNF Rehab Home Equipment Needs to be determined pending progress in next rehab setting
--- NOTE | 2019-08-24 12:18 | ST.IPSLE ---
Visit Care Team Role Provider Type Amanda Mann MD Primary Care Provider Physician Specialty: Internal Medicine Address: [address] [place] [address], [address] Email: [email or web address] Donis Aggarwal DO Emergency Provider Physician Referring Provider Specialty: Emergency Medicine Address: [address] [place] [address], [address] Email: [email or web address] [email or web address] Admit Provider Physician Attending Provider Specialty: Internal Medicine Address: [address] [place] [address], [address] Email: [email or web address] Diagnoses Cerebral infarction, unspecified (08/23/19) Past Medical History (Last Reviewed 08/23/19 @ 17:44 by Larissa Carmen DO) Chronic kidney disease (Chronic Medical) Congestive heart failure (Acute Medical) Coronary artery disease (Acute Medical) Fatty liver (Acute Medical) GI bleed (Acute Medical) Hypertension (Chronic Medical) Hypothyroid (Chronic Medical) Speech-Language Pathology Speech/Language Eval GREY STOCK RECORDER Language Evaluation Start: 08/23/19 14:35 Freq: Status: Active Protocol: Document 08/24/19 10:16 LL (Rec: 08/24/19 10:29 LL [id number]) Language Evaluation Session Time Visit Start Time 09:38 Visit Stop Time 10:06 Total Visit Minutes 32 Next Note Type Next Note Type Treatment Note Past Medical History Patient History Pt is an 84-yr-old female resident of [facility] where she has been recovering from PNA for ~1 mo. She was noted this morning to have left side weakness and slurred words and was brought to Emergency Dept . Pt was not a candidate for tPA. MRI revealed Age related volume loss and moderate small vessel ischemic change; Tiny, 7 mm area of acute infarct in the right frontal deep white matter possibly extending minimally to the cortex. Vision Comments Wears reading glasses [place] Language Language(s) Spoken in the Home Urdu Subjective Subjective Patient was seen in room for a speech and language evaluation. Patient was fatigued, however, alert and oriented to self and situation . Patient was not oriented to facility, day of week, or date . Patient reported 0 pain/ discomfort throughout evaluation. - - Receptive Language Yes/No Questions Skill Level WNL Following Directions - Verbal Skill Level WFL Comments Mild difficulty noted with 3 step commands Following Directions - Written Skill Level WNL Defining Words Comments Did not assess Auditory Comprehension Skill Level WNL Reading Comprehension Comments Did not assess Receptive Language Comments Receptive Language Comments Patient's receptive skills were within normal limits. Patient experienced minimal- mild difficulty following 3 step commands (4/5-80% accy). - Expressive Language Automatic Speech Skill Level WNL Sentence Closure Skill Level WNL Object Naming Skill Level WNL Stating Functions Skill Level WNL Oral Expression Skill Level Mildly Impaired Comments Mild dysarthria Written Expression Comments Did not assess Expressive Language Comments Expressive Language Comments Patient presents with mild dysarthria characterized by labored breathing, slow speech , reduced articulatory precision, and flat facial affect. - Findings Language Findings Patient presents with mild dysarthria impacting her ability to effectively communicate wants, needs, and ideas with family/caregivers/ staff. Patient and nursing reports gradual improvement in patient's speech intelligibility since admission to this facility. Patient reports that her speech is less mumbled and slurred. GREY STOCK RECORDER provided verbal education regarding speech/ communication strategies (e.g. , over articulation, increasing volume) to increase patient's speech intelligibility when communicating with others. Recommendations Recommendations It is recommended that patient continue receiving skilled speech therapy during her stay at this facility. Skilled speech therapy will address training/education on speech/ communication strategies to increase intelligibility. Treatment Goals Short Term Goals The patient will demonstrate understanding of speech intelligibility strategies. Group Home Goals The patient will exhibit speech and language skills sufficient to communicate effectively in functional conversations and participate in medical decisions.
--- NOTE | 2019-08-24 14:26 | PC.NURSE ---
Addendum entered by Stacy Montero R.N. 08/24/19 16:00: left wrist PIV leaking. attempted X1 unsuccessful. Bolus not given at this time. Evening RN aware. DI SHELLEY Dueñas consulted to place new PIV. Original Note: Day Shift- Spoke with Dr. Carmen at 1245, made aware pt's BP low at 86/56, pulse 82 while sitting in chair, pt awakens with verbal stimulation, states feeling tired. Chair placed in reclined position. Pt is S/L'd at this time. Hold scheduled Hydralazine, monitor. BP rechecked at 1410, pit lying in bed supine. BP was 87/60, pulse 89. Spoke with Dr. Carmen at 1430. verbal order rec'd for 500ml NS fluid bolus over 1 hour and monitor BP, pulse.
[2019-08-24] MEDS: SODIUM CHLORIDE 0.9% 500 ML IV (14:39)
--- NOTE | 2019-08-24 16:40 | PT.IPTN ---
Current Diagnoses Cerebral infarction, unspecified (08/23/19) Physical Therapy Treatment Note M2 PT-IP Current Condition Start: 08/23/19 11:51 Freq: NEEDED Status: Active Protocol: Document 08/23/19 09:35 AB (Rec: 08/23/19 12:10 AB [id number]) Physical Therapy Current Condition Current Condition Evaluation Date 08/23/19 Treatment Diagnosis CVA; difficulty in walking Onset Date 08/23/2019 M3 PT-IP Subjective Start: 08/23/19 11:51 Freq: NEEDED Status: Active Protocol: Document 08/24/19 15:40 SP (Rec: 08/24/19 17:13 SP [id number]) Subjective Physical Therapy Visit Type Type Treatment Note Visit Start Time 15:40 Visit Stop Time 16:40 Total Visit Minutes 60 Notes Assisted postioning of LUE while in supine during IV guided placement per staff request during beginning of PT mobility. Number of MAINTENANCE JOB TITLES Visits 1 Physical Therapy Visit Comments Patient Comments Pt agreeable to PT tx. Therapy Pain Assessment Pain Present Pain Present Denied Pain M4 PT-IP Mobility and Gait Start: 08/23/19 11:51 Freq: NEEDED Status: Active Protocol: Document 08/24/19 15:40 SP (Rec: 08/24/19 17:13 SP [id number]) PT-Bed Mobility Assessment Rolling Level of Assist Moderate Assistance,Maximal Assistance,2 Person Assistance Supine to Sit Supine to Sit Maximum Assistance,1 Person Assistance,Head of Bed Elevated,Bedrails Scooting Scooting to Edge of Bed Maximum Assistance PT-Transfer Assessment Sit to and From Stand Sit to and from Stand Moderate Assistance,Maximum Assistance,1 Person Assistance ,2 Person Assistance,Use of Upper Extremities Equipment Transfer Assistive Device Gait Belt,Front Wheeled Walker Orthotic/Prosthetic Devices or Brace: No Transfers Transfer Destination Chair,Wheelchair Transfer Technique Stand Step Pivot Transfer Ability Level of Assist Minimal Assistance,Moderate Assistance,1 Person Assistance ,Use of Upper Extremities Comments Mobility Comments Pt was supine in bed heavily sleeping when arrived, required arm gentle shake contact to arouse. Pt agreeable to PT tx. Pt requested use of bed mcnulty, wtih not enough time to use commode. MAINTENANCE JOB TITLES provided Mod A for R log roll while nurse educating nursing tech placement of bed mcnulty, reverse removal. Supine to sit with HOB elevated 50 deg Max A of 1 person with GAS STATION OPERATOR LUE patient pulling from therapist arm while RUE used bed rail and pressed from bed to transition trunk to sitting, Min A for LE to EOB, Mod-Max A scoot support of each LE to EOB and support from upper back to maintain upright sitting posture. Pt had to return to supine position per request of turf keeper to insert IV into LUE, Mod A of 1 for LE back into bed but patient able to reposition trunk herself. MAINTENANCE JOB TITLES supported LUE into 80* abd and elbow ext as far as can and skin repositioning for staff to complete guided IV placement. Pt completed supine to sitting a second time with same support and sequencing. Sit to stand from EOB Min A of 1 CGA stand pivot transfer using FWW then Min A for slow descent, cues for proper hand placement, lost footing and feet slide with descend into w /c. Nursing students in room CGA to assist brief security, patient stated needed brief change. After few minute rest complete sit to stand Max A of 1 and Mod A of 1 to complete sit to stand with success on 2nd attempt. Pt able to stand 4 min CGA using FWW for UE support while nursing students provided hygiene and brief mgt. Pt required seated rest for 3 min then completed SPT w /c 180 * to chair Jaylen of 1 secondary to patient tiring due to decreased endurance. Mod A of 2 person to scoot back in chair. Pt was up in chair with legs elevated, call light and allneeds in reach with family visiting and nurse with her nursing students in room when left. Gait Assessment Comments Gait Comments complete stand pivot transfer bed>w/c> chair with multiple standing rest, see mobilitiy comments. Pt to exhausted to perform gait but agreed will do tommorrow. PT-Balance Assessment Sitting Balance and Reactions Static Sitting Balance Ability Fair Dynamic Sitting Balance Ability Poor Standing Balance and Reactions Static Standing Balance Ability Fair Dynamic Standing Balance Ability Poor Device Used FWW Comments Other Balance Tests/Deviations/Treatment Pt was able to sit EOB with : BLE supported on floor sBA. M5 PT-IP Objective Assessments Start: 08/23/19 11:51 Freq: NEEDED Status: Active Protocol: Document 08/23/19 09:35 AB (Rec: 08/23/19 12:10 AB [id number]) Orientation Orientation/Cognition Level of Alertness Alert Orientation Name Safety Awareness Decreased Safety Awareness Memory Description Short Term Impaired Gross Range of Motion Lower Extremity ROM Assessment Within Functional Limits Strength Lower Extremity Strength Assessment Bilaterally Impaired Comments Strength Comments LLE: 3-/5 RLE: 3+/5 Muscle Tone Muscle Tone WNL Yes M6 PT-IP Treatment Start: 08/23/19 11:51 Freq: NEEDED Status: Active Protocol: Document 08/24/19 15:40 SP (Rec: 08/24/19 17:13 SP [id number]) Physical Therapy Treatment Education Education Provided Safety M7 PT-IP Assessment and Plan Start: 08/23/19 11:51 Freq: NEEDED Status: Active Protocol: Document 08/24/19 15:40 SP (Rec: 08/24/19 17:13 SP [id number]) PT Summary Assessment and Plan Potential Rehabilitation Potential Good Status of Condition at Evaluation Evolving Summary Impairments Pain,ROM,Strength,Balance, Coordination,Sensation,Tone, Cognition,Bed Mobility, Transfers,Gait,Activity Tolerance Assessment Summary See mobility comments. Pt will require 24/7 assist and will benefit from SNF rehab to improve functional mobilty for safe DC home. Goals Bed Mobility Goal Minimal Assistance Transfer Goal Minimal Assistance,Front Wheeled Walker Gait Goal Minimal Assistance,Front Wheel Walker Gait Distance 50 Days to Meet Goals 5 Frequency of Treatment Frequency Of Treatment Twice a Day Treatment Plan Physical Therapy Treatment Plan Bed Mobility Training,Transfer Training,Gait Training, Therapeutic Exercise,Balance Retraining,Discharge Planning, Neuromuscular Re-ed, Coordination Retraining Other Recommendations and Next Treatment ambulation Focus Recommendations To Nursing Amount of Assist Needed 2 Person Assist Discharge Recommendations PT Discharge Recommendations SNF Rehab Transportation Needs at Discharge Wheelchair/Cabulance
[2019-08-24] MEDS: ATORVASTATIN 20 MG TABLET 40 MG PO (22:09)
[2019-08-24] MEDS: ACYCLOVIR 400 MG TABLET PO (22:10)
--- NOTE | 2019-08-24 23:24 | PC.NURSE ---
Assumed care of pt at 1500. Pt up with P.T. to BSC. DI nurse called to insert IV. Midline placed by Marcy ROSA. IV bolus infused. NIH 7. Supportive dtr at bedside. BP remains low post 500 ml bolus. Provider notified. No new orders, Cardiac meds held at HS. Repositioning per pressure injury prevention protocol. Bed alarm on.
--- NOTE | 2019-08-24 23:48 | P.PN_ITS ---
Subjective Subjective Date Patient Seen: 08/24/19 Time Patient Seen: 23:40 Interval history: Patient is seen in a follow-up for a suspected stroke. Patient does not voice any acute concerns. She is noted to have sub-optimal blood pressures (SBP ranging mid 80s to 90s) for the past 12 hours. Exam Vital Signs (past 8 hours): - 08/24/19 18:21 08/24/19 20:13 08/24/19 21:35 Temperature 97.2 F L Pulse Rate 83 90 84 Respiratory Rate 15 Blood Pressure 87/58 L 83/58 L Pulse Oximetry 98 97 08/24/19 22:07 Temperature 97.2 F L Pulse Rate 78 Respiratory Rate Blood Pressure Pulse Oximetry 96 Oxygen Delivery Method Nasal Cannula Oxygen Flow Rate 1 Narrative Exam Narrative: Constitutional: NAD, morbidly obese habitus (BMI 47.7) Neurologic: Awake and alert left mouth droop dysarthria present LUE and LLE drift present Head: NC, AT Eyes: right eye ptosis, right eye diminished vision Ears: external ears normal, no otorrhea Nose: external nose normal, no rhinorrhea or epistaxis Throat: MMM, oropharynx w/o exudate Neck: no masses, lymphadenopathy, or JVD Chest / Respiratory: Unlabored respiratory effort, diminished Heart / CV: Irregularly irregular Abdomen / GI: marked central obesity, NT, ND, + BS; difficult to assess for organomegaly d/t large abdominal contour : no suprapubic distention, no CVA Peripheral / Vascular: warm to touch, DP and PT pulses palpable, no edema Musc: full ROM of upper and lower extremities, adequate muscle tone and bulk Skin: or suspicious lesions / ulcers Objective Labs Result Diagrams: 08/24/19 09:17 08/23/19 06:00 Labs: Laboratory Results - last 24 hr 08/24/19 08/24/19 09:17 09:17 WBC 15.4 H RBC 3.69 L Hgb 11.4 L Hct 35.2 L MCV 95.5 MCH 30.9 MCHC 32.4 RDW 18.6 H Plt Count 80 L Neut % (Auto) 76.4 H Lymph % (Auto) 10.9 L [place] % (Auto) 12.2 Eos % (Auto) 0.4 L Baso % (Auto) 0.1 Neut # (Auto) 87915 H Lymph # (Auto) 1700 [place] # (Auto) 1900 H Eos # (Auto) 100 Baso # (Auto) 0 Magnesium 1.6 Assessment & Plan Assessment & Plan narrative: Acute frontal lobe CVA, present on admission, active - MR stroke protocol demonstrated age related volume loss and moderate small vessel ischemic change. Tiny, 7 mm area of acute infarct in the right frontal deep white matter possibly extending minimally to the cortex. Question signal abnormality in the left temporal tip related to remote trauma. Complete opacification of left maxillary sinus. No hemodynamically significant cerebral stenosis, occlusion, or aneurysm. Mild nonflow limiting bilateral internal carotid artery origin stenoses. - CT Head negative for acute intracranial abnormalities w/ exception of cerebral volume loss and chronic microvascular ischemic changes - Presented outside of the window of intervention, hence not a candidate for tPA or clot retrieval - A1C 4.7% - LDL 52, continue atorvastatin 40 mg q.h.s. - Continue Eliquis 5 mg b.i.d. - PT/OT/SP evaluation - Echo pending for 08/25 Diastolic congestive heart failure, chronic, present on admission, active - Morbidly obese habitus, volume status is difficult to assess - CXR suggestive of cardiomegaly, pulmonary edema, pleural effusions - LVEF 65-70% on echo (05/2019) - Continue to diurese w/ furosemide 20 mg QD and spironolactone 12.5 mg QD (dose decreased from 25 mg) - Daily weight. Strict I/Os. - Trend electrolytes w/diuresis and replete accordingly Leukocytosis, acute, present on admission, active - Reasons for leukocytosis not entirely clear, but downward trending - CXR not entirely indicative of pneumonia. UA negative for infection. - No blood cultures have been collected, will hold off at this point - Check PCT Thrombocytopenia, acute, present on admission, active - CBC in am, trend Plt count. No active sx of bleeding. - IV site getting flushed w/ heparin, will stop, saline flush for patency is sufficient Chronic atrial fibrillation, present on admission. Stable. - EKG demonstrated atrial fibrillation with controlled rate and RBBB. - Patient is not currently on rate control medication. Hypertension, chronic, present on admission. Stable. - Continue trending - BP has been sub-optimal, ranging in the mid 80s for most of the day. She appears to be asymptomatic. BP accuracy is questionable d/t arm contour. Checked BP myself at 2342, Left FA 102/56 and Right FA 98/57 - Stop hydralazine 50 mg TID - On Lasix 20 mg QD, will continue - On spironolactone 25 mg QD, will decreased to 12.5 mg QD Morbid obesity, chronic condition, present on admission, active - BMI 47 - Weight reduction, diet, and lifestyle modification encouraged - Dietary consult pending History of aortic stenosis, s/p TAVR, present on admission, stable - ECHO 05/2219, bioprosthetic aortic valve that is well seated and opens well with expected gradient (mean 7.2mmHg) Quality VTE Deep Vein Thrombosis/Pulmonary Embolism Present on Admission: No
[2019-08-25] VITALS (12 sets, daily range): BP systolic 81–102; BP diastolic 55–74; PULSE 78–89; RESP 15–22; TEMP 36.1–36.8; O2SAT 96–100
--- NOTE | 2019-08-25 03:49 | PC.NURSE ---
@ 0208 CGB. 75, requested orange juice, rechecked CBG again @ 0307 86 declined snacks. 2 liters 02/NC SPO2 100%, turned 02 down to 1 liter & SPO2 97%. Pt sleeping most of the shift, will monitor.
[2019-08-25] MEDS: LEVOTHYROXINE 25 MCG TABLET PO (05:57)
[2019-08-25] MEDS: NYSTATIN POWDER 30 GM 1 APPLIC TOP (06:12)
--- NOTE | 2019-08-25 06:15 | PC.NURSE ---
Cleansed abdominal folds & groins with warm water & skin cleanser Phytoplex pat dry & Nystatin powder applied. Using bedpan to void dry all shift.
[2019-08-25 08:33] LABS: Add Manual Diff / Slide Review NO; Basophils Absolute Auto 0 /uL (0-100); Basophils Percent Auto 0.1 % (0-2); Eosinophils Absolute Auto 100 /uL (0-450); Eosinophils Percent Auto 0.8 % (2-4); Hematocrit 32.3 % (36-46); Hemoglobin 10.7 g/dL (12.0-16.0); Lymphocytes Absolute Auto 1400 /uL (1100-4500); Lymphocytes Percent Auto 10.2 % (25-40); Mean Corpuscular Hemoglobin 31.1 PG (26-34); Mean Corpuscular Volume 94.2 fL (80-100); Monocytes Absolute Auto 2100 /uL (0-900); Monocytes Percent Auto 14.9 % (3-14); Neutrophils Absolute Auto 10200 /uL (1500-7000); Platelet Count 79 X10^3/uL (150-400); Red Blood Cell Count 3.43 X10^6/uL (4.0-5.2); Red Cell Distribution Width 18.2 % (11.6-14.8); White Blood Cell Count 13.8 X10^3/uL (4.5-11.0)
[2019-08-25 08:48] LABS: BUN Creatinine Ratio 24.4 (6-22); Blood Urea Nitrogen 22 mg/dL (7-17); Carbon Dioxide 34 mmol/L (22-32); Chloride 102 mmol/L (98-107); Estimated Glomerular Filt Rate 59.8 mL/min (>60); Glucose 92 mg/dL (80-110); HEMOLYSIS < 15 (0-50); Magnesium 1.6 mg/dL (1.6-2.3); Potassium 4.3 mmol/L (3.4-5.1); Sodium 139 mmol/L (137-145)
[2019-08-25 09:01] LABS: Procalcitonin 0.11 ng/mL (<0.5)
--- NOTE | 2019-08-25 09:20 | PT.IPTN ---
Current Diagnoses Cerebral infarction, unspecified (08/23/19) Physical Therapy Treatment Note M2 PT-IP Current Condition Start: 08/23/19 11:51 Freq: NEEDED Status: Active Protocol: Document 08/23/19 09:35 AB (Rec: 08/23/19 12:10 AB [id number]) Physical Therapy Current Condition Current Condition Evaluation Date 08/23/19 Treatment Diagnosis CVA; difficulty in walking Onset Date 08/23/2019 M3 PT-IP Subjective Start: 08/23/19 11:51 Freq: NEEDED Status: Active Protocol: Document 08/25/19 09:20 AB (Rec: 08/25/19 12:08 AB [id number]) Subjective Physical Therapy Visit Type Type Treatment Note Visit Start Time 09:20 Visit Stop Time 09:41 Total Visit Minutes 21 Number of COKE CRUSHER OPERATOR Visits 0 Physical Therapy Visit Comments Patient Comments pt agreeable to do PT M4 PT-IP Mobility and Gait Start: 08/23/19 11:51 Freq: NEEDED Status: Active Protocol: Document 08/25/19 09:20 AB (Rec: 08/25/19 12:08 AB [id number]) PT-Bed Mobility Assessment Supine to Sit Supine to Sit Maximum Assistance,1 Person Assistance,Head of Bed Elevated Scooting Scooting to Edge of Bed Maximum Assistance PT-Transfer Assessment Sit to and From Stand Sit to and from Stand Moderate Assistance,Use of Upper Extremities Equipment Transfer Assistive Device Gait Belt,Front Wheeled Walker Orthotic/Prosthetic Devices or Brace: No Transfers Transfer Destination Chair Comments Mobility Comments pt completed supine to sit max A and max cues with HOB elevated. O2 sat inconsistent and has O2 on at 1/2L/min. pt completed sit to stand mod A and cues and was able to ambulate ~ 5 ft using FWW mod A and cues and pt requested to sit down. (+) SOB and cues provided for deep breathing. attempted to obtain O2 sat but no reading obtained from pulse oximeter. positioned pt on chair. call light and table placed within reach. Gait Assessment Gait Gait Assistance Required: Moderate Assistance Distance (Feet) 5 Able to Maintain Weight Bearing Status Yes During Gait Assistive Devices Assistive Device Gait Belt,Front Wheeled Walker Orthotic/Prosthetic Devices or Brace: No Gait Deviations General Gait Pattern Antalgic,Step-to Gait Factors Limiting Gait Function Factors Limiting Gait Function Decreased Activity Tolerance, Decreased Strength,Limited Range of Motion,Poor Balance, Poor Safety Awareness, Respiratory Distress M5 PT-IP Objective Assessments Start: 08/23/19 11:51 Freq: NEEDED Status: Active Protocol: Document 08/23/19 09:35 AB (Rec: 08/23/19 12:10 AB [id number]) Orientation Orientation/Cognition Level of Alertness Alert Orientation Name Safety Awareness Decreased Safety Awareness Memory Description Short Term Impaired Gross Range of Motion Lower Extremity ROM Assessment Within Functional Limits Strength Lower Extremity Strength Assessment Bilaterally Impaired Comments Strength Comments LLE: 3-/5 RLE: 3+/5 Muscle Tone Muscle Tone WNL Yes M6 PT-IP Treatment Start: 08/23/19 11:51 Freq: NEEDED Status: Active Protocol: Document 08/25/19 09:20 AB (Rec: 08/25/19 12:08 AB [id number]) Physical Therapy Treatment Education Education Provided Safety M7 PT-IP Assessment and Plan Start: 08/23/19 11:51 Freq: NEEDED Status: Active Protocol: Document 08/25/19 09:20 AB (Rec: 08/25/19 12:08 AB [id number]) PT Summary Assessment and Plan Potential Rehabilitation Potential Fair Summary Impairments Pain,ROM,Strength,Balance, Coordination,Sensation,Tone, Cognition,Bed Mobility, Transfers,Gait,Activity Tolerance Progress Towards Goals Slow Progress due to Medical Issues,Slow Progress due to Activity Tolerance Assessment Summary pt requiring mod A with mobility and continues to present with decrease activity tolerance affecting mobility and progress. pt will benefit from SNF rehab to improve strength and function. Goals Bed Mobility Goal Minimal Assistance Transfer Goal Minimal Assistance,Front Wheeled Walker Gait Goal Minimal Assistance,Front Wheel Walker Gait Distance 50 Days to Meet Goals 5 Frequency of Treatment Frequency Of Treatment Twice a Day Treatment Plan Physical Therapy Treatment Plan Bed Mobility Training,Transfer Training,Gait Training, Therapeutic Exercise,Balance Retraining,Discharge Planning, Neuromuscular Re-ed, Coordination Retraining Other Recommendations and Next Treatment ambulation Focus Recommendations To Nursing Amount of Assist Needed 1 Person Assist Discharge Recommendations PT Discharge Recommendations SNF Rehab Transportation Needs at Discharge Wheelchair/Cabulance
[2019-08-25] MEDS: prednisoLONE OPHTH SUSP 1 DROPS EYE-RIGHT (09:43)
[2019-08-25] MEDS: POTASSIUM CHLORIDE 10 MEQ TAB PO (09:46)
[2019-08-25] MEDS: SPIRONOLACTONE 25 MG TABLET 12.5 MG PO (09:46)
[2019-08-25] MEDS: FUROSEMIDE 20 MG TABLET PO (09:47)
[2019-08-25] MEDS: SODIUM CHLORIDE 0.9% FLUSH 10 ML IV ×2 (09:47→21:18)
[2019-08-25] MEDS: ACYCLOVIR 400 MG TABLET PO ×2 (09:47→21:28)
[2019-08-25] MEDS: APIXABAN 5 MG TABLET PO ×2 (09:47→21:27)
--- NOTE | 2019-08-25 11:16 | ST.IPTN ---
JAVA DEVELOPER Treatment Note JAVA DEVELOPER Treatment Note Start: 08/23/19 14:35 Freq: Status: Active Protocol: Document 08/25/19 11:07 TLC (Rec: 08/25/19 11:16 TLC [id number]) Speech Pathology Treatment Note Session Time Visit Start Time 09:30 Visit Stop Time 09:50 Total Visit Minutes 20 Setting Treatment Setting Acute Care Visit Type Note Type Treatment Note Subjective Identification Type Name Observations/Patient Presentation Patient was seen sitting up in the chair in her room with her breakfast tray. Nursing was present administered medication whole which patient swallowed without difficulty. She agreed to participate in speech therapy. Chief Complaint(s) Speech Objective Short Term Goals The patient will demonstrate understanding of speech intelligibility strategies. - GOAL MET Treatment Activities Provided verbal and written dysarthria speaking strategies : overarticulation, respiratory/speaking coordination, checking in with listener for understanding. [place] speech was precise, but slow in rate. She reports this is her baseline, stating she can talk faster but has difficulty thinking of what she wants to say. Observed mild oral residue on corners of her mouth which was undetected by patient. She was unable to clear residue with her tongue, needing washcloth and mirror to clean. Assessment Patient Response to Treatment Good Assessment of Improvement Glad[place] speech is >90% intelligible. She is implementing recommended strategies as educated and is communicating in this setting and on the phone without difficulty. No further speech therapy in the acute setting is warranted at this time. Patient/Caregiver Understanding Good Plan Amount of Therapy Recommended No Further Therapy Therapy Recommendations Discharge from Speech Therapy
--- NOTE | 2019-08-25 16:24 | PT-IP ANOTE ---
pt in bed very groggy and difficult to rouse. Refused stating she was too tired and unable to get up.
--- NOTE | 2019-08-25 16:40 | OT.IPNOTE ---
Attemptd to see pt for OT treatment with PHLEBOTOMY SPECIALIST, Pt states too tired and hurting all over 6/10 pain and not wanting to be seen today and promised to get up tomorrow.
--- NOTE | 2019-08-25 17:42 | DI.ECHO.S_ITS ---
[facility] +---------+ [facility] +---------+ : : [address] : : : : [place], [place] : : : : [id number] : : : : Phone: [phone]+ Echocardiogram Report + + :Name: SHANNAN APPLE Study Date: 08/25/2019 Height: 58 in : :Hospital Weight: 235 lb: : Gender: Female BSA: 2.0 m2 : :: 1935 Age: 84 yrs BP: 95/70 mmHg: :Reason For Study: CVA WITH ATRIAL FIBRILLATION : :Ordering Physician: Valeri : :Hospitalist Performed By: Stephany Wright : :Referring: LENIN CLARKE : + + Interpretation Summary This is a limited echocardiogram focused on the left ventricle, mitral valve and prosthetic aortic valve to rule out embolic source for CVA. Left ventricular systolic function is normal without focal wall motion abnormalities with the ejection fraction is estimated to be 60 to 70% with considerable dgln-lr-pbgg variability and appears unchanged compared to the previous study. No obvious thrombus is identified. There is moderate mitral annular calcification with a 1.4 x 0.4 cm pedunculated echogenic mobile structure attached to the atrial side of the posterior mitral valve annulus. This could reflect a mobile piece of annular calcification although was not seen on the previous exam. Alternatively, this could represent a thrombus or vegetation, although its position would more favor the former more than the latter. Clinical correlation is recommended. There is moderate mitral regurgitation that appears more prominent compared to the previous study. There is a bioprosthetic aortic valve that is not well visualized but appears to be well-seated and grossly normal without no obvious thrombus or vegetation. There is no obvious aortic regurgitation. Procedure: A two-dimensional transthoracic echocardiogram with color flow and Doppler was performed in limited views only. The study quality was technically adequate. Definity contrast was attempted to further assess for thrombus; however, 3.5 cc was pushed and it failed to show up in the heart. Contrast use was aborted. Comparison is made with the echocardiogram of 06/16/2019. The patient was in atrial fibrillation with heart rates between 74-93 bpm during the exam. Left Ventricle: The left ventricle is grossly normal size. There is no thrombus. Left ventricular systolic function is normal without focal wall motion abnormalities. Left ventricular ejection fraction is estimated to be 60 to 70% with considerable iebt-xf-wqja variability. This is unchanged compared to the previous study. Mitral Valve: The mitral valve leaflets appear mildly thickened, but open well. There is moderate mitral annular calcification. There is a 1.4 x 0.4 cm pedunculated echogenic mobile structure attached to the atrial side of the posterior mitral valve annulus. This could reflect a mobile piece of annular calcification although was not seen on the previous exam. Alternatively, this could represent a thrombus or vegetation, although its position would more favor the former more than the latter. Clinical correlation is recommended. There is moderate mitral regurgitation. This is more compared to the previous study. Aortic Valve: The aortic valve is grossly normal. There is a bioprosthetic aortic valve. The prosthetic aortic valve is not well visualized. The prosthetic aortic valve is well-seated. There is no obvious thrombus on the prosthetic aortic valve. MMode/2D Measurements & Calculations LVIDd: 4.7 cm LVIDs: 3.0 cm FS: 35.4 % IVSd: 1.1 cm LVPWd: 1.0 cm LV green. diameter/BSA (cm/m^2): 2.4 LV sys. diameter/BSA (cm/m^2): 1.6 Reading Physician:JOSR
--- NOTE | 2019-08-25 20:10 | P.PN_ITS ---
Subjective Subjective Date Patient Seen: 08/25/19 Interval history: Patient is 84-year-old female admitted due to acute CVA likely embolic from atrial fibrillation. She notes residual left-sided weakness. Limited echo today concerning for thrombus on mitral valve versus a vegetation. She has been afebrile. Exam Vital Signs (past 8 hours): - 08/25/19 12:20 08/25/19 14:55 08/25/19 16:39 Temperature 96.9 F L Pulse Rate 79 80 Respiratory Rate 18 Blood Pressure 84/59 L 81/55 L Pulse Oximetry 100 99 Oxygen Delivery Method Nasal Cannula Oxygen Flow Rate 0.5 Narrative Exam Narrative: General: Alert pleasant and in no acute distress Lungs: Clear to auscultation Heart: Irregularly irregular rhythm Extremities: No edema Neurological: LUE and LLE drift present but does not hit bed Objective Labs Result Diagrams: 08/25/19 08:17 08/25/19 08:17 Labs: Laboratory Results - last 24 hr 08/25/19 08/25/19 08/25/19 08:17 08:17 08:17 WBC 13.8 H RBC 3.43 L Hgb 10.7 L Hct 32.3 L MCV 94.2 MCH 31.1 MCHC 33.0 RDW 18.2 H Plt Count 79 L Neut % (Auto) 74.0 Lymph % (Auto) 10.2 L [place] % (Auto) 14.9 H Eos % (Auto) 0.8 L Baso % (Auto) 0.1 Neut # (Auto) 21596 H Lymph # (Auto) 1400 [place] # (Auto) 2100 H Eos # (Auto) 100 Baso # (Auto) 0 Sodium 139 Potassium 4.3 Chloride 102 Carbon Dioxide 34 H BUN 22 H Creatinine 0.90 Estimated GFR 59.8 L BUN/Creatinine Ratio 24.4 H Glucose 92 Calcium 9.0 Magnesium 1.6 Procalcitonin 0.11 Assessment & Plan Assessment & Plan narrative: Acute embolic frontal lobe CVA, present on admission, active -likely embolic due to reduction in her Eliquis dose during last admission when she had worsening renal function - MR stroke protocol demonstrated age related volume loss and moderate small vessel ischemic change. Tiny, 7 mm area of acute infarct in the right frontal deep white matter possibly extending minimally to the cortex. Question signal abnormality in the left temporal tip related to remote trauma. No hemodynamically significant cerebral stenosis, occlusion, or aneurysm. Mild nonflow limiting bilateral internal carotid artery origin stenoses. -limited echo 08/25/2019 with a 1.4 x 0.4 cm pedunculated echogenic mobile structure attached to atrial side of posterior mitral valve, not seen on previous recent echo, could be calcification but in setting of acute stroke most likely a thrombus, cannot rule out vegetation - LDL 52, continue atorvastatin 40 mg q.h.s. - Continue Eliquis which has been increased to 5 mg b.i.d. - PT/OT/SP evaluation -blood cultures to rule out endocarditis emboli as cause of CVA Diastolic congestive heart failure, chronic, present on admission, active - Morbidly obese habitus, volume status is difficult to assess - CXR suggestive of cardiomegaly, pulmonary edema, pleural effusions, however blood pressures have been low - LVEF 65-70% on echo (05/2019) - Continue to diurese w/ furosemide 20 mg po QD and spironolactone 12.5 mg QD (dose decreased from 25 mg) - Daily weight. Strict I/Os. - Trend electrolytes w/diuresis and replete accordingly Leukocytosis, acute, present on admission, active - Reasons for leukocytosis not entirely clear, but downward trending - CXR not entirely indicative of pneumonia. UA negative for infection, procalcitonin normal. -blood cultures sent on 08/25/2019 to rule out bacterial endocarditis (see echo report) Thrombocytopenia, acute, present on admission, active -unclear etiology -platelets trending down. No active sx of bleeding. -saline flush for IV -CBC in a.m. Chronic atrial fibrillation, present on admission. Stable. - EKG demonstrated atrial fibrillation with controlled rate and RBBB. - Patient is not currently on rate control medication. Hypertension, chronic, present on admission. Stable. -complicated by hypotension probably due to poor fluid intake - BP has been sub-optimal, ranging in the mid 80s for most of the day. She appears to be asymptomatic. BP accuracy is questionable d/t arm contour. Checked BP myself at 2342, Left FA 102/56 and Right FA 98/57 -patient's hydralazine was discontinued - On Lasix 20 mg QD, - On spironolactone 25 mg QD, decreased to 12.5 mg QD Morbid obesity, chronic condition, present on admission, active - BMI 47 - Weight reduction, diet, and lifestyle modification encouraged -History of aortic stenosis, s/p TAVR, present on admission, stable Patient needs ongoing inpatient care and will discharge back to [facility] for rehab once medically stable. She had been at SNF for the past month since her last admission. Quality VTE Deep Vein Thrombosis/Pulmonary Embolism Present on Admission: No
[2019-08-25] MEDS: ATORVASTATIN 20 MG TABLET 40 MG PO (21:27)
[2019-08-26] VITALS (8 sets, daily range): BP systolic 69–112; BP diastolic 45–71; PULSE 85–94; RESP 12–20; TEMP 36–36.9; O2SAT 88–96
[2019-08-26 05:50] LABS: Add Manual Diff / Slide Review NO; Basophils Absolute Auto 0 /uL (0-100); Basophils Percent Auto 0.3 % (0-2); Eosinophils Absolute Auto 200 /uL (0-450); Eosinophils Percent Auto 1.3 % (2-4); Hematocrit 30.7 % (36-46); Lymphocytes Absolute Auto 1600 /uL (1100-4500); Lymphocytes Percent Auto 12.7 % (25-40); Mean Corpuscular HGB Conc 32.7 % (30-36); Mean Corpuscular Volume 94.9 fL (80-100); Monocytes Absolute Auto 2000 /uL (0-900); Monocytes Percent Auto 15.9 % (3-14); Neutrophils Absolute Auto 8900 /uL (1500-7000); Neutrophils Percent Auto 69.8 % (50-75); Platelet Count 80 X10^3/uL (150-400); Red Blood Cell Count 3.23 X10^6/uL (4.0-5.2); Red Cell Distribution Width 18.9 % (11.6-14.8); White Blood Cell Count 12.7 X10^3/uL (4.5-11.0)
[2019-08-26] MEDS: LEVOTHYROXINE 25 MCG TABLET PO (06:24)
[2019-08-26 06:59] LABS: Vancomycin-rest genes A/B Not Detected (Not Detect)
[2019-08-26 07:00] LABS: Enterococcus species Detected (Not Detect); Listeria monocytogenes Not Detected (Not Detect); Staphylococcus species Not Detected (Not Detect)
[2019-08-26 07:01] LABS: Acinetobacter baumannii Not Detected (Not Detect); Candida albicans Not Detected (Not Detect); Candida glabrata Not Detected (Not Detect); Candida krusei Not Detected (Not Detect); Candida parapsilosis Not Detected (Not Detect); Candida tropicalis Not Detected (Not Detect); E. coli Not Detected (Not Detect); Enterobacter cloacae complex Not Detected (Not Detect); Enterobacteriaceae species Not Detected (Not Detect); Haemophilus influenzae Not Detected (Not Detect); Neisseria meningitidis Not Detected (Not Detect); Proteus species Not Detected (Not Detect); Pseudomonas aeruginosa Not Detected (Not Detect); Serratia marcescens Not Detected (Not Detect); Streptococcus agalactiae (Gr B Not Detected (Not Detect); Streptococcus pneumonia Not Detected (Not Detect); Streptococcus pyogenes (Gr A) Not Detected (Not Detect); Streptococcus species Not Detected (Not Detect)
[2019-08-26] MEDS: VANCOMYCIN 1,000 MG/200 ML PIGGYBACK 200 MG IV (09:20)
[2019-08-26] MEDS: ACYCLOVIR 400 MG TABLET PO (09:25)
[2019-08-26] MEDS: FUROSEMIDE 20 MG TABLET PO (09:26)
[2019-08-26] MEDS: SPIRONOLACTONE 25 MG TABLET 12.5 MG PO (09:26)
[2019-08-26] MEDS: ACETAMINOPHEN 325 MG TABLET 650 MG PO (09:26)
[2019-08-26] MEDS: POTASSIUM CHLORIDE 10 MEQ TAB PO (09:26)
[2019-08-26] MEDS: SODIUM CHLORIDE 0.9% FLUSH 10 ML IV (09:28)
[2019-08-26] MEDS: prednisoLONE OPHTH SUSP 1 DROPS EYE-RIGHT (09:28)
[2019-08-26] MEDS: APIXABAN 5 MG TABLET PO (10:44)
[2019-08-26] MEDS: AMPICILLIN 2,000 MG in SODIUM CHLORIDE 0.9% 100 ML 200 ML IV (10:44)
--- NOTE | 2019-08-26 11:13 | PT.IPTN ---
Current Diagnoses Cerebral infarction, unspecified (08/23/19) Physical Therapy Treatment Note M2 PT-IP Current Condition Start: 08/23/19 11:51 Freq: NEEDED Status: Active Protocol: Document 08/23/19 09:35 AB (Rec: 08/23/19 12:10 AB [id number]) Physical Therapy Current Condition Current Condition Evaluation Date 08/23/19 Treatment Diagnosis CVA; difficulty in walking Onset Date 08/23/2019 M3 PT-IP Subjective Start: 08/23/19 11:51 Freq: NEEDED Status: Active Protocol: Document 08/26/19 12:47 LJ (Rec: 08/26/19 12:48 LJ [id number]) Subjective Physical Therapy Visit Type Type Patient Refusal M4 PT-IP Mobility and Gait Start: 08/23/19 11:51 Freq: NEEDED Status: Active Protocol: Document 08/26/19 11:13 AB (Rec: 08/26/19 13:35 AB [id number]) PT-Bed Mobility Assessment Supine to Sit Supine to Sit Maximum Assistance,1 Person Assistance,Head of Bed Elevated,Bedrails PT-Transfer Assessment Sit to and From Stand Sit to and from Stand Maximum Assistance,1 Person Assistance,2 Person Assistance ,Use of Upper Extremities Equipment Transfer Assistive Device Gait Belt,Front Wheeled Walker Orthotic/Prosthetic Devices or Brace: No Transfers Transfer Destination Chair Transfer Technique Stand Step Pivot Transfer Ability Level of Assist Maximum Assistance,1 Person Assistance,2 Person Assistance ,Use of Upper Extremities Comments Mobility Comments pt completed supine to sit with HOB elevated max A and cues. pt was able to sit on EOB requiring min A to bring trunk forwards. (+) SOB. O2 sat 92% HR 106 bpm. pt has O2 on. pt required max A for scooting to the EOB. pt completed sit to stand max A and max cues, ambulated ~ 2 ft but has to sit down. used FWW max A and cues. attempted a 2nd walk but pt was only able to stand for a few seconds and has to sit back down. positioned p ton the chair. call light and table placed within reach. left pt with daughter in room. Gait Assessment Gait Gait Assistance Required: Maximum Assistance,1 Person Assist Distance (Feet) 2 Able to Maintain Weight Bearing Status Yes During Gait Assistive Devices Assistive Device Gait Belt,Front Wheeled Walker Orthotic/Prosthetic Devices or Brace: No Gait Deviations General Gait Pattern Antalgic,Decreased Stride Length,Decreased Feet Clearance,Flexed Trunk Factors Limiting Gait Function Factors Limiting Gait Function Decreased Activity Tolerance, Decreased Sensation,Decreased Strength,Difficulty Following Directions,Limited Range of Motion,Pain,Poor Balance,Poor Safety Awareness,Respiratory Distress Comments Gait Comments pls refer to mobility section for details M5 PT-IP Objective Assessments Start: 08/23/19 11:51 Freq: NEEDED Status: Active Protocol: Document 08/23/19 09:35 AB (Rec: 08/23/19 12:10 AB [id number]) Orientation Orientation/Cognition Level of Alertness Alert Orientation Name Safety Awareness Decreased Safety Awareness Memory Description Short Term Impaired Gross Range of Motion Lower Extremity ROM Assessment Within Functional Limits Strength Lower Extremity Strength Assessment Bilaterally Impaired Comments Strength Comments LLE: 3-/5 RLE: 3+/5 Muscle Tone Muscle Tone WNL Yes M6 PT-IP Treatment Start: 08/23/19 11:51 Freq: NEEDED Status: Active Protocol: Document 08/26/19 11:13 AB (Rec: 08/26/19 13:35 AB [id number]) Physical Therapy Treatment Education Education Provided Safety M7 PT-IP Assessment and Plan Start: 08/23/19 11:51 Freq: NEEDED Status: Active Protocol: Document 08/26/19 11:13 AB (Rec: 08/26/19 13:35 AB [id number]) PT Summary Assessment and Plan Potential Rehabilitation Potential Good Summary Impairments Pain,ROM,Strength,Balance, Coordination,Sensation,Tone, Cognition,Bed Mobility, Transfers,Gait,Activity Tolerance Progress Towards Goals Slow Progress due to Medical Issues,Slow Progress due to Activity Tolerance Assessment Summary pt requiring increase assistance today complared to yesterdays. pt will need SNF rehab to improve strength and mobility. PT tx frequency will be changed to once a day as pt is not tolerating much activity. has attempted to see pt for 2x for the last few days but all unsuccessful with pt's refusal due to fatigue. will continue to assess progress and if able to tolate more PT tx activity will change back to twice a day. Goals Bed Mobility Goal Minimal Assistance Transfer Goal Minimal Assistance,Front Wheeled Walker Gait Goal Minimal Assistance,Front Wheel Walker Gait Distance 50 Days to Meet Goals 5 Frequency of Treatment Frequency Of Treatment Once a Day Treatment Plan Physical Therapy Treatment Plan Bed Mobility Training,Transfer Training,Gait Training, Therapeutic Exercise,Balance Retraining,Discharge Planning, Neuromuscular Re-ed, Coordination Retraining Other Recommendations and Next Treatment ambulation Focus Recommendations To Nursing Amount of Assist Needed 2 Person Assist Discharge Recommendations PT Discharge Recommendations SNF Rehab Transportation Needs at Discharge Wheelchair/Cabulance
--- NOTE | 2019-08-26 11:43 | OT.IP.TRT ---
Current Diagnoses Cerebral infarction, unspecified (08/23/19) Occupational Therapy Treatment Note M2 OT-IP Current Condition Start: 08/24/19 08:48 Freq: Status: Active Protocol: Document 08/23/19 14:54 PJM (Rec: 08/24/19 09:16 PJM [id number]) Occupational Therapy Current Condition Current Condition Evaluation Date 08/23/19 Treatment Diagnosis stroke with improving L side weakness, decreased indep ADLs , mobility Diagnosis Onset Date 08/23/19 Post Operative Precautions Other Precautions fall risk M3 OT- IP Subjective and Pain Start: 08/24/19 08:48 Freq: Status: Active Protocol: Document 08/26/19 12:06 CCC (Rec: 08/26/19 12:16 [facility] [id number]) OT- Subjective Occupational Therapy Visit Type Type Treatment Note Visit Start Time 11:50 Visit Stop Time 12:04 Total Visit Minutes 14 Occupational Therapy Visit Comments Patient Comments Pt states just completed PT and tired but willing to do grooming needs while sitting from the recliner. Patient/Caregiver Goals To go back to rehab and get strong enough to go home OT Pain Assessment Pain When Pain Assessed During Mobility Pain Present Pain Present Pain Reported M4 OT- IP ADL's Start: 08/24/19 08:48 Freq: Status: Active Protocol: Document 08/26/19 12:06 CCC (Rec: 08/26/19 12:16 [facility] [id number]) OT [id number] Comments OT Self-Feeding Comments Able to prop /position pt into more upright position while sitting in the recliner with legs up. Therefore to help increase posture for self- feeding. OT ADL-Grooming General Evaluation Grooming Ability Minimal Assistance Areas Needing Assistance Retrieving/Set-up of Grooming Items,Combing/Brushing Hair Comments OT Grooming Comments Pt needing support at her elbow for BUE so able to reach back to comb the back of her hair. Able to roll a towel and place underneath her elbows to increase ease for self-feeding. Pt needing assist to open film on the toothbrush. OT ADL-Oral Care General Eval Oral Care Ability Independent M5 OT- IP IADL's Start: 08/24/19 08:48 Freq: Status: Active Protocol: Document 08/23/19 14:54 PJM (Rec: 08/24/19 09:16 PJM [id number]) OT-Instrumental Activities of Daily Living Deficits IADL Deficits Identified Deficits Home Safety Awareness Awareness of Need for Assistance at Home Good Awareness Home Safety Comments pt has assist with all IADLS from family at home and caregivers at SNF Medication Management Medication Management Caregiver Administers Money Management Money Management Caregiver Provides Supervision Meal Preparation Meal Preparation Caregiver Provides Assist Public Health Internship Public Health Internship Caregiver Provides Assist Driving Driving Caregiver Provides Assist M6 OT- IP Functional Cognition Start: 08/24/19 08:48 Freq: Status: Active Protocol: Document 08/26/19 12:06 [facility] (Rec: 08/26/19 12:16 [facility] [id number]) Cognitive Factors Limiting Selfcare Function Cognitive Ability Level of Alertness Alert Patient Orientation Name,Month,Date,Year,Place, Situation Attention Span Ability Capable of Focused Attention, Capable of Sustained Attention Ability to Follow Commands Able to Follow One Step Commands Cognitive Comments Cognitive Assessment Comments Pt pleasant. cooperative and able to follow directions for grooming needs. M7 OT- IP Mobility and Balance Start: 08/24/19 08:48 Freq: Status: Active Protocol: Document 08/24/19 11:45 PJM (Rec: 08/24/19 12:25 PJM [id number]) OT-Transfer Assessment Comments Mobility Comments pt able to use BUE's on armrests to lean forward and scoot back in recliner with min assist OT- Balance Assessment Sitting Balance and Reactions Static Sitting Balance Ability Good Dynamic Sitting Balance Ability Good M8 OT- IP Objective Assessments Start: 08/24/19 08:48 Freq: Status: Active Protocol: Document 08/23/19 14:54 PJM (Rec: 08/24/19 09:16 PJM [id number]) OT Gross Range of Motion Upper Extremity Range of Motion Assessment Bilaterally Impaired ROM Impairments Pt has significant arthritis with pain and crepitus in B shoulders. B shoulder scaption limited to ~80 degrees on B shoulders. Distal AROM AFL distally. OT Strength Upper Extremity Strength Assessment Left Impaired Hand Nurse Technician Strength Hand Dominance Right Comments Strength Comments Pt does not tolerate MMT to shoulders due to pain and crepitus. Pt appears slightly weaker in non dominant LUE compared to R, but using LUE and hand consistently as assist for self care tasks. OT- Coordination Assessment Comments Coordination Comments LUE appears WFL for self care. Pt able to use L hand to hold brush and brush L side eof hair. OT-Muscle Tone Assessment Muscle Tone WNL Yes OT Sensation Assessment Comments Summary Comments Pt detects lt touch throughout LUE and hand and denies any changes in sensation. M9 OT- IP Assessment and Plan Start: 08/24/19 08:48 Freq: Status: Active Protocol: Document 08/26/19 12:06 [facility] (Rec: 08/26/19 12:16 [facility] [id number]) OT Summary Assessment and Plan Potential Rehabilitation Potential Good Summary Progress Towards Goals Progressing Toward Goals,Slow Progress due to Activity Tolerance Assessment Summary Pt more alert today and cooperative. Pt will benefit to return to skilled rehab when medically ready. Goals Grooming Goal Standby Assistance Dressing Goal Minimal Assistance Toileting Goal Moderate Assistance Bathing Goal Moderate Assistance Toilet Transfer Goal Moderate Assistance,Bedside Commode OT-Other Goals Bathing goal is for upper body sponge bath seated in chair. Days to Meet Goals 5 Frequency of Treatment Frequency Of Treatment Once a Day Treatment Plan OT Treatment Plan ADL Training,Functional Mobility,Patient/Family Education,Discharge Planning Discharge Recommendations OT Discharge Recommendations SNF Rehab Home Equipment Needs to be determined pending progress in next rehab setting
[2019-08-26] MEDS: GENTAMICIN 100 MG in SODIUM CHLORIDE 0.9% 100 ML 102.5 ML IV (14:47)
--- NOTE | 2019-08-26 15:04 | PM.DS.1 ---
History of Present Illness History of Present Illness Chief complaint: stroke Narrative: Kristen Dsouza is an 83-year-old female with a history of coronary artery disease status post stenting, aortic stenosis status post TAVR, diastolic CHF, chronic atrial fibrillation on Eliquis, hypertension, chronic kidney disease stage 3, and hypothyroidism who presented to the ED from senior care facility for left-sided hemiparesis and dysarthria. Last known normal at 0200 hours. Patient reports she awoke with diarrhea. She called nursing staff to bedside and was noted to have dysarthria with slurred speech, left sided facial droop, and left sided hemiparesis. EMS was called. She was noted to have a NIH score of 13 in ED. [facility] neurology was contacted and patient was not candidate for tPA or clot retrival due to outside the window and on anticaogulation. The patien't symptoms seem to be resolving and she has residual mild dysarthria and left lower extremity weakness. She reports severe headache several days ago that isnow resolved. She endorses fatigue. She denies vision changes, lightheadedness, dizziness, headache, shortness of breath, chest pain, abdominal pain, nausea, vomiting, fever, chills, dysuria or consitpation. She has had mild diarrhea. She is admitted inpatient for acute CVA. Discharge Providers Provider Date of admission: 08/23/19 06:56 Discharge Date: 08/26/19 Primary care physician: Amanda Mann MD Consults: 08/23/19 08:30 Consult to Occupational Therapy Evaluate & Treat Comment: Physician Instructions: Evaluate and treat Consult to Physical Therapy Evaluate & Treat Comment: Physician Instructions: Evaluate and Treat Consult to Speech Therapy Evaluate & Treat Comment: Physician Instructions: Evaluate and treat 08/23/19 11:25 Consult to Dietitian, Adult Routine Comment: Reason For Exam: quinn score 15 Discharge provider: Gadiel Hayden MD Summary Hospital Course Discharge Diagnosis: 1. 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 Enterococcus bacteremia, sensitivities pending from culture 08/25/2019 4. status post TAVR October 2017 in [facility] 5. Chronic atrial fibrillation 6. Chronic anticoagulation with Eliquis 7. thrombocytopenia 8. severe obesity, BMI 47 9. SIRS Hospital Course: 1. Patient was admitted on 08/23/2019 due to acute CVA. Neurologically she has made fairly good recovery from the stroke with just mild left upper and left lower extremity drift on exam, no dysarthria. MR stroke protocol showed a 7 mm area of acute infarction in the right frontal lobe deep white matter possibly extending minimally to the cortex. Question signal abnormality in the left temporal tip related to remote trauma. No hemodynamically significant cerebral stenosis, occlusion, or aneurysm. Mild nonflow limiting bilateral internal carotid artery origin stenoses. Initially we thought her stroke was due to atrial fibrillation since her Eliquis dose had been reduced last admission when her creatinine bumped up. However a limited echo performed on 08/25/2019 revealed a mobile echogenic mass measuring 1.4 cm x 0.4 cm on the atrial side of the posterior mitral valve. This looks very suspicious for a valvular vegetation. Her previous echo on 06/16/2019 showed normal LV, normal RV, severely dilated left atrium, bioprosthetic aortic valve that looked stable and there was no mitral valve abnormality noted on that echo. She has history of TAVR in October 2017 which was done in [facility]. Patient subsequently had blood cultures drawn which came back positive for Enterococcus in 2 of 2 bottles. The final sensitivities are pending. Urinalysis was not indicative of infection. The source and duration of enterococcal bacteremia is unclear to me. She was admitted middle of last month due to weakness and the thought possibly she had a pneumonia but this was a very equivocal diagnosis. She had mildly elevated WBC 13.3 but did not have fever. She is currently on vancomycin 1000mg q18h last dose 8am today and gentamicin 100mg q8h for synergy pending abx sensitivities. She has had persistent leukocytosis with WBC 19 on admit but was drifting down on its own prior to initiation of antibiotic. Her procalcitonin was only 0.11. She has remained afebrile throughout this hospital stay. Patient is being transferred to [facility] for further care including cardiothoracic surgery and infectious disease consultation. 2. On her vitals her blood pressures have been persistently low during this admission in the 80 systolic. She does not seem symptomatic from the low BP which may be due to SIRS associated with SBE. We had thought it was due to the size of the cuff around her arms which are rather flabby. We stopped her hydralazine which did not make a difference in her blood pressures. We kept her on low-dose of furosemide 20 mg by mouth daily and spironolactone 12.5 mg daily due to appearance of pulmonary edema on her x-ray. On limited echo her LVEF was 60-65%. 3. Chronic AFib, she is rate controlled and on Eliquis 5 mg b.i.d. for anticoagulation. Eliquis dose was increased back to her previous dose on this admission due to presentation of stroke. 4. Thrombocytopenic. Her platelet counts have been hovering around 80,000 during this admission. Baseline platelet count was 112,000 on 07/17/2019 and 188,000 on 07/04/2019. I wonder if this may be due to SIRS associated with subacute bacterial endocarditis. Patient is able to participate in decision making and her daughter has been with her during her hospital stay and also able to participate in decision making. They agree to transfer to tertiary [facility] for further evaluation and management of endocarditis. Exam Vital Signs (past 8 hours): Oxygen Delivery Method Room Air Oxygen Flow Rate 0.5 Objective Labs Result Diagrams: 08/26/19 05:20 08/25/19 08:17 Labs: Laboratory Results - last 24 hr 08/25/19 08/26/19 14:35 05:20 WBC 12.7 H RBC 3.23 L Hgb 10.0 L Hct 30.7 L MCV 94.9 MCH 31.0 MCHC 32.7 RDW 18.9 H Plt Count 80 L Neut % (Auto) 69.8 Lymph % (Auto) 12.7 L [place] % (Auto) 15.9 H Eos % (Auto) 1.3 L Baso % (Auto) 0.3 Neut # (Auto) 8900 H Lymph # (Auto) 1600 [place] # (Auto) 2000 H Eos # (Auto) 200 Baso # (Auto) 0 A. baumannii (PCR) Not detected Anna albicans (PCR) Not detected C. glabrata (PCR) Not detected C. krusei (PCR) Not detected C. parapsilosis (PCR) Not detected C. tropicalis (PCR) Not detected Enterobacteriac sp PCR Not detected E. cloacae complex PCR Not detected Enterococcus sp PCR Detected H E. coli (PCR) Not detected H. influenzae (PCR) Not detected Klebsiella oxytoca PCR Not detected Klebsiella pneumoniae Not detected List. monocytogenes PCR Not detected N. meningitidis (PCR) Not detected Proteus species (PCR) Not detected Serratia marcescens PCR Not detected Staphylococcus sp PCR Not detected Staph aureus (PCR) Not detected mecA-Methicil Res Gene Not Reportable Streptococcus sp PCR Not detected Group A Strep (PCR) Not detected Strep agalactiae (PCR) Not detected Strep pneumoniae (PCR) Not detected P. aeruginosa (PCR) Not detected Dede/B-Vanco Res Genes Not detected KPC-Carbap Res Gene PCR Not Reportable Discharge Plan Discharge Plan Patient Disposition: [facility] Other facility: [facility] Discharge orders & Medications Follow up/Referrals: Amanda Mann MD [Primary Care Provider] - Discharge Health Status Multidrug resistant organism: No MDRO Precautions: [place] Diet/Activity/Treatments Diet: Diet as Tolerated Liquid consistency: Normal/Thin Food texture: Regular Discharge Data Primary Care Provider: Amanda Mann Quality VTE Deep Vein Thrombosis/Pulmonary Embolism Present on Admission: No
== END 2019-08-26 18:00 | disposition short-term general hospital (02) | DRG 64 ==
LOC: ED 06:41 → AC 06:57
PROVIDERS: Internal Medicine; Nurse Practitioner Gerontology; Admitting Provider Nurse Practitioner Adult Health; Emergency Provider Emergency Medicine; PCP Internal Medicine; Referring Provider Emergency Medicine; Visit Provider Nurse Practitioner Adult Health
DX: I63.40 Cerebral infarction due to embolism of unspecified cerebral artery (principal); I33.0 Acute and subacute infective endocarditis; G81.94 Hemiplegia, unspecified affecting left nondominant side; I13.0 Hypertensive heart and chronic kidney disease with heart failure and stage 1 through stage 4 chronic kidney disease, or unspecified chronic kidney disease; I48.20 Chronic atrial fibrillation, unspecified; Z68.42 Body mass index [BMI] 45.0-49.9, adult; I50.32 Chronic diastolic (congestive) heart failure; R78.81 Bacteremia; I51.3 Intracardiac thrombosis, not elsewhere classified; D69.6 Thrombocytopenia, unspecified; R47.1 Dysarthria and anarthria; R29.713 NIHSS score 13; E66.01 Morbid (severe) obesity due to excess calories; I25.10 Atherosclerotic heart disease of native coronary artery without angina pectoris; N18.3 Chronic kidney disease, stage 3 (moderate); F32.9 Major depressive disorder, single episode, unspecified; Z79.01 Long term (current) use of anticoagulants; E03.9 Hypothyroidism, unspecified; Z95.2 Presence of prosthetic heart valve; B95.2 Enterococcus as the cause of diseases classified elsewhere
CPT/HCPCS: 36415; 70450; 70548; 70553; 71045; 80048; 80053; 80061; 81001; 82140; 82962; 83036; 83690; 83735; 84145; 84146; 85025; 85610; 85730; 87040; 87150; 87186; 87205; 92507; 92523; 92610; 93005; 93307; 93971; 94760; 96374; 97162; 97165; 97530; 97535; 99285; A9579; J0290; J1642; J2060; Q9957